=== PATIENT | female | born 1960 | race Caucasian/White ===

== ENCOUNTER → 2016-02-29 | Outpatient (CLI) | payer OTHER ==
[~2016-02-29] MED LIST: ALPR1TAB3 PO; CLB/200 PO; CMD/25 PO; CMD5 PO; DLC5 PO; DRGTP12 TOP; ENOX80IN SQ; FEXO1TAB45 PO; FLUC200T PO; FLUT0.15 NAE; FNTTP25 TOP; LVNIS60 SQ; MOMLX PO; MRLP17X PO; ONDA8TAB7 PO; PANT40TA PO; POLY335019 PO; PROC1TAB5 PO; QUET1TAB91 PO; SNK PO; TRAM-10 PO; VENL75CA PO; WARF5TAB7 PO; ZOLP10TA PO
--- NOTE | 2016-02-29 10:48 | DIAGNOSTIC IMAGING REPORT ---
CT OF THE CHEST WITH IV CONTRAST CLINICAL HISTORY: Colon carcinoma with hepatic metastasis COMPARISON STUDY: Outside CT scan the chest abdomen pelvis dated 12/18/2015 TECHNIQUE: Following the IV administration of 94 mL of Optiray-320, CT of the thorax was performed from the thoracic inlet to the lung bases. Images are reviewed in the axial, sagittal, and coronal planes. IV contrast was administered without complication. CT DOSE: 528.23 mGy.cm FINDINGS: There is a right internal jugular A-Port catheter. Thyroid: Imaged portions of the thyroid gland are normal in appearance. Thoracic aorta: The thoracic aorta is normal in course and caliber, noting standard 3-vessel arch anatomy. No aneurysm or dissection is seen. Pulmonary vasculature: There is a right lower lobe pulmonary filling defect, consistent with a small embolus. HEART: The heart is normal in size and configuration, without pericardial effusion. Lungs and pleural spaces: There are no pleural effusions. There is no focal pulmonary consolidation. There is scattered tiny right upper lobe pulmonary nodules, the largest of which measures 3 mm. These remain similar to the preceding study.. Mediastinum: There is no mediastinal lymphadenopathy. Caren: Clear. Axilla: There are no pathologically enlarged axillary lymph nodes. Upper abdomen: There is ascites. There is peritoneal thickening. There are multiple intrahepatic masses suspicious for metastasis. There is evidence for capsular retraction of the liver. The enhancing portion of the spleen is quite lobulated and appears be liquefaction three quarters of the splenic volume. This may be secondary to a prior splenic infarction. Please see separate abdominal pelvic dictation for further discussion. Skeletal structures: There are no lytic or blastic osseous lesions. IMPRESSION: 1. Incidental small right lower lobe pulmonary artery filling defect, consistent with a pulmonary embolism. This finding will be called to the referring clinician 2. No evidence of pathologic adenopathy within the chest abdomen or pelvis 3. Nonspecific subcentimeter right upper lobe pulmonary nodules, the largest of which measures 3 mm. 4. Ascites 5. Suspected treated intrahepatic metastasis with capsular retraction of the liver 6. Unusual appearance of the spleen raising the possibility of right or infarction with liquefaction necrosis. Electronically signed by: Darwin Rivera M.D. 02/29/2016 10:46 AM Dictated Date/Time: 02/29/2016 10:36 AM
--- NOTE | 2016-02-29 10:55 | DIAGNOSTIC IMAGING REPORT ---
CT SCAN OF THE ABDOMEN AND PELVIS WITH IV CONTRAST CLINICAL HISTORY: Colon cancer. COMPARISON STUDY: Abdominal CT dated 12/23/2014 and 12/18/2015. TECHNIQUE: Following the IV administration of 94 cc of Optiray 320, CT scan of the abdomen and pelvis is performed from the lung bases to the proximal femora. Images are reviewed in the axial, sagittal, and coronal planes. IV contrast was administered without complication. Automated dose control exposure was utilized. FINDINGS: Lung bases: The heart is normal in size and without pericardial effusion. The lung bases are clear. Liver: The contrast-enhanced liver is normal in size. There is marked lobulation of the hepatic surface contour with geographic foci of low attenuation. This is nearly water density and is consistent with treated metastatic disease when correlated with prior examinations. There is no intrahepatic biliary ductal dilatation. The portable veins are patent. The right and left hepatic veins are markedly attenuated. Gallbladder: Surgically absent noting clips in the gallbladder fossa. Spleen: The spleen is abnormal in appearance. There is extensive geographic splenic necrosis. The splenic capsule appears intact. 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 The splenic vein is patent. The splenic artery is patent proximally but appears markedly attenuated. Pancreas: Unremarkable. Adrenal glands: Unremarkable. Kidneys: The contrast enhanced kidneys are normal in size and without hydronephrosis. The kidneys enhance symmetrically. Abdominal vasculature: The abdominal aorta is normal in course and caliber noting mild atherosclerotic calcification. Bowel: There is no bowel obstruction. Moderate colonic fecal retention is observed. The appendix is well-visualized and normal. Peritoneum: A peritoneal catheter is coiled in the right lower quadrant from a right flank approach. There is a small to moderate volume of abdominopelvic ascites. There is diffuse peritoneal thickening with mild enhancement. No organized fluid collection is identified. Numerous small foci of intraperitoneal free air are nonspecific and likely related to an indwelling catheter. Lymphadenopathy: None. Pelvic viscera: The bladder is decompressed and grossly unremarkable. The uterus and adnexa are normal as visualized. Skeletal structures: The skeletal structures are osteopenic. Mild lumbosacral spondylosis is observed. No lytic or blastic lesions are seen. Findings suggest avascular process of the proximal femora. IMPRESSION: 1. Findings are consistent with a large interval splenic infarct as compared to the 12/18/2015 examination. This involves greater than 75% of the splenic parenchyma which appears necrotic. Superimposed infection would be impossible to exclude. 2. Unchanged appearance of the liver consistent with treated metastatic disease. 3. An intraperitoneal catheter is now present in the right lower quadrant and there is a small to moderate volume of abdominopelvic ascites. The volume of fluid has increased from 12/18/2015. There is associated peritoneal thickening and enhancement. Clinical correlation will be required. Peritoneal metastatic disease is not excluded. Peritonitis could also have this appearance in the appropriate clinical setting. 4. There are numerous small foci of intraperitoneal free air, which are nonspecific and likely related to the presence of an indwelling catheter. 5. Additional changes as above. Electronically signed by: Kennedy Smith M.D. 02/29/2016 10:53 AM Dictated Date/Time: 02/29/2016 10:28 AM
== END | disposition home or self-care (01) ==
LOC: C.CTS 07:54
PROVIDERS: ATTEND Nurse Practitioner Family
DX: C18.3 Malignant neoplasm of hepatic flexure (principal)

== ENCOUNTER → 2016-03-01 | Outpatient (CLI) | payer OTHER ==
--- NOTE | 2016-03-04 07:43 | CODING QUERY NO DIAGNOSIS ---
Valid Physician Order Needed A valid physician order must be submitted in order to properly bill for the service(s) provided, including date of service(s), valid diagnosis, and physician signature. If these tests are done on a recurring basis the original physican order must be submitted in order to code and bill for the service(s) provided. Please fax us the original, signed physician order so that we may expedite billing to [phone] DOS 03/01/16 * WOUND CULTURE ORDERED BY DR. MARCANO Thank you Day [facility] Information Management
--- NOTE | 2016-03-28 14:02 | CODING QUERY NO DIAGNOSIS ---
TREATMENT RENDERED WITHOUT A DIAGNOSIS To promote full compliance with coding requirements relating to patient care, physician participation is requested in all cases of comfort station supervisor uncertainty. Please assist us with providing a diagnosis/symptom for the test(s) below: A diagnosis/symptom was not documented on your Order. A valid diagnosis/symptom is required to bill all insurances. Please remember that we are unable to code a diagnosis of rule out, probable, possible, questionable, or suspected. Tests that require a diagnosis: DOS: 03/01/16 * CULTURE & SENSITIVITY ABDOMINAL DRAINAGE DIAGNOSIS: Provider Signature: Date: [facility] you [facility] Once completed, please kindly fax back to [phone] For questions please call [phone]
== END | disposition home or self-care (01) ==
LOC: C.LABSPEC 12:04
PROVIDERS: ATTEND Internal Medicine Hematology & Oncology
DX: C18.9 Malignant neoplasm of colon, unspecified (principal); K65.9 Peritonitis, unspecified

== ENCOUNTER → 2016-03-15 | Outpatient (CLI) | payer OTHER ==
[~2016-03-15] MED LIST changes: -ALPR1TAB3 PO; -CLB/200 PO; -POLY335019 PO; -ZOLP10TA PO
--- NOTE | 2016-03-15 16:39 | DIAGNOSTIC IMAGING REPORT ---
ABDOMEN 2VIEW W/PA CHEST RTN CLINICAL HISTORY: COLON CA colon carcinoma COMPARISON STUDY: 08/15/2015 FINDINGS: No acute process the chest. Nonobstructive bowel pattern. Probable distended bladder. IMPRESSION: Nonobstructive bowel pattern. Distended bladder. No acute process of the chest. Electronically signed by: Isiah Lemos M.D. 03/15/2016 4:38 PM Dictated Date/Time: 03/15/2016 4:36 PM
== END | disposition home or self-care (01) ==
LOC: C.RAD 16:08
PROVIDERS: ATTEND Internal Medicine Hematology & Oncology
DX: C18.3 Malignant neoplasm of hepatic flexure (principal)

== ENCOUNTER 2016-03-17 15:49 | Inpatient (IN) | payer OTHER ==
[~2016-03-17] VITALS: Ht 165.1 cm; Wt 61.8 kg
[~2016-03-17 15:49] MED LIST changes: -CMD/25 PO; -CMD5 PO; -DLC5 PO; -ENOX80IN SQ; -FLUC200T PO; -FNTTP25 TOP; -LVNIS60 SQ; -MOMLX PO; -MRLP17X PO; -SNK PO; -WARF5TAB7 PO
[2016-03-17 16:30] VITALS: BP 109/65; PULSE 110; TEMP 36.5; Ht 165.1 cm; Wt 61.8 kg
[2016-03-17] MEDS ORDERED: MAGNESIUM HYDROXIDE SUSP 30 ML UDC PO PRN (17:00)
[2016-03-17] MEDS ORDERED: POLYETHYLENE (MIRALAX) 17 GM PACK PO PRN (17:00)
[2016-03-17] MEDS ORDERED: ACETAMINOPHEN 325 MG TAB PO PRN (17:00)
[2016-03-17] MEDS ORDERED: ALUMINUM/MAGNESIUM/SIMETH (MAALOX MAX) 30 ML UDC PO PRN (17:00)
[2016-03-17] MEDS ORDERED: ONDANSETRON INJ 2 MG/ML 2 ML VIAL IV PRN (17:00)
[2016-03-17] MEDS ORDERED: PROCHLORPERAZINE INJ 5 MG in SYRINGE 4 ML IV PRN (17:30)
[2016-03-17] MEDS ORDERED: CMD5 PO (17:31)
[2016-03-17] MEDS ORDERED: CMD/25 PO (17:32)
--- NOTE | 2016-03-17 18:00 | Oncology Consultation ---
Oncology/Heme Consultation Date of Consultation: Mar 17, 2016. Attending Physician: Zach Stuart MD Reason for Consultation: Probable peritonitis History of Present Illness Ms. Glover is a 55-year-old female with a history of metastatic colon carcinoma involving the liver. She was diagnosed with this disease in November 2014. An abdominal ultrasound at that time showed multiple liver lesions and enlarged periportal lymph nodes. In November [address] scan of the chest abdomen pelvis which showed patent megaly with multiple enhancing liver lesions in both the right and left liver lobes. Mesenteric lymph nodes were also seen. An FNA in November 2014 of one of the liver lesions showed malignant adenocarcinoma favoring colon primary on November 26, 2014 a colonoscopy revealed a fungating nonobstructing mass at the hepatic flexure with again a biopsy revealing invasive adenocarcinoma. Her care has been between this clinic as well as at [facility]. She has received many courses of FOLFIRI as well as FOLFOX and Avastin. This tumor is K-Serjio negative. She has had several procedures done on the liver again at [facility] using SIR-Spheres. More recently and in addition she also had embolization of the spleen due to cytopenias. Following that she would develop diffuse abdominal pain and progressive ascites that required percutaneous drainage. On January she had an intraperitoneal catheter placement. This has continued to drain ascitic fluid and she reviews with us that it tends to also leak around the catheter quite a bit. Recently her abdominal pain has increased in severity , has been rather diffuse, she denies fever. On exam she had rebound generalized abdominal tenderness consistent with an underlying peritonitis. She is being admitted for evaluation and probable removal of the peritoneal catheter. Along with the administration of antibiotics. I should note that the primary hepatic flexure tumor remains in place recent abdominal films do not demonstrate evidence of obstruction. Past Medical/Surgical History Medical Problems: (1) Metastatic colon cancer in female Status: Acute (2) Polysubstance abuse Status: Acute Family History Patient reports no known family medical history. Social History Smoking Status: Former Smoker Marital Status: Occupation Status: employed Allergies Coded Allergies: Hydromorphone (Unverified Allergy, Unknown, DILAUDAD AND OTHER OPOIDS- TROUBLE FOCISING, 11/26/15) FENTANYL [place] Home Medications Scheduled Fentanyl (Fentanyl), 18 MCG TOP CQ72HR Venlafaxine Hcl (Effexor Xr), 75 MG PO QAM Warfarin Sod (Coumadin), 5 MG PO UD Warfarin Sod (Coumadin), 1 TAB PO UD Scheduled PRN Ondansetron Tab (Zofran), 8 MG PO for Nausea Prochlorperazine Maleate (Compazine), 1 TAB PO for Nausea Tramadol (Ultram), 1 TAB PO for Pain Miscellaneous Medications Quetiapine Fumarate (Seroquel), Unknown Dose PO Current Inpatient Medications Current Inpatient Medications Medications (Trade) Dose Ordered Sig/Letty Route Start Time Stop Time Status Last Admin Dose Admin Acetaminophen (Tylenol Tab) 650 mg Q4H PRN PO 03/17/16 17:00 04/16/16 16:59 Al Hydrox/Mg Hydrox/Simethicone (Maalox Max Susp) 15 ml Q4H PRN PO 03/17/16 17:00 04/16/16 16:59 Magnesium Hydroxide (Milk Of Magnesia Susp) 30 ml Q12H PRN PO 03/17/16 17:00 04/16/16 16:59 Ondansetron HCl (Zofran Inj) 4 mg Q6H PRN IV 03/17/16 17:00 04/16/16 16:59 Polyethylene (Miralax Powder Packet) 17 gm DAILY PRN PO 03/17/16 17:00 04/16/16 16:59 Fentanyl (Duragesic Patch) 18 mcg Q3D@0900 TD 03/20/16 09:00 04/03/16 08:59 Tramadol HCl (Ultram Tab) 50 mg Q6H PRN PO 03/17/16 17:30 04/16/16 17:29 Venlafaxine HCl (effeXOR EXTENDED REL CAP) 75 mg QAM PO 03/18/16 09:00 04/17/16 08:59 Quetiapine Fumarate (seroQUEL TAB) 25 mg HS PO 03/17/16 21:00 04/16/16 20:59 Ondansetron HCl 4 mg 4 mg Q4H PRN IV 03/17/16 17:30 04/16/16 17:29 Prochlorperazine Edisylate/Syringe (Compazine Inj/ Syringe) 5 ml @ 5 mls/min Q4 PRN IV 03/17/16 17:30 04/16/16 17:29 Miscellaneous (Fentanyl Patch Remove & Waste) 1 ea Q3D@0900 N/A 03/20/16 09:00 04/19/16 08:59 Miscellaneous Information (Check Fentanyl Patch Placement) 1 ea QS N/A 03/18/16 00:00 04/17/16 00:00 Review of Systems Constitutional: Negative for weight loss, night sweats, or fever Eyes: Negative for event change of vision ENT: Negative for epistaxis, nasal discharge, sore throat, or deafness Cardiovascular: Negative for chest pain, palpitations, dizziness, diaphoresis Respiratory: Negative for new shortness of breath,hemoptysis, or purulent cough Gastrointestinal: Positive for constipation and again diffuse abdominal pain Integumentary (skin): Negative for rash or jaundice discoloration Genitourinary: Negative for urinary frequency, hematuria, or dysuria Neurological: Negative for weakness, seizure activity, headache, or dizziness Lymphatic/Hematologic: Negative for petechiae, bleeding or new adenopathy Musculoskeletal: Negative for new joint or back pain Allergic/Immunologic: Negative for unusual rash or pruritis. Physical Exam Date Time Temp Pulse Resp B/P Pulse Ox O2 Delivery O2 Flow Rate FiO2 03/17/16 16:30 36.5 110 16 109/65 Room Air Constitutional: vitals are stable. Eyes: Eyes are STANISLAV EOMI without conjuctival erythema or icterus. ENT: External examination was negative for masses. Neck: Negative for masses or palpable thyromegaly Respiratory: Lung sounds were generally clear bilaterally Cardiovascular: Heart was RRR without significant murmur, gallops or rubs Gastrointestinal: No palpable hepatic or splenomegaly. The abdomen difficult to examine due to generalized tenderness with any palpation. Bowel sounds were normal to slightly decreased Lymphatic system: there was no palpable peripheral lymphadenopathy Musculoskeletal System: The musculoskeletal system seemed concordant with age. Skin: The skin was negative for jaundice. Neurologic exam: The exam was negative for any focal findings. Deep tendon reflexes were equal and symmetrical. Psychiatric exam: Was essentially negative with normal mood and effect. Breast exam: Not done Extremities: Negative for edema or erythema Assessment & Plan Metastatic colon carcinoma with liver involvement. She presents with worsening diffuse abdominal pain with a intraperitoneal catheter that has been malfunctioning. Abdominal pain is rather diffuse with rebound tenderness consistent with a peritonitis. She also has a mild leukocytosis (difficult to assess in that she has had a recent splenic embolization). I suspect though that there is an underlying catheter related peritonitis. I believe the catheter should be removed. The ascitic fluid should be sampled and cultured and empiric antibiotics should be administered. Reviewed earlier with .
[2016-03-17] MEDS ORDERED: PIPERACILL/TAZOBAC IV 3.375 GM in DEXTROSE 5% 100ML 100 ML IV ONE (18:01)
[2016-03-17] MEDS ORDERED: PIPERACILL/TAZOBAC CONSULT ACTIVE PRN (18:15)
--- NOTE | 2016-03-17 18:16 | History and Physical ---
History & Physical Date & Time of Service: Mar 17, 2016 at 17:35 Chief Complaint: Peritonitis, Colon Cancer Primary Care Physician: Sean Vaughn D.O.Int.Med. History of Present Illness Source: patient This is a pleasant 55 yo F with PMHx metastatic adenocarcinoma of the colon with metastasis to the liver on coumadin, recent embolization of the spleen due to cytopenias, osteopenia, laryngeal reflux, chronic sinusitis, anxiety, and hx of tobacco use. Pt had a peritoneal catheter placed on Jan [address] [facility] in [place] for her to be able to drain ascitic fluid twice daily at home. At first the catheter worked well and she was draining adequate amounts off. On 02/22/16 the pt was seen here by Dr. Stallworth for decreased draining. She underwent procedure to unclog the peritoneal catheter where a guidewire was passed through the catheter and ascitic fluid was able to be drained. The patient most recently has drained off ~ 300 mL 2-3 days ago. Prior to this she has randomly been able to drain variable amounts of fluid off. Now the drainage is coming from surrounding the catheter. Pt admits today has had significantly worse abdominal pain and cramping. She denies having a bowel movement x 8days. Pt took 4 tablespoons of lactulose last evening without BM, prior to 2 weeks ago she was using mirilax which had "always worked " however has not since then. Her appetite has been poor, where she normally eats two small meals daily. She denies fevers, chills or sweats. Today pt was seen in the office for routine follow up by Dr. Youngblood who recommended she be admitted for possible peritonitis. Pt was directly admitted from the heme/onc clinic. WBC=11.12, PLT =307,INR is 1.5, K+=3.1, AG=12, AST=48, ALk phos elevated at 266. Past Medical/Surgical History Medical Problems: (1) Colon cancer Status: Chronic Metastasis to liver Osteopenia Laryngeal Reflux Chronic sinusitis Anxiety Depression Hx tobacco use Family History Patient reports no known family medical history. Social History Smoking Status: Former Smoker Smokeless Tobacco Use: No Drug Use: none Marital Status: Housing status: lives alone Occupational Status: employed Allergies Coded Allergies: Hydromorphone (Unverified Allergy, Unknown, DILAUDAD AND OTHER OPOIDS- TROUBLE FOCISING, 11/26/15) FENTANYL [place] Home Medications Scheduled Fentanyl (Fentanyl), 18 MCG TOP CQ72HR Venlafaxine Hcl (Effexor Xr), 75 MG PO QAM Warfarin Sod (Coumadin), 5 MG PO UD Warfarin Sod (Coumadin), 1 TAB PO UD Scheduled PRN Ondansetron Tab (Zofran), 8 MG PO for Nausea Prochlorperazine Maleate (Compazine), 1 TAB PO for Nausea Tramadol (Ultram), 1 TAB PO for Pain Miscellaneous Medications Quetiapine Fumarate (Seroquel), Unknown Dose PO Review of Systems 10 point ROS was reviewed and negative, otherwise noted per HPI. Physical Exam Vital Signs Date Time Temp Pulse Resp B/P Pulse Ox O2 Delivery O2 Flow Rate FiO2 03/17/16 16:30 36.5 110 16 109/65 Room Air General Appearance: WD/WN, no apparent distress, + thin Head: normocephalic, + pertinent finding (ecchymosis of the left preauricular region) Eyes: PERRL, EOMI, + pertinent finding ENT: hearing grossly normal, pharynx normal, + pertinent finding (MMM) Neck: supple, no JVD Respiratory/Chest: chest non-tender, lungs clear, normal breath sounds, no respiratory distress, no accessory muscle use Cardiovascular: regular rate, rhythm, no JVD, normal peripheral pulses Abdomen/GI: + pertinent finding (+ distended, large, hypoactive bowel sounds throughout, + R mid abdominal catheter in place, bandage surrounding it is C/D/ I. + Tenderness with minimal palpation. + fluid wave) Back: normal inspection Extremities/Musculoskelatal: no calf tenderness, no pedal edema Neurologic/Psych: alert, normal mood/affect, oriented x 3 Skin: normal color, warm/dry Diagnostics Diagnostic Radiology KUB reviewed from 03/15/16 IMPRESSION: Nonobstructive bowel pattern. Distended bladder. No acute process of the chest. Electronically signed by: Isiah Lemos M.D. 03/15/2016 4:38 PM Dictated Date/Time: 03/15/2016 4:36 PM The status of this report is Signed. Impression Assessment and Plan This is a pleasant 55 yo F with PMHx metastatic adenocarcinoma of the colon with metastasis to the liver on coumadin, recent embolization of the spleen due to cytopenias, osteopenia, laryngeal reflux, chronic sinusitis, anxiety, and hx of tobacco use. Metastatic colon cx to liver, r/o pertitonitis s/p embolization of the spleen - Admit to tele - Will start the patient on zosyn for possible peritonitis - WBC=11.12 where normally she is around 2-3. Afebrile. + tachycardic on admission but not during my assessment. BP is stable - Ascitic fluid to be cultured and sent for sampling - Consulted general surgery for catheter malfunction, ? removal necessary - Will HOLD coumadin in light of need for procedure, restart as soon as possible - Slow maintenance fluids, NSS at 50mL/hr for poor appetite, nausea, in anticipation of procedure and NPO. Can dc if develops any signs of fluid retention. - Zofran and compazine prn - Analgesia: continue fentanyl patch 18 mcg daily ( pt cuts a patch in half), tramadol prn. Do NOT use narcotics as pt develops confusion, disorientation and verbal aggression. Pt notes toradol has worked well in the past - Chemo tx hs includes many courses of FOLFIRI as well as FOLFOX and Avastin Osteopenia - Not currently taking any supplementation, will need day team to discuss with the patient Generalized anxiety disorder Depression - Cont effexor 75 mg daily - Cont seroquel 25 mg QHS for sleep DVT ppx: SCDs, oob CODE STATUS: DNR Level of Care Telemetry Advanced Directives Existing Living Will: No Existing Power of Digital Media Specialist: No Resuscitation Status DO NOT RESUSCITATE VTE Prophylaxis VTE Risk Assessment Done? Y/N: Yes Risk Level: Low Given or contraindicated: SCD's Reviewed: Pt Seen/Exam by Me, RN Notes, HO Notes, Prior Records, Labs, RAD History I agree with PA H&P with some modifications as below This is a pleasant 55 yo F with PMHx metastatic adenocarcinoma of the colon with metastasis to the liver on coumadin, recent embolization of the spleen due to cytopenias, osteopenia, laryngeal reflux, chronic sinusitis, anxiety, and hx of tobacco use. Constitutional: denies: chills Respiratory: negative: cough Cardiovascular: denies chest pain Gastrointestinal/Abdominal: positive: abdominal pain Genitourinary: negative discharge Musculoskeletal: negative: back pain Neurological/Psych: negative: anxiety Hematologic/Lymphatic: negative: anemia General Appearance: WD/WN, no apparent distress Eye Exam: bilateral eye normal inspection Ears, Nose, Throat: hearing grossly normal, pharynx normal Neck: non-tender, supple Respiratory: chest non-tender, normal breath sounds Cardiovascular: normal peripheral pulses, no edema Gastrointestinal: normal bowel sounds, tenderness (diffuse) Extremities: normal inspection Neurologic/Psychiatric: no motor/sensory deficits Skin Characteristics: normal color Assessment/Plan This is a pleasant 55 yo F with PMHx metastatic adenocarcinoma of the colon with metastasis to the liver on coumadin, recent embolization of the spleen due to cytopenias, osteopenia, laryngeal reflux, chronic sinusitis, anxiety, and hx of tobacco use. Metastatic colon cx to liver, r/o peritonitis s/p embolization of the spleen tele start the patient on zosyn for possible peritonitis Afebrile. + tachycardic on admission BP is stable Ascitic fluid to be cultured and sent for sampling Consulted general surgery for catheter malfunction, surgery wants to try antibiotics first and then remove if not improves Will HOLD coumadin in light of need for procedure, restart as soon as possible Slow maintenance fluids, NSS at 50mL/hr for poor appetite, nausea, in anticipation of procedure and NPO. Can dc if develops any signs of fluid retention. IV Zofran and compazine prn cont Analgesia, continue fentanyl patch 18 mcg daily ( pt cuts a patch in half) , tramadol prn. Do NOT use narcotics as pt develops confusion, disorientation and verbal aggression. Pt notes toradol has worked well in the past Chemo tx hs includes many courses of FOLFIRI as well as FOLFOX and Avastin Osteopenia Not currently taking any supplementation, will need day team to discuss with the patient Generalized anxiety disorder Depression Cont effexor 75 mg daily Cont seroquel 25 mg QHS for sleep DVT ppx: SCDs, oob CODE STATUS: DNR case discussed with EDUARDO Dupont time spent 45 min
--- NOTE | 2016-03-17 19:03 | History and Physical ---
History & Physical Date & Time of Service: Mar 17, 2016 at 18:56 Chief Complaint: Peritonitis, Colon Cancer Primary Care Physician: Sean Vaughn D.O.Int.Med. History of Present Illness Source: patient This is a pleasant 55 yo F with PMHx metastatic adenocarcinoma of the colon with metastasis to the liver on coumadin, recent embolization of the spleen due to cytopenias, osteopenia, laryngeal reflux, chronic sinusitis, anxiety, and hx of tobacco use. Pt had a peritoneal catheter placed on Jan 23 at [facility] in [place] for her to be able to drain ascitic fluid twice daily at home. At first the catheter worked well and she was draining adequate amounts off. On 02/22/16 the pt was seen here by Dr. Stallworth for decreased draining. She underwent procedure to unclog the peritoneal catheter where a guidewire was passed through the catheter and ascitic fluid was able to be drained. The patient most recently has drained off ~ 300 mL 2-3 days ago. Prior to this she has randomly been able to drain variable amounts of fluid off. Now the drainage is coming from surrounding the catheter. Pt admits today has had significantly worse abdominal pain and cramping. She denies having a bowel movement x 8days. Pt took 4 tablespoons of lactulose last evening without BM, prior to 2 weeks ago she was using mirilax which had "always worked " however has not since then. Her appetite has been poor, where she normally eats two small meals daily. She denies fevers, chills or sweats. Today pt was seen in the office for routine follow up by Dr. Youngblood who recommended she be admitted for possible peritonitis. Pt was directly admitted from the heme/onc clinic. WBC=11.12, PLT =307,INR is 1.5, K+=3.1, AG=12, AST=48, ALk phos elevated at 266. Past Medical/Surgical History Medical Problems: (1) Colon cancer Status: Chronic Family History Patient reports no known family medical history. Social History Smoking Status: Former Smoker Smokeless Tobacco Use: No Alcohol Use: none Drug Use: none Marital Status: Housing status: lives alone Occupational Status: employed Allergies Coded Allergies: Hydromorphone (Unverified Allergy, Unknown, DILAUDAD AND OTHER OPOIDS- TROUBLE FOCISING, 11/26/15) FENTANYL OK Home Medications Scheduled Fentanyl (Fentanyl), 18 MCG TOP [id number] Venlafaxine Hcl (Effexor Xr), 75 MG PO QAM Warfarin Sod (Coumadin), 5 MG PO UD Warfarin Sod (Coumadin), 1 TAB PO UD Scheduled PRN Ondansetron Tab (Zofran), 8 MG PO for Nausea Prochlorperazine Maleate (Compazine), 1 TAB PO for Nausea Tramadol (Ultram), 1 TAB PO for Pain Miscellaneous Medications Quetiapine Fumarate (Seroquel), Unknown Dose PO Review of Systems Constitutional: No chills, No fatigue, No fever, No problem reported, No sweats , No weakness, No weight loss Eyes: No diplopia, No discharge, No eye pain, No problem reported, No redness, No worsening of vision ENT: No dental problems, No hearing loss, No nasal symptoms, No problem reported, No sore throat, No tinnitus, No trouble swallowing, No unusual epistaxis Respiratory: No cough, No dyspnea at rest, No dyspnea on exertion, No hemoptysis, No problem reported, No shortness of breath, No sputum, No wheezing Cardiovascular: No PND, No chest pain, No claudication, No edema, No orthopnea , No palpitations, No problem reported Abdomen: + nausea, + pain Neurologic: No balance problems, No memory loss, No numbness/tingling, No paralysis, No problem reported, No vertigo, No weakness Psychiatric: No anhedonism, No anxiety, No depression symptoms, No insomnia, No problem reported, No substance abuse Endocrine: No excessive thirst, No excessive urination, No fatigue, No problem reported Physical Exam Vital Signs Date Time Temp Pulse Resp B/P Pulse Ox O2 Delivery O2 Flow Rate FiO2 03/17/16 16:30 36.5 110 16 109/65 Room Air General Appearance: WD/WN, no apparent distress, + thin Head: normocephalic, + pertinent finding (ecchymosis of the left preauricular region) Eyes: PERRL, EOMI, + pertinent finding ENT: hearing grossly normal, pharynx normal, + pertinent finding (MMM) Neck: supple, no JVD Respiratory/Chest: chest non-tender, lungs clear, normal breath sounds, no respiratory distress, no accessory muscle use Cardiovascular: regular rate, rhythm, no JVD, normal peripheral pulses Abdomen/GI: + tenderness, + distended, + pertinent finding (+ distended, large , hypoactive bowel sounds throughout, + R mid abdominal catheter in place, bandage surrounding it is C/D/I. + Tenderness with minimal palpation. + fluid wave) Back: normal inspection Extremities/Musculoskelatal: no calf tenderness, no pedal edema Neurologic/Psych: alert, normal mood/affect, oriented x 3 Skin: normal color, warm/dry Diagnostics Laboratory Results Results Past 24 Hours Test 03/17/16 18:18 Range/Units Impression Assessment and Plan IMP: This is a pleasant 55 yo F with PMHx metastatic adenocarcinoma of the colon with metastasis to the liver on coumadin, recent embolization of the spleen due to cytopenias, osteopenia, laryngeal reflux, chronic sinusitis, anxiety, and hx of tobacco use. Metastatic colon cx to liver, r/o peritonitis s/p embolization of the spleen plan: i agree with medical treatment first, iv antibiotic, drainage fluid then send culture, repeat labs in AM, keep the catheter in now, Will F/U, Advanced Directives Existing Living Will: No Existing Power of Purchasing/Receiving: No VTE Prophylaxis VTE Risk Assessment Done? Y/N: Yes Risk Level: Low Given or contraindicated: SCD's
[2016-03-17] MEDS: SODIUM CHLORIDE 0.9% 1000ML 1,000 ML IV SCH (19:07)
[2016-03-17 20:00] VITALS: O2SAT 99
--- NOTE | 2016-03-17 20:24 | DIAGNOSTIC IMAGING REPORT ---
CT OF THE ABDOMEN AND PELVIS WITHOUT CONTRAST CLINICAL HISTORY: Peritonitis. Metastatic colon carcinoma. COMPARISON STUDY: CT of the abdomen and pelvis February 29, 2016. TECHNIQUE: Axial images of the abdomen and pelvis were obtained without IV contrast. Images were reviewed in the axial, sagittal, and coronal planes. FINDINGS: An [id number] is partially imaged. Evaluation of the abdomen and pelvis is suboptimal given the lack of IV and oral contrast. A right sided peritoneal drainage catheter is in place. The catheter is within the peritoneal cavity and the catheter traverses peritoneal fluid although the tip is not surrounded by fluid. The tip is adjacent to fat and bowel loops. A large amount of ascites has increased since exam of February 29, 2016. Heterogeneity of the liver is noted. Numerous parenchymal calcifications with capsular attraction suggest treated metastases. Splenomegaly with with peripheral hypodensity within the spleen suggests splenic infarcts. There is no hydronephrosis. There is no evidence for a bowel obstruction. No pneumatosis, or portal venous gas is present. A small amount of pneumoperitoneum is noted. No suspicious osseous lesions are present. The liver lesions are suboptimally assessed on this unenhanced examination. IMPRESSION: 1. Large amount of ascites, increased since CT of February 29, 2016. 2. Right sided peritoneal catheter in place. The catheter is likely within the peritoneal cavity and the catheter traverses peritoneal fluid although the tip is not surrounded by fluid. The tip is adjacent to fat and bowel. This could be correlated with function of the peritoneal drain. 3. Redemonstration of innumerable treated hepatic metastases which are suboptimally assessed on this exam. 4. Heterogeneity of the spleen which suggests extensive splenic infarction, similar to prior exam. 4. Trace pneumoperitoneum. While nonspecific, this may be related to an indwelling peritoneal catheter. Electronically signed by: Lloyd Gilbert M.D. 03/17/2016 8:23 PM Dictated Date/Time: 03/17/2016 8:09 PM
[2016-03-17 20:34] VITALS: BP 107/64; PULSE 103; TEMP 37.1; O2SAT 98
[2016-03-17 20:47] LABS: CREATININE 0.57 mg/dl (0.60-1.20)
[2016-03-17] MEDS: TRAMADOL HCL 50 MG TAB PO PRN (21:13)
[2016-03-17] MEDS ORDERED: PANTOprazole INJ 40 MG in SYRINGE 0 ML IV STA (21:41)
[2016-03-17] MEDS: KETOROLAC TROMETHAMINE 15 MG/ML VIAL IV PRN (21:51)
[2016-03-17] MEDS: QUETIAPINE FUMARATE 25 MG TAB PO SCH (21:51)
[2016-03-17 23:47] VITALS: BP 98/54; PULSE 88; TEMP 36.4; O2SAT 95
[2016-03-17] MEDS: PIPERACILL/TAZOBAC IV 3.375 GM in DEXTROSE 5% 100ML IV SCH (23:57)
[2016-03-18] VITALS (9 sets, daily range): BP systolic 87–120; BP diastolic 46–78; PULSE 80–95; TEMP 36.4–37; O2SAT 95–99
[2016-03-18] MEDS: CHECK FENTANYL PATCH PLACEMENT SCH ×4 (00:01→23:19)
[2016-03-18 00:14] LABS: PERIT FL WBC 463 /uL (0-300); PERITONEAL FLUID RBC < 3000 /uL
[2016-03-18] MEDS: KETOROLAC TROMETHAMINE 15 MG/ML VIAL IV PRN ×4 (04:00→19:15)
[2016-03-18 07:13] LABS: BASO % 0.1 %; BASO ABS # 0.01 K/uL (0-0.2); COMPLETE YES; EOS % 1.3 %; HEMATOCRIT 35.2 % (37-47); IG% 0.2 %; LYMPH % 5.4 %; LYMPH ABS # 0.49 K/uL (1.2-3.4); MEAN CELL VOLUME 87.3 fL (80-100); MEAN CORPUSCULAR HEMOGLOBIN 28.5 pg (25-34); MEAN CORPUSCULAR HGB CONC 32.7 g/dl (32-36); MONO % 10.1 %; NEUT % 82.9 %; PLATELET COUNT 249 K/uL (130-400); RED BLOOD COUNT 4.03 M/uL (4.2-5.4); WHITE BLOOD COUNT 9.15 K/uL (4.8-10.8)
[2016-03-18 07:55] LABS: BUN/CREATININE RATIO 13.3 (10-20); CALCIUM 7.6 mg/dl (8.5-10.1); CREATININE 0.49 mg/dl (0.60-1.20); POTASSIUM 2.9 mmol/L (3.5-5.1)
[2016-03-18] MEDS ORDERED: LIDOCAINE HCL 1% 20 ML VIAL ONE (08:12)
--- NOTE | 2016-03-18 08:45 | Surgery Progress Note ---
Surgery Progress Note Date of Service Mar 18, 2016. Subjective + feeling well pt is doing better, pt denies fever, some leakage around the peritoneal catheter , no redness around the catheter. Objective Vital Signs: Date Time Temp Pulse Resp B/P Pulse Ox O2 Delivery O2 Flow Rate FiO2 03/18/16 08:06 37.0 80 17 94/48 96 Room Air 03/18/16 04:28 93/49 03/18/16 04:00 95 Room Air 03/18/16 03:56 36.4 90 18 87/46 95 Room Air 03/18/16 01:41 95 Room Air 03/17/16 23:47 36.4 88 18 98/54 95 Room Air 03/17/16 20:34 37.1 103 18 107/64 98 Room Air 03/17/16 20:00 99 Room Air 03/17/16 16:30 36.5 110 16 109/65 Room Air General Appearance: WD/WN Head: normocephalic Neck: supple Respiratory/Chest: chest non-tender, lungs clear Cardiovascular: regular rate, rhythm, no edema, no JVD Abdomen: normal bowel sounds, non tender, + distended, + tenderness Extremities: normal range of motion, non-tender, normal inspection Laboratory Results: Results Past 24 Hours Test 03/17/16 19:40 03/17/16 20:18 03/18/16 07:02 Range/Units Peritoneal Fluid Color PALE YELLOW Peritoneal Fluid Appearance HAZY Peritoneal Fluid WBC 463 0-300 /uL Peritoneal Fluid RBC < 3000 /uL Peritoneal Fld Mononuclear WBCs (%) 50.4 % Peritoneal Fld Polynuclear WBCs (%) 49.6 % Peritoneal Fluid Total Protein 1.4 g/dl Peritoneal Fluid Albumin < 0.6 g/dl Peritoneal Fluid Glucose 105 mg/dl Peritoneal Fluid Lipase 106 U/L Creatinine 0.57 0.49 0.60-1.20 mg/dl Est Creatinine Clear Calc Drug Dose 99.2 115.4 ml/min Estimated GFR () 120.1 126.2 Estimated GFR (Non- 103.6 108.9 White Blood Count 9.15 4.8-10.8 K/uL Red Blood Count 4.03 4.2-5.4 M/uL Hemoglobin 11.5 12.0-16.0 g/dL Hematocrit 35.2 37-47 % Mean Corpuscular Volume 87.3 80-100 fL Mean Corpuscular Hemoglobin 28.5 25-34 pg Mean Corpuscular Hemoglobin Concent 32.7 32-36 g/dl Platelet Count 249 130-400 K/uL Mean Platelet Volume 9.0 7.4-10.4 fL Neutrophils (%) (Auto) 82.9 % Lymphocytes (%) (Auto) 5.4 % Monocytes (%) (Auto) 10.1 % Eosinophils (%) (Auto) 1.3 % Basophils (%) (Auto) 0.1 % Neutrophils # (Auto) 7.59 1.4-6.5 K/uL Lymphocytes # (Auto) 0.49 1.2-3.4 K/uL Monocytes # (Auto) 0.92 0.11-0.59 K/uL Eosinophils # (Auto) 0.12 0-0.5 K/uL Basophils # (Auto) 0.01 0-0.2 K/uL RDW Standard Deviation 52.8 36.4-46.3 fL RDW Coefficient of Variation 16.5 11.5-14.5 % Immature Granulocyte % (Auto) 0.2 % Immature Granulocyte # (Auto) 0.02 0.00-0.02 K/uL Sodium Level 141 136-145 mmol/L Potassium Level 2.9 3.5-5.1 mmol/L Chloride Level 106 98-107 mmol/L Carbon Dioxide Level 28 21-32 mmol/L Anion Gap 7.0 3-11 mmol/L Blood Urea Nitrogen 7 7-18 mg/dl BUN/Creatinine Ratio 13.3 10-20 Random Glucose 73 70-99 mg/dl Calcium Level 7.6 8.5-10.1 mg/dl Assessment & Plan IMP leakage around the catheter, peritonitis I recommend to put suture around the catheter to prevent leakage around the catheter, D/W benefits, risks and alternatives of the suturing, pt understood, she agrees with the plan, under local sterile and anesthesia, 3-[address] around the catheter, no active bleeding, no more leakage around the catheter, pt tolerated the procedure well, continue iv antibiotic will F/U
[2016-03-18] MEDS ORDERED: NURSING VERBAL MED ORDER ONE (09:00)
[2016-03-18] MEDS: VENLAFAXINE HCL XR 75 MG CAPXR PO SCH (09:22)
[2016-03-18] MEDS: PIPERACILL/TAZOBAC IV 3.375 GM in DEXTROSE 5% 100ML IV SCH ×3 (09:22→23:19)
[2016-03-18] MEDS ORDERED: POTASSIUM CHLORIDE 10 MEQ TABCR PO ONE (09:30)
[2016-03-18] MEDS: PANTOprazole INJ 40 MG in SYRINGE 0 ML IV SCH (10:38)
--- NOTE | 2016-03-18 14:07 | Progress Note ---
Subjective Date of Service: Mar 18, 2016. Subjective Pt evaluation today including: conversation w/ patient, physical exam, lab review, conversation w/ political consultant, review of inpatient medication list Pain: no pain PO Intake: adequate Voiding: no voiding problems no further leaking around peritoneal catheter, surgery placed sutures this AM no fevers, minimal pain, good appetite Problem List Medical Problems: (1) Metastatic colon cancer in female Status: Acute (2) Polysubstance abuse Status: Acute Review of Systems Constitutional: + weakness Abdomen: + pain All Other Systems: Reviewed and Negative Medications Current Inpatient Medications Medications (Trade) Dose Ordered Sig/Letty Route Start Time Stop Time Status Last Admin Dose Admin Acetaminophen (Tylenol Tab) 650 mg Q4H PRN PO 03/17/16 17:00 04/16/16 16:59 Al Hydrox/Mg Hydrox/Simethicone (Maalox Max Susp) 15 ml Q4H PRN PO 03/17/16 17:00 04/16/16 16:59 Magnesium Hydroxide (Milk Of Magnesia Susp) 30 ml Q12H PRN PO 03/17/16 17:00 04/16/16 16:59 Ondansetron HCl (Zofran Inj) 4 mg Q6H PRN IV 03/17/16 17:00 04/16/16 16:59 Polyethylene (Miralax Powder Packet) 17 gm DAILY PRN PO 03/17/16 17:00 04/16/16 16:59 Fentanyl (Duragesic Patch) 18 mcg Q3D@0900 TD 03/20/16 09:00 04/03/16 08:59 Tramadol HCl (Ultram Tab) 50 mg Q6H PRN PO 03/17/16 17:30 04/16/16 17:29 03/17/16 21:13 50 MG Venlafaxine HCl (effeXOR EXTENDED REL CAP) 75 mg QAM PO 03/18/16 09:00 04/17/16 08:59 03/18/16 09:22 75 MG Quetiapine Fumarate (seroQUEL TAB) 25 mg HS PO 03/17/16 21:00 04/16/16 20:59 03/17/16 21:51 25 MG Ondansetron HCl 4 mg 4 mg Q4H PRN IV 03/17/16 17:30 04/16/16 17:29 Prochlorperazine Edisylate/Syringe (Compazine Inj/ Syringe) 5 ml @ 5 mls/min Q4 PRN IV 03/17/16 17:30 04/16/16 17:29 Miscellaneous (Fentanyl Patch Remove & Waste) 1 ea Q3D@0900 N/A 03/20/16 09:00 04/19/16 08:59 Miscellaneous Information 1 ea 1 ea QS N/A 03/18/16 00:00 04/17/16 00:00 03/18/16 08:00 1 EA Sodium Chloride (Nss 1000ml) 1,000 ml @ 50 mls/hr Q20H IV 03/17/16 17:45 04/16/16 17:44 03/17/16 19:07 50 MLS/HR Piperacillin Sod/ Tazobactam Sod 1 ea 1 ea UD PRN N/A 03/17/16 18:15 04/16/16 18:14 Piperacillin Sod/ Tazobactam Sod 3.375 gm/Dextrose 115 ml @ 28.75 mls/ hr Q8H IV 03/18/16 00:00 03/27/16 00:00 03/18/16 09:22 28.75 MLS/HR Pantoprazole Sodium/Syringe (Protonix Inj/ Syringe) 10 ml @ 5 mls/min DAILY@11 IV 03/18/16 11:00 04/17/16 10:59 03/18/16 10:38 5 MLS/MIN Ketorolac Tromethamine (Toradol Inj) 15 mg Q6H PRN IV 03/17/16 21:45 03/22/16 21:44 03/18/16 10:43 15 MG Potassium Chloride (Klor-Con Tab) 20 meq TID PO 03/18/16 14:00 04/17/16 13:59 Objective Vital Signs Date Time Temp Pulse Resp B/P Pulse Ox O2 Delivery O2 Flow Rate FiO2 03/18/16 12:03 36.4 95 18 120/63 97 Room Air 03/18/16 12:00 Room Air 03/18/16 08:06 37.0 80 17 94/48 96 Room Air 03/18/16 08:00 Room Air 03/18/16 04:28 93/49 03/18/16 04:00 95 Room Air 03/18/16 03:56 36.4 90 18 87/46 95 Room Air 03/18/16 01:41 95 Room Air 03/17/16 23:47 36.4 88 18 98/54 95 Room Air 03/17/16 20:34 37.1 103 18 107/64 98 Room Air 03/17/16 20:00 99 Room Air 03/17/16 16:30 36.5 110 16 109/65 Room Air Physical Exam General Appearance: WD/WN, no apparent distress Eyes: normal inspection, EOMI, sclerae normal Neck: supple, no adenopathy, no JVD, trachea midline Respiratory/Chest: chest non-tender, lungs clear, normal breath sounds, no respiratory distress, no accessory muscle use Cardiovascular: regular rate, rhythm, no edema, no gallop, no JVD, no murmur Abdomen: normal bowel sounds, non tender, soft, no organomegaly, + pertinent finding (peritoneal catheter intact, no skin redness, no drainage currently) Extremities: normal range of motion, non-tender, normal inspection, no pedal edema, no calf tenderness Neurologic/Psychiatric: solar tech II-XII nml as tested, no motor/sensory deficits, alert, normal mood/affect, oriented x 3 Skin: normal color, warm/dry, no rash Lymphatic: no adenopathy Laboratory Results Last 24 Hours Test 03/17/16 19:40 03/17/16 20:18 03/18/16 07:02 Peritoneal Fluid Color PALE YELLOW Peritoneal Fluid Appearance HAZY Peritoneal Fluid WBC 463 /uL Peritoneal Fluid RBC < 3000 /uL Peritoneal Fld Mononuclear WBCs (%) 50.4 % Peritoneal Fld Polynuclear WBCs (%) 49.6 % Peritoneal Fluid Total Protein 1.4 g/dl Peritoneal Fluid Albumin < 0.6 g/dl Peritoneal Fluid Glucose 105 mg/dl Peritoneal Fluid Lipase 106 U/L Creatinine 0.57 mg/dl 0.49 mg/dl Est Creatinine Clear Calc Drug Dose 99.2 ml/min 115.4 ml/min Estimated GFR () 120.1 126.2 Estimated GFR (Non- 103.6 108.9 White Blood Count 9.15 K/uL Red Blood Count 4.03 M/uL Hemoglobin 11.5 g/dL Hematocrit 35.2 % Mean Corpuscular Volume 87.3 fL Mean Corpuscular Hemoglobin 28.5 pg Mean Corpuscular Hemoglobin Concent 32.7 g/dl Platelet Count 249 K/uL Mean Platelet Volume 9.0 fL Neutrophils (%) (Auto) 82.9 % Lymphocytes (%) (Auto) 5.4 % Monocytes (%) (Auto) 10.1 % Eosinophils (%) (Auto) 1.3 % Basophils (%) (Auto) 0.1 % Neutrophils # (Auto) 7.59 K/uL Lymphocytes # (Auto) 0.49 K/uL Monocytes # (Auto) 0.92 K/uL Eosinophils # (Auto) 0.12 K/uL Basophils # (Auto) 0.01 K/uL RDW Standard Deviation 52.8 fL RDW Coefficient of Variation 16.5 % Immature Granulocyte % (Auto) 0.2 % Immature Granulocyte # (Auto) 0.02 K/uL Sodium Level 141 mmol/L Potassium Level 2.9 mmol/L Chloride Level 106 mmol/L Carbon Dioxide Level 28 mmol/L Anion Gap 7.0 mmol/L Blood Urea Nitrogen 7 mg/dl BUN/Creatinine Ratio 13.3 Random Glucose 73 mg/dl Calcium Level 7.6 mg/dl Assessment and Plan This is a pleasant 55 yo F with PMHx metastatic adenocarcinoma of the colon with metastasis to the liver on coumadin, recent embolization of the spleen due to cytopenias, osteopenia, laryngeal reflux, chronic sinusitis, anxiety, and hx of tobacco use. Metastatic colon cx to liver, had increased abdominal pain, fevers, concerns for peritonitis continue Zosyn, afebrile, had mild leukocytosis peritoneal fluid: 463 WBC, will send for culture catheter: no further leaking after sutures placed and new cap continue fentanyl patch 18 mcg daily ( pt cuts a patch in half), tramadol prn. Chemo tx hs includes many courses of FOLFIRI as well as FOLFOX and Avastin, oncology following Hypokalemia: 2.9 this AM, gave 40 mEq PO, will start 20mEq TID repeat in afternoon and the morning Osteopenia - Not currently taking any supplementation Generalized anxiety disorder Depression - Cont effexor 75 mg daily - Cont seroquel 25 mg QHS for sleep DVT ppx: SCDs, oob CODE STATUS: DNR Plan: continue IV Zosyn, transfer to oncology floor (vitals stable), follow up on cultures
[2016-03-18] MEDS: SODIUM CHLORIDE 0.9% 1000ML 1,000 ML IV SCH (14:35)
[2016-03-18] MEDS: POTASSIUM CHLORIDE 20 MEQ TABCR PO SCH ×2 (14:36→19:15)
--- NOTE | 2016-03-18 16:52 | Hematology/Oncology Prog Note ---
Hematology/Onc Progress Note Date of Service Mar 18, 2016. Diagnoses J metastatic colon carcinoma Ascites Peritonitis Possible infected peritoneal catheter Medications Medications Administered Medications (Trade) Dose Ordered Sig/Letty Route Start Time Stop Time Status Last Admin Dose Admin Tramadol HCl (Ultram Tab) 50 mg Q6H PRN PO 03/17/16 17:30 04/16/16 17:29 03/17/16 21:13 50 MG Venlafaxine HCl (effeXOR EXTENDED REL CAP) 75 mg QAM PO 03/18/16 09:00 04/17/16 08:59 03/18/16 09:22 75 MG Quetiapine Fumarate (seroQUEL TAB) 25 mg HS PO 03/17/16 21:00 04/16/16 20:59 03/17/16 21:51 25 MG Miscellaneous Information 1 ea 1 ea QS N/A 03/18/16 00:00 04/17/16 00:00 03/18/16 15:22 1 EA Piperacillin Sod/ Tazobactam Sod 3.375 gm/Dextrose 115 ml @ 230 mls/hr NOW ONCE IV 03/17/16 18:01 03/17/16 18:30 DC 03/17/16 19:07 230 MLS/HR Sodium Chloride 1,000 ml @ 50 mls/hr Q20H IV 03/17/16 17:45 04/16/16 17:44 03/18/16 14:35 50 MLS/HR Piperacillin Sod/ Tazobactam Sod 3.375 gm/Dextrose 115 ml @ 28.75 mls/ hr Q8H IV 03/18/16 00:00 03/27/16 00:00 03/18/16 15:21 28.75 MLS/HR Pantoprazole Sodium 40 mg/ Syringe 10 ml @ 5 mls/min NOW STAT IV 03/17/16 21:41 03/17/16 21:42 DC 03/17/16 21:51 5 MLS/MIN Pantoprazole Sodium/Syringe (Protonix Inj/ Syringe) 10 ml @ 5 mls/min DAILY@11 IV 03/18/16 11:00 04/17/16 10:59 03/18/16 10:38 5 MLS/MIN Ketorolac Tromethamine (Toradol Inj) 15 mg Q6H PRN IV 03/17/16 21:45 03/22/16 21:44 03/18/16 10:43 15 MG Lidocaine HCl (Xylocaine 1% Inj (Local)) 20 ml STK-MED ONCE .ROUTE 03/18/16 08:12 03/18/16 08:14 DC 03/18/16 08:12 20 ML Potassium Chloride (Klor-Con M10) 40 meq ONE ONCE PO 03/18/16 09:30 03/18/16 09:31 DC 03/18/16 10:38 40 MEQ Potassium Chloride (Klor-Con Tab) 20 meq TID PO 03/18/16 14:00 04/17/16 13:59 03/18/16 14:36 20 MEQ Subjective She states that a suture was placed around the peritoneal catheter and drainage around the catheter was slightly better but it has reocurred once again. Review of Systems: Constitutional: Negative for night sweats, or fever Eyes: Negative for event change of vision ENT: Negative for epistaxis, nasal discharge, sore throat, or deafness Cardiovascular: Negative for chest pain, palpitations, dizziness, diaphoresis Respiratory: Negative for new shortness of breath,hemoptysis, or purulent cough Gastrointestinal: Negative for diarrhea, hematemesis, melena, nausea, vomiting , or dyspepsia Integumentary (skin): Negative for rash or jaundice discoloration Genitourinary: Negative for urinary frequency, hematuria, or dysuria Neurological: Negative for weakness, seizure activity, headache, or dizziness Lymphatic/Hematologic: Negative for petechiae, bleeding or new adenopathy Musculoskeletal: Negative for new joint or back pain Allergic/Immunologic: Negative for unusual rash or pruritis. Vital Signs Vital Signs Past 12 Hours Date Time Temp Pulse Resp B/P Pulse Ox O2 Delivery O2 Flow Rate FiO2 03/18/16 16:13 36.5 87 18 120/78 98 Room Air 03/18/16 14:14 36.4 95 18 97 03/18/16 12:03 36.4 95 18 120/63 97 Room Air 03/18/16 12:00 Room Air 03/18/16 08:06 37.0 80 17 94/48 96 Room Air 03/18/16 08:00 Room Air Physical Exam Constitutional: vitals are stable. Eyes: Eyes are STANISLAV EOMI without conjuctival erythema or icterus. ENT: External examination was negative for masses. Neck: Negative for masses or palpable thyromegaly Respiratory: Lung sounds were generally clear bilaterally Cardiovascular: Heart was RRR without significant murmur, gallops aoe rubs Gastrointestinal: The abdomen may be just slightly less tender than yesterday but still she has rebound tenderness pretty much over the entire abdomen Lymphatic system: there was no palpable peripheral lymphadenopathy Musculoskeletal System: The musculoskeletal system seemed concordant with age. Skin: The skin was negative for jaundice. Neurologic exam: The exam was negative for any focal findings. Deep tendon reflexes were equal and symmetrical. Psychiatric exam: Was essentially negative with normal mood and effect. Extremities: Negative for edema erythema Laboratory Last 24 Hours Test 03/17/16 19:40 03/17/16 20:18 03/18/16 07:02 03/18/16 14:47 Peritoneal Fluid Color PALE YELLOW Peritoneal Fluid Appearance HAZY Peritoneal Fluid WBC 463 /uL Peritoneal Fluid RBC < 3000 /uL Peritoneal Fld Mononuclear WBCs (%) 50.4 % Peritoneal Fld Polynuclear WBCs (%) 49.6 % Peritoneal Fluid Total Protein 1.4 g/dl Peritoneal Fluid Albumin < 0.6 g/dl Peritoneal Fluid Glucose 105 mg/dl Peritoneal Fluid Lipase 106 U/L Creatinine 0.57 mg/dl 0.49 mg/dl Est Creatinine Clear Calc Drug Dose 99.2 ml/min 115.4 ml/min Estimated GFR () 120.1 126.2 Estimated GFR (Non- 103.6 108.9 White Blood Count 9.15 K/uL Red Blood Count 4.03 M/uL Hemoglobin 11.5 g/dL Hematocrit 35.2 % Mean Corpuscular Volume 87.3 fL Mean Corpuscular Hemoglobin 28.5 pg Mean Corpuscular Hemoglobin Concent 32.7 g/dl Platelet Count 249 K/uL Mean Platelet Volume 9.0 fL Neutrophils (%) (Auto) 82.9 % Lymphocytes (%) (Auto) 5.4 % Monocytes (%) (Auto) 10.1 % Eosinophils (%) (Auto) 1.3 % Basophils (%) (Auto) 0.1 % Neutrophils # (Auto) 7.59 K/uL Lymphocytes # (Auto) 0.49 K/uL Monocytes # (Auto) 0.92 K/uL Eosinophils # (Auto) 0.12 K/uL Basophils # (Auto) 0.01 K/uL RDW Standard Deviation 52.8 fL RDW Coefficient of Variation 16.5 % Immature Granulocyte % (Auto) 0.2 % Immature Granulocyte # (Auto) 0.02 K/uL Sodium Level 141 mmol/L Potassium Level 2.9 mmol/L 3.2 mmol/L Chloride Level 106 mmol/L Carbon Dioxide Level 28 mmol/L Anion Gap 7.0 mmol/L Blood Urea Nitrogen 7 mg/dl BUN/Creatinine Ratio 13.3 Random Glucose 73 mg/dl Calcium Level 7.6 mg/dl Assessment & Plan Metastatic colon carcinoma. Ascites and tender abdomen. She does have a leukocytosis in the ascitic fluid. Catheter continues to leak in spite of the suture placed earlier today around the catheter. In addition nothing is draining from the catheter itself. I really feel that this peritoneal catheter is malfunctioning and we'll only be a source of infection and peritonitis and will have to be removed.. Antibiotics continue.
[2016-03-18] MEDS: QUETIAPINE FUMARATE 25 MG TAB PO SCH (21:41)
[2016-03-19] MEDS ORDERED: LORAZEPAM 0.5 MG TAB ONE (00:15)
[2016-03-19] MEDS ORDERED: NURSING VERBAL MED ORDER ONE (00:15)
[2016-03-19] MEDS: SODIUM CHLORIDE 0.9% 1000ML 1,000 ML IV SCH ×2 (05:06→08:55)
[2016-03-19 08:47] LABS: BASO % 0.1 %; BASO ABS # 0.01 K/uL (0-0.2); COMPLETE YES; EOS % 1.4 %; HEMATOCRIT 35.1 % (37-47); IG% 0.1 %; LYMPH % 12.2 %; LYMPH ABS # 0.93 K/uL (1.2-3.4); MEAN CELL VOLUME 85.6 fL (80-100); MEAN CORPUSCULAR HEMOGLOBIN 28.5 pg (25-34); MEAN CORPUSCULAR HGB CONC 33.3 g/dl (32-36); MEAN PLATELET VOLUME 8.9 fL (7.4-10.4); MONO % 11.5 %; NEUT % 74.7 %; PLATELET COUNT 256 K/uL (130-400); WHITE BLOOD COUNT 7.65 K/uL (4.8-10.8)
[2016-03-19] MEDS: KETOROLAC TROMETHAMINE 15 MG/ML VIAL IV PRN ×2 (08:55→20:02)
[2016-03-19] MEDS: PIPERACILL/TAZOBAC IV 3.375 GM in DEXTROSE 5% 100ML IV SCH ×3 (08:55→22:57)
[2016-03-19] MEDS: CHECK FENTANYL PATCH PLACEMENT SCH ×3 (08:55→22:57)
[2016-03-19] MEDS: VENLAFAXINE HCL XR 75 MG CAPXR PO SCH (08:56)
[2016-03-19] MEDS: PANTOprazole INJ 40 MG in SYRINGE 0 ML IV SCH (08:56)
[2016-03-19] MEDS: POTASSIUM CHLORIDE 20 MEQ TABCR PO SCH ×3 (08:56→20:02)
[2016-03-19] MEDS ORDERED: FENTANYL PATCH REMOVE & WASTE SCH (09:00)
[2016-03-19 09:13] VITALS: BP 86/53; PULSE 102; TEMP 37; O2SAT 95
[2016-03-19 09:18] LABS: BUN/CREATININE RATIO 13.6 (10-20); CALCIUM 7.8 mg/dl (8.5-10.1); CREATININE 0.44 mg/dl (0.60-1.20); POTASSIUM 3.7 mmol/L (3.5-5.1)
[2016-03-19] MEDS ORDERED: BISACODYL 5 MG TABEC PO PRN ×2 (09:30→15:30)
[2016-03-19] MEDS ORDERED: SENNA 8.6 MG TAB PO ONE (10:00)
[2016-03-19] MEDS ORDERED: BISACODYL 5 MG TABEC PO ONE (10:00)
[2016-03-19 12:15] VITALS: BP 90/58; PULSE 88; TEMP 36.6; O2SAT 98
--- NOTE | 2016-03-19 14:42 | Progress Note ---
Subjective Date of Service: Mar 19, 2016. Subjective Pt evaluation today including: conversation w/ patient, physical exam, lab review, conversation w/ reservoir engineering consultant, review of inpatient medication list Pain: moderate, chronic PO Intake: adequate Voiding: no voiding problems only complaint is that the catheter is still leaking despite the extra sutures and a new cap the catheter itself will not drain, appears to be malfunctioning she would like second opinion from surgery about removing catheter and Dr. Youngblood feels it should be removed she is eating well pain is chronic but is controlled adequately no fevers Problem List Medical Problems: (1) Metastatic colon cancer in female Status: Acute (2) Polysubstance abuse Status: Acute Review of Systems Constitutional: + fatigue, + weakness Abdomen: + pain, + problem reported (leaking around the peritoneal catheter) All Other Systems: Reviewed and Negative Medications Current Inpatient Medications Medications (Trade) Dose Ordered Sig/Letty Route Start Time Stop Time Status Last Admin Dose Admin Acetaminophen (Tylenol Tab) 650 mg Q4H PRN PO 03/17/16 17:00 04/16/16 16:59 Al Hydrox/Mg Hydrox/Simethicone (Maalox Max Susp) 15 ml Q4H PRN PO 03/17/16 17:00 04/16/16 16:59 Magnesium Hydroxide (Milk Of Magnesia Susp) 30 ml Q12H PRN PO 03/17/16 17:00 04/16/16 16:59 Ondansetron HCl (Zofran Inj) 4 mg Q6H PRN IV 03/17/16 17:00 04/16/16 16:59 Polyethylene (Miralax Powder Packet) 17 gm DAILY PRN PO 03/17/16 17:00 04/16/16 16:59 Fentanyl (Duragesic Patch) 18 mcg Q3D@0900 TD 03/20/16 09:00 04/03/16 08:59 Tramadol HCl (Ultram Tab) 50 mg Q6H PRN PO 03/17/16 17:30 04/16/16 17:29 03/17/16 21:13 50 MG Venlafaxine HCl (effeXOR EXTENDED REL CAP) 75 mg QAM PO 03/18/16 09:00 04/17/16 08:59 03/19/16 08:56 75 MG Quetiapine Fumarate (seroQUEL TAB) 25 mg HS PO 03/17/16 21:00 04/16/16 20:59 03/18/16 21:41 25 MG Ondansetron HCl 4 mg 4 mg Q4H PRN IV 03/17/16 17:30 04/16/16 17:29 Prochlorperazine Edisylate/Syringe (Compazine Inj/ Syringe) 5 ml @ 5 mls/min Q4 PRN IV 03/17/16 17:30 04/16/16 17:29 Miscellaneous (Fentanyl Patch Remove & Waste) 1 ea Q3D@0900 N/A 03/20/16 09:00 04/19/16 08:59 Miscellaneous Information 1 ea 1 ea QS N/A 03/18/16 00:00 04/17/16 00:00 03/19/16 08:55 1 EA Sodium Chloride (Nss 1000ml) 1,000 ml @ 50 mls/hr Q20H IV 03/17/16 17:45 04/16/16 17:44 03/19/16 08:55 50 MLS/HR Piperacillin Sod/ Tazobactam Sod 1 ea 1 ea UD PRN N/A 03/17/16 18:15 04/16/16 18:14 Piperacillin Sod/ Tazobactam Sod 3.375 gm/Dextrose 115 ml @ 28.75 mls/ hr Q8H IV 03/18/16 00:00 03/27/16 00:00 03/19/16 08:55 28.75 MLS/HR Pantoprazole Sodium/Syringe (Protonix Inj/ Syringe) 10 ml @ 5 mls/min DAILY@11 IV 03/18/16 11:00 04/17/16 10:59 03/19/16 08:56 5 MLS/MIN Ketorolac Tromethamine (Toradol Inj) 15 mg Q6H PRN IV 03/17/16 21:45 03/22/16 21:44 03/19/16 08:55 15 MG Potassium Chloride (Klor-Con Tab) 20 meq TID PO 03/18/16 14:00 04/17/16 13:59 03/19/16 14:27 20 MEQ Lorazepam (Ativan Tab) 0.5 mg HS PRN PO 03/19/16 00:30 04/18/16 00:29 Senna (Senokot Tab) 8.6 mg QAM PO 03/20/16 08:00 04/19/16 07:59 Bisacodyl (Dulcolax Tab) 5 mg DAILY PRN PO 03/19/16 09:30 04/18/16 09:29 Objective Vital Signs Date Time Temp Pulse Resp B/P Pulse Ox O2 Delivery O2 Flow Rate FiO2 03/19/16 12:15 36.6 88 16 90/58 98 Room Air 03/19/16 09:13 37.0 102 16 86/53 95 Room Air 03/19/16 09:00 Room Air 03/19/16 00:01 Room Air 03/18/16 19:23 36.9 90 18 118/72 99 Room Air 03/18/16 16:13 36.5 87 18 120/78 98 Room Air 03/18/16 16:00 Room Air Physical Exam General Appearance: no apparent distress, + thin Neck: supple, no adenopathy, no JVD, trachea midline Respiratory/Chest: chest non-tender, lungs clear, normal breath sounds, no respiratory distress, no accessory muscle use Cardiovascular: regular rate, rhythm, no edema, no gallop, no JVD, no murmur Abdomen: normal bowel sounds, non tender, soft, no organomegaly, + pertinent finding (ascites, peritoneal fluid soaking her dressing around the catheter) Extremities: normal range of motion, non-tender, normal inspection, no pedal edema, no calf tenderness Neurologic/Psychiatric: dehydrator II-XII nml as tested, no motor/sensory deficits, alert, normal mood/affect, oriented x 3 Laboratory Results Last 24 Hours Test 03/18/16 14:47 03/19/16 08:27 Potassium Level 3.2 mmol/L 3.7 mmol/L White Blood Count 7.65 K/uL Red Blood Count 4.10 M/uL Hemoglobin 11.7 g/dL Hematocrit 35.1 % Mean Corpuscular Volume 85.6 fL Mean Corpuscular Hemoglobin 28.5 pg Mean Corpuscular Hemoglobin Concent 33.3 g/dl Platelet Count 256 K/uL Mean Platelet Volume 8.9 fL Neutrophils (%) (Auto) 74.7 % Lymphocytes (%) (Auto) 12.2 % Monocytes (%) (Auto) 11.5 % Eosinophils (%) (Auto) 1.4 % Basophils (%) (Auto) 0.1 % Neutrophils # (Auto) 5.71 K/uL Lymphocytes # (Auto) 0.93 K/uL Monocytes # (Auto) 0.88 K/uL Eosinophils # (Auto) 0.11 K/uL Basophils # (Auto) 0.01 K/uL RDW Standard Deviation 51.8 fL RDW Coefficient of Variation 16.3 % Immature Granulocyte % (Auto) 0.1 % Immature Granulocyte # (Auto) 0.01 K/uL Sodium Level 140 mmol/L Chloride Level 106 mmol/L Carbon Dioxide Level 26 mmol/L Anion Gap 8.0 mmol/L Blood Urea Nitrogen 6 mg/dl Creatinine 0.44 mg/dl Est Creatinine Clear Calc Drug Dose 128.5 ml/min Estimated GFR () 130.8 Estimated GFR (Non- 112.8 BUN/Creatinine Ratio 13.6 Random Glucose 74 mg/dl Calcium Level 7.8 mg/dl Assessment and Plan This is a pleasant 55 yo F with PMHx metastatic adenocarcinoma of the colon with metastasis to the liver on coumadin, recent embolization of the spleen due to cytopenias, osteopenia, laryngeal reflux, chronic sinusitis, anxiety, and hx of tobacco use. Metastatic colon cx to liver, had increased abdominal pain, fevers, concerns for peritonitis continue Zosyn, afebrile, had mild leukocytosis as outpatient, now resolved peritoneal fluid: 463 WBC, culture with few WBC, no growth thus far catheter: still leaking around the catheter, the catheter itself will not drain any fluid Dr. Youngblood feels catheter needs removed, will ask for second opinion from surgeon transmission inspector tomorrow continue fentanyl patch 18 mcg daily ( pt cuts a patch in half), tramadol prn. Chemo tx hs includes many courses of FOLFIRI as well as FOLFOX and Avastin, oncology following Hypokalemia: 3.7 this AM, after oral replacement will stop supplementation after tonight's dose Osteopenia - Not currently taking any supplementation Generalized anxiety disorder Depression - Cont effexor 75 mg daily - Cont seroquel 25 mg QHS for sleep DVT ppx: SCDs, oob CODE STATUS: DNR Plan: continue IV Zosyn, ask for second opinion from Dr. Lester who is transmission inspector tomorrow, will make NPO after midnight in case he wants to remove tomorrow
--- NOTE | 2016-03-19 15:00 | Surgery Progress Note ---
Surgery Progress Note Date of Service Mar 19, 2016. Subjective + feeling well pt is doing better, no abdominal pain, no N/V, no fever, small amount leakage around catheter, Objective Vital Signs: Date Time Temp Pulse Resp B/P Pulse Ox O2 Delivery O2 Flow Rate FiO2 03/19/16 12:15 36.6 88 16 90/58 98 Room Air 03/19/16 09:13 37.0 102 16 86/53 95 Room Air 03/19/16 09:00 Room Air 03/19/16 00:01 Room Air 03/18/16 19:23 36.9 90 18 118/72 99 Room Air 03/18/16 16:13 36.5 87 18 120/78 98 Room Air 03/18/16 16:00 Room Air General Appearance: WD/WN Head: normocephalic Neck: supple, no JVD Respiratory/Chest: chest non-tender, lungs clear Cardiovascular: regular rate, rhythm, no edema Abdomen: normal bowel sounds, non tender, soft, + distended Extremities: normal range of motion, non-tender, normal inspection Laboratory Results: Results Past 24 Hours Test 03/19/16 08:27 Range/Units White Blood Count 7.65 4.8-10.8 K/uL Red Blood Count 4.10 4.2-5.4 M/uL Hemoglobin 11.7 12.0-16.0 g/dL Hematocrit 35.1 37-47 % Mean Corpuscular Volume 85.6 80-100 fL Mean Corpuscular Hemoglobin 28.5 25-34 pg Mean Corpuscular Hemoglobin Concent 33.3 32-36 g/dl Platelet Count 256 130-400 K/uL Mean Platelet Volume 8.9 7.4-10.4 fL Neutrophils (%) (Auto) 74.7 % Lymphocytes (%) (Auto) 12.2 % Monocytes (%) (Auto) 11.5 % Eosinophils (%) (Auto) 1.4 % Basophils (%) (Auto) 0.1 % Neutrophils # (Auto) 5.71 1.4-6.5 K/uL Lymphocytes # (Auto) 0.93 1.2-3.4 K/uL Monocytes # (Auto) 0.88 0.11-0.59 K/uL Eosinophils # (Auto) 0.11 0-0.5 K/uL Basophils # (Auto) 0.01 0-0.2 K/uL RDW Standard Deviation 51.8 36.4-46.3 fL RDW Coefficient of Variation 16.3 11.5-14.5 % Immature Granulocyte % (Auto) 0.1 % Immature Granulocyte # (Auto) 0.01 0.00-0.02 K/uL Sodium Level 140 136-145 mmol/L Potassium Level 3.7 3.5-5.1 mmol/L Chloride Level 106 98-107 mmol/L Carbon Dioxide Level 26 21-32 mmol/L Anion Gap 8.0 3-11 mmol/L Blood Urea Nitrogen 6 7-18 mg/dl Creatinine 0.44 0.60-1.20 mg/dl Est Creatinine Clear Calc Drug Dose 128.5 ml/min Estimated GFR () 130.8 Estimated GFR (Non- 112.8 BUN/Creatinine Ratio 13.6 10-20 Random Glucose 74 70-99 mg/dl Calcium Level 7.8 8.5-10.1 mg/dl Assessment & Plan IMP leakage around the catheter, peritonitis I recommend to consult intervention radiologist for dysfunction of catheter, or place new catheter under U/S guided continue iv antibiotic will F/U IMP leakage around the catheter, peritonitis I recommend to put suture around the catheter to prevent leakage around the catheter, D/W benefits, risks and alternatives of the suturing, pt understood, she agrees with the plan, under local sterile and anesthesia, 3-[address] around the catheter, no active bleeding, no more leakage around the catheter, pt tolerated the procedure well, continue iv antibiotic will F/U
[2016-03-19 15:42] VITALS: BP 113/77; PULSE 96; TEMP 36.6; O2SAT 100
[2016-03-19] MEDS: QUETIAPINE FUMARATE 25 MG TAB PO SCH (21:35)
[2016-03-20] MEDS: LORAZEPAM 0.5 MG TAB PO PRN (00:19)
[2016-03-20 06:19] LABS: BASO % 0.5 %; BASO ABS # 0.03 K/uL (0-0.2); COMPLETE YES; EOS % 2.5 %; HEMATOCRIT 33.1 % (37-47); IG% 0.2 %; LYMPH ABS # 0.72 K/uL (1.2-3.4); MEAN CELL VOLUME 85.8 fL (80-100); MEAN CORPUSCULAR HEMOGLOBIN 28.2 pg (25-34); MEAN CORPUSCULAR HGB CONC 32.9 g/dl (32-36); MEAN PLATELET VOLUME 8.7 fL (7.4-10.4); MONO % 13.3 %; NEUT % 71.5 %; PLATELET COUNT 280 K/uL (130-400); RED BLOOD COUNT 3.86 M/uL (4.2-5.4)
[2016-03-20 06:49] LABS: BUN/CREATININE RATIO 10.8 (10-20); CALCIUM 7.8 mg/dl (8.5-10.1); CREATININE 0.42 mg/dl (0.60-1.20)
[2016-03-20 07:21] VITALS: BP 109/73; PULSE 96; TEMP 36.7; O2SAT 96
[2016-03-20] MEDS: KETOROLAC TROMETHAMINE 15 MG/ML VIAL IV PRN (07:36)
[2016-03-20] MEDS: PIPERACILL/TAZOBAC IV 3.375 GM in DEXTROSE 5% 100ML IV SCH ×2 (07:36→18:07)
[2016-03-20] MEDS: VENLAFAXINE HCL XR 75 MG CAPXR PO SCH (08:00)
--- NOTE | 2016-03-20 08:51 | Hospitalist Progress Note ---
Hospitalist Progress Note Date of Service Mar 20, 2016. Subjective Pt evaluation today including: conversation w/ patient, physical exam, chart review, lab review, review of studies, review of inpatient medication list Pain: Good, 2/10 PO Intake: Good, NPO after midnight for possible peritoneal cath procedure Voiding: no voiding problems The patient was seen and examined this morning. Pt reports getting great sleep overnight. Her pain is well controlled currently, rated 2/10. She is anticipating procedure today with NPO status. Dressing over peritoneal cath is soaked from surrounding area today, pt reports not as much drainage compared to prior to the stitch which was placed by Dr. Desai yesterday. Yesterday had 650 mL out from the catheter. Pt is frustrated with the inconsistency of the drain , sometimes working well (like yesterday) and other days does not drain at all. All Other Systems: Reviewed and Negative (other than listed in the HPI) Objective Vital Signs Date Time Temp Pulse Resp B/P Pulse Ox O2 Delivery O2 Flow Rate FiO2 03/20/16 07:21 36.7 96 16 109/73 96 Room Air 03/19/16 23:59 Room Air 03/19/16 16:00 Room Air 03/19/16 15:42 36.6 96 16 113/77 100 Room Air 03/19/16 12:15 36.6 88 16 90/58 98 Room Air 03/19/16 09:13 37.0 102 16 86/53 95 Room Air 03/19/16 09:00 Room Air Physical Exam General Appearance: WD/WN, no apparent distress Eyes: PERRL, EOMI ENT: hearing grossly normal, pharynx normal Neck: no adenopathy, no JVD Respiratory/Chest: lungs clear, no respiratory distress, no accessory muscle use Cardiovascular: regular rate, rhythm, no edema, no JVD Abdomen: non tender, + distended, + pertinent finding (dressing covering the cath is soaked with peritoneal fluid, softer abdomen than on admission) Extremities: non-tender, no pedal edema, no calf tenderness Neurologic/Psychiatric: alert, normal mood/affect, oriented x 3 Skin: normal color, warm/dry Laboratory Results Last 24 Hours Test 03/20/16 05:35 White Blood Count 6.00 K/uL Red Blood Count 3.86 M/uL Hemoglobin 10.9 g/dL Hematocrit 33.1 % Mean Corpuscular Volume 85.8 fL Mean Corpuscular Hemoglobin 28.2 pg Mean Corpuscular Hemoglobin Concent 32.9 g/dl Platelet Count 280 K/uL Mean Platelet Volume 8.7 fL Neutrophils (%) (Auto) 71.5 % Lymphocytes (%) (Auto) 12.0 % Monocytes (%) (Auto) 13.3 % Eosinophils (%) (Auto) 2.5 % Basophils (%) (Auto) 0.5 % Neutrophils # (Auto) 4.29 K/uL Lymphocytes # (Auto) 0.72 K/uL Monocytes # (Auto) 0.80 K/uL Eosinophils # (Auto) 0.15 K/uL Basophils # (Auto) 0.03 K/uL RDW Standard Deviation 51.3 fL RDW Coefficient of Variation 16.3 % Immature Granulocyte % (Auto) 0.2 % Immature Granulocyte # (Auto) 0.01 K/uL Sodium Level 143 mmol/L Potassium Level 4.0 mmol/L Chloride Level 109 mmol/L Carbon Dioxide Level 26 mmol/L Anion Gap 8.0 mmol/L Blood Urea Nitrogen 5 mg/dl Creatinine 0.42 mg/dl Est Creatinine Clear Calc Drug Dose 134.6 ml/min Estimated GFR () 132.8 Estimated GFR (Non- 114.6 BUN/Creatinine Ratio 10.8 Random Glucose 64 mg/dl Calcium Level 7.8 mg/dl Assessment and Plan This is a pleasant 55 yo F with PMHx metastatic adenocarcinoma of the colon with metastasis to the liver on coumadin, recent embolization of the spleen due to cytopenias, osteopenia, laryngeal reflux, chronic sinusitis, anxiety, and hx of tobacco use. Metastatic colon cx to liver, had increased abdominal pain, fevers, concerns for peritonitis - continue Zosyn, afebrile, had mild leukocytosis as outpatient, now resolved -peritoneal fluid: 463 WBC, culture with few WBC, no growth thus far - catheter: still leaking around the catheter, the catheter itself drained ~650 mL fluid yesterday after Dr. Desai placed suture around the catheter to prevent leaking. Dr. Youngblood feels catheter needs removed, have called Dr. Lester who will see the patient today. He plans to discuss this with Dr. Desai. - appreciate surgical involvement and recs - continue fentanyl patch 18 mcg daily ( pt cuts a patch in half), tramadol prn. - Chemo tx hs includes many courses of FOLFIRI as well as FOLFOX and Avastin, oncology following - pt is due for her next round of chemo on Sun. Will ask Dr. Youngblood about if will give chemo while treating peritonitis. Hypokalemia: 3.7 this AM, after oral replacement - will stop supplementation after tonight's dose Osteopenia - Not currently taking any supplementation Generalized anxiety disorder Depression - Cont effexor 75 mg daily - Cont seroquel 25 mg QHS for sleep DVT ppx: SCDs, oob CODE STATUS: DNR Disposition: From home, discharge depending on procedure, will await surg recs.
[2016-03-20] MEDS ORDERED: FENTANYL 12 MCG/HR TDSY TD SCH (09:00)
[2016-03-20] MEDS ORDERED: FENTANYL PATCH REMOVE & WASTE SCH (09:00)
[2016-03-20] MEDS: SENNA 8.6 MG TAB PO SCH (09:41)
[2016-03-20] MEDS: CHECK FENTANYL PATCH PLACEMENT SCH ×2 (09:56→16:27)
--- NOTE | 2016-03-20 10:19 | Surgery Progress Note ---
Surgery Progress Note Date of Service Mar 20, 2016. Subjective + feeling well pt is doing better, no abdominal pain, no N/V. no leakage around the catheter, Objective Vital Signs: Date Time Temp Pulse Resp B/P Pulse Ox O2 Delivery O2 Flow Rate FiO2 03/20/16 10:08 Room Air 03/20/16 07:21 36.7 96 16 109/73 96 Room Air 03/19/16 23:59 Room Air 03/19/16 16:00 Room Air 03/19/16 15:42 36.6 96 16 113/77 100 Room Air 03/19/16 12:15 36.6 88 16 90/58 98 Room Air General Appearance: WD/WN Head: normocephalic Neck: supple Respiratory/Chest: chest non-tender Cardiovascular: regular rate, rhythm Abdomen: normal bowel sounds, non tender, soft, + distended Extremities: normal range of motion, non-tender, normal inspection Laboratory Results: Results Past 24 Hours Test 03/20/16 05:35 Range/Units White Blood Count 6.00 4.8-10.8 K/uL Red Blood Count 3.86 4.2-5.4 M/uL Hemoglobin 10.9 12.0-16.0 g/dL Hematocrit 33.1 37-47 % Mean Corpuscular Volume 85.8 80-100 fL Mean Corpuscular Hemoglobin 28.2 25-34 pg Mean Corpuscular Hemoglobin Concent 32.9 32-36 g/dl Platelet Count 280 130-400 K/uL Mean Platelet Volume 8.7 7.4-10.4 fL Neutrophils (%) (Auto) 71.5 % Lymphocytes (%) (Auto) 12.0 % Monocytes (%) (Auto) 13.3 % Eosinophils (%) (Auto) 2.5 % Basophils (%) (Auto) 0.5 % Neutrophils # (Auto) 4.29 1.4-6.5 K/uL Lymphocytes # (Auto) 0.72 1.2-3.4 K/uL Monocytes # (Auto) 0.80 0.11-0.59 K/uL Eosinophils # (Auto) 0.15 0-0.5 K/uL Basophils # (Auto) 0.03 0-0.2 K/uL RDW Standard Deviation 51.3 36.4-46.3 fL RDW Coefficient of Variation 16.3 11.5-14.5 % Immature Granulocyte % (Auto) 0.2 % Immature Granulocyte # (Auto) 0.01 0.00-0.02 K/uL Sodium Level 143 136-145 mmol/L Potassium Level 4.0 3.5-5.1 mmol/L Chloride Level 109 98-107 mmol/L Carbon Dioxide Level 26 21-32 mmol/L Anion Gap 8.0 3-11 mmol/L Blood Urea Nitrogen 5 7-18 mg/dl Creatinine 0.42 0.60-1.20 mg/dl Est Creatinine Clear Calc Drug Dose 134.6 ml/min Estimated GFR () 132.8 Estimated GFR (Non- 114.6 BUN/Creatinine Ratio 10.8 10-20 Random Glucose 64 70-99 mg/dl Calcium Level 7.8 8.5-10.1 mg/dl Assessment & Plan IMP leakage around the catheter, peritonitis I recommend to consult intervention radiologist for dysfunction of catheter, or place new catheter under U/S guided sign off today, please call me if any new issues. Thanks, IMP leakage around the catheter, peritonitis I recommend to consult intervention radiologist for dysfunction of catheter, or place new catheter under U/S guided continue iv antibiotic will F/U
[2016-03-20 11:59] VITALS: BP 114/80; PULSE 105; TEMP 36.6; O2SAT 97
[2016-03-20] MEDS ORDERED: NURSING VERBAL MED ORDER ONE (12:45)
[2016-03-20] MEDS: SODIUM CHLORIDE 0.9% 1000ML 1,000 ML IV SCH (13:05)
--- NOTE | 2016-03-20 15:32 | Progress Note ---
Progress Note ID Consult dictated #[id number] A/P: 1. Fungal Peritonitis -Start fluconazole, IV for now, npo after mn -Agree that cath should be removed -Can continue zosyn for now pending cath removal -check blood cultures -will follow, thank you
[2016-03-20 15:40] VITALS: BP 120/76; PULSE 88; TEMP 36.6; O2SAT 98
[2016-03-20] MEDS: FLUCONAZOLE / NSS 200 MG in PREMIXED NSS 100 ML IV SCH (16:26)
--- NOTE | 2016-03-20 17:08 | Hematology/Oncology Prog Note ---
Hematology/Onc Progress Note Date of Service Mar 20, 2016. Diagnoses Metastatic colon cancer Ascites with spontaneous bacterial peritonitis Medications Medications Administered Medications (Trade) Dose Ordered Sig/Letty Route Start Time Stop Time Status Last Admin Dose Admin Tramadol HCl (Ultram Tab) 50 mg Q6H PRN PO 03/17/16 17:30 04/16/16 17:29 03/17/16 21:13 50 MG Venlafaxine HCl (effeXOR EXTENDED REL CAP) 75 mg QAM PO 03/18/16 09:00 04/17/16 08:59 03/19/16 08:56 75 MG Quetiapine Fumarate (seroQUEL TAB) 25 mg HS PO 03/17/16 21:00 04/16/16 20:59 03/19/16 21:35 25 MG Miscellaneous Information 1 ea 1 ea QS N/A 03/18/16 00:00 04/17/16 00:00 03/20/16 16:27 1 EA Piperacillin Sod/ Tazobactam Sod 3.375 gm/Dextrose 115 ml @ 230 mls/hr NOW ONCE IV 03/17/16 18:01 03/17/16 18:30 DC 03/17/16 19:07 230 MLS/HR Sodium Chloride 1,000 ml @ 50 mls/hr Q20H IV 03/17/16 17:45 03/19/16 14:36 DC 03/19/16 08:55 50 MLS/HR Piperacillin Sod/ Tazobactam Sod 3.375 gm/Dextrose 115 ml @ 28.75 mls/ hr Q8H IV 03/18/16 00:00 03/27/16 00:00 03/20/16 07:36 28.75 MLS/HR Pantoprazole Sodium 40 mg/ Syringe 10 ml @ 5 mls/min NOW STAT IV 03/17/16 21:41 03/17/16 21:42 DC 03/17/16 21:51 5 MLS/MIN Pantoprazole Sodium/Syringe (Protonix Inj/ Syringe) 10 ml @ 5 mls/min DAILY@11 IV 03/18/16 11:00 03/19/16 14:36 DC 03/19/16 08:56 5 MLS/MIN Ketorolac Tromethamine (Toradol Inj) 15 mg Q6H PRN IV 03/17/16 21:45 03/22/16 21:44 03/20/16 07:36 15 MG Lidocaine HCl (Xylocaine 1% Inj (Local)) 20 ml STK-MED ONCE .ROUTE 03/18/16 08:12 03/18/16 08:14 DC 03/18/16 08:12 20 ML Potassium Chloride (Klor-Con M10) 40 meq ONE ONCE PO 03/18/16 09:30 03/18/16 09:31 DC 03/18/16 10:38 40 MEQ Potassium Chloride (Klor-Con Tab) 20 meq TID PO 03/18/16 14:00 03/19/16 23:00 DC 03/19/16 20:02 20 MEQ Lorazepam (Ativan Tab) 0.5 mg STK-MED ONCE .ROUTE 03/19/16 00:15 03/19/16 00:17 DC 03/19/16 00:18 0.5 MG Lorazepam (Ativan Tab) 0.5 mg HS PRN PO 03/19/16 00:30 04/18/16 00:29 03/20/16 00:19 0.5 MG Senna (Senokot Tab) 8.6 mg 1000 ONCE PO 03/19/16 10:00 03/19/16 10:01 DC 03/19/16 11:15 8.6 MG Bisacodyl (Dulcolax Tab) 5 mg NOW ONCE PO 03/19/16 10:00 03/19/16 10:01 DC 03/19/16 11:15 5 MG Heparin Sodium (Porcine) 5 ml 5 ml PRN PRN IV 03/19/16 15:15 04/18/16 15:14 03/19/16 20:02 5 ML Sodium Chloride 1,000 ml @ 50 mls/hr Q20H IV 03/20/16 13:00 04/19/16 12:59 03/20/16 13:05 50 MLS/HR Fluconazole/ Sodium Chloride/ Prmx (Diflucan IV/ Premixed Nss) 100 ml @ 100 mls/hr DAILY@1600 IV 03/20/16 16:00 03/30/16 15:59 03/20/16 16:26 100 MLS/HR Subjective She is seated comfortably in bed. Her abdominal pain is still significant. She had ~600 cc of drainage from her peritoneal catheter yesterday, though she has had little today. She also continues to leak fluid around her catheter. She denies fevers, chills, or sweats. Review of Systems: Constitutional: No chills, No fever, No sweats Eyes: No worsening of vision Respiratory: No cough, No shortness of breath Cardiovascular: No chest pain, No palpitations Abdomen: + pain, No nausea, No vomiting Musculoskeletal: No joint pain, No muscle pain Female : No dysuria, No urinary frequency Neurologic: No numbness/tingling, No weakness Heme: No abnormal bleeding/bruising Skin: No bleeding Vital Signs Vital Signs Past 12 Hours Date Time Temp Pulse Resp B/P Pulse Ox O2 Delivery O2 Flow Rate FiO2 03/20/16 15:40 36.6 88 18 120/76 98 Room Air 03/20/16 11:59 36.6 105 16 114/80 97 Room Air 03/20/16 10:08 Room Air 03/20/16 07:21 36.7 96 16 109/73 96 Room Air Physical Exam Constitutional: General Apperance: too thin Level of Distress: chronically ill Psychiatric: Mental Status: active & alert Orientation: oriented except where noted, to time, to place, to person Eyes: EOM: EOMI Lungs: Respiratory Effort: no dyspnea Auscuitation: breath sounds normal Cardiovascular: Heart Auscultation: RRR, no murmurs Abdomen: Inspection & Palpation: soft, distended, guarding (voluntary), pertinent finding (diffusely tender) Extremities: no edema Neurologic: Cranial Nerves: grossly intact Laboratory Last 24 Hours Test 03/20/16 05:35 White Blood Count 6.00 K/uL Red Blood Count 3.86 M/uL Hemoglobin 10.9 g/dL Hematocrit 33.1 % Mean Corpuscular Volume 85.8 fL Mean Corpuscular Hemoglobin 28.2 pg Mean Corpuscular Hemoglobin Concent 32.9 g/dl Platelet Count 280 K/uL Mean Platelet Volume 8.7 fL Neutrophils (%) (Auto) 71.5 % Lymphocytes (%) (Auto) 12.0 % Monocytes (%) (Auto) 13.3 % Eosinophils (%) (Auto) 2.5 % Basophils (%) (Auto) 0.5 % Neutrophils # (Auto) 4.29 K/uL Lymphocytes # (Auto) 0.72 K/uL Monocytes # (Auto) 0.80 K/uL Eosinophils # (Auto) 0.15 K/uL Basophils # (Auto) 0.03 K/uL RDW Standard Deviation 51.3 fL RDW Coefficient of Variation 16.3 % Immature Granulocyte % (Auto) 0.2 % Immature Granulocyte # (Auto) 0.01 K/uL Sodium Level 143 mmol/L Potassium Level 4.0 mmol/L Chloride Level 109 mmol/L Carbon Dioxide Level 26 mmol/L Anion Gap 8.0 mmol/L Blood Urea Nitrogen 5 mg/dl Creatinine 0.42 mg/dl Est Creatinine Clear Calc Drug Dose 134.6 ml/min Estimated GFR () 132.8 Estimated GFR (Non- 114.6 BUN/Creatinine Ratio 10.8 Random Glucose 64 mg/dl Calcium Level 7.8 mg/dl Assessment & Plan Ms. Glover continues to have abdominal pain related to her SBP. She is on antibiotics with broad gram negative coverage. She continues to have issues with her peritoneal drain and surgery have been consulted to discuss a tube change or removing it entirely, due to her discomfort and the intermittent efficacy of the drainage. We will continue to hold her chemotherapy until these acute issues are resolved.
--- NOTE | 2016-03-20 19:25 | INFECT. DISEASE CONSULTATION ---
DATE OF CONSULTATION: 03/20/2016 REQUESTING PHYSICIAN: Dr. Montez. HISTORY OF PRESENT ILLNESS: This is a 55-year-old female who was admitted from home after she had worsening abdominal pain and bloating. She does have a history of metastatic colon cancer. She was followed at [facility] in [place]. On 01/24/2016, a peritoneal catheter was placed in [place] for management of ascites. She has been draining a significant amount of fluid from the drain; however, in mid February, she had been seen by surgery for decreased drainage. At that time, she did undergo a guidewire exchange of the catheter secondary to a clog. She continued to have significant drainage, draining at least 300 mL per day. She now has noticed that the drainage has decreased once again and she is also having leaking around the catheter. For this reason, she presented to the Emergency Room. She also was complaining of constipation in the ER. She was subsequently admitted to the hospital and placed empirically on Zosyn. She has been afebrile since admission to the hospital and she has not had a leukocytosis. She did undergo a CAT scan of the abdomen and pelvis on 03/17/2016, which showed significant increase in ascites from the CAT scan in February. There was no fluid collection around the catheter tip itself. She did undergo fluid analysis on 03/17/2016 as well. Her peritoneal fluid had 463 white cells with 50% neutrophils. A fluid culture done on 03/18/2016 is growing Layla albicans. She has not had any blood cultures performed. She is being followed by surgery and it was recommended that she also be followed by interventional radiology. She does follow with heme/onc here as well who has requested that the catheter be removed. Infectious diseases was asked to see the patient in consultation secondary to her peritoneal culture results. She currently denies any fevers or chills. She has no chest pain, cough, shortness of breath. She does have abdominal pain and distention which is worse than her baseline. She is currently unable to drain any fluid from the catheter but is having significant increase of leakage around the catheter itself. She denies any urinary complaints. All remaining review of systems are reviewed and are negative. She is tolerating Zosyn well. PAST MEDICAL HISTORY: Significant for metastatic colon cancer, osteopenia, reflux, sinusitis, anxiety and depression. SURGICAL HISTORY: Significant for peritoneal catheter placement. FAMILY HISTORY: Noncontributory. SOCIAL HISTORY: Significant for history of tobacco use. She denies any alcohol or drug use. She is and lives alone. ALLERGIES: SHE HAS ALLERGIES TO DILAUDID. CURRENT MEDICATIONS: Include fentanyl, Senokot, Dulcolax, subcu heparin, fentanyl patch, Ativan, Effexor, Zosyn, Toradol, Seroquel, Ultram, Zofran, Tylenol, Maalox, milk of magnesia and MiraLax. PHYSICAL EXAMINATION: VITAL SIGNS: She is afebrile since admission, pulse 105, respiratory rate 16, blood pressure 114/80, oxygen saturation is 97% on room air. GENERAL: She is awake, alert and oriented x3. She is in no acute distress. HEENT: Mucous membranes are moist. Extraocular muscles are intact. HEART: Regular. LUNGS: Clear bilaterally. ABDOMEN: Distended and tender. Catheter is in place in the left lower quadrant. Dressing is clean, dry and intact. EXTREMITIES: There is no lower extremity edema bilaterally. SKIN: Without rash. LABORATORY STUDIES: CBC today reveals a white blood count of 6.0, hemoglobin 10.9, hematocrit 33.1, platelets are 280. Chemistry panel reveals a sodium of 143, potassium 4.0, chloride 109, bicarbonate 26, BUN 5, creatinine 0.4, glucose is 64. Fluid is a hazy pale yellow fluid with 463 white blood cells and 50% neutrophils. Culture is growing Layla albicans, no sensitivities to follow. CT of the abdomen and pelvis was reviewed previously. ASSESSMENT AND PLAN: Fungal peritonitis. I will place her on fluconazole at this time. She is n.p.o. after midnight for suspected catheter removal. I am in agreement with catheter removal. She can stay on Zosyn pending any procedure, but if no additional cultures are obtained and no bacteria are found, this can be discontinued. She will be placed on fluconazole. We will follow along with you. Thank you for this consultation. LYDIA
[2016-03-20] MEDS: QUETIAPINE FUMARATE 25 MG TAB PO SCH (21:54)
[2016-03-20 23:06] VITALS: BP 112/76; PULSE 97; TEMP 37.2; O2SAT 97
[2016-03-21] MEDS: PIPERACILL/TAZOBAC IV 3.375 GM in DEXTROSE 5% 100ML IV SCH ×4 (00:09→23:53)
[2016-03-21] MEDS: CHECK FENTANYL PATCH PLACEMENT SCH ×4 (00:10→23:54)
[2016-03-21 07:36] VITALS: BP 95/64; PULSE 95; TEMP 36.8; O2SAT 95
[2016-03-21] MEDS ORDERED: PHYTONADIONE 5 MG TAB PO ONE (08:30)
[2016-03-21 08:32] LABS: INR 1.2 (0.9-1.1); PROTHROMBIN TIME (PATIENT) 12.9 SECONDS (9.0-12.0)
[2016-03-21] MEDS: VENLAFAXINE HCL XR 75 MG CAPXR PO SCH (09:02)
[2016-03-21] MEDS: SENNA 8.6 MG TAB PO SCH (09:03)
[2016-03-21] MEDS: SODIUM CHLORIDE 0.9% 1000ML 1,000 ML IV SCH (09:03)
[2016-03-21 11:08] VITALS: BP 115/74; PULSE 100; TEMP 36.6; O2SAT 100
--- NOTE | 2016-03-21 12:48 | Hospitalist Progress Note ---
Hospitalist Progress Note Date of Service Mar 21, 2016. Subjective Pt evaluation today including: conversation w/ patient, physical exam, chart review, lab review, review of studies, review of inpatient medication list Pain: Mild abdominal pain PO Intake: good Voiding: no voiding problems The patient was seen and examined this morning. Pt reports catheter was removed this morning by Dr. Lester. She is draining quite a bit of fluid from abdomen and is requiring a bandage change again. + Mild abdominal pain present at baseline but tolerable, worse with palpation. Denies nausea or vomitting. She denies fever, chills, sweats, eating without difficulty. Still has not had a bowel movement. Pt reports plans to take mirilax and dulcolax again today, suppository available if she wants it. All Other Systems: Reviewed and Negative (see HPI) Objective Vital Signs Date Time Temp Pulse Resp B/P Pulse Ox O2 Delivery O2 Flow Rate FiO2 03/21/16 11:08 36.6 100 18 115/74 100 Room Air 03/21/16 07:36 36.8 95 16 95/64 95 Room Air 03/20/16 23:59 Room Air 03/20/16 23:06 37.2 97 18 112/76 97 Room Air 03/20/16 16:00 Room Air 03/20/16 15:40 36.6 88 18 120/76 98 Room Air Physical Exam General Appearance: WD/WN, no apparent distress Eyes: PERRL, EOMI ENT: hearing grossly normal, pharynx normal Neck: supple, no JVD Respiratory/Chest: lungs clear, normal breath sounds, no respiratory distress, no accessory muscle use Cardiovascular: no JVD, no murmur, + tachycardia (regular rhythm, HR =90s) Abdomen: normal bowel sounds, + pertinent finding (+distended, soft, peritoneal catheter has been removed, + pain with palpation in the RUQ. + fluid wave. Dressing covering peritoneal cath insertion site is soaked with ascitic fluid. ) Extremities: non-tender, normal inspection, no pedal edema, no calf tenderness Neurologic/Psychiatric: alert, normal mood/affect, oriented x 3 Skin: normal color, warm/dry Laboratory Results Last 24 Hours Test 03/21/16 08:15 Prothrombin Time 12.9 SECONDS Prothromb Time International Ratio 1.2 Assessment and Plan This is a pleasant 55 yo F with PMHx metastatic adenocarcinoma of the colon with metastasis to the liver on coumadin, recent embolization of the spleen due to cytopenias, osteopenia, laryngeal reflux, chronic sinusitis, anxiety, and hx of tobacco use. Metastatic colon cx to liver, had increased abdominal pain, fevers,--> peritonitis with + romana albicans on culture - continue Zosyn and fluconazole per Infectious Disease- appreciate input -peritoneal fluid: 463 WBC, culture with few WBC, + romana albicans - catheter removed today, 03/21: plan to do intermitted paracentesis if necessary and continue course of fluconazole and zosyn for the next 48-72 hours. Then will consider placing a different catheter for ascitic fluid drainage. Discussed with gen surg (Dr. Lester) and infectious disease (Dr. Cisneros), all are in agreement with this plan. - continue fentanyl patch 18 mcg daily ( pt cuts a patch in half), tramadol prn. - Chemo tx hs includes many courses of FOLFIRI as well as FOLFOX and Avastin, oncology following - pt is due for her next round of chemo on Sun. Dr. Luke Christensen states no further chemo until infection resolved. Hypokalemia: 3.7 on last check - Follow with QOD labs Osteopenia - Not currently taking any supplementation Generalized anxiety disorder Depression - Cont effexor 75 mg daily - Cont seroquel 25 mg QHS for sleep DVT ppx: SCDs, oob CODE STATUS: DNR Disposition: From home, discharge depending on procedure, will await surg recs.
[2016-03-21] MEDS: KETOROLAC TROMETHAMINE 15 MG/ML VIAL IV PRN ×2 (14:59→22:18)
[2016-03-21 15:45] VITALS: O2SAT 97
--- NOTE | 2016-03-21 15:45 | Progress Note ---
Subjective Date of Service: Mar 21, 2016. Subjective cath removed earlier today, tolerated well. still with drainage. fluid culture with c. albicans only. blood cultures pending. remains on zosyn. no new micro. afebrile. ? placement of new cath in the future. no new labs. Problem List Medical Problems: (1) Metastatic colon cancer in female Status: Acute (2) Polysubstance abuse Status: Acute Objective Vital Signs Date Time Temp Pulse Resp B/P Pulse Ox O2 Delivery O2 Flow Rate FiO2 03/21/16 13:34 Room Air 03/21/16 11:08 36.6 100 18 115/74 100 Room Air 03/21/16 07:36 36.8 95 16 95/64 95 Room Air 03/20/16 23:59 Room Air 03/20/16 23:06 37.2 97 18 112/76 97 Room Air 03/20/16 16:00 Room Air Laboratory Results Item Value Date Time Gram Stain - Final Resulted 03/18/16 0000 Peritoneal Fluid Gram Stain - Final Resulted 03/18/16 0000 Peritoneal Fluid Last 24 Hours Test 03/21/16 08:15 Prothrombin Time 12.9 SECONDS Prothromb Time International Ratio 1.2 Assessment and Plan (1) Peritonitis Assessment & Plan: continue fluconazole, IV for now. can continue zosyn for now too, if she remains medically stable, will stop soon. Unclear if new cath to be placed. will follow, blood cultures pending.
[2016-03-21] MEDS: FLUCONAZOLE / NSS 200 MG in PREMIXED NSS 100 ML IV SCH (16:10)
[2016-03-21 16:11] VITALS: BP 111/72; PULSE 68; TEMP 36.7; O2SAT 97
[2016-03-21] MEDS ORDERED: ENOXAPARIN 1 MG/KG SQ SCH (18:15)
[2016-03-21 19:28] VITALS: BP 106/66; PULSE 84; TEMP 36.8; O2SAT 98
[2016-03-21] MEDS: QUETIAPINE FUMARATE 25 MG TAB PO SCH (20:21)
[2016-03-21] MEDS: ENOXAPARIN 60 MG/0.6 ML SYR SQ SCH (20:22)
[2016-03-21] MEDS ORDERED: HEPARIN SOD 5000 UNIT/0.5 ML CARP SQ SCH (21:00)
[2016-03-21] MEDS: LORAZEPAM 0.5 MG TAB PO PRN (23:48)
[2016-03-22] MEDS: SODIUM CHLORIDE 0.9% 1000ML 1,000 ML IV SCH (05:27)
[2016-03-22] MEDS ORDERED: FENTANYL 12 MCG/HR TDSY TD SCH ×2 (09:00→19:00)
[2016-03-22] MEDS: PIPERACILL/TAZOBAC IV 3.375 GM in DEXTROSE 5% 100ML IV SCH (09:07)
[2016-03-22 09:21] VITALS: BP 134/76; PULSE 99; TEMP 36.6; O2SAT 98
[2016-03-22] MEDS: CHECK FENTANYL PATCH PLACEMENT SCH ×2 (09:22→16:03)
[2016-03-22] MEDS: VENLAFAXINE HCL XR 75 MG CAPXR PO SCH (09:23)
[2016-03-22] MEDS: ENOXAPARIN 60 MG/0.6 ML SYR SQ SCH ×2 (09:23→20:36)
[2016-03-22] MEDS: SENNA 8.6 MG TAB PO SCH (09:23)
[2016-03-22 10:00] LABS: BASO % 0.6 %; BASO ABS # 0.03 K/uL (0-0.2); COMPLETE YES; HEMATOCRIT 36.5 % (37-47); LYMPH % 21.3 %; LYMPH ABS # 1.08 K/uL (1.2-3.4); MEAN CELL VOLUME 87.1 fL (80-100); MEAN CORPUSCULAR HEMOGLOBIN 28.4 pg (25-34); MEAN CORPUSCULAR HGB CONC 32.6 g/dl (32-36); MEAN PLATELET VOLUME 8.9 fL (7.4-10.4); MONO % 15.4 %; NEUT % 59.7 %; PLATELET COUNT 339 K/uL (130-400); RED BLOOD COUNT 4.19 M/uL (4.2-5.4); WHITE BLOOD COUNT 5.08 K/uL (4.8-10.8)
--- NOTE | 2016-03-22 10:03 | Progress Note ---
Subjective Date of Service: Mar 22, 2016. Subjective blood cultures negative. s/p drain removal. wbc nml today, cmp pending. tolerating abx and fluconoazole.no overnight events Problem List Medical Problems: (1) Metastatic colon cancer in female Status: Acute (2) Polysubstance abuse Status: Acute Objective Vital Signs Date Time Temp Pulse Resp B/P Pulse Ox O2 Delivery O2 Flow Rate FiO2 03/22/16 09:21 36.6 99 18 134/76 98 03/22/16 00:00 Room Air 03/21/16 19:28 36.8 84 16 106/66 98 Room Air 03/21/16 16:11 36.7 68 16 111/72 97 Room Air 03/21/16 15:45 97 Room Air 03/21/16 13:34 Room Air 03/21/16 11:08 36.6 100 18 115/74 100 Room Air Physical Exam General Appearance: WD/WN, no apparent distress Laboratory Results Item Value Date Time Gram Stain - Final Resulted 03/18/16 0000 Peritoneal Fluid Blood Culture - Preliminary Resulted 03/20/16 1626 Blood NO GROWTH TO DATE. Blood Culture - Preliminary Resulted 03/20/16 1629 Blood NO GROWTH TO DATE. Last 24 Hours Test 03/22/16 09:35 White Blood Count 5.08 K/uL Red Blood Count 4.19 M/uL Hemoglobin 11.9 g/dL Hematocrit 36.5 % Mean Corpuscular Volume 87.1 fL Mean Corpuscular Hemoglobin 28.4 pg Mean Corpuscular Hemoglobin Concent 32.6 g/dl Platelet Count 339 K/uL Mean Platelet Volume 8.9 fL Neutrophils (%) (Auto) 59.7 % Lymphocytes (%) (Auto) 21.3 % Monocytes (%) (Auto) 15.4 % Eosinophils (%) (Auto) 3.0 % Basophils (%) (Auto) 0.6 % Neutrophils # (Auto) 3.04 K/uL Lymphocytes # (Auto) 1.08 K/uL Monocytes # (Auto) 0.78 K/uL Eosinophils # (Auto) 0.15 K/uL Basophils # (Auto) 0.03 K/uL RDW Standard Deviation 52.2 fL RDW Coefficient of Variation 16.4 % Immature Granulocyte % (Auto) 0.0 % Immature Granulocyte # (Auto) 0.00 K/uL Assessment and Plan (1) Peritonitis Assessment & Plan: continue fluconazole, IV for now, can change to po when tolerating po. would give 3 weeks total. will stop zosyn. no new ID recs at this time.
[2016-03-22 10:07] LABS: INR 1.1 (0.9-1.1); PROTHROMBIN TIME (PATIENT) 11.4 SECONDS (9.0-12.0)
[2016-03-22 10:31] LABS: CALCIUM 8.2 mg/dl (8.5-10.1); CREATININE 0.4 mg/dl (0.60-1.20); POTASSIUM 3.6 mmol/L (3.5-5.1)
--- NOTE | 2016-03-22 11:25 | Progress Note ---
Subjective Date of Service: Mar 22, 2016. Subjective Pt evaluation today including: conversation w/ patient, physical exam, chart review, lab review, review of studies, conversation w/ behavioral consultant, review of inpatient medication list Voiding: no voiding problems The hole from previous peritoneal catheter was leakage, the fluid was hold and corrected by using colostomy bag, there was around 400 ml to midnight last night, later there was leakage from colostomy bag, and this morning was replaced with new colostomy bag attached to abdominal wall, possible estimated fluid coming out about 1 L, patient feels much comfortable, pain well controlled currently has no pain, however has constipations, it does not help her from oral Dulcolax tablets , tolerate some diet Problem List Medical Problems: (1) Metastatic colon cancer in female Status: Acute (2) Polysubstance abuse Status: Acute Review of Systems Constitutional: + fatigue, + weakness, No chills, No fever, No problem reported , No sweats, No weight loss Eyes: No diplopia, No discharge, No eye pain, No redness, No worsening of vision ENT: No dental problems, No hearing loss, No nasal symptoms, No sore throat, No tinnitus, No trouble swallowing, No unusual epistaxis Respiratory: No cough, No dyspnea at rest, No dyspnea on exertion, No hemoptysis, No shortness of breath, No sputum, No wheezing Cardiac: No PND, No chest pain, No claudication, No edema, No orthopnea, No palpitations Abdomen: + problem reported (distended), No constipation, No diarrhea, No nausea, No pain, No vomiting Musculoskeletal: No calf pain, No joint pain, No muscle pain, No swelling Female : No abnormal vaginal bleeding, No dysuria, No hematuria, No incontinence, No urinary frequency, No vaginal discharge Neurologic: No balance problems, No memory loss, No numbness/tingling, No paralysis, No vertigo, No weakness Psychiatric: No anhedonism, No anxiety, No depression symptoms, No insomnia, No substance abuse Heme: No abnormal bleeding/bruising, No clotting problems, No night sweats, No swollen lymph nodes Endo: No excessive thirst, No excessive urination, No fatigue Skin: No bleeding, No color change, No itch, No new/changing skin lesions, No rash Objective Vital Signs Date Time Temp Pulse Resp B/P Pulse Ox O2 Delivery O2 Flow Rate FiO2 03/22/16 10:56 Room Air 03/22/16 09:21 36.6 99 18 134/76 98 03/22/16 00:00 Room Air 03/21/16 19:28 36.8 84 16 106/66 98 Room Air 03/21/16 16:11 36.7 68 16 111/72 97 Room Air 03/21/16 15:45 97 Room Air 03/21/16 13:34 Room Air Physical Exam General Appearance: WD/WN, no apparent distress, + cachetic, + thin, + pertinent finding (chronic ill-looking) Eyes: normal inspection, PERRL, EOMI, sclerae normal ENT: normal ENT inspection, hearing grossly normal, pharynx normal Neck: supple, no adenopathy, thyroid normal, no JVD, no carotid bruits, trachea midline Respiratory/Chest: chest non-tender, normal breath sounds, no respiratory distress, no accessory muscle use, + decreased breath sounds Cardiovascular: regular rate, rhythm, no edema, no gallop, no JVD, no murmur Abdomen: normal bowel sounds, soft, no organomegaly, no pulsatile mass, + pertinent finding (distended, we are using colostomy back to hold the paritoneal fluid in the right middle abdomen) Extremities: normal range of motion, non-tender, normal inspection, no pedal edema, no calf tenderness, normal capillary refill, pelvis stable Neurologic/Psychiatric: business rules developer II-XII nml as tested, no motor/sensory deficits, alert, normal mood/affect, oriented x 3 Skin: normal color, warm/dry, no rash Lymphatic: no adenopathy Laboratory Results Last 24 Hours Test 03/22/16 09:35 White Blood Count 5.08 K/uL Red Blood Count 4.19 M/uL Hemoglobin 11.9 g/dL Hematocrit 36.5 % Mean Corpuscular Volume 87.1 fL Mean Corpuscular Hemoglobin 28.4 pg Mean Corpuscular Hemoglobin Concent 32.6 g/dl Platelet Count 339 K/uL Mean Platelet Volume 8.9 fL Neutrophils (%) (Auto) 59.7 % Lymphocytes (%) (Auto) 21.3 % Monocytes (%) (Auto) 15.4 % Eosinophils (%) (Auto) 3.0 % Basophils (%) (Auto) 0.6 % Neutrophils # (Auto) 3.04 K/uL Lymphocytes # (Auto) 1.08 K/uL Monocytes # (Auto) 0.78 K/uL Eosinophils # (Auto) 0.15 K/uL Basophils # (Auto) 0.03 K/uL RDW Standard Deviation 52.2 fL RDW Coefficient of Variation 16.4 % Immature Granulocyte % (Auto) 0.0 % Immature Granulocyte # (Auto) 0.00 K/uL Prothrombin Time 11.4 SECONDS Prothromb Time International Ratio 1.1 Sodium Level 145 mmol/L Potassium Level 3.6 mmol/L Chloride Level 110 mmol/L Carbon Dioxide Level 25 mmol/L Anion Gap 10.0 mmol/L Blood Urea Nitrogen 4 mg/dl Creatinine 0.40 mg/dl Est Creatinine Clear Calc Drug Dose 141.3 ml/min Estimated GFR () 134.9 Estimated GFR (Non- 116.4 BUN/Creatinine Ratio 10.0 Random Glucose 96 mg/dl Calcium Level 8.2 mg/dl Assessment and Plan 55 yo F with PMHx metastatic adenocarcinoma of the colon with metastasis to the liver on coumadin, recent embolization of the spleen due to cytopenias, osteopenia, laryngeal reflux, chronic sinusitis, anxiety, and hx of tobacco use. Metastatic colon cx to liver, had increased abdominal pain, fevers,--> peritonitis with + romana albicans on culture Significant improves, Has been on Zosyn and fluconazole per Infectious Disease Today , infectious disease recommend continue fluconazole, IV for now, can change to po when tolerating po. would give 3 weeks total. stop zosyn. no new ID recs at this time. - catheter removed 03/21/16: plan to do intermitted paracentesis if necessary and continue course of fluconazole is consider placing a different catheter for ascitic fluid drainage, will discuss infectious disease (Dr. Cisneros) to see when would be the best timing to place the new paratonia catheter , then will have radiologist to place paratonia catheter - Chemo tx hs includes many courses of FOLFIRI as well as FOLFOX and Avastin, oncology following - pt is due for her next round of chemo on Sun. Dr. Luke Christensen states no further chemo until infection resolved. Hypokalemia resolved Osteopenia Generalized anxiety disorder, better Depression history of DVT /PE, was on Coumadin follow-up with Coumadin clinic,has started Lovenox 1 mg/kg every 12 hours, Continue current care DVT ppx: SCDs, oob, however by Lovenox CODE STATUS: DNR Discharge plan will be per daily Assessment and after discussed with the infectious disease and surgeon Continued [facility] stay due to: multiple IV medications needed Discharge planning: home
[2016-03-22] MEDS ORDERED: NURSING VERBAL MED ORDER ONE (11:30)
[2016-03-22 11:45] VITALS: BP 92/60; PULSE 98; TEMP 36.8; O2SAT 97
[2016-03-22] MEDS ORDERED: SOD PHOSPHATE/SOD BIPHOSPHATE ENEMA 132 ML BTL PR SCH (11:45)
[2016-03-22 15:28] VITALS: BP 108/66; PULSE 96; TEMP 36.3; O2SAT 95
--- NOTE | 2016-03-22 15:41 | Surgery Progress Note ---
Surgery Progress Note Date of Service Mar 22, 2016. Subjective Post OP Day: Hospital Day # 5 + feeling well (feeling better), + pain controlled, No chest pain, No complaints , No nausea, No vomiting drainage from opening where catheter was present. 425 mls last evening. Colostomy bag placed by nursing staff around opening given the amount of drainage. Objective Vital Signs: Date Time Temp Pulse Resp B/P Pulse Ox O2 Delivery O2 Flow Rate FiO2 03/22/16 15:28 36.3 96 18 108/66 95 Room Air 03/22/16 11:45 36.8 98 16 92/60 97 03/22/16 10:56 Room Air 03/22/16 09:21 36.6 99 18 134/76 98 03/22/16 00:00 Room Air 03/21/16 19:28 36.8 84 16 106/66 98 Room Air 03/21/16 16:11 36.7 68 16 111/72 97 Room Air 03/21/16 15:45 97 Room Air General Appearance: WD/WN, no apparent distress, + thin (with obese abdomen due to ascites) Head: normocephalic, atraumatic Abdomen: + distended Incision(s): clean (previous catheter insertion site), dry, intact Extremities: normal range of motion Laboratory Results: Results Past 24 Hours Test 03/22/16 09:35 Range/Units White Blood Count 5.08 4.8-10.8 K/uL Red Blood Count 4.19 4.2-5.4 M/uL Hemoglobin 11.9 12.0-16.0 g/dL Hematocrit 36.5 37-47 % Mean Corpuscular Volume 87.1 80-100 fL Mean Corpuscular Hemoglobin 28.4 25-34 pg Mean Corpuscular Hemoglobin Concent 32.6 32-36 g/dl Platelet Count 339 130-400 K/uL Mean Platelet Volume 8.9 7.4-10.4 fL Neutrophils (%) (Auto) 59.7 % Lymphocytes (%) (Auto) 21.3 % Monocytes (%) (Auto) 15.4 % Eosinophils (%) (Auto) 3.0 % Basophils (%) (Auto) 0.6 % Neutrophils # (Auto) 3.04 1.4-6.5 K/uL Lymphocytes # (Auto) 1.08 1.2-3.4 K/uL Monocytes # (Auto) 0.78 0.11-0.59 K/uL Eosinophils # (Auto) 0.15 0-0.5 K/uL Basophils # (Auto) 0.03 0-0.2 K/uL RDW Standard Deviation 52.2 36.4-46.3 fL RDW Coefficient of Variation 16.4 11.5-14.5 % Immature Granulocyte % (Auto) 0.0 % Immature Granulocyte # (Auto) 0.00 0.00-0.02 K/uL Prothrombin Time 11.4 9.0-12.0 SECONDS Prothromb Time International Ratio 1.1 0.9-1.1 Sodium Level 145 136-145 mmol/L Potassium Level 3.6 3.5-5.1 mmol/L Chloride Level 110 98-107 mmol/L Carbon Dioxide Level 25 21-32 mmol/L Anion Gap 10.0 3-11 mmol/L Blood Urea Nitrogen 4 7-18 mg/dl Creatinine 0.40 0.60-1.20 mg/dl Est Creatinine Clear Calc Drug Dose 141.3 ml/min Estimated GFR () 134.9 Estimated GFR (Non- 116.4 BUN/Creatinine Ratio 10.0 10-20 Random Glucose 96 70-99 mg/dl Calcium Level 8.2 8.5-10.1 mg/dl Assessment & Plan Stage 4 metastatic colon cancer with liver mets and recurrent ascites - vitals stable - no leukocytosis - blood culture negative - peritoneal fluid culture positive for romana, currently on Diflucan IV PLAN: Our services were consulted for reinsertion of peritoneal catheter. Patient must have a culture negative paracentesis prior to reinsertion of another catheter. Discussed with radiology and they can place a new catheter under US guidance when patient's fungal infection has resolved either inpatient or outpatient. Continue current management established by Hospitalist. Thank you for consultation. Dr. Lester has seen and examined patient, developed assessment and plan. I interviewed and examined this patient and I agree with the above note.
[2016-03-22] MEDS: KETOROLAC TROMETHAMINE 15 MG/ML VIAL IV PRN (15:46)
[2016-03-22] MEDS: FLUCONAZOLE / NSS 200 MG in PREMIXED NSS 100 ML IV SCH (15:53)
[2016-03-22] MEDS ORDERED: FENTANYL PATCH REMOVE & WASTE SCH (18:59)
[2016-03-22 20:20] VITALS: BP 121/80; PULSE 88; TEMP 36.6; O2SAT 98
[2016-03-22] MEDS ORDERED: BISACODYL 5 MG TABEC PO SCH (21:00)
[2016-03-22] MEDS: TRAMADOL HCL 50 MG TAB PO PRN (22:07)
[2016-03-22] MEDS: QUETIAPINE FUMARATE 25 MG TAB PO SCH (22:53)
[2016-03-22 23:10] VITALS: BP 118/86; PULSE 94; TEMP 36.6; O2SAT 99
[2016-03-23] MEDS: CHECK FENTANYL PATCH PLACEMENT SCH ×3 (00:02→17:35)
[2016-03-23] MEDS: ONDANSETRON INJ 2 MG/ML 2 ML VIAL IV PRN ×2 (03:14→09:03)
[2016-03-23] MEDS: LORAZEPAM 0.5 MG TAB PO PRN (03:18)
[2016-03-23 03:52] VITALS: BP 112/74; PULSE 93; TEMP 36.3; O2SAT 97
[2016-03-23 08:42] VITALS: BP 108/71; PULSE 107; TEMP 36.9; O2SAT 97
[2016-03-23] MEDS: VENLAFAXINE HCL XR 75 MG CAPXR PO SCH (08:56)
[2016-03-23] MEDS: SENNA 8.6 MG TAB PO SCH (08:57)
[2016-03-23] MEDS: ENOXAPARIN 60 MG/0.6 ML SYR SQ SCH (08:57)
--- NOTE | 2016-03-23 09:22 | Hospitalist Progress Note ---
Hospitalist Progress Note Date of Service Mar 23, 2016. Subjective Pt evaluation today including: conversation w/ patient, physical exam, chart review, lab review, review of studies, review of inpatient medication list PO Intake: Fair Voiding: no voiding problems The patient was seen and examined this morning. Pt reports feeling very uncomfortable due to inability to move her bowels for almost 2 weeks now. She was given 6 dulcolax tablets last evening, along with senna and colace. She has some abdominal tenderness in the epigastric region to palpation. This morning she has just finished drinking MOM and miralax. Discussion was held regarding her decision for peritoneal catheter vs paracentesis. She reports that prior to the catheter being placed at [facility] she was requiring paracentesis at least 1x weekly. She is agreeable to routine paracentesis here at [facility] as an outpatient for comfort. Spoke with Dr. Can Denson on the phone this morning and he is agreeable to doing paracentesis. She is looking to be discharged soon if possible. All Other Systems: Reviewed and Negative (other than HPI) Objective Vital Signs Date Time Temp Pulse Resp B/P Pulse Ox O2 Delivery O2 Flow Rate FiO2 03/23/16 08:42 36.9 107 18 108/71 97 Room Air 03/23/16 03:52 36.3 93 18 112/74 97 Room Air 03/23/16 01:44 Room Air 03/22/16 23:10 36.6 94 16 118/86 99 Room Air 03/22/16 20:20 36.6 88 16 121/80 98 Room Air 03/22/16 16:13 Room Air 03/22/16 15:28 36.3 96 18 108/66 95 Room Air 03/22/16 11:45 36.8 98 16 92/60 97 03/22/16 10:56 Room Air 03/22/16 09:21 36.6 99 18 134/76 98 Physical Exam General Appearance: WD/WN, no apparent distress Eyes: PERRL, EOMI ENT: hearing grossly normal, pharynx normal Neck: no adenopathy, no JVD Respiratory/Chest: chest non-tender, lungs clear, no accessory muscle use Cardiovascular: regular rate, rhythm, no murmur Abdomen: + distended, + pertinent finding (tenderness in the epigastric region , + tympanic, + bag over previous peritoneal cath site draining ascitic fluid.) Extremities: non-tender, no pedal edema, no calf tenderness Neurologic/Psychiatric: alert, oriented x 3 Laboratory Results Last 24 Hours Test 03/22/16 09:35 White Blood Count 5.08 K/uL Red Blood Count 4.19 M/uL Hemoglobin 11.9 g/dL Hematocrit 36.5 % Mean Corpuscular Volume 87.1 fL Mean Corpuscular Hemoglobin 28.4 pg Mean Corpuscular Hemoglobin Concent 32.6 g/dl Platelet Count 339 K/uL Mean Platelet Volume 8.9 fL Neutrophils (%) (Auto) 59.7 % Lymphocytes (%) (Auto) 21.3 % Monocytes (%) (Auto) 15.4 % Eosinophils (%) (Auto) 3.0 % Basophils (%) (Auto) 0.6 % Neutrophils # (Auto) 3.04 K/uL Lymphocytes # (Auto) 1.08 K/uL Monocytes # (Auto) 0.78 K/uL Eosinophils # (Auto) 0.15 K/uL Basophils # (Auto) 0.03 K/uL RDW Standard Deviation 52.2 fL RDW Coefficient of Variation 16.4 % Immature Granulocyte % (Auto) 0.0 % Immature Granulocyte # (Auto) 0.00 K/uL Prothrombin Time 11.4 SECONDS Prothromb Time International Ratio 1.1 Sodium Level 145 mmol/L Potassium Level 3.6 mmol/L Chloride Level 110 mmol/L Carbon Dioxide Level 25 mmol/L Anion Gap 10.0 mmol/L Blood Urea Nitrogen 4 mg/dl Creatinine 0.40 mg/dl Est Creatinine Clear Calc Drug Dose 141.3 ml/min Estimated GFR () 134.9 Estimated GFR (Non- 116.4 BUN/Creatinine Ratio 10.0 Random Glucose 96 mg/dl Calcium Level 8.2 mg/dl Assessment and Plan This is a pleasant 55 yo F with PMHx metastatic adenocarcinoma of the colon with metastasis to the liver on coumadin, recent embolization of the spleen due to cytopenias, osteopenia, laryngeal reflux, chronic sinusitis, anxiety, and hx of tobacco use. Metastatic colon cx to liver, had increased abdominal pain, fevers,--> peritonitis with + romana albicans on culture - ID on board: will continue fluconazole for a total of [address] Cisneros this morning who is agreeable to 200mg PO fluconazole x 3 weeks and will see the patient in office in 1-2 weeks. - Spoke with radiology, Dr. Can Denson who r who is agreeable to doing a paracentesis today.- pt will need routine paracentesis for ascitic fluid drainage as she was requiring paracentesis every week prior to having the initial cath placed. Will have CM arrange - Follow fluid studies as an outpatient. - catheter removed 03/21: pt has not required paracentesis yet since cath was removed. Plan for paracentesis today - INR is 1.1 and plt =339 as of 03/22 - continue fentanyl patch 18 mcg daily ( pt cuts a patch in half), tramadol prn. - Chemo tx hs includes many courses of FOLFIRI as well as FOLFOX and Avastin, oncology following - pt is due for her next round of chemo yesterday 03/22, Dr. Basurto states no further chemo until infection resolved. Hypokalemia: 3.6 on last check - Follow with QOD labs Osteopenia - Not currently taking any supplementation Generalized anxiety disorder Depression - Cont effexor 75 mg daily - Cont seroquel 25 mg QHS for sleep DVT ppx: SCDs, oob CODE STATUS: DNR Disposition: From home, plan for paracentesis today and then discharge today or tomorrow
[2016-03-23 11:53] VITALS: BP 114/80; PULSE 107; TEMP 36.9; O2SAT 93
[2016-03-23] MEDS ORDERED: FLUC200T PO (12:10)
[2016-03-23] MEDS ORDERED: SNK PO (12:10)
[2016-03-23] MEDS ORDERED: MRLP17X PO (12:10)
[2016-03-23] MEDS ORDERED: DLC5 PO (12:10)
[2016-03-23] MEDS ORDERED: MOMLX PO (12:10)
--- NOTE | 2016-03-23 12:20 | Discharge Instructions ---
Discharge Instructions Admission Reason for Admission: Peritonitis, Colon Cancer Discharge Discharge Diagnosis / Problem: Fungal peritonitis Discharge Goals Goal(s): Decrease discomfort, Improve function, Therapeutic intervention Activity Recommendations Activity Limitations: per Instructions/Follow-up section Lifting Limitations: gradually increase as tolerated Exercise/Sports Limitations: gradually increase as tolerated May Resume Sexual Activity: when tolerated Shower/Bathe: no limitations Driving or Machine Use: After follow up with PCP or oncology . Instructions / Follow-Up Instructions / Follow-Up You were admitted to [facility] with severe abdominal pain and diagnosed with fungal peritonitis. During your stay here you were treated with intravenous antibiotics (zosyn) initially due to concern for bacterial peritonitis. Antibiotics were stopped after culture of ascitic fluid came back with + romana albicans (yeast/fungal infection) where you were started on antifungal (fluconazole). Your peritoneal catheter was removed on 03/21. Infectious disease was consulted and recommends you continue fluconazole 200 mg daily for a total course of 21 days. You have been given a prescription for this. You underwent paracentesis on 03/23 for comfort. It was determined by you and the hospital team to not replace a peritoneal catheter. Routine paracentesis was set up weekly here at [facility] starting next week. Results of amount drained should be sent to Dr. Youngblood. You were constipated while admitted so were given a bowel regimen with colace, senna, milk of magnesium and miralax. Please use these routinely to help bowels stay soft. Continue taking medications as prescribed Coumadin was held during admission for possible procedure. This was restarted upon discharge with bridging with lovenox injections. You may resume coumadin as you normally would take it. Very important that you discuss coumadin regimen with Dr. Vaughn next week PRIOR to having a therapeutic paracentesis. You will need to have blood work checked to determine your INR prior to paracentesis. Follow up with your PCP, Dr. Vaughn, prior to weekly paracentesis. Follow up with Kassie Tello on 03/27/13 at 2:00 pm. This is a routine appointment. Please discuss the next round of chemotherapy as you did not receive it while admitted. Discuss paracentesis at this visit as well. Follow up wtih Dr. Cisneros, within 1-2 weeks. Ascitic fluid study results will be forwarded to her. Current Hospital Diet Patient's current hospital diet: Regular Diet Discharge Diet Recommended Diet: Regular Diet Pending Studies Studies pending at discharge: yes List of pending studies: Ascitic fluid studies - to be followed by Dr. Cisneros Medical Emergencies . Who to Call and When: Medical Emergencies: If at any time you feel your situation is an emergency, please call 911 immediately. . Non-Emergent Contact Non-Emergency issues call your: Primary Care Provider Call Non-Emergent contact if: you have a fever, your pain is not controlled, your pain is worsening, you have any medication questions You develop worsening abdominal distension and/or pain. You have chest pain, shortness of breath, palpitations, lightheadedness, dizziness or have other concerns with your health. . Past History Medical & Surgical History: (1) Metastases to the liver (2) Metastasis from colon cancer (3) Peritonitis (4) abdominal catheter drainage (5) Colon cancer . "Provider Documentation" section prepared by Sally Dupont. VTE Core Measure Inpt VTE Proph given/why not?: SCD's
[2016-03-23 12:29] VITALS: BP 114/80; PULSE 107; TEMP 36.9; O2SAT 93
[2016-03-23] MEDS ORDERED: BISACODYL 10 MG SUPP ONE (12:39)
--- NOTE | 2016-03-23 12:42 | Discharge Summary ---
Discharge Summary Admission Date: Mar 17, 2016 at 16:22 Discharge Date: Mar 23, 2016 Discharge Disposition: Home Principal Diagnosis: Fungal peritonitis Problems/Secondary Diagnoses: Adenocarcinoma of the colon with mets to liver, hx tobacco abuse, hypokalemia, osteopenia, depression, anxiety Procedures: 03/21: Removal of peritoneal catheter 03/23: Therapeutic/diagnostic paracentesis 03/17/16: CT OF THE ABDOMEN AND PELVIS WITHOUT CONTRAST CLINICAL HISTORY: Peritonitis. Metastatic colon carcinoma. COMPARISON STUDY: CT of the abdomen and pelvis February 29, 2016. TECHNIQUE: Axial images of the abdomen and pelvis were obtained without IV contrast. Images were reviewed in the axial, sagittal, and coronal planes. FINDINGS: An [id number] is partially imaged. Evaluation of the abdomen and pelvis is suboptimal given the lack of IV and oral contrast. A right sided peritoneal drainage catheter is in place. The catheter is within the peritoneal cavity and the catheter traverses peritoneal fluid although the tip is not surrounded by fluid. The tip is adjacent to fat and bowel loops. A large amount of ascites has increased since exam of February 29, 2016. Heterogeneity of the liver is noted. Numerous parenchymal calcifications with capsular attraction suggest treated metastases. Splenomegaly with with peripheral hypodensity within the spleen suggests splenic infarcts. There is no hydronephrosis. There is no evidence for a bowel obstruction. No pneumatosis, or portal venous gas is present. A small amount of pneumoperitoneum is noted. No suspicious osseous lesions are present. The liver lesions are suboptimally assessed on this unenhanced examination. IMPRESSION: 1. Large amount of ascites, increased since CT of February 29, 2016. 2. Right sided peritoneal catheter in place. The catheter is likely within the peritoneal cavity and the catheter traverses peritoneal fluid although the tip is not surrounded by fluid. The tip is adjacent to fat and bowel. This could be correlated with function of the peritoneal drain. 3. Redemonstration of innumerable treated hepatic metastases which are suboptimally assessed on this exam. 4. Heterogeneity of the spleen which suggests extensive splenic infarction, similar to prior exam. 4. Trace pneumoperitoneum. While nonspecific, this may be related to an indwelling peritoneal catheter. Electronically signed by: Lloyd Gilbert M.D. 03/17/2016 8:23 PM Dictated Date/Time: 03/17/2016 8:09 PM The status of this report is Signed. Consultations: Oncology Medication Reconciliation New Medications: Fluconazole (Diflucan) 200 Mg Tab 1 TAB PO DAILY for 19 Days, #19 TAB Stop Date on 04/11/16 to complete 21 day course Bisacodyl (Bisacodyl EC) 5 Mg Tabec 10 MG PO HS for 30 Days, #60 TAB Enoxaparin (Enoxaparin Sodium) 60 Mg/0.6 Ml Inj 90 MG SQ DAILY for 10 Days, #10 DOSE Magnesium Hydroxide (Milk of Magnesia) 30 Ml Susp 30 ML PO Q12H PRN for Constipation for 30 Days, #30 DOSE Polyethylene (Miralax) 17 Gm Pow 17 GM PO DAILY PRN for Constipation for 30 Days, #30 DOSE Senna (Senna Lax) 8.6 Mg Tab 8.6 MG PO QAM for 30 Days, #30 TAB Continued Medications: Fentanyl (Fentanyl) 12 Mcg Tdsy 18 MCG TOP [id number] Ondansetron Tab (Zofran) 8 Mg Tab 8 MG PO PRN for Nausea, TAB Prochlorperazine Maleate (Compazine) 10 Mg Tab 1 TAB PO PRN for Nausea for 7 Days, #30 TAB 3 Refills Quetiapine Fumarate (Seroquel) Unknown Strength Tab Unknown Dose PO, TAB Tramadol (Ultram) 50 Mg Tab 1 TAB PO PRN for Pain for 30 Days, #90 TAB Venlafaxine Hcl (Effexor Xr) 75 Mg Cap 75 MG PO QAM TAKE AM SURGERY SIP WATER Discontinued Medications: Warfarin Sod (Coumadin) 5 Mg Tab 5 MG PO UD Warfarin Sod (Coumadin) 2.5 Mg Tab 1 TAB PO UD for 30 Days, TAB 3 Refills Discharge Exam The patient was seen and examined this morning. Pt reports feeling very uncomfortable due to inability to move her bowels for almost 2 weeks now. She was given 6 dulcolax tablets last evening, along with senna and colace. She has some abdominal tenderness in the epigastric region to palpation. This morning she has just finished drinking MOM and miralax. Discussion was held regarding her decision for peritoneal catheter vs paracentesis. She reports that prior to the catheter being placed at [facility] she was requiring paracentesis at least 1x weekly. She is agreeable to routine paracentesis here at [facility] as an outpatient for comfort. Spoke with Dr. Can Denson on the phone this morning and he is agreeable to doing paracentesis. She is looking to be discharged soon if possible. ROS 10 point ROS reviewed and is otherwise negative, see HPI. Physical Exam: General Appearance: WD/WN, no apparent distress, + thin Eyes: PERRL, EOMI ENT: hearing grossly normal, pharynx normal Neck: supple, no JVD Respiratory/Chest: lungs clear, no respiratory distress, no accessory muscle use Cardiovascular: regular rate, rhythm, no murmur, normal peripheral pulses Abdomen / GI: normal bowel sounds, + distended, + pertinent finding ( abdomen is hard + fluid wave, + tenderness in the epigastric region. Has bag over the previous peritoneal cath insertion site draining yellow ascitic fluid. ) Extremities: normal inspection, no calf tenderness, no pedal edema Neurologic/Psychiatric: alert, oriented x 3, + pertinent finding (appears to have low mood today) Skin: normal color, warm/dry Hospital Course H&P: This is a pleasant 55 yo F with PMHx metastatic adenocarcinoma of the colon with metastasis to the liver on coumadin, recent embolization of the spleen due to cytopenias, osteopenia, laryngeal reflux, chronic sinusitis, anxiety, and hx of tobacco use. Pt had a peritoneal catheter placed on Jan 23 at [facility] in [place] for her to be able to drain ascitic fluid twice daily at home. At first the catheter worked well and she was draining adequate amounts off. On 02/22/16 the pt was seen here by Dr. Stallworth for decreased draining. She underwent procedure to unclog the peritoneal catheter where a guidewire was passed through the catheter and ascitic fluid was able to be drained. The patient most recently has drained off ~ 300 mL 2-3 days ago. Prior to this she has randomly been able to drain variable amounts of fluid off. Now the drainage is coming from surrounding the catheter. Pt admits today has had significantly worse abdominal pain and cramping. She denies having a bowel movement x 8days. Pt took 4 tablespoons of lactulose last evening without BM, prior to 2 weeks ago she was using mirilax which had "always worked " however has not since then. Her appetite has been poor, where she normally eats two small meals daily. She denies fevers, chills or sweats. Today pt was seen in the office for routine follow up by Dr. Youngblood who recommended she be admitted for possible peritonitis. Pt was directly admitted from the heme/onc clinic. WBC=11.12, PLT =307,INR is 1.5, K+=3.1, AG=12, AST=48, ALk phos elevated at 266.This is a pleasant 55 yo F with PMHx metastatic adenocarcinoma of the colon with metastasis to the liver on coumadin, recent embolization of the spleen due to cytopenias, osteopenia, laryngeal reflux, chronic sinusitis, anxiety, and hx of tobacco use. Date Time Temp Pulse Resp B/P Pulse Ox O2 Delivery O2 Flow Rate FiO2 03/17/16 16:30 36.5 110 16 109/65 Room Air General Appearance: WD/WN, no apparent distress, + thin Head: normocephalic, + pertinent finding (ecchymosis of the left preauricular region) Eyes: PERRL, EOMI, + pertinent finding ENT: hearing grossly normal, pharynx normal, + pertinent finding (MMM) Neck: supple, no JVD Respiratory/Chest: chest non-tender, lungs clear, normal breath sounds, no respiratory distress, no accessory muscle use Cardiovascular: regular rate, rhythm, no JVD, normal peripheral pulses Abdomen/GI: + pertinent finding (+ distended, large, hypoactive bowel sounds throughout, + R mid abdominal catheter in place, bandage surrounding it is C/D/ I. + Tenderness with minimal palpation. + fluid wave) Back: normal inspection Extremities/Musculoskelatal: no calf tenderness, no pedal edema Neurologic/Psych: alert, normal mood/affect, oriented x 3 Skin: normal color, warm/dry Hospital Course: Metastatic colon cx to liver, had increased abdominal pain, fevers,--> peritonitis with + romana albicans on culture - ID on board: will continue fluconazole for a total of [address] Cisneros this morning who is agreeable to 200mg PO fluconazole x 3 weeks and will see the patient in office in 1-2 weeks. - Spoke with radiology, Dr. Can Denson who is agreeable to doing a paracentesis today.- pt will need routine paracentesis for ascitic fluid drainage as she was requiring paracentesis every week prior to having the initial cath placed. - Coumadin was on hold during admission for procedure but was bridged with lovenox starting 03/22. - Pt should continue lovenox 90 mg sq daily. Coumadin has been discontinued due to need for routine paracentesis as an outpatient. -The coumadin clinic will follow the patient on Sunday for INR check prior to her appointment with oncology where paracentesis will be discussed. - Follow fluid studies as an outpatient - results to be followed by Dr. Cisneros with appointment within 1-2 weeks. - catheter removed 03/21: pt has not required paracentesis yet since cath was removed. - Paracentesis performed on 03/23: INR is 1.1 and plt =339 as of 03/22 - [place] - continue fentanyl patch 18 mcg daily ( pt cuts a patch in half), tramadol prn. - Chemo tx hs includes many courses of FOLFIRI as well as FOLFOX and Avastin, oncology following - pt was due for her next round of chemo yesterday 03/22. Follow up with oncology on sunday 2:30pm Hypokalemia: 3.6 on 03/22 - Resolved Osteopenia - Not currently taking any supplementation Generalized anxiety disorder Depression - Cont effexor 75 mg daily - Cont seroquel 25 mg QHS for sleep DVT ppx: SCDs, oob CODE STATUS: DNR Disposition: From home, plan for paracentesis today and then discharge today Total Time Spent: Greater than 30 minutes This includes examination of the patient, discharge planning, medication reconciliation, and communication with other providers. Discharge Instructions Please refer to the electronic Patient Visit Report (Discharge Instructions) for additional information. Follow-Up INR labs to be checked at coumadin clinic on Monday 03/27 at 1:30 Follow up with Kassie Tello, on 03/27 at 2:30. Follow up with your Primary Care Provider, Dr. Vaughn on 03/[address] Cisneros, infectious disease, within 1-2 weeks. Additional Copies To Sean Vaughn, [facility].
[2016-03-23] MEDS ORDERED: NURSING VERBAL MED ORDER ONE (13:15)
[2016-03-23] MEDS ORDERED: SOD PHOSPHATE/SOD BIPHOSPHATE ENEMA 132 ML BTL PR PRN (13:30)
[2016-03-23] MEDS ORDERED: LVNIS60 SQ ×2 (14:30→14:33)
--- NOTE | 2016-03-23 15:26 | DIAGNOSTIC IMAGING REPORT ---
ULTRASOUND GUIDED DIAGNOSTIC AND THERAPEUTIC PARACENTESIS CLINICAL HISTORY: Ascites. COMPARISON STUDY: CT of the abdomen and pelvis March 17, 2016. PROCEDURE: The risks, benefits, and alternatives to the procedure were discussed with the patient including the risk of bleeding, infection and injury to adjacent structures. The patient agreed to the procedure and informed written consent was obtained. Following real-time ultrasound localization, the skin of the right lower quadrant was prepped and draped. Following local anesthesia with Xylocaine, the sheath paracentesis needle was inserted and approximately 2 liters of straw-colored fluid was removed by vacuum suction. The patient tolerated the procedure well and no immediate complications were evident. IMPRESSION: Ultrasound-guided paracentesis with removal of 2 liters of ascites. One bottle of ascites was sent to the laboratory for analysis. Electronically signed by: Lloyd Gilbert M.D. 03/23/2016 3:24 PM Dictated Date/Time: 03/23/2016 3:24 PM
[2016-03-23 15:37] VITALS: BP 113/73; PULSE 98; TEMP 36.6; O2SAT 98
[2016-03-23 16:14] LABS: PERIT FL WBC 574 /uL (0-300); PERITONEAL FLUID RBC < 3000 /uL
--- NOTE | 2016-03-23 16:51 | Hematology/Oncology Prog Note ---
Hematology/Onc Progress Note Date of Service Mar 23, 2016. Diagnoses Metastatic colon cancer Ascites with spontaneous bacterial peritonitis Medications Medications Administered Medications (Trade) Dose Ordered Sig/Letty Route Start Time Stop Time Status Last Admin Dose Admin Magnesium Hydroxide (Milk Of Magnesia Susp) 30 ml Q12H PRN PO 03/17/16 17:00 04/16/16 16:59 03/23/16 09:03 30 ML Polyethylene (Miralax Powder Packet) 17 gm DAILY PRN PO 03/17/16 17:00 04/16/16 16:59 03/23/16 09:03 17 GM Tramadol HCl (Ultram Tab) 50 mg Q6H PRN PO 03/17/16 17:30 04/16/16 17:29 03/22/16 22:07 50 MG Venlafaxine HCl (effeXOR EXTENDED REL CAP) 75 mg QAM PO 03/18/16 09:00 04/17/16 08:59 03/23/16 08:56 75 MG Quetiapine Fumarate (seroQUEL TAB) 25 mg HS PO 03/17/16 21:00 04/16/16 20:59 03/22/16 22:53 25 MG Ondansetron HCl (Zofran Inj) 4 mg Q4H PRN IV 03/17/16 17:30 04/16/16 17:29 03/23/16 09:03 4 MG Miscellaneous Information 1 ea 1 ea QS N/A 03/18/16 00:00 04/17/16 00:00 03/23/16 08:57 1 EA Piperacillin Sod/ Tazobactam Sod 3.375 gm/Dextrose 115 ml @ 230 mls/hr NOW ONCE IV 03/17/16 18:01 03/17/16 18:30 DC 03/17/16 19:07 230 MLS/HR Sodium Chloride 1,000 ml @ 50 mls/hr Q20H IV 03/17/16 17:45 03/19/16 14:36 DC 03/19/16 08:55 50 MLS/HR Piperacillin Sod/ Tazobactam Sod 3.375 gm/Dextrose 115 ml @ 28.75 mls/ hr Q8H IV 03/18/16 00:00 03/22/16 10:01 DC 03/22/16 09:07 28.75 MLS/HR Pantoprazole Sodium 40 mg/ Syringe 10 ml @ 5 mls/min NOW STAT IV 03/17/16 21:41 03/17/16 21:42 DC 03/17/16 21:51 5 MLS/MIN Pantoprazole Sodium/Syringe (Protonix Inj/ Syringe) 10 ml @ 5 mls/min DAILY@11 IV 03/18/16 11:00 03/19/16 14:36 DC 03/19/16 08:56 5 MLS/MIN Ketorolac Tromethamine (Toradol Inj) 15 mg Q6H PRN IV 03/17/16 21:45 03/22/16 21:44 DC 03/22/16 15:46 15 MG Lidocaine HCl (Xylocaine 1% Inj (Local)) 20 ml STK-MED ONCE .ROUTE 03/18/16 08:12 03/18/16 08:14 DC 03/18/16 08:12 20 ML Potassium Chloride (Klor-Con M10) 40 meq ONE ONCE PO 03/18/16 09:30 03/18/16 09:31 DC 03/18/16 10:38 40 MEQ Potassium Chloride (Klor-Con Tab) 20 meq TID PO 03/18/16 14:00 03/19/16 23:00 DC 03/19/16 20:02 20 MEQ Lorazepam (Ativan Tab) 0.5 mg STK-MED ONCE .ROUTE 03/19/16 00:15 03/19/16 00:17 DC 03/19/16 00:18 0.5 MG Lorazepam (Ativan Tab) 0.5 mg HS PRN PO 03/19/16 00:30 04/18/16 00:29 03/23/16 03:18 0.5 MG Senna (Senokot Tab) 8.6 mg QAM PO 03/20/16 08:00 04/19/16 07:59 03/23/16 08:57 8.6 MG Senna (Senokot Tab) 8.6 mg 1000 ONCE PO 03/19/16 10:00 03/19/16 10:01 DC 03/19/16 11:15 8.6 MG Bisacodyl (Dulcolax Tab) 5 mg NOW ONCE PO 03/19/16 10:00 03/19/16 10:01 DC 03/19/16 11:15 5 MG Heparin Sodium (Porcine) (Heparin 100 Unit/ml 5ml Flush) 5 ml PRN PRN IV 03/19/16 15:15 04/18/16 15:14 03/23/16 09:03 5 ML Bisacodyl 15 mg 15 mg BID PRN PO 03/19/16 15:30 03/22/16 20:00 DC 03/21/16 22:18 15 MG Sodium Chloride 1,000 ml @ 50 mls/hr Q20H IV 03/20/16 13:00 03/22/16 11:25 DC 03/22/16 05:27 50 MLS/HR Fluconazole/ Sodium Chloride/ Prmx (Diflucan IV/ Premixed Nss) 100 ml @ 100 mls/hr DAILY@1600 IV 03/20/16 16:00 03/30/16 15:59 03/22/16 15:53 100 MLS/HR Phytonadione (Mephyton Tab) 10 mg NOW ONCE PO 03/21/16 08:30 03/21/16 08:31 DC 03/21/16 09:03 10 MG Enoxaparin Sodium (Lovenox Inj) 60 mg Q12@0800,2000 SQ 03/21/16 20:00 04/20/16 19:59 03/23/16 08:57 60 MG Fentanyl (Duragesic Patch) 18 mcg Q3D@1900 TD 03/22/16 19:00 04/05/16 18:59 03/22/16 19:15 18 MCG Miscellaneous (Fentanyl Patch Remove & Waste) 1 ea Q3D@1859 N/A 03/22/16 18:59 04/21/16 18:58 03/22/16 19:16 1 EA Bisacodyl (Dulcolax Tab) 30 mg HS PO 03/22/16 21:00 04/21/16 20:59 03/22/16 20:47 30 MG Bisacodyl (Dulcolax Supp) 10 mg STK-MED ONCE .ROUTE 03/23/16 12:39 03/23/16 12:41 DC 03/23/16 15:53 10 MG Subjective Ms. Glover is doing better today. She seems more comfortable and is in better spirits. She is now tolerating oral feeding and is taking her Diflucan by mouth. Review of Systems: Constitutional: No fever ENT: No unusual epistaxis Respiratory: No hemoptysis, No shortness of breath Cardiovascular: No chest pain Abdomen: + pain, No nausea, No vomiting Heme: No abnormal bleeding/bruising Vital Signs Vital Signs Past 12 Hours Date Time Temp Pulse Resp B/P Pulse Ox O2 Delivery O2 Flow Rate FiO2 03/23/16 15:37 36.6 98 18 113/73 98 Room Air 03/23/16 12:29 36.9 107 18 93 Room Air 03/23/16 11:53 36.9 107 18 114/80 93 03/23/16 09:40 Room Air 03/23/16 08:42 36.9 107 18 108/71 97 Room Air Physical Exam Constitutional: General Apperance: too thin Level of Distress: chronically ill Psychiatric: Mental Status: active & alert Orientation: oriented except where noted, to time, to place, to person Eyes: EOM: EOMI Lungs: Respiratory Effort: no dyspnea Auscuitation: breath sounds normal Cardiovascular: Heart Auscultation: RRR, no murmurs Abdomen: Inspection & Palpation: soft, distended, pertinent finding (mildly tender) Extremities: no edema Neurologic: Cranial Nerves: grossly intact Laboratory Last 24 Hours Test 03/23/16 00:00 Peritoneal Fluid Color PALE YELLOW Peritoneal Fluid Appearance HAZY Peritoneal Fluid WBC 574 /uL Peritoneal Fluid RBC < 3000 /uL Peritoneal Fld Mononuclear WBCs (%) 95.9 % Peritoneal Fld Polynuclear WBCs (%) 4.1 % Peritoneal Fluid Total Protein 0.9 g/dl Peritoneal Fluid Albumin < 0.6 g/dl Peritoneal Fluid LDH 44 IU Peritoneal Fluid Glucose 113 mg/dl Peritoneal Fluid Amylase 21 U/L Peritoneal Fluid Lipase 272 U/L Peritoneal Fluid Triglycerides 9 mg/dl Assessment & Plan Ms. Glover is doing better today after her peritoneal drain was removed. She has switched to oral antifungals for a currently undetermined course. She has an appointment with Kassie Carrion, our nurse practitioner, next Sunday and will keep that appointment. She will also need to see Dr. Jennings from the anticoagulation clinic next week. She was previously on Coumadin, but given the drug-drug interactions with Diflucan, I suggested she leave on Lovenox. Apparently, Dr. Montez also discussed this with Dr. Jennings and sent a prescription for 1.5 mg/kg qDay to her pharmacy. She will pick this up today.
[2016-05-08] MEDS ORDERED: WARF5TAB7 PO (09:18)
[2016-07-07] MEDS ORDERED: ENOX80IN SQ (09:10)
[2016-07-25] MEDS ORDERED: FNTTP25 TOP (12:20)
== END 2016-03-23 18:38 | disposition home or self-care (01) | DRG 314 ==
LOC: ENRESERVTM → ENRESERVDT → C.2E 16:22 → C.4E 03-18 16:02
PROVIDERS: ADMIT Hospitalist; ATTEND Hospitalist
PROC: 0W9G3ZZ Drainage of Peritoneal Cavity, Percutaneous Approach (ICD-10-PCS; principal; 2016-03-23)
DX: T82.534A Leakage of infusion catheter, initial encounter (principal); K65.9 Peritonitis, unspecified; C78.7 Secondary malignant neoplasm of liver and intrahepatic bile duct; R18.8 Other ascites; Z79.01 Long term (current) use of anticoagulants; Z87.891 Personal history of nicotine dependence; F32.9 Major depressive disorder, single episode, unspecified; M85.80 Other specified disorders of bone density and structure, unspecified site; J32.9 Chronic sinusitis, unspecified; Z88.5 Allergy status to narcotic agent; Z79.899 Other long term (current) drug therapy; K21.9 Gastro-esophageal reflux disease without esophagitis; F41.1 Generalized anxiety disorder; Z66 Do not resuscitate; R00.0 Tachycardia, unspecified; D72.829 Elevated white blood cell count, unspecified; Z85.038 Personal history of other malignant neoplasm of large intestine; E87.6 Hypokalemia; Z93.3 Colostomy status; Z86.718 Personal history of other venous thrombosis and embolism; Z86.711 Personal history of pulmonary embolism; F19.10 Other psychoactive substance abuse, uncomplicated

== ENCOUNTER 2016-03-28 12:31 | Day surgery (SDC) | payer OTHER ==
[~2016-03-28] VITALS: Ht 165.1 cm; Wt 61.5 kg
[~2016-03-28 12:31] MED LIST changes: +DLC5 PO; -FEXO1TAB45 PO; +FLUC200T PO; -FLUT0.15 NAE; +LVNIS60 SQ; +MOMLX PO; +MRLP17X PO; -PANT40TA PO; +SNK PO
[2016-03-28 12:52] VITALS: BP 124/66; PULSE 107; TEMP 36.5; O2SAT 96; Ht 165.1 cm; Wt 61.5 kg
--- NOTE | 2016-03-28 14:14 | Discharge Instructions ---
Discharge Instructions Procedure Procedure Date: Mar 28, 2016. Reason for visit: Metastatic Ca, Ascites. Discharge Discharge Date: Mar 28, 2016. Discharge Diagnosis: Post Paracentesis Paracentesis performed [ R] Lower Quadrant [ 3.5] l of fluid removed No complicationa Instructions Activity Recommendations: 1 Day-May resume regular activity, 48 Hours of decreased exertion, 1 Day with no exercise/sex/sports, 1 Day with no driving/ machine use Return to School/Work: no limitations Recommended Home Diet: Resume Previous Diet Provider Instructions: Paracentesis performed [ R] Lower Quadrant [3.5 ] l of fluid removed Allergies Coded Allergies: Hydromorphone (Unverified Allergy, Unknown, DILAUDAD AND OTHER OPOIDS- TROUBLE FOCISING, 03/28/16) FENT[place] Recommendations: Call your doctor if: * Temperature above 101 degrees * Pain not relieved by pain medicine ordered * There is increased drainage or redness from any incision * You have any unanswered questions or concerns. Your Doctors Instructions noted above were prepared by provider Isiah Lemos. Patient Signature Section: Patient Instructions Signature Page Oswaldo Glover Patient (or Guardian) Signature/Date: I have read and understand the instructions given to me by my caregivers. Caregiver/RN/Doctor Signature/Date: The above-named patient and/or guardian has received patient instructions on this date. + Original Patient Signature Page (only) stays with chart. Please make copy for patient.
[2016-03-28 14:15] VITALS: BP 124/66; PULSE 110; TEMP 37.1; O2SAT 96
[2016-03-28] MEDS ORDERED: ACETAMINOPHEN 500 MG TAB PO PRN (14:15)
--- NOTE | 2016-03-28 14:34 | DIAGNOSTIC IMAGING REPORT ---
ULTRASOUND GUIDED PARACENTESIS CLINICAL HISTORY: ascites ascites COMPARISON STUDY: No previous studies for comparison. PROCEDURE: The risks, benefits, and alternatives to the procedure were discussed with the patient including the risk of bleeding, infection and injury to adjacent structures. The patient agreed to the procedure and informed written consent was obtained. The procedure was performed by Dr. Lemos following a time out. Following real-time ultrasound localization, the skin was prepped and draped. Following local anesthesia with Xylocaine, the sheath paracentesis needle was inserted and approximately 3.6 liters of straw-colored fluid was removed by vacuum suction. The patient tolerated the procedure well and no immediate complications were evident. IMPRESSION: Ultrasound-guided paracentesis with removal of 3.6 liters of ascites. Electronically signed by: Isiah Lemos M.D. 03/28/2016 2:33 PM Dictated Date/Time: 03/28/2016 2:33 PM
[2016-05-08] MEDS ORDERED: WARF5TAB7 PO (09:18)
[2016-07-07] MEDS ORDERED: ENOX80IN SQ (09:10)
[2016-07-25] MEDS ORDERED: FNTTP25 TOP (12:20)
== END 2016-03-31 15:33 | disposition home or self-care (01) ==
LOC: C.ACU 12:31
PROVIDERS: ATTEND Family Medicine
DX: R18.8 Other ascites (principal); C78.7 Secondary malignant neoplasm of liver and intrahepatic bile duct

== ENCOUNTER → 2016-08-03 | Outpatient (CLI) | payer OTHER ==
[~2016-08-03] MED LIST changes: -DLC5 PO; -DRGTP12 TOP; +ENOX80IN SQ; -FLUC200T PO; +FNTTP25 TOP; -LVNIS60 SQ; +OPTIRAY 320 IV PRN
--- NOTE | 2016-08-03 16:49 | DIAGNOSTIC IMAGING REPORT ---
CHEST CT WITH CONTRAST CT DOSE: 517.81 mGy.cm HISTORY: Colon cancer. TECHNIQUE: Multiaxial CT images of the chest were performed following the intravenous administration of contrast. COMPARISON: Chest CT 02/29/2016. FINDINGS: Multiple tiny scattered nodules seen throughout the lungs. Some of these have slightly increased in size and likely represent metastatic disease. Dominant nodule within the medial aspect of the right lower lobe on image 156 measures 4 mm. This previously measured 2 mm. No pleural effusions. No pneumothorax. No suspicious lytic or blastic osseous lesions. Right jugular Port-A-Cath terminates in the superior cavoatrial junction. The central pulmonary arteries are patent. Normal caliber thoracic aorta. Stable subcentimeter mediastinal lymph nodes. No hilar lymphadenopathy. IMPRESSION: 1. Multiple scattered subcentimeter pulmonary nodules. Some of these have slightly increased in size. Therefore, these are consistent with metastatic disease. 2. Stable subcentimeter mediastinal lymph nodes. 3. Please refer to the dedicated abdomen and pelvis CT performed same day for further evaluation of the abdominal abnormalities. Electronically signed by: Yosef Mooney M.D. 08/03/2016 4:48 PM Dictated Date/Time: 08/03/2016 4:40 PM
--- NOTE | 2016-08-03 17:24 | DIAGNOSTIC IMAGING REPORT ---
CT OF THE ABDOMEN AND PELVIS WITH CONTRAST CLINICAL HISTORY: Colon cancer. COMPARISON STUDY: CT of the abdomen and pelvis March 17, 2016. TECHNIQUE: Following IV administration of 92 mL of Optiray-320, axial images of the abdomen and pelvis were obtained from the lung bases to the proximal femurs. Images were reviewed in the axial, sagittal, and coronal planes. IV contrast was administered without complication. Oral contrast was administered. FINDINGS: The chest will be reported separately. Moderate abdominal and pelvic ascites is noted with scalloping of the liver and spleen suggestive of peritoneal carcinomatosis. This was shown on prior exam. As before, the liver is markedly abnormal appearance with multifocal scarring suggestive of treated lesions. A few hepatic lesions have increased in size since exam of February 29, 2016 and include a 1.3 cm right hepatic lobe lesion which previously measured 6 mm. The gallbladder os surgically absent. The main, left and right portal veins are patent. There is no evidence for a bowel obstruction. Several retroperitoneal lymph nodes have increased in size since exam of February 29, 2016. An index aortocaval lymph node shown image 38 of 98 measures 1.5 x 1.2 cm. Varices have increased since exam of February 29, 2016. Most notably, perirectal varices have developed. There is no pneumatosis, free air or portal venous gas. There is no hydronephrosis. No suspicious osseous lesion is present. The adrenal glands and pancreas are unremarkable. There is no biliary or pancreatic ductal dilatation. IMPRESSION: 1. Findings consistent with mild progression of metastatic disease since CTs of February 29, 2016 and March 17, 2016 with interval increase in size of several small hepatic metastases and development of retroperitoneal lymphadenopathy. 2. Otherwise, unchanged appearance the liver which is markedly heterogeneous with multifocal scarring suggestive of extensive treated metastatic disease. 3. Moderate abdominal and pelvic ascites with scalloping of the liver and spleen consistent with peritoneal carcinomatosis. 4. No bowel obstruction. 5. Increase in abdominal and pelvic varices which suggests portal hypertension. Electronically signed by: Llyod Gilbert M.D. 08/03/2016 5:23 PM Dictated Date/Time: 08/03/2016 4:41 PM
== END | disposition home or self-care (01) ==
LOC: C.CTS 14:03
PROVIDERS: ATTEND Internal Medicine Hematology & Oncology
DX: C18.3 Malignant neoplasm of hepatic flexure (principal); R18.8 Other ascites

== ENCOUNTER → 2016-10-06 | Outpatient (CLI) | payer OTHER ==
[~2016-10-06] MED LIST changes: -ENOX80IN SQ; -MOMLX PO; -MRLP17X PO
--- NOTE | 2016-10-06 13:58 | DIAGNOSTIC IMAGING REPORT ---
ABD/PELVIS IV AND ORAL CONT CLINICAL HISTORY: 56 years-old Female presenting with COLON CANCER, ASCITES. TECHNIQUE: Multidetector CT of the abdomen and pelvis was performed after the administration of oral and intravenous contrast. IV contrast: 93 mL of Optiray 320. A dose lowering technique was used consistent with the principles of ALARA (as low as reasonably achievable). COMPARISON: 08/03/2016. CT DOSE (mGy.cm): The estimated cumulative dose is 787.33 mGycm. FINDINGS: Chief Technician X Ray topogram: Cholecystectomy clips noted. Lung bases: Unchanged size of the 4 mm right middle lobe solid pulmonary nodule (series 3 image 12). Additional similar-appearing subpleural nodule more inferiorly in the right middle lobe (series 3 image 53), also unchanged. Over 10 additional scattered pulmonary nodules noted bilaterally at the lung bases, none of which is demonstrably new from prior. These are marked on the images. Normal heart size. No pericardial or pleural effusion. Liver: Significant altered morphology with a lobular contour with multifocal capsular retraction and overall nodular architecture most compatible with treated hepatic metastatic disease. The majority of hypodense parenchymal regions have not significantly changed from the prior exam. However, 2 hypodense regions are more prominent on the current exam, one at the inferior right hepatic lobe measuring 1.2 cm, previously only ill-defined and the second near the hepatic dome measuring 1.6 cm, previously 0.8 cm. Biliary: No intrahepatic or extrahepatic biliary ductal dilatation. Gallbladder surgically absent. Pancreas: Normal. Spleen: Lobular altered configuration, nonsignificant change from prior. Large amount of subcapsular complex fluid or hypoenhancing soft tissue. This is unchanged in appearance from prior exam. Adrenal glands: Right adrenal gland poorly visualized. Left adrenal gland normal. Kidneys and ureters: Normal. No hydronephrosis. Bladder: Normal. Pelvic organs: Uterus and ovaries normal. Bowel: Mild colonic wall thickening in the transverse colon and descending colon. The appendix is gas-filled measuring 7 mm in diameter at the tip, however, the base of the appendix demonstrates inflammatory change at the cecum. Diffuse mild distention of small bowel, likely physiologic after oral contrast bolus. Oral contrast has progressed to the cecum. No bowel obstruction. Peritoneal cavity: Moderate abdominopelvic ascites with peritoneal enhancement noted in the pelvis, similar to prior exam. Infiltration of the omentum. Vasculature: Atherosclerosis of the normal caliber abdominal aorta. IVC patent. Lymph nodes: Enlarged lymph nodes in the bethany hepatis, portacaval, aortocaval, left periaortic regions. The largest measures up to 11 mm in the short axis, similar to prior exam (series 3 image 183). Abdominal wall: Normal. Musculoskeletal: Degenerative changes of the spine. IMPRESSION: 1. Numerous pulmonary nodules unchanged from prior exam. These are nonspecific and metastatic disease is not excluded. 2. Interval development of mild colonic wall thickening from the cecum to the transverse colon, concerning for colitis. Inflammation also involves the base of the appendix, however, this is considered most likely secondary. No convincing evidence of appendicitis. 3. Concern for interval increase in size of 2 hepatic lesions. This raises concern for progression of metastatic disease. 4. Extensive altered morphology of the liver presumably secondary to treated metastases. 5. Extensive subcapsular abnormalities of the spleen and liver could be compatible with peritoneal carcinomatosis, unchanged in appearance. 6. Stable appearance of retroperitoneal and abdominal lymphadenopathy. Electronically signed by: Nolan Miranda M.D. 10/06/2016 1:56 PM Dictated Date/Time: 10/06/2016 1:40 PM
== END | disposition home or self-care (01) ==
LOC: C.CTS 12:00
PROVIDERS: ATTEND Nurse Practitioner Family
DX: C18.3 Malignant neoplasm of hepatic flexure (principal); R18.0 Malignant ascites

== ENCOUNTER → 2016-10-16 | Day surgery (SDC) | payer OTHER ==
[~2016-10-16] MED LIST changes: -OPTIRAY 320 IV PRN
--- NOTE | 2016-10-16 15:07 | DIAGNOSTIC IMAGING REPORT ---
PARACENTESIS ABDOMEN W/IMAGING CLINICAL HISTORY: COLON CA ascites COMPARISON STUDY: No previous studies for comparison. PROCEDURE: The risks, benefits, and alternatives to the procedure were discussed with the patient including the risk of bleeding, infection and injury to adjacent structures. The patient agreed to the procedure and informed written consent was obtained. The procedure was performed by Dr. Lemos following a time out. Following real-time ultrasound localization, the skin was prepped and draped. Following local anesthesia with Xylocaine, the sheath paracentesis needle was inserted and approximately 20 cc of straw-colored fluid was removed by vacuum suction. The patient tolerated the procedure well and no immediate complications were evident. IMPRESSION: Ultrasound-guided paracentesis with removal of 20 cc of ascites. No complications. Specimen was sent to cytology for follow-up evaluation The above report was generated using voice recognition software. It may contain grammatical, syntax or spelling errors. Electronically signed by: Isiah Lemos M.D. 10/16/2016 3:05 PM Dictated Date/Time: 10/16/2016 3:05 PM
== END | disposition home or self-care (01) ==
LOC: C.ACU 14:19
PROVIDERS: ATTEND Internal Medicine Hematology & Oncology
DX: C18.3 Malignant neoplasm of hepatic flexure (principal); R18.8 Other ascites

== ENCOUNTER → 2016-11-27 | Outpatient (CLI) | payer OTHER ==
[2016-11-27 09:27] LABS: BASO % 0.6 %; BASO ABS # 0.02 K/uL (0-0.2); COMPLETE YES; EOS % 8.1 %; HEMATOCRIT 35.2 % (37-47); LYMPH % 35.6 %; LYMPH ABS # 1.14 K/uL (1.2-3.4); MEAN CELL VOLUME 85.6 fL (80-100); MEAN CORPUSCULAR HGB CONC 31.5 g/dl (32-36); MEAN PLATELET VOLUME 9.6 fL (7.4-10.4); MONO % 10.6 %; NEUT % 45.1 %; PLATELET COUNT 241 K/uL (130-400); RED BLOOD COUNT 4.11 M/uL (4.2-5.4)
[2016-11-27 09:45] LABS: ALT/SGPT 21 U/L (12-78); AST/SGOT 35 U/L (15-37); BLOOD UREA NITROGEN 11 mg/dl (7-18); BUN/CREATININE RATIO 20.4 (10-20); CALCIUM 8.6 mg/dl (8.5-10.1); CARBON DIOXIDE 27 mmol/L (21-32); CHLORIDE 110 mmol/L (98-107); CREATININE 0.54 mg/dl (0.60-1.20); GLUCOSE 129 mg/dl (70-99); MAGNESIUM 1.8 mg/dl (1.8-2.4); POTASSIUM 3.6 mmol/L (3.5-5.1); SODIUM 143 mmol/L (136-145)
[2016-11-27 09:48] LABS: ALB/GLOB RATIO 0.4 (0.9-2); ALKALINE PHOSPHATASE 292 U/L (45-117)
== END | disposition home or self-care (01) ==
LOC: C.LAB 12:33
PROVIDERS: ATTEND Nurse Practitioner Family
DX: C18.3 Malignant neoplasm of hepatic flexure (principal)

== ENCOUNTER → 2017-06-25 | Outpatient (CLI) | payer BC ==
[~2017-06-25] MED LIST changes: +PROC10TA PO; -PROC1TAB5 PO
[2017-06-25 10:19] LABS: BASO % 0.7 %; BASO ABS # 0.03 K/uL (0-0.2); EOS % 7.7 %; EOS ABS # 0.33 K/uL (0-0.5); HEMATOCRIT 35.1 % (37-47); HEMOGLOBIN 11.8 g/dL (12.0-16.0); LYMPH % 31.7 %; LYMPH ABS # 1.35 K/uL (1.2-3.4); MEAN CELL VOLUME 93.9 fL (80-100); MEAN CORPUSCULAR HEMOGLOBIN 31.6 pg (25-34); MEAN PLATELET VOLUME 10.1 fL (7.4-10.4); MONO % 8.9 %; MONO ABS # 0.38 K/uL (0.11-0.59); NEUT ABS # 2.17 K/uL (1.4-6.5); PLATELET COUNT 226 K/uL (130-400); RED CELL DISTRIBUTION WIDTH CV 16.5 % (11.5-14.5); RED CELL DISTRIBUTION WIDTH SD 57.1 fL (36.4-46.3); WHITE BLOOD COUNT 4.26 K/uL (4.8-10.8)
[2017-06-25 10:26] LABS: MEAN CORPUSCULAR HGB CONC 33.6 g/dl (32-36)
[2017-06-25 10:39] LABS: BLOOD UREA NITROGEN 12 mg/dl (7-18); CREATININE 0.67 mg/dl (0.60-1.20); GLUCOSE 165 mg/dl (70-99)
[2017-06-25 10:40] LABS: ALBUMIN 2.8 gm/dl (3.4-5.0); ALT/SGPT 37 U/L (12-78); AST/SGOT 63 U/L (15-37); CALCIUM 8.4 mg/dl (8.5-10.1); CARBON DIOXIDE 28 mmol/L (21-32); POTASSIUM 3.7 mmol/L (3.5-5.1); SODIUM 139 mmol/L (136-145)
[2017-06-25 10:42] LABS: ALKALINE PHOSPHATASE 288 U/L (45-117)
== END | disposition home or self-care (01) ==
LOC: C.LABSPEC 10:09
PROVIDERS: ATTEND Nurse Practitioner Family
DX: C18.3 Malignant neoplasm of hepatic flexure (principal)

== ENCOUNTER → 2017-08-27 | Outpatient (CLI) | payer BC ==
[~2017-08-27] MED LIST changes: -VENL75CA PO; +VENL75CA94 PO
[2017-08-27 09:30] LABS: BASO % 0.6 %; BASO ABS # 0.05 K/uL (0-0.2); EOS % 6.4 %; EOS ABS # 0.49 K/uL (0-0.5); HEMATOCRIT 40.4 % (37-47); IG# 0.02 K/uL (0.00-0.02); LYMPH ABS # 1.46 K/uL (1.2-3.4); MEAN CELL VOLUME 94.2 fL (80-100); MEAN CORPUSCULAR HEMOGLOBIN 30.3 pg (25-34); MEAN CORPUSCULAR HGB CONC 32.2 g/dl (32-36); MEAN PLATELET VOLUME 10.8 fL (7.4-10.4); MONO % 5.5 %; MONO ABS # 0.42 K/uL (0.11-0.59); NEUT % 68.2 %; NEUT ABS # 5.26 K/uL (1.4-6.5); PLATELET COUNT 170 K/uL (130-400); RED CELL DISTRIBUTION WIDTH CV 16.8 % (11.5-14.5); RED CELL DISTRIBUTION WIDTH SD 57.7 fL (36.4-46.3)
[2017-08-27 09:52] LABS: ALBUMIN 3.1 gm/dl (3.4-5.0); ALT/SGPT 40 U/L (12-78); AST/SGOT 51 U/L (15-37); BLOOD UREA NITROGEN 13 mg/dl (7-18); CALCIUM 9.2 mg/dl (8.5-10.1); CARBON DIOXIDE 28 mmol/L (21-32); CREATININE 0.66 mg/dl (0.60-1.20); GLUCOSE 104 mg/dl (70-99); POTASSIUM 3.6 mmol/L (3.5-5.1); SODIUM 140 mmol/L (136-145)
[2017-08-27 09:54] LABS: ALKALINE PHOSPHATASE 287 U/L (45-117); TOTAL PROTEIN 8.5 gm/dl (6.4-8.2)
== END | disposition home or self-care (01) ==
LOC: C.LABSPEC 09:21
PROVIDERS: ATTEND Internal Medicine Hematology & Oncology
DX: C18.3 Malignant neoplasm of hepatic flexure (principal)

== ENCOUNTER → 2017-09-10 | Outpatient (CLI) | payer BC ==
[~2017-09-10] MED LIST changes: +VENL75CA88 PO; -VENL75CA94 PO
[2017-09-10 09:44] LABS: BASO % 0.7 %; BASO ABS # 0.04 K/uL (0-0.2); EOS % 9.3 %; EOS ABS # 0.53 K/uL (0-0.5); HEMATOCRIT 36.5 % (37-47); IG# 0.02 K/uL (0.00-0.02); LYMPH % 27.3 %; LYMPH ABS # 1.56 K/uL (1.2-3.4); MEAN CELL VOLUME 93.1 fL (80-100); MEAN CORPUSCULAR HEMOGLOBIN 30.6 pg (25-34); MEAN CORPUSCULAR HGB CONC 32.9 g/dl (32-36); MEAN PLATELET VOLUME 10.8 fL (7.4-10.4); MONO % 10.7 %; MONO ABS # 0.61 K/uL (0.11-0.59); NEUT % 51.6 %; NEUT ABS # 2.95 K/uL (1.4-6.5); PLATELET COUNT 150 K/uL (130-400); RED CELL DISTRIBUTION WIDTH CV 17.2 % (11.5-14.5); RED CELL DISTRIBUTION WIDTH SD 58.1 fL (36.4-46.3); WHITE BLOOD COUNT 5.71 K/uL (4.8-10.8)
[2017-09-10 10:06] LABS: ALBUMIN 2.8 gm/dl (3.4-5.0); ALT/SGPT 41 U/L (12-78); AST/SGOT 43 U/L (15-37); BLOOD UREA NITROGEN 8 mg/dl (7-18); CALCIUM 8.5 mg/dl (8.5-10.1); CARBON DIOXIDE 26 mmol/L (21-32); CREATININE 0.65 mg/dl (0.60-1.20); GLUCOSE 118 mg/dl (70-99); POTASSIUM 3.1 mmol/L (3.5-5.1); SODIUM 141 mmol/L (136-145); TOTAL PROTEIN 7.9 gm/dl (6.4-8.2)
[2017-09-10 10:12] LABS: ALKALINE PHOSPHATASE 281 U/L (45-117)
== END | disposition home or self-care (01) ==
LOC: C.LABSPEC 09:28
PROVIDERS: ATTEND Nurse Practitioner Family
DX: C18.3 Malignant neoplasm of hepatic flexure (principal)

== ENCOUNTER → 2017-09-24 | Outpatient (CLI) | payer BC ==
[2017-09-24 10:05] LABS: ALBUMIN 2.7 gm/dl (3.4-5.0); ALKALINE PHOSPHATASE 257 U/L (45-117); ALT/SGPT 34 U/L (12-78); AST/SGOT 43 U/L (15-37); BLOOD UREA NITROGEN 6 mg/dl (7-18); CALCIUM 8.6 mg/dl (8.5-10.1); CARBON DIOXIDE 25 mmol/L (21-32); CREATININE 0.63 mg/dl (0.60-1.20); GLUCOSE 156 mg/dl (70-99); POTASSIUM 3.1 mmol/L (3.5-5.1); SODIUM 141 mmol/L (136-145); TOTAL PROTEIN 7.8 gm/dl (6.4-8.2)
[2017-09-24 10:28] LABS: BASO % 0.5 %; BASO ABS # 0.03 K/uL (0-0.2); EOS % 5.7 %; EOS ABS # 0.37 K/uL (0-0.5); HEMATOCRIT 36.4 % (37-47); HEMOGLOBIN 11.5 g/dL (12.0-16.0); IG# 0.02 K/uL (0.00-0.02); LYMPH % 20.5 %; LYMPH ABS # 1.32 K/uL (1.2-3.4); MEAN CELL VOLUME 93.6 fL (80-100); MEAN CORPUSCULAR HEMOGLOBIN 29.6 pg (25-34); MEAN CORPUSCULAR HGB CONC 31.6 g/dl (32-36); MEAN PLATELET VOLUME 11.7 fL (7.4-10.4); MONO % 8.4 %; MONO ABS # 0.54 K/uL (0.11-0.59); NEUT % 64.6 %; NEUT ABS # 4.17 K/uL (1.4-6.5); PLATELET COUNT 144 K/uL (130-400); RED CELL DISTRIBUTION WIDTH CV 17.8 % (11.5-14.5); WHITE BLOOD COUNT 6.45 K/uL (4.8-10.8)
== END | disposition home or self-care (01) ==
LOC: C.LABSPEC 09:22
PROVIDERS: ATTEND Internal Medicine Hematology & Oncology
DX: C18.3 Malignant neoplasm of hepatic flexure (principal)

== ENCOUNTER 2018-02-05 21:00 | Inpatient (IN) ==
[2018-02-05] MEDS ORDERED: fentaNYL citrate 100 MCG/2 ML VIAL IV STA ×2 (21:44→22:55)
[2018-02-05] MEDS ORDERED: SODIUM CHLORIDE 0.9% 500 ML IV SCH (21:45)
[2018-02-05 21:47] LABS: Basophils # (auto) 0.02 K/uL (0-0.2); Basophils % (auto) 0.3 %; Eosinophils # (auto) 0.01 K/uL (0-0.5); Eosinophils % (auto) 0.1 %; Hematocrit (blood only) 41.5 % (37-47); Immature Granulocytes # (auto) 0.03 K/uL (0.00-0.02); Immature Granulocytes % (auto) 0.4 %; Lymphocytes # (auto) 0.71 K/uL (1.2-3.4); Lymphocytes % (auto) 9.2 %; Mean Corpuscular Hgb Conc 31.3 g/dL (32-36); Mean Corpuscular Volume 93.9 fL (80-100); Mean Platelet Volume 10.1 fL (7.4-10.4); Monocytes # (auto) 0.28 K/uL (0.11-0.59); Monocytes % (auto) 3.6 %; Neutrophils # (auto) 6.69 K/uL (1.4-6.5); Neutrophils % (auto) 86.4 %; Platelet Count 272 K/uL (130-400); RDW Coefficient of Variation 21.1 % (11.5-14.5); Red Blood Count 4.42 M/uL (4.2-5.4); White Blood Count 7.74 K/uL (4.8-10.8)
[2018-02-05 21:59] LABS: Albumin Level 1.9 gm/dl (3.4-5.0); BUN Creatinine Ratio 14.2 (10-20); Calcium 8.6 mg/dl (8.5-10.1); Est GFR (African American) 119.8; Est GFR (Non-African American) 103.4; Potassium 3.6 mmol/L (3.5-5.1)
[2018-02-05 22:01] LABS: Albumin Globulin Ratio 0.4 (0.9-2); Bilirubin,Total 1.5 mg/dl (0.2-1); Globulin 5.1 gm/dl (2.5-4.0)
--- NOTE | 2018-02-05 22:06 | XRay Report ---
XR chest 1V portable CLINICAL HISTORY: Pain. Colon cancer. COMPARISON STUDY: Chest radiograph January 12, 2018. FINDINGS: Right internal jugular [id number] is in place. No pneumothorax or pleural effusion is id entified. Cardiac size is normal. 2.4 cm nodular right infrahilar opacity is noted. There is mild lef t lower lung retrocardiac opacity. IMPRESSION: Nodular right infrahilar opacity with mild left lower lung opacity. The findings may reflect consolid ation or atelectasis. Metastatic disease could appear similar although is considered less likely. Electronically signed by: Lloyd Gilbert M.D. 02/05/2018 10:04 PM
[2018-02-05 22:07] LABS: Anisocytosis Present
[2018-02-05 22:07] LABS: iSTAT Hemoglobin 14.3 g/dl (12.0-16.0); iSTAT Ionized Calcium 1.12 mmol/l (1.12-1.32)
--- NOTE | 2018-02-05 22:08 | XRay Report ---
KUB CLINICAL HISTORY: Epigastric pain. Metastatic colon cancer. COMPARISON STUDY: CT of the abdomen and pelvis January 09, 2018. FINDINGS: There are cholecystectomy clips. A right acetabular internal fixation is noted. There is no evidence for a bowel obstruction. There is centralization of bowel likely due to ascites. IMPRESSION: 1. No evidence for a bowel obstruction. 2. Centralization of bowel, likely due to ascites. Electronically signed by: Lloyd Gilbert M.D. 02/05/2018 10:06 PM
[2018-02-05] MEDS ORDERED: OPTIRAY 320 125ml IV PRN (22:29)
[2018-02-05] MEDS ORDERED: PANTOprazole 80 MG in DEXTROSE 5% 100 ML IV ONE (22:55)
[2018-02-05] MEDS ORDERED: PIPERACILL/TAZOBAC CONSULT ACTIVE PRN (22:55)
[2018-02-05] MEDS ORDERED: PANTOPRAZOLE BOLUS/DRIP 1 EA IV STA (22:55)
[2018-02-05] MEDS ORDERED: PIPERACILLIN/TAZOBACTAM 4.5 GM/120 ML BAG IV ONE (22:55)
--- NOTE | 2018-02-05 23:03 | CT Scan Report ---
CT ANGIOGRAPHY OF THE ABDOMEN AND PELVIS CLINICAL HISTORY: Pain out of proportion to exam. Ascites. Metastatic colon cancer. COMPARISON STUDY: CT of the abdomen and pelvis January 09, 2018. TECHNIQUE: Helical axial images of the abdomen and pelvis were obtained during arterial phase followi ng intravenous injection 116 cc Optiray 320 IV. Sagittal and coronal reconstructions were viewed as w ell as maximal intensity projections on an independent 3-D workstation. Automated exposure control wa s utilized for the study. A dose lowering technique was utilized adhering to the principles of ALARA . FINDINGS: Visualized portions of the lower chest demonstrate trace bilateral pleural effusions with a ssociated atelectasis. A few small pulmonary nodules are unchanged. There is moderate pneumoperitoneu m the source is likely a perforated duodenal ulcer. Large volume ascites is noted. Markedly dysmorphi c appearance of the liver is again noted. This may reflect treated metastatic disease which is subopt imally assessed on the CT exam. The appearance of the spleen is also unchanged. The kidneys are unrem arkable. Is no hydronephrosis. There is no evidence for a bowel obstruction. Gas and a Kwan balloon are present within the bladder. Mild diffuse colonic wall thickening is noted. Several partially calc ified retroperitoneal lymph nodes are unchanged. There is no abdominal aortic aneurysm or dissection. 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 There is poststenotic dilatation with the celiac axis measuring 1 cm in caliber. The superior mesent brie artery is patent. Inferior mesenteric artery is patent. Both renal arteries are patent. A right acetabular fixation is noted. Posterior column fracture is noted. Multiple intra-articular bone fragm ents are present. Impaction injury of the right femoral head is noted. There is a right hip joint eff usion. Note is also made of a mildly displaced comminuted right iliac wing fracture. IMPRESSION: 1. Moderate pneumoperitoneum likely due to a perforated duodenal ulcer. Surgical consultation is mark mmended. Findings discussed with Dr. Raygoza at time of dictation. 2. Large volume ascites. 3. Unchanged appearance of the liver which may reflect treated metastatic disease, suboptimally asses sed on the CTA exam. No significant change in partially calcified mildly enlarged retroperitoneal lym ph nodes and multiple small pulmonary nodules. 4. Mild diffuse colonic wall thickening, a nonspecific finding. No bowel obstruction. 5. 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 Patent superior mesenteric and inferior mesenteric arteries. 6. Status post post recent right acetabular internal fixation, as described above. Electronically signed by: Lloyd Gilbert M.D. 02/05/2018 11:01 PM
[2018-02-06] MEDS ORDERED: fentaNYL citrate 100 MCG/2 ML VIAL IV ONE (00:01)
--- NOTE | 2018-02-06 00:04 | Surgery Consultation ---
Date of Consultation February 05, 2018 Assessment & Plan (1) Perforated duodenal ulcer: pt is a 57 year old female who persents to ER with 6 hours acute abdominal pain, CT scan dx perforated duodenal ulcer IMP: acute abdominal pain, pertonitis, perforated duodenal ulcer, colon cancer metastases to liver Plan, I recommend to do emergent exploratory laparotomy, possible bowel resection or stoma, D/W benefits, risks and alternatives of the surgery, the risks - infection, bleeding, sepsis, multiple organ failure, DVT, MA, stroke, worse C-7 injury, high risks to , pt understood, she agrees with the surgery, she signed inform consent, I answered all questions, pre-op antibiotic , IV fluid, History of Present Illness History of Present Illness pt is a 57 year old female who presents to ER with 6 hours history acute abdominal pain. the pain is located at upper abdomen, pt denies nausea, no vomiting, passed BM today, no diarrhea, pt denies fever, pt had colon cancer with metastases to liver 3 years ago. pt had CVA with injury C7 3 weeks ago[address] pt had [address] scan today- IMPRESSION: 1. Moderate pneumoperitoneum likely due to a perforated duodenal ulcer. Surgical consultation is recommended. Findings discussed with Dr. Raygoza at time of dictation. 2. Large volume ascites. 3. Unchanged appearance of the liver which may reflect treated metastatic disease, suboptimally assessed on the CTA exam. No significant change in partially calcified mildly enlarged retroperitoneal lymph nodes and multiple small pulmonary nodules. 4. Mild diffuse colonic wall thickening, a nonspecific finding. No bowel obstruction. 5. 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 Patent superior mesenteric and inferior mesenteric arteries. 6. Status post post recent right acetabular internal fixation, as described above. Allergies Allergy/AdvReac Type Severity Reaction Status Date / Time hydromorphone Allergy Unknown DILAUDAD Verified 01/25/18 12:32 AND OTHER OPOIDS-TROUBLE FOCISING Home Medications Home Medications Medication Instructions Recorded Confirmed Type fentanyl 25 mcg TRANSDERMAL DIRECTED 01/09/18 02/05/18 History lorazepam [Ativan] 0.5 mg PO TID PRN 01/09/18 02/05/18 History ondansetron 8 mg PO BID PRN 01/09/18 02/05/18 History prochlorperazine maleate 10 mg PO Q6 PRN 01/09/18 02/05/18 History sennosides [senna] 8.6 mg PO QPM 01/09/18 02/05/18 History tramadol 50 mg PO Q4 PRN 01/09/18 02/05/18 History venlafaxine 25 mg PO QAM 02/05/18 02/05/18 History zolpidem [Ambien] 5 mg PO HS PRN 02/05/18 02/05/18 History Patient History Social History Current Living Situation: Rehab Current Living Situation Comment: Lives with her sister Feels Safe at Home: Yes Smoking Status: Former smoker Hx Alcohol Use: No Hx Substance Use: No Beliefs That Will Affect Care: None Preferred Language: [place] Citizen Communication Ability: Effective Review of Systems Constitutional: as per Subjective / HPI Ear, Nose, Mouth, Throat: as per Subjective / HPI C-collar on neck Respiratory: as per Subjective / HPI Cardiovascular: as per Subjective / HPI colon cancer with metastatic to liver, ascites Genitourinary (Female): as per Subjective / HPI Neurologic: as per Subjective / HPI Psychiatric: as per Subjective / HPI Endocrine: as per Subjective / HPI Hematologic / Lymphatic: as per Subjective / HPI Physical Exam 2 Vital Signs (Past 24 Hours): Last Vital Signs Temp 37.5 C 02/05/18 21:04 Pulse 131 H 02/05/18 23:51 Resp 24 02/05/18 23:51 BP 116/91 02/05/18 23:51 Pulse Ox 91 02/05/18 23:51 Constitutional: WD/WN, vitals as above + acute distress, + ill appearing, + thin and + cachectic Neck: c-collar on neck, no weakness on bilt arm, and legs Respiratory: normal respiratory effort, lungs clear to auscultation Cardiovascular: RRR, no murmur, no edema Gastrointestinal (Abdomen): Inspection/Auscultation: + abdomen distended Percussion/Palpation: + abdomen tender, + guarding, + abdomen rigid and + ascites significant distend, tenderness and rebound pain with rigid Musculoskeletal: Head/Neck/Chest: + limited ROM of neck and neck supple Spine: + cervical collar present Extremities: extremities normal to inspection Neurologic: awake Psychiatric: Orientation: alert and oriented x 3 Results & Data Laboratory Results Abnormal lab results 02/05/18 02/05/18 02/05/18 Range/Units 21:30 21:30 21:52 MCHC 31.3 L (32-36) g/dL RDW Std Deviation 72.0 H (36.4-46.3) fL RDW Coeff of Sonya 21.1 H (11.5-14.5) % Immature Gran # (Auto) 0.03 H (0.00-0.02) K/uL Neut # (Auto) 6.69 H (1.4-6.5) K/uL Lymph # (Auto) 0.71 L (1.2-3.4) K/uL POC Sodium 134 L (135-144) mEq/L Sodium 132 L (136-145) mmol/L POC Chloride 99 L (101-112) mEq/L POC Total CO2 21 L (24-31) mEq/l POC BUN 6 L (7-18) mg/dl Creatinine 0.55 L (0.6-1.2) mg/dl POC Creatinine 0.3 L (0.6-1.3) mg/dl Glucose 111 H (70-99) mg/dl POC Glucose (other) 114 H (70-99) mg/dl Lactate (0.4-2.0) mmol/L Total Bilirubin 1.5 H (0.2-1) mg/dl AST 41 H (15-37) U/L Alkaline Phosphatase 272 H (45-117) U/L Albumin 1.9 L (3.4-5.0) gm/dl Globulin 5.1 H (2.5-4.0) gm/dl Albumin/Globulin Ratio 0.4 L (0.9-2) 02/05/18 Range/Units 22:54 MCHC (32-36) g/dL RDW Std Deviation (36.4-46.3) fL RDW Coeff of Sonya (11.5-14.5) % Immature Gran # (Auto) (0.00-0.02) K/uL Neut # (Auto) (1.4-6.5) K/uL Lymph # (Auto) (1.2-3.4) K/uL POC Sodium (135-144) mEq/L Sodium (136-145) mmol/L POC Chloride (101-112) mEq/L POC Total CO2 (24-31) mEq/l POC BUN (7-18) mg/dl Creatinine (0.6-1.2) mg/dl POC Creatinine (0.6-1.3) mg/dl Glucose (70-99) mg/dl POC Glucose (other) (70-99) mg/dl Lactate 3.8 H* (0.4-2.0) mmol/L Total Bilirubin (0.2-1) mg/dl AST (15-37) U/L Alkaline Phosphatase (45-117) U/L Albumin (3.4-5.0) gm/dl Globulin (2.5-4.0) gm/dl Albumin/Globulin Ratio (0.9-2) Diagnostic Findings CT ANGIOGRAPHY OF THE ABDOMEN AND PELVIS CLINICAL HISTORY: Pain out of proportion to exam. Ascites. Metastatic colon cancer. COMPARISON STUDY: CT of the abdomen and pelvis January 09, 2018. TECHNIQUE: Helical axial images of the abdomen and pelvis were obtained during arterial phase following intravenous injection 116 cc Optiray 320 IV. Sagittal and coronal reconstructions were viewed as well as maximal intensity projections on an independent 3-D workstation. Automated exposure control was utilized for the study. A dose lowering technique was utilized adhering to the principles of ALARA. FINDINGS: Visualized portions of the lower chest demonstrate trace bilateral pleural effusions with associated atelectasis. A few small pulmonary nodules are unchanged. There is moderate pneumoperitoneum the source is likely a perforated duodenal ulcer. Large volume ascites is noted. Markedly dysmorphic appearance of the liver is again noted. This may reflect treated metastatic disease which is suboptimally assessed on the CT exam. The appearance of the spleen is also unchanged. The kidneys are unremarkable. Is no hydronephrosis. There is no evidence for a bowel obstruction. Gas and a Kwan balloon are present within the bladder. Mild diffuse colonic wall thickening is noted. Several partially calcified retroperitoneal lymph nodes are unchanged. There is no abdominal aortic aneurysm or dissection. 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 There is poststenotic dilatation with the celiac axis measuring 1 cm in caliber. The superior mesenteric artery is patent. Inferior mesenteric artery is patent. Both renal arteries are patent. A right acetabular fixation is noted. Posterior column fracture is noted. Multiple intra-articular bone fragments are present. Impaction injury of the right femoral head is noted. There is a right hip joint effusion. Note is also made of a mildly displaced comminuted right iliac wing fracture.
[2018-02-06] MEDS: PANTOprazole 40 MG in DEXTROSE 5% 100 ML IV SCH ×2 (00:05→09:10)
--- NOTE | 2018-02-06 00:25 | History & Physical Bridge Note ---
Date of Service February 06, 2018 History & Physical Bridge Note I have examined the patient, reviewed the History & Physical and in the interval since the performance of the History & Physical I have noted the following changes of clinical significance: no changes noted
--- NOTE | 2018-02-06 00:46 | Anesthesiology Consultation ---
Date of Service February 06, 2018 Assessment & Plan (1) Encounter for pre-operative examination: Chart Review Chart Review: Acceptable Risk for Surgery and Patient NOT seen in Pre Admission Testing Consults Requested none ASA [id number] Proposed Anesthesia Anesthesia Type: General Anesthesia Line Insertion: Arterial line (may consider after induction if hemodynamically unstable) Risk / Benefits Reviewed With: PT / POA / Parent / Guardian, Accepts Plan and Informed Consent Obtained NPO Date Last Intake of Fluids: 02/05/18 Time Last Intake of Fluids: 17:00 Date Last Intake of Solids: 03/07/17 Last Intake of Solids Comment: reports she didn't eat yesterday History Surgery Operation Date: 02/06/18 00:30 Proposed Procedures p Exploratory Laparotomy - Polo Desai MD Height/Weight Height: 5 ft 5 in Weight: 85 kg Allergies Allergy/AdvReac Type Severity Reaction Status Date / Time hydromorphone Allergy Unknown DILAUDAD Verified 01/25/18 12:32 AND OTHER OPOIDS-TROUBLE FOCISING Medications Home Medications Medication Instructions Recorded Confirmed Last Taken fentanyl 25 mcg TRANSDERMAL DIRECTED 01/09/18 02/05/18 02/05/18 lorazepam [Ativan] 0.5 mg PO TID PRN 01/09/18 02/05/18 01/11/18 ondansetron 8 mg PO BID PRN 01/09/18 02/05/18 01/11/18 prochlorperazine maleate 10 mg PO Q6 PRN 01/09/18 02/05/18 01/11/18 sennosides [senna] 8.6 mg PO QPM 01/09/18 02/05/18 01/11/18 tramadol 50 mg PO Q4 PRN 01/09/18 02/05/18 01/25/18 08:00 venlafaxine 25 mg PO QAM 02/05/18 02/05/18 Unknown zolpidem [Ambien] 5 mg PO HS PRN 02/05/18 02/05/18 Unknown Active Medications Generic Name Dose Route Start Last Admin Trade Name Freq PRN Reason Stop Dose Admin Pantoprazole Sodium 40 mg/ 100 mls @ 20 mls/hr 02/05/18 23:00 02/06/18 00:05 Dextrose IV 03/07/18 22:59 20 mls/hr Q5H KISHOR Administration Ioversol 116 ml 02/05/18 22:29 02/05/18 22:30 Optiray 320 125ml IV 02/09/18 22:28 116 ml ONCE PRN Administration Interaction Checking Past Medical History Medical History Perforated duodenal ulcer Colon cancer (Chronic) Altered mental status (Resolved) Metastases to the liver (Acute) Metastasis from colon cancer Peritonitis (Acute) Past Family History Family History Other No pertinent family history Social History Smoking Status: Former smoker Hx Alcohol Use: No Hx Substance Use: No Physical Exam Vital Signs Last Vital Signs Temp 37.5 C 02/05/18 21:04 Pulse 135 H 02/06/18 00:32 Resp 22 02/06/18 00:32 BP 116/82 02/06/18 00:32 Pulse Ox 91 02/06/18 00:32 Constitutional + acute distress ENMT Mouth: no dentition abnormality Thyromental Distance: > or= 3.5 Finger Breadths Mallampati Class: II Neck normal visual inspection patient in C collar Respiratory normal respiratory effort Auscultation: lungs clear to auscultation bilaterally Cardiovascular Rate/Rhythm: regular rhythm; + abnormal rate (tachycardic) Musculoskeletal Spine: normal cervical ROM Neurologic moves all extremities Psychiatric Orientation: alert and oriented x 3 Testing Laboratory Results 02/05/18 21:30 02/05/18 21:30 02/05/18 21:52 POC Glucose (other) 114 H
[2018-02-06] MEDS ORDERED: ALBUMIN HUMAN 5% 12.5 GM/250 ML VIAL IV ONE (00:48)
[2018-02-06] MEDS ORDERED: fentaNYL citrate 100 MCG/2 ML VIAL ONE (00:57)
[2018-02-06] MEDS ORDERED: LIDOCAINE HCL 1% 20 ML VIAL ONE (01:17)
[2018-02-06] MEDS ORDERED: BUPIVACAINE 0.5 % 5 MG/1 ML MPF 30ML VIAL ONE (01:17)
[2018-02-06] MEDS ORDERED: BACITRACIN OINT 15 GM TUBE ONE (01:17)
[2018-02-06] MEDS ORDERED: VANCOMYCIN HCL 1000MG/20ML VIAL ONE (02:02)
[2018-02-06] MEDS ORDERED: ROCURONIUM BROMIDE 10 MG/ML 5 ML VIAL ONE (02:12)
[2018-02-06] MEDS ORDERED: SUCCINYLCHOLINE CHLORIDE 20 MG/ML 10 ML VIAL ONE (02:12)
[2018-02-06] MEDS ORDERED: PROPOFOL IV EMULSION 10 MG/ML 20 ML VIAL IV ONE (02:12)
[2018-02-06] MEDS ORDERED: GLYCOPYRROLATE 0.2 MG/ML VIAL ONE (02:12)
[2018-02-06] MEDS ORDERED: NEOSTIGMINE METHYLSULFATE 5 MG/5 ML SYR ONE (02:12)
[2018-02-06] MEDS ORDERED: ONDANSETRON INJ 2 MG/ML 2 ML VIAL ONE (02:13)
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
--- NOTE | 2018-02-06 02:26 | Post Operative Brief Note ---
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
[2018-02-06] MEDS ORDERED: PIPERACILL/TAZOBAC CONSULT ACTIVE PRN (02:40)
[2018-02-06] MEDS ORDERED: D5W AND 1/2NSS + 20MEQ KCL 20 MEQ/1,000 ML BAG IV SCH (02:45)
[2018-02-06] MEDS ORDERED: HYDROmorphone INJ 1 MG/ML SYRINGE IV PRN (02:46)
[2018-02-06] MEDS ORDERED: ePHEDrine sulfate 50 MG/ML AMP IV PRN (02:48)
[2018-02-06] MEDS ORDERED: ATROPINE SULFATE 0.1 MG/ML 5ML SYR IV PRN (02:48)
[2018-02-06] MEDS ORDERED: MoRPHine SULFATE 2 MG/ML CARP IV PRN (02:48)
[2018-02-06] MEDS ORDERED: PROPOFOL IV EMULSION 10 MG/ML 100 ML VIAL IV ONE (02:53)
[2018-02-06] MEDS ORDERED: PROPOFOL 1,000 MG/100 ML VIAL IV SCH (03:00)
--- NOTE | 2018-02-06 03:00 | Anesthesiology Progress Note ---
Date of Service February 06, 2018 Anesthesia Post Procedure Vital Signs Vital Signs: Temp Pulse Pulse Resp BP BP Pulse Ox 02/06/18 00:32 135 H 22 116/82 91 02/05/18 23:51 131 H 24 116/91 91 02/05/18 23:10 140 H 22 159/82 H 91 02/05/18 22:36 134 H 13 147/78 H 90 02/05/18 21:47 126 H 18 93 02/05/18 21:04 37.5 C 127 H 18 135/104 H 89 L Pain Intensity Bilateral Abdomen: Pain Intensity: 10 Notes Mental Status: alert / awake / arousable Patient Amnestic to Procedure: Yes Nausea / Vomiting: adequately controlled Pain: adequately controlled Airway Patency, RR, SpO2: see Notes below BP & HR: stable & adequate Hydration State: see Notes below Anesthetic Complications: no major complications apparent Notes: 5L of ascites was removed from abdomen during case. Patient was given approximately 1L of crystalloid and 750 albumin intraoperatively with some improvement in her HR, but she is still at a significant fluid deficit. BP is stable and adequate. In addition, at the end of case, patient was fully reversed from neuromuscular blockade and maintained 4 strong twitches without fade. Despite this, spontaneous ventilation provided breaths of only 30-50cc TV, without any respiratory distress or tachypnea. The patient does awaken to voice. Given this, and the patient's critical illness, I elected to leave her intubated and lightly sedated overnight, with weaning trials in the morning. She was transported to ICU and an initial plan for ventilator management and sedation was initiated. I spoke with the PA-C for ICU medicine who will manage the patient with his attending physician overnight.
[2018-02-06] MEDS ORDERED: ICU PROTOCOL FOR HYPERGLYCEMIA PRN (03:19)
[2018-02-06] MEDS ORDERED: ALBUMIN 25% 50 ML IV ONE (03:31)
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
[2018-02-06] MEDS ORDERED: VANCOMYCIN CONSULT ACTIVE PRN (04:30)
--- NOTE | 2018-02-06 05:12 | Operative Report ---
DATE OF OPERATION: 02/06/2018 PREOPERATIVE DIAGNOSIS: Perforated duodenal ulcer, peritonitis. POSTOPERATIVE DIAGNOSIS: Same. OPERATION: Exploratory laparotomy, repair of perforation, duodenal ulcer, with omental patch. SURGEON: Polo Desai MD ANESTHESIA: General. ESTIMATED BLOOD LOSS: About 10 mL. FINDINGS: Perforated duodenal ulcer. Removed 2 liters of ascites. COMPLICATIONS: None. INDICATIONS FOR THE PROCEDURE: This is a 57-year-old female who presented to the ED with 6 hours of acute abdominal pain. The patient had a CT scan diagnosis of perforated duodenal ulcer. Also, the patient has a 3-year history of colon cancer metastatic to the liver and ascites. So I recommended to do exploratory laparotomy, possible bowel resection, stoma. I did talk to the patient about the benefits, the risks, alternate procedures. I indicated the risks may include, but not limited, such as bleeding, infection, sepsis, multiple organ failure, DVT, myocardial infarction, stroke, even , worsening of the C7 spine injury, the patient understands. She agreed to proceed with procedure. She signed informed consent and I answered all questions. DETAILS OF PROCEDURE: We brought in patient to the OR, put the patient on the supine position. The patient received SCD on bilateral legs to prevent DVT. Also, the patient received 3.375 grams Zosyn IV for prophylactic antibiotic and patient received general anesthesia without difficulty. The abdomen was prepped and draped in routine sterile fashion. After time-out, I made an above the midline incision into the abdominal cavity without difficulty. There was a lot of ascites. We removed 2 liters ascites, we suctioned out, then we found the patient had a perforated duodenal ulcer the size of about 1 x 1 cm. Then we chose to use 2-0 Vicryl to close the duodenal ulcer perforation with omental patch interrupted and rechecked. Closed nicely, no tension, no leak, and then we used 1 gram vancomycin in 1 liter normal saline and flushed through the abdomen and we suctioned out the fluid. Then, we put a 10-mm SUSAN drainage on the right lower quadrant area. We used 3-0 nylon and closed the SUSAN drain area on the skin and hemostasis obtained. Also we found the patient had significant metastatic cancer on the omentum and liver. Then we closed the abdominal incision, fascial layer by using #1 PDS continuous running, closed subcutaneous layer by using 2-0 Vicryl continuous running, closed skin by using staple. Then we put the dressing on. The patient tolerated the procedure well. All the instrument, needle, sponge counts were correct x2 at the end of case and patient transferred to the ICU on the vent. After procedure, I did talk to the patient and whole family members about the OR finding and procedure we did, they understand. I answered all questions. I attest to the content of the Intraoperative Record and any orders documented therein. Any exception s are noted below.
[2018-02-06 05:27] LABS: Hematocrit (blood only) 39.1 % (37-47); Hemoglobin 12.3 g/dL (12.0-16.0); Mean Corpuscular Hgb Conc 31.5 g/dL (32-36); Mean Corpuscular Volume 94.4 fL (80-100); Mean Platelet Volume 9.9 fL (7.4-10.4); Platelet Count 204 K/uL (130-400); RDW Coefficient of Variation 20.9 % (11.5-14.5); RDW Standard Deviation 71.6 fL (36.4-46.3); Red Blood Count 4.14 M/uL (4.2-5.4)
[2018-02-06] MEDS: NORMOSOL-R 1,000 ML IV SCH ×2 (05:31→16:19)
[2018-02-06] MEDS: PIPERACILLIN/TAZOBACTAM 4.5 GM/120 ML BAG IV SCH ×3 (05:32→21:05)
[2018-02-06 05:34] LABS: INR 1.6 (0.9-1.1); Prothrombin Time 15.4 Seconds (9.0-12.0)
[2018-02-06 05:47] LABS: Albumin Level 2.6 gm/dl (3.4-5.0); Calcium 8.8 mg/dl (8.5-10.1); Creatinine Clr Calc Pharmacy 94.3 ml/min; Est GFR (African American) 110.7; Est GFR (Non-African American) 95.5; Magnesium 1.2 mg/dl (1.8-2.4); Potassium 3.7 mmol/L (3.5-5.1)
[2018-02-06 05:51] LABS: iSTAT Arterial Blood Gas HCO3 18 meg/L (19-24); iSTAT Carbon Dioxide 19 mEq/l (24-31); iSTAT FiO2 50 %
[2018-02-06 05:59] LABS: Albumin Globulin Ratio 0.7 (0.9-2); Bilirubin Direct 1.3 mg/dl (0-0.2); Bilirubin,Total 2.3 mg/dl (0.2-1); Globulin 3.8 gm/dl (2.5-4.0); Phosphorus 3.3 mg/dl (2.5-4.9); Total Protein 6.4 gm/dl (6.4-8.2)
[2018-02-06] MEDS ORDERED: VANCOMYCIN HCL 2,000 MG in SODIUM CHLORIDE 0.9% 500 ML IV ONE (06:00)
[2018-02-06 06:09] LABS: Anisocytosis Present; Basophils # (auto) 0.01 K/uL (0-0.2); Basophils % (auto) 0.1 %; Immature Granulocytes # (auto) 0.02 K/uL (0.00-0.02); Immature Granulocytes % (auto) 0.2 %; Lymphocytes # (auto) 0.53 K/uL (1.2-3.4); Lymphocytes % (auto) 6.2 %; Monocytes # (auto) 0.57 K/uL (0.11-0.59); Monocytes % (auto) 6.7 %; Neutrophils # (auto) 7.37 K/uL (1.4-6.5); Neutrophils % (auto) 86.8 %; Polychromasia 1+
--- NOTE | 2018-02-06 07:19 | XRay Report ---
SINGLE VIEW CHEST CLINICAL HISTORY: Endotracheal tube placement. Postoperative examination. FINDINGS: An AP, portable, supine chest radiograph is compared to study dated 02/05/2018 and correlated with chest CT dated 08/03/2016. The examination is degraded by portable technique and patient rotatio n. A right internal jugular central venous infusion port is unchanged in position. An enteric tube main s been placed. The tip projects below the diaphragm over the stomach. An endotracheal tube has been p laced. The tip projects 5 cm above the loree. The cardiomediastinal silhouette is unremarkable. Ther e are small pleural effusions with bibasilar atelectasis. No pneumothorax is seen. The skeletal struc tures are osteopenic. The bony thorax is grossly intact. Cholecystectomy clips are identified in the right upper quadrant. Skin clips are noted in the upper abdomen. IMPRESSION: 1. Endotracheal and enteric tubes have been placed as detailed above. 2. Small pleural effusions with bibasilar atelectasis. Electronically signed by: Kennedy Smith M.D. 02/06/2018 7:17 AM
[2018-02-06] MEDS: ALBUMIN 25% 50 ML IV SCH ×3 (08:50→23:20)
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
--- NOTE | 2018-02-06 09:54 | Pharmacy Report ---
Pharmacy Abx Initial Consult - Date of Service February 06, 2018 - Pharmacy Dosing Scope Date of Consult: 02/06/18 Consultation requested by: Dr. Desai Pharmacy is consulted to initiate vancomycin/zosyn IV/PO dosing therapy, order appropriate labs and adjust drug dose/frequency. - Subjective The patient is a 57 year old F admitted on 02/06/18 03:20. - Objective Height: 5 ft 5 in Weight: 85 kg Vital Signs (Past 12hrs): Vital Signs Temp Pulse Pulse Resp BP BP BP 02/06/18 09:01 115 H 111/71 02/06/18 08:01 36.9 C 113 H 23 109/72 02/06/18 07:10 116 H 21 02/06/18 07:01 113 H 115/72 02/06/18 06:45 36.6 C 116 H 16 117/75 02/06/18 05:40 114 H 16 02/06/18 05:20 36.5 C 99 H 16 121/67 02/06/18 04:20 36.5 C 98 H 16 118/83 02/06/18 03:03 17 02/06/18 03:00 114 H 17 163/91 H 02/06/18 02:54 111 H 17 02/06/18 02:50 114 H 18 155/86 H 02/06/18 02:40 36.4 C L 117 H 16 165/94 H 02/06/18 00:32 135 H 22 116/82 02/05/18 23:51 131 H 24 116/91 02/05/18 23:10 140 H 22 159/82 H 02/05/18 22:36 134 H 13 147/78 H 02/05/18 21:47 126 H 18 Pulse Ox 02/06/18 09:01 97 02/06/18 08:01 97 02/06/18 07:10 97 02/06/18 07:01 97 02/06/18 06:45 100 02/06/18 05:40 96 02/06/18 05:20 98 02/06/18 04:20 99 02/06/18 03:03 02/06/18 03:00 99 02/06/18 02:54 100 02/06/18 02:50 100 02/06/18 02:40 99 02/06/18 00:32 91 02/05/18 23:51 91 02/05/18 23:10 91 02/05/18 22:36 90 02/05/18 21:47 93 Lab Results (24hrs): Laboratory Tests (24 Hours) 02/06/18 02/06/18 02/05/18 05:08 05:08 21:30 WBC 8.50 Neut # (Auto) 7.37 H Creatinine 0.70 0.55 L Est Cr Clr Drug Dosing 94.3 120.0 02/05/18 21:30 WBC 7.74 Neut # (Auto) 6.69 H Creatinine Est Cr Clr Drug Dosing - Risk Factors for Resistance * Hospitalization for 48 hours or more within the past 90 days * Immunocompromised (chronic steroid therapy, chemotherapy, immunomodulators) - Assessment & Plan Assessment 57 year old F with perforated duodenal ulcer/peritonitis. Patient has history of colon cancer with liver mets, recent CVA 3 weeks ago. Taken to OR for ex. lap and admitted to ICU after inability to wean off of vent. normal white count, afebrile Started on vancomycin/zosyn for perforated duodenal ulcer/peritonits Per ICU round discussion- plan to keep abx for 3 days, with duration extension if needed Plan Vancomycin IV * Estimated PK Parameters: Vd 0.6 L/kg, Kamran 0.08 hr-1, t1/2 8.5 hr * Loading dose: 2000 mg (23.5 mg/kg) * Maintenance dose: 1250 mg IV (14.7 mg/kg) every 12 hours * Goal trough level 15-20 mcg/mL * Will order trough level if expected to continue longer than 3 days or dramatic change in renal function Piperacillin/tazobactam * 4.5 g bolus administered over 30 minutes, then 4.5 g IV extended infusion every 8 hours for CrCl greater than 20 mL/min * Aggressive dosing selected due to critically ill status Pharmacy will continue to follow and will adjust dose/frequency as necessary. Thank you.
[2018-02-06] MEDS: fentaNYL citrate 100 MCG/2 ML VIAL IV PRN ×3 (10:07→16:41)
[2018-02-06] MEDS: POTASSIUM CHLORIDE / WTR 20 MEQ/100 ML PLCT IV SCH ×2 (10:12→12:10)
[2018-02-06] MEDS: MAGNESIUM SULFATE / D5W 1 GM/100 ML BAG IV SCH ×2 (10:13→11:21)
[2018-02-06] MEDS: ENOXAPARIN INJ 40 MG/0.4 ML SYR SQ SCH (10:39)
[2018-02-06] MEDS: PANTOprazole 40 MG in SYRINGE 0 ML IV SCH ×2 (10:39→21:05)
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
--- NOTE | 2018-02-06 11:19 | Anesthesiology Progress Note ---
Date of Service February 06, 2018 Physical Exam Vital Signs Last Vital Signs Temp 36.9 C 02/06/18 08:01 Pulse 115 H 02/06/18 09:01 Resp 23 02/06/18 08:01 BP 111/71 02/06/18 09:01 Pulse Ox 97 02/06/18 09:01 Results & Data Medications Administered Enoxaparin Sodium (Lovenox) 40 mg SQ QAM [facility] Stop: 03/08/18 08:59 Last Admin: 02/06/18 10:39 Dose: 40 mg Fentanyl Citrate (Fentanyl Citrate) 25 mcg IV Q2H PRN PRN Reason: Moderate Pain (4,5,6) Stop: 02/20/18 03:18 Last Admin: 02/06/18 10:07 Dose: 25 mcg Piperacillin Sod/Tazobactam Sod (Zosyn) 4.5 gm in 120 mls @ 30 mls/hr IV Q8H [facility]; Protocol Stop: 02/08/18 04:59 Last Infusion: 02/06/18 09:45 Dose: 0 mls/hr Admin: 02/06/18 05:32 Dose: 30 mls/hr Pantoprazole Sodium 40 mg/ (Syringe) 10 mls @ 5 mls/min IV BID@0900,2100 [facility] Stop: 03/08/18 08:59 Last Admin: 02/06/18 10:39 Dose: 5 mls/min Propofol (Diprivan) 1,000 mg in 100 mls @ 0 mls/hr IV .Q0M [facility]; Protocol Stop: 02/09/18 02:59 Last Admin: 02/06/18 03:03 Dose: 5 mcg/kg/min, 2.6 mls/hr Parenteral Electrolytes (Normosol-R) 1,000 mls @ 80 mls/hr IV .[id number] [facility] Stop: 03/08/18 03:29 Last Admin: 02/06/18 05:31 Dose: 80 mls/hr Albumin Human (Albumin 25%) 50 mls @ 50 mls/hr IV Q8H [facility] Stop: 02/09/18 07:59 Last Infusion: 02/06/18 09:50 Dose: 0 mls/hr Admin: 02/06/18 08:50 Dose: 50 mls/hr Magnesium Sulfate/Dextrose (Magnesium Sulfate / D5w) 1 gm in 100 mls @ 100 mls/ hr IV Q1H [facility] Stop: 02/06/18 11:29 Last Admin: 02/06/18 10:13 Dose: 100 mls/hr Potassium Chloride (K Caleb / Wtr) 20 meq in 100 mls @ 50 mls/hr IV Q2H [facility] Stop: 02/06/18 13:29 Last Admin: 02/06/18 10:12 Dose: 50 mls/hr Ioversol (Optiray 320 125ml) 116 ml IV ONCE PRN PRN Reason: Interaction Checking Stop: 02/09/18 22:28 Last Admin: 02/05/18 22:30 Dose: 116 ml
[2018-02-06 11:48] LABS: Appearance Urine Clear (Clear); Bacteria Urine Automated Negative (Negative); Color Urine Dark Yellow; Glucose Urine UA Negative (Negative); Ketones Urine Trace (Negative); Leukocyte Esterase Urine Negative (Negative); Nitrite Urine Negative (Negative); Protein Urine Trace (Negative); Specific Gravity Urine > 1.045 (1.000-1.030); Urobilinogen Urine Negative (Negative)
--- NOTE | 2018-02-06 11:48 | Surgery Progress Note ---
Date of Service February 06, 2018 S/P repair perforated duodenal ulcer POD 1 extubated, pt is doing fine, good control abdominal pain, no nausea, no vomiting , NG minimal, SUSAN 125mlclear, WBC 8.5 Assessment & Plan (1) Perforated peptic ulcer: doing fine, I update OR finding and the surgery pt had, she understood, I answered all questions, continue treatment, consult GI repeat labs in am, june tranfer out ICU tomorrow, will F/U Subjective Constitutional: as per Subjective / HPI Ear, Nose, Mouth, Throat: as per Subjective / HPI Respiratory: as per Subjective / HPI Cardiovascular: as per Subjective / HPI Genitourinary (Female): + as per Subjective / HPI Neurologic: as per Subjective / HPI Psychiatric: as per Subjective / HPI Endocrine: as per Subjective / HPI Hematologic / Lymphatic: as per Subjective / HPI Physical Exam 2 Vital Signs (Past 24 Hours): Last Vital Signs Temp 36.9 C 02/06/18 08:01 Pulse 115 H 02/06/18 09:01 Resp 23 02/06/18 08:01 BP 111/71 02/06/18 09:01 Pulse Ox 97 02/06/18 09:01 Constitutional: WD/WN, vitals as above Neck: trachea midline, no thyromegaly Respiratory: normal respiratory effort, lungs clear to auscultation Cardiovascular: RRR, no murmur, no edema Gastrointestinal (Abdomen): Percussion/Palpation: + abdomen tender and abdomen soft no distend, BS + Neurologic: awake Psychiatric: Orientation: alert and oriented x 3 Results & Data Laboratory Results Abnormal lab results 02/05/18 02/05/18 02/05/18 Range/Units 21:30 21:30 21:52 RBC (4.2-5.4) M/uL MCHC 31.3 L (32-36) g/dL RDW Std Deviation 72.0 H (36.4-46.3) fL RDW Coeff of Sonya 21.1 H (11.5-14.5) % Immature Gran # (Auto) 0.03 H (0.00-0.02) K/uL Neut # (Auto) 6.69 H (1.4-6.5) K/uL Lymph # (Auto) 0.71 L (1.2-3.4) K/uL PT (9.0-12.0) Seconds INR (0.9-1.1) POC pH (7.35-7.45) POC pCO2 (35-46) mmHg POC HCO3 (19-24) moni/L POC ABG O2 Sat (90-95) % POC Sodium 134 L (135-144) mEq/L Sodium 132 L (136-145) mmol/L POC Chloride 99 L (101-112) mEq/L Carbon Dioxide (21-32) mmol/L POC Total CO2 21 L (24-31) mEq/l Anion Gap (3-11) POC BUN 6 L (7-18) mg/dl Creatinine 0.55 L (0.6-1.2) mg/dl POC Creatinine 0.3 L (0.6-1.3) mg/dl Glucose 111 H (70-99) mg/dl POC Glucose (other) 114 H (70-99) mg/dl Lactate (0.4-2.0) mmol/L Magnesium (1.8-2.4) mg/dl Total Bilirubin 1.5 H (0.2-1) mg/dl Direct Bilirubin (0-0.2) mg/dl AST 41 H (15-37) U/L Alkaline Phosphatase 272 H (45-117) U/L Albumin 1.9 L (3.4-5.0) gm/dl Globulin 5.1 H (2.5-4.0) gm/dl Albumin/Globulin Ratio 0.4 L (0.9-2) 02/05/18 02/06/18 02/06/18 Range/Units 22:54 05:08 05:08 RBC 4.14 L (4.2-5.4) M/uL MCHC 31.5 L (32-36) g/dL RDW Std Deviation 71.6 H (36.4-46.3) fL RDW Coeff of Sonya 20.9 H (11.5-14.5) % Immature Gran # (Auto) (0.00-0.02) K/uL Neut # (Auto) 7.37 H (1.4-6.5) K/uL Lymph # (Auto) 0.53 L (1.2-3.4) K/uL PT (9.0-12.0) Seconds INR (0.9-1.1) POC pH (7.35-7.45) POC pCO2 (35-46) mmHg POC HCO3 (19-24) moni/L POC ABG O2 Sat (90-95) % POC Sodium (135-144) mEq/L Sodium 133 L (136-145) mmol/L POC Chloride (101-112) mEq/L Carbon Dioxide 18 L (21-32) mmol/L POC Total CO2 (24-31) mEq/l Anion Gap 12.0 H (3-11) POC BUN (7-18) mg/dl Creatinine (0.6-1.2) mg/dl POC Creatinine (0.6-1.3) mg/dl Glucose 114 H (70-99) mg/dl POC Glucose (other) (70-99) mg/dl Lactate 3.8 H* (0.4-2.0) mmol/L Magnesium 1.2 L (1.8-2.4) mg/dl Total Bilirubin 2.3 H D (0.2-1) mg/dl Direct Bilirubin 1.3 H (0-0.2) mg/dl AST (15-37) U/L Alkaline Phosphatase 199 H (45-117) U/L Albumin 2.6 L (3.4-5.0) gm/dl Globulin (2.5-4.0) gm/dl Albumin/Globulin Ratio 0.7 L (0.9-2) 02/06/18 02/06/18 02/06/18 Range/Units 05:08 05:08 05:36 RBC (4.2-5.4) M/uL MCHC (32-36) g/dL RDW Std Deviation (36.4-46.3) fL RDW Coeff of Sonya (11.5-14.5) % Immature Gran # (Auto) (0.00-0.02) K/uL Neut # (Auto) (1.4-6.5) K/uL Lymph # (Auto) (1.2-3.4) K/uL PT 15.4 H (9.0-12.0) Seconds INR 1.6 H (0.9-1.1) POC pH 7.34 L (7.35-7.45) POC pCO2 33 L (35-46) mmHg POC HCO3 18 L (19-24) moni/L POC ABG O2 Sat 97.0 H (90-95) % POC Sodium (135-144) mEq/L Sodium (136-145) mmol/L POC Chloride (101-112) mEq/L Carbon Dioxide (21-32) mmol/L POC Total CO2 19 L (24-31) mEq/l Anion Gap (3-11) POC BUN (7-18) mg/dl Creatinine (0.6-1.2) mg/dl POC Creatinine (0.6-1.3) mg/dl Glucose (70-99) mg/dl POC Glucose (other) (70-99) mg/dl Lactate 5.3 H* (0.4-2.0) mmol/L Magnesium (1.8-2.4) mg/dl Total Bilirubin (0.2-1) mg/dl Direct Bilirubin (0-0.2) mg/dl AST (15-37) U/L Alkaline Phosphatase (45-117) U/L Albumin (3.4-5.0) gm/dl Globulin (2.5-4.0) gm/dl Albumin/Globulin Ratio (0.9-2)
[2018-02-06 11:53] LABS: Bilirubin Urine Negative (Negative); Ictotest Urine Negative (Negative)
[2018-02-06 12:02] LABS: Epithelial Cell Urine Auto 0-5 /lpf (0-5)
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
[2018-02-06] MEDS: LORazepam 0.25 MG/0.5 ML VIAL IV PRN (14:21)
[2018-02-06] MEDS: fentaNYL 25 MCG/HR TDSY TD SCH (14:25)
[2018-02-06] MEDS: METOCLOPRAMIDE HCL INJ 5 MG/ML 2 ML VIAL IV SCH ×3 (14:25→23:19)
--- NOTE | 2018-02-06 15:09 | XRay Report ---
XR pelvis 1-2V routine CLINICAL HISTORY: FRACTURE SURGERY COMPARISON: CT of the abdomen and pelvis July 06, 2018. FINDINGS: Contrast within the bladder from recent contrast-enhanced CT. There is a surgical drain wi thin the lower abdomen and pelvis. Right femoral internal fixation hardware is noted. This fixates th e comminuted right acetabular fracture. Alignment appears improved since exam of January 12, 2018. Fr acture is mildly displaced and comminuted. Minimal interval healing is noted. Suspected impaction of the right femoral head is noted. IMPRESSION: Status post right acetabular internal fixation. Hardware intact. Mildly displaced comminu melvin right acetabular fracture with improved alignment from preoperative radiographs. Suspected femora l head impaction. Electronically signed by: Lloyd Gilbert M.D. 02/06/2018 3:07 PM
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
[2018-02-06] MEDS: CHECK FENTANYL PATCH PLACEMENT SCH ×2 (16:19→23:21)
--- NOTE | 2018-02-06 17:56 | CT Scan Report ---
CT OF THE PELVIS CLINICAL HISTORY: sag/cor/3D recon from CT pelvis 02/05; don't rescan COMPARISON STUDY: Right hip radiograph January 12, 2018. TECHNIQUE: Axial images of the pelvis were obtained. Sagittal and coronal reconstructions were viewed . FINDINGS: Large volume pelvic ascites is noted. A Kwan balloon and gas are present within the bladde r. Sacroiliac joints and symphysis pubis are intact. A comminuted displaced posterior column right ac etabular fracture is noted. The patient status post internal fixation. The hardware is intact. Fractu re remains displaced and comminuted. No significant callus formation is noted. Multiple intra-articul ar bone fragments measure up to 1.4 cm. There is posterior subluxation of the femoral head with respe ct to the acetabulum. It is made of an impaction injury of the right femoral head There is a right hi p joint effusion. Note is made of an additional minimally displaced comminuted right iliac bone fract ure. No proximal left femoral fracture is present. IMPRESSION: 1. Status post right acetabular internal fixation. Comminuted displaced right acetabular fracture, a s described above. Multiple intra-articular bone fragments. Posterior subluxation of the femoral head with respect to the acetabulum. Right femoral head impaction injury. 2. Additional acute minimally displaced right iliac bone fracture. 3. Large volume ascites. Electronically signed by: Lloyd Gilbert M.D. 02/06/2018 5:55 PM
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
[2018-02-06] MEDS: MoRPHine SULFATE PCA 50 MG/50ML IV SCH ×2 (19:31→21:04)
[2018-02-06] MEDS: VANCOMYCIN HCL 1,250 MG in SODIUM CHLORIDE 0.9% 250 ML IV SCH (19:38)
[2018-02-07 04:39] LABS: INR 1.8 (0.9-1.1)
[2018-02-07 05:06] LABS: Albumin Level 2.6 gm/dl (3.4-5.0); BUN Creatinine Ratio 15.6 (10-20); Calcium 8.7 mg/dl (8.5-10.1); Creatinine Clr Calc Pharmacy 124.6 ml/min; Est GFR (African American) 121.3; Est GFR (Non-African American) 104.7; Potassium 3.7 mmol/L (3.5-5.1)
[2018-02-07 05:07] LABS: Hematocrit (blood only) 32.6 % (37-47); Hemoglobin 10.1 g/dL (12.0-16.0); Mean Platelet Volume 9.8 fL (7.4-10.4); Platelet Count 174 K/uL (130-400); RDW Standard Deviation 73.3 fL (36.4-46.3); Red Blood Count 3.43 M/uL (4.2-5.4)
[2018-02-07] MEDS: NORMOSOL-R 1,000 ML IV SCH ×2 (05:09→16:53)
[2018-02-07] MEDS: METOCLOPRAMIDE HCL INJ 5 MG/ML 2 ML VIAL IV SCH ×4 (05:09→23:45)
[2018-02-07 05:10] LABS: Albumin Globulin Ratio 0.7 (0.9-2); Bilirubin Direct 1.5 mg/dl (0-0.2); Bilirubin,Total 2.4 mg/dl (0.2-1); Globulin 3.5 gm/dl (2.5-4.0); Phosphorus 3.2 mg/dl (2.5-4.9); Total Protein 6.1 gm/dl (6.4-8.2)
[2018-02-07] MEDS: PIPERACILLIN/TAZOBACTAM 4.5 GM/120 ML BAG IV SCH ×3 (05:10→20:06)
[2018-02-07 05:18] LABS: Anisocytosis Present; Basophils # (auto) 0.02 K/uL (0-0.2); Basophils % (auto) 0.1 %; Dohle Bodies 1+; Eosinophils # (auto) 0.01 K/uL (0-0.5); Immature Granulocytes % (auto) 0.5 %; Lymphocytes # (auto) 0.54 K/uL (1.2-3.4); Lymphocytes % (auto) 2.7 %; Monocytes # (auto) 1.84 K/uL (0.11-0.59); Monocytes % (auto) 9.1 %; Neutrophils # (auto) 17.69 K/uL (1.4-6.5); Neutrophils % (auto) 87.6 %
[2018-02-07] MEDS: MoRPHine SULFATE PCA 50 MG/50ML IV SCH ×2 (06:49→06:50)
[2018-02-07] MEDS: ALBUMIN 25% 50 ML IV SCH ×3 (08:36→23:46)
[2018-02-07] MEDS: VANCOMYCIN HCL 1,250 MG in SODIUM CHLORIDE 0.9% 250 ML IV SCH ×2 (08:36→20:05)
[2018-02-07] MEDS: CHECK FENTANYL PATCH PLACEMENT SCH ×3 (09:10→23:46)
[2018-02-07] MEDS: PANTOprazole 40 MG in SYRINGE 0 ML IV SCH ×2 (10:07→20:06)
[2018-02-07] MEDS: ENOXAPARIN INJ 40 MG/0.4 ML SYR SQ SCH (10:40)
--- NOTE | 2018-02-07 11:58 | Surgery Progress Note ---
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 - concern for right hip incisional infection Plan: Doing well from general surgical perspective. Would keep NPO to allow duodenal perforation to heal as NGT was removed. Would continue IV ABx and IV Protonix BID. As for the right hip fracture/subluxation and concern for possible infection awaiting eval from orthopeadics today. They plan to discuss imaging findings with her [place] surgeon today. Dr. Desai recommends transfer back to her orthopeadic surgeon in [place]. 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 Desai has seen and examined patient, agrees with above. 02/07/2018 6:09pm I agree with above the note, based on pt has infection on right hip surgery. 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 no fevers or chills no right hip pain NGT was removed yesterday Constitutional: as per Subjective / HPI Ear, Nose, Mouth, Throat: as per Subjective / HPI Respiratory: as per Subjective / HPI Cardiovascular: as per Subjective / HPI Genitourinary (Female): + as per Subjective / HPI Neurologic: as per Subjective / HPI Psychiatric: as per Subjective / HPI Endocrine: as per Subjective / HPI Hematologic / Lymphatic: as per Subjective / HPI Physical Exam 2 Vital Signs (Past 24 Hours): Last Vital Signs Temp 36.6 C 02/07/18 09:01 Pulse 117 H 02/07/18 09:01 Resp 16 02/07/18 09:01 BP 99/48 L 02/07/18 09:01 Pulse Ox 100 02/07/18 09:01 Constitutional: + acute distress, + ill appearing, + thin and + cachectic Neck: trachea midline, no thyromegaly in c-collar Respiratory: normal respiratory effort, lungs clear to auscultation normal respiratory effort; no respiratory distress, no labored breathing, no retractions and does not use accessory muscles Cardiovascular: RRR, no murmur, no edema Gastrointestinal (Abdomen): Inspection/Auscultation: + abdomen distended and + abdominal surgical drain present (clear ascitc fluid present) Percussion/ Palpation: + guarding, + abdomen rigid and + ascites Musculoskeletal: Head/Neck/Chest: + limited ROM of neck and neck supple Spine: + cervical collar present Extremities: extremities normal to inspection Right hip with dressing present, currently dry. Steri strips on incision present. No active drainage but there is surrounding redness of incision. Skin: no rashes, warm and dry + incision (Midline incision covered with dry and intact dressing) Neurologic: awake Psychiatric: A+Ox3, euthymic affect Orientation: alert and oriented x 3 Results & Data Laboratory Results 02/07/18 02/07/18 02/07/18 Range/Units 11:32 05:13 04:11 WBC (4.8-10.8) K/uL RBC (4.2-5.4) M/uL Hgb (12.0-16.0) g/dL Hct (37-47) % MCV (80-100) fL MCH (25-34) pg MCHC (32-36) g/dL RDW Std Deviation (36.4-46.3) fL RDW Coeff of Sonya (11.5-14.5) % Plt Count (130-400) K/uL MPV (7.4-10.4) fL Immature Gran % (Auto) % Neut % (Auto) % Lymph % (Auto) % Bennett % (Auto) % Eos % (Auto) % Baso % (Auto) % Immature Gran # (Auto) (0.00-0.02) K/uL Neut # (Auto) (1.4-6.5) K/uL Lymph # (Auto) (1.2-3.4) K/uL Bennett # (Auto) (0.11-0.59) K/uL Eos # (Auto) (0-0.5) K/uL Baso # (Auto) (0-0.2) K/uL Hyposegmented Neuts Dohle Bodies Anisocytosis PT (9.0-12.0) Seconds INR (0.9-1.1) Sodium 138 (136-145) mmol/L Potassium 3.7 (3.5-5.1) mmol/L Chloride 105 (98-107) mmol/L Carbon Dioxide 23 (21-32) mmol/L Anion Gap 10.0 (3-11) BUN 8 (7-18) mg/dl Creatinine 0.53 L (0.6-1.2) mg/dl Est Cr Clr Drug Dosing 124.6 ml/min Est GFR ( Amer) 121.3 Est GFR (Non-Af Amer) 104.7 BUN/Creatinine Ratio 15.6 (10-20) Glucose 77 (70-99) mg/dl POC Glucose 77 89 (70-99) Calcium 8.7 (8.5-10.1) mg/dl Phosphorus 3.2 (2.5-4.9) mg/dl Magnesium 2.0 (1.8-2.4) mg/dl Total Bilirubin 2.4 H (0.2-1) mg/dl Direct Bilirubin 1.5 H (0-0.2) mg/dl AST 25 (15-37) U/L ALT 14 (12-78) U/L Alkaline Phosphatase 162 H (45-117) U/L Total Protein 6.1 L (6.4-8.2) gm/dl Albumin 2.6 L (3.4-5.0) gm/dl Globulin 3.5 (2.5-4.0) gm/dl Albumin/Globulin Ratio 0.7 L (0.9-2) Lipase 55 L (73-393) U/L U Hyaline Cast (Auto) (0-5) /lpf U Epithel Cells (Auto) (0-5) /lpf Granular Casts (0) /lpf 02/07/18 02/07/18 02/06/18 Range/Units 04:11 04:11 23:24 WBC 20.20 H D (4.8-10.8) K/uL RBC 3.43 L (4.2-5.4) M/uL Hgb 10.1 L (12.0-16.0) g/dL Hct 32.6 L (37-47) % MCV 95.0 (80-100) fL MCH 29.4 (25-34) pg MCHC 31.0 L (32-36) g/dL RDW Std Deviation 73.3 H (36.4-46.3) fL RDW Coeff of Sonya 21.0 H (11.5-14.5) % Plt Count 174 (130-400) K/uL MPV 9.8 (7.4-10.4) fL Immature Gran % (Auto) 0.5 % Neut % (Auto) 87.6 % Lymph % (Auto) 2.7 % Bennett % (Auto) 9.1 % Eos % (Auto) 0.0 % Baso % (Auto) 0.1 % Immature Gran # (Auto) 0.10 H (0.00-0.02) K/uL Neut # (Auto) 17.69 H (1.4-6.5) K/uL Lymph # (Auto) 0.54 L (1.2-3.4) K/uL Bennett # (Auto) 1.84 H (0.11-0.59) K/uL Eos # (Auto) 0.01 (0-0.5) K/uL Baso # (Auto) 0.02 (0-0.2) K/uL Hyposegmented Neuts 2+ Dohle Bodies 1+ Anisocytosis Present PT 18.0 H (9.0-12.0) Seconds INR 1.8 H (0.9-1.1) Sodium (136-145) mmol/L Potassium (3.5-5.1) mmol/L Chloride (98-107) mmol/L Carbon Dioxide (21-32) mmol/L Anion Gap (3-11) BUN (7-18) mg/dl Creatinine (0.6-1.2) mg/dl Est Cr Clr Drug Dosing ml/min Est GFR ( Amer) Est GFR (Non-Af Amer) BUN/Creatinine Ratio (10-20) Glucose (70-99) mg/dl POC Glucose 84 (70-99) Calcium (8.5-10.1) mg/dl Phosphorus (2.5-4.9) mg/dl Magnesium (1.8-2.4) mg/dl Total Bilirubin (0.2-1) mg/dl Direct Bilirubin (0-0.2) mg/dl AST (15-37) U/L ALT (12-78) U/L Alkaline Phosphatase (45-117) U/L Total Protein (6.4-8.2) gm/dl Albumin (3.4-5.0) gm/dl Globulin (2.5-4.0) gm/dl Albumin/Globulin Ratio (0.9-2) Lipase (73-393) U/L U Hyaline Cast (Auto) (0-5) /lpf U Epithel Cells (Auto) (0-5) /lpf Granular Casts (0) /lpf 02/06/18 02/06/18 02/06/18 Range/Units 18:01 11:54 09:41 WBC (4.8-10.8) K/uL RBC (4.2-5.4) M/uL Hgb (12.0-16.0) g/dL Hct (37-47) % MCV (80-100) fL MCH (25-34) pg MCHC (32-36) g/dL RDW Std Deviation (36.4-46.3) fL RDW Coeff of Sonya (11.5-14.5) % Plt Count (130-400) K/uL MPV (7.4-10.4) fL Immature Gran % (Auto) % Neut % (Auto) % Lymph % (Auto) % Bennett % (Auto) % Eos % (Auto) % Baso % (Auto) % Immature Gran # (Auto) (0.00-0.02) K/uL Neut # (Auto) (1.4-6.5) K/uL Lymph # (Auto) (1.2-3.4) K/uL Bennett # (Auto) (0.11-0.59) K/uL Eos # (Auto) (0-0.5) K/uL Baso # (Auto) (0-0.2) K/uL Hyposegmented Neuts Dohle Bodies Anisocytosis PT (9.0-12.0) Seconds INR (0.9-1.1) Sodium (136-145) mmol/L Potassium (3.5-5.1) mmol/L Chloride (98-107) mmol/L Carbon Dioxide (21-32) mmol/L Anion Gap (3-11) BUN (7-18) mg/dl Creatinine (0.6-1.2) mg/dl Est Cr Clr Drug Dosing ml/min Est GFR ( Amer) Est GFR (Non-Af Amer) BUN/Creatinine Ratio (10-20) Glucose (70-99) mg/dl POC Glucose 84 120 H (70-99) Calcium (8.5-10.1) mg/dl Phosphorus (2.5-4.9) mg/dl Magnesium (1.8-2.4) mg/dl Total Bilirubin (0.2-1) mg/dl Direct Bilirubin (0-0.2) mg/dl AST (15-37) U/L ALT (12-78) U/L Alkaline Phosphatase (45-117) U/L Total Protein (6.4-8.2) gm/dl Albumin (3.4-5.0) gm/dl Globulin (2.5-4.0) gm/dl Albumin/Globulin Ratio (0.9-2) Lipase (73-393) U/L U Hyaline Cast (Auto) 1-5 (0-5) /lpf U Epithel Cells (Auto) 0-5 (0-5) /lpf Granular Casts 1-5 H (0) /lpf Diagnostic Findings XR pelvis 1-2V routine CLINICAL HISTORY: FRACTURE SURGERY COMPARISON: CT of the abdomen and pelvis July 06, 2018. FINDINGS: Contrast within the bladder from recent contrast-enhanced CT. There is a surgical drain within the lower abdomen and pelvis. Right femoral internal fixation hardware is noted. This fixates the comminuted right acetabular fracture. Alignment appears improved since exam of January 12, 2018. Fracture is mildly displaced and comminuted. Minimal interval healing is noted. Suspected impaction of the right femoral head is noted. IMPRESSION: Status post right acetabular internal fixation. Hardware intact. Mildly displaced comminuted right acetabular fracture with improved alignment from preoperative radiographs. Suspected femoral head impaction. CT OF THE PELVIS CLINICAL HISTORY: sag/cor/3D recon from CT pelvis 02/05; don't rescan COMPARISON STUDY: Right hip radiograph January 12, 2018. TECHNIQUE: Axial images of the pelvis were obtained. Sagittal and coronal reconstructions were viewed. FINDINGS: Large volume pelvic ascites is noted. A Kwan balloon and gas are present within the bladder. Sacroiliac joints and symphysis pubis are intact. A comminuted displaced posterior column right acetabular fracture is noted. The patient status post internal fixation. The hardware is intact. Fracture remains displaced and comminuted. No significant callus formation is noted. Multiple intra-articular bone fragments measure up to 1.4 cm. There is posterior subluxation of the femoral head with respect to the acetabulum. It is made of an impaction injury of the right femoral head There is a right hip joint effusion. Note is made of an additional minimally displaced comminuted right iliac bone fracture. No proximal left femoral fracture is present. IMPRESSION: 1. Status post right acetabular internal fixation. Comminuted displaced right acetabular fracture, as described above. Multiple intra-articular bone fragments. Posterior subluxation of the femoral head with respect to the acetabulum. Right femoral head impaction injury. 2. Additional acute minimally displaced right iliac bone fracture. 3. Large volume ascites.
--- NOTE | 2018-02-07 13:55 | Anesthesiology Progress Note ---
Date of Service February 07, 2018 Anesthesia Post Procedure Vital Signs Vital Signs: Temp Pulse Pulse Resp BP BP Pulse Ox 02/07/18 12:01 36.4 C L 113 H 15 101/51 L 94 02/07/18 11:01 115 H 18 102/50 L 97 02/07/18 10:01 114 H 16 99/53 L 94 02/07/18 09:01 36.6 C 117 H 16 99/48 L 100 02/07/18 08:01 113 H 21 95/52 L 96 02/07/18 08:00 116 H 02/07/18 07:01 117 H 13 99/54 L 96 02/07/18 06:00 115 H 20 96/54 L 96 02/07/18 05:00 115 H 17 91/53 L 95 02/07/18 04:00 36.6 C 115 H 13 109/55 L 95 02/07/18 03:00 114 H 17 96/47 L 96 02/07/18 02:00 116 H 17 101/54 L 96 02/07/18 01:00 116 H 20 98/51 L 97 02/06/18 23:00 116 H 23 107/56 L 95 02/06/18 22:00 116 H 24 107/53 L 97 02/06/18 21:00 115 H 25 H 102/53 L 98 02/06/18 20:00 37 C 117 H 122 H 31 H 105/54 L 93 02/06/18 18:01 117 H 29 H 110/64 92 02/06/18 17:01 119 H 22 116/60 76 L 02/06/18 16:07 36.9 C 114 H 28 H 108/62 96 02/06/18 15:31 112 H 36 H 105/66 98 02/06/18 15:01 110 H 22 101/68 98 02/06/18 14:31 109 H 33 H 103/64 99 02/06/18 14:01 112 H 31 H 107/67 96 Pain Intensity Bilateral Abdomen: Pain Intensity: 3 Notes Mental Status: alert / awake / arousable and participated in evaluation Patient Amnestic to Procedure: Yes Nausea / Vomiting: adequately controlled Pain: adequately controlled Airway Patency, RR, SpO2: stable & adequate BP & HR: stable & adequate Hydration State: stable & adequate Anesthetic Complications: no major complications apparent and Pt Satisfied with anesthetic care
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
[2018-02-07] MEDS ORDERED: VANCOMYCIN CONSULT ACTIVE PRN (17:04)
[2018-02-07] MEDS ORDERED: VANCOMYCIN HCL 1,000 MG in SODIUM CHLORIDE 0.9% 250 ML IV SCH (17:15)
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
[2018-02-07] MEDS ORDERED: SODIUM CHLORIDE 0.9% 250 ML IV PRN (20:27)
[2018-02-07] MEDS ORDERED: PHYTONADIONE 5 MG in SODIUM CHLORIDE 0.9% 50 ML IV ONE (20:27)
[2018-02-07] MEDS ORDERED: Nursing to Pharmacy Communication ONE ×2 (21:21→21:23)
[2018-02-08] MEDS: MoRPHine SULFATE PCA 50 MG/50ML IV SCH (02:21)
[2018-02-08] MEDS: NORMOSOL-R 1,000 ML IV SCH ×2 (03:41→20:19)
[2018-02-08] MEDS: PIPERACILLIN/TAZOBACTAM 4.5 GM/120 ML BAG IV SCH ×3 (04:25→20:17)
[2018-02-08] MEDS: METOCLOPRAMIDE HCL INJ 5 MG/ML 2 ML VIAL IV SCH ×4 (05:21→23:49)
[2018-02-08] MEDS ORDERED: VANCOMYCIN TROUGH ONE (07:30)
[2018-02-08 07:39] LABS: Basophils # (auto) 0.02 K/uL (0-0.2); Basophils % (auto) 0.1 %; Eosinophils # (auto) 0.28 K/uL (0-0.5); Eosinophils % (auto) 1.8 %; Hematocrit (blood only) 29.9 % (37-47); Hemoglobin 9.1 g/dL (12.0-16.0); Immature Granulocytes # (auto) 0.07 K/uL (0.00-0.02); Immature Granulocytes % (auto) 0.5 %; Lymphocytes # (auto) 0.62 K/uL (1.2-3.4); Mean Corpuscular Hgb Conc 30.4 g/dL (32-36); Mean Corpuscular Volume 96.5 fL (80-100); Mean Platelet Volume 9.6 fL (7.4-10.4); Monocytes # (auto) 1.22 K/uL (0.11-0.59); Monocytes % (auto) 7.9 %; Neutrophils # (auto) 13.15 K/uL (1.4-6.5); Neutrophils % (auto) 85.7 %; Platelet Count 157 K/uL (130-400); RDW Coefficient of Variation 21.1 % (11.5-14.5); RDW Standard Deviation 74.5 fL (36.4-46.3); White Blood Count 15.36 K/uL (4.8-10.8)
[2018-02-08 07:47] LABS: INR 1.3 (0.9-1.1); Prothrombin Time 13.3 Seconds (9.0-12.0)
[2018-02-08 07:59] LABS: Anisocytosis Present; Polychromasia 1+
[2018-02-08 08:16] LABS: Albumin Level 2.8 gm/dl (3.4-5.0); BUN Creatinine Ratio 19.2 (10-20); Calcium 8.9 mg/dl (8.5-10.1); Creatinine Clr Calc Pharmacy 125.2 ml/min; Est GFR (African American) 123.7; Est GFR (Non-African American) 106.7; Magnesium 2.2 mg/dl (1.8-2.4); Potassium 3.1 mmol/L (3.5-5.1)
[2018-02-08 08:20] LABS: Bilirubin Direct 1.4 mg/dl (0-0.2); Bilirubin,Total 2.2 mg/dl (0.2-1); Phosphorus 2.8 mg/dl (2.5-4.9); Total Protein 6.1 gm/dl (6.4-8.2)
[2018-02-08] MEDS: ALBUMIN 25% 50 ML IV SCH ×3 (08:47→23:49)
[2018-02-08] MEDS: VANCOMYCIN HCL 1,250 MG in SODIUM CHLORIDE 0.9% 250 ML IV SCH ×2 (09:10→20:17)
[2018-02-08] MEDS: CHECK FENTANYL PATCH PLACEMENT SCH ×3 (09:11→23:50)
[2018-02-08] MEDS: PANTOprazole 40 MG in SYRINGE 0 ML IV SCH ×2 (09:12→20:17)
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
--- NOTE | 2018-02-08 10:03 | Pharmacy Report ---
Pharmacy Abx Dose Short Note - Date of Service February 08, 2018 - Assessment & Plan Assessment 57 year old F receiving vancomycin/zosyn for treatment of perforated duodenal ulcer/poss. peritonitis/poss. infected prosthesis Day # 4 of antimicrobial therapy. Plan Vancomycin * Trough level of 16.3 mcg/mL is therapeutic * Continue dose of 1250 mg IV every 12 hours * Goal trough level 15-20 mcg/mL * Order trough in 2-3 days or with changed in renal function. Pharmacy will continue to follow and will adjust dose/frequency as necessary. Thank you.
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
--- NOTE | 2018-02-08 11:28 | Anesthesiology Consultation ---
Date of Service February 08, 2018 Assessment & Plan Chart Review Chart Review: Acceptable Risk for Surgery Consults Requested none ASA ASA4 Proposed Anesthesia Anesthesia Type: General Anesthesia Line Insertion: Arterial line NPO Date Last Intake of Fluids: 02/05/18 Time Last Intake of Fluids: 17:00 Date Last Intake of Solids: 03/07/17 Time Last Intake of Solids: 08:00 Last Intake of Solids Comment: reports she didn't eat yesterday History Surgery Operation Date: 02/06/18 00:30 Proposed Procedures p Exploratory Laparotomy - Polo Desai MD Operation Date: 02/08/18 07:20 Proposed Procedures p Incision and Drainage Extremity - Nolna Young MD Height/Weight Height: 5 ft 5 in Weight: 76.2 kg Allergies Allergy/AdvReac Type Severity Reaction Status Date / Time hydromorphone Allergy Unknown DILAUDAD Verified 01/25/18 12:32 AND OTHER OPOIDS-TROUBLE FOCISING Medications Home Medications Medication Instructions Recorded Confirmed Last Taken fentanyl 25 mcg TRANSDERMAL DIRECTED 01/09/18 02/05/18 02/05/18 lorazepam [Ativan] 0.5 mg PO TID PRN 01/09/18 02/05/18 01/11/18 ondansetron 8 mg PO BID PRN 01/09/18 02/05/18 01/11/18 prochlorperazine maleate 10 mg PO Q6 PRN 01/09/18 02/05/18 01/11/18 sennosides [senna] 8.6 mg PO QPM 01/09/18 02/05/18 01/11/18 tramadol 50 mg PO Q4 PRN 01/09/18 02/05/18 01/25/18 08:00 venlafaxine 25 mg PO QAM 02/05/18 02/05/18 Unknown zolpidem [Ambien] 5 mg PO HS PRN 02/05/18 02/05/18 Unknown Active Medications Generic Name Dose Route Start Last Admin Trade Name Freq PRN Reason Stop Dose Admin Fentanyl 25 mcg 02/06/18 14:15 02/06/18 14:25 Duragesic TD 02/20/18 14:14 25 mcg Q3D [facility] Administration Piperacillin Sod/Tazobactam Sod 4.5 gm in 120 mls @ 30 mls/hr 02/06/18 05:00 02/08/18 09:13 Zosyn IV 02/16/18 04:59 Infused Q8H [facility] Infusion Protocol Pantoprazole Sodium 40 mg/ 10 mls @ 5 mls/min 02/06/18 09:00 02/08/18 09:12 Syringe IV 03/08/18 08:59 5 mls/min BID@0900,2100 [facility] Administration Parenteral Electrolytes 1,000 mls @ 80 mls/hr 02/06/18 03:30 02/08/18 06:43 Normosol-R IV 03/08/18 03:29 80 mls/hr .[id number] [facility] Infusion Albumin Human 50 mls @ 50 mls/hr 02/06/18 08:00 02/08/18 09:48 Albumin 25% IV 02/09/18 07:59 Infused Q8H [facility] Infusion Vancomycin HCl 1,250 mg/ 275 mls @ 125 mls/hr 02/06/18 20:00 02/08/18 09:10 Sodium Chloride IV 02/16/18 19:59 125 mls/hr Q12H [facility] Administration Lorazepam 0.25 mg in 0.5 mls @ 0.5 mls/min 02/06/18 14:03 02/06/18 14:21 Ativan IV 03/08/18 14:02 0.5 mls/min TID PRN Administration Agitation Ioversol 116 ml 02/05/18 22:29 02/05/18 22:30 Optiray 320 125ml IV 02/09/18 22:28 116 ml ONCE PRN Administration Interaction Checking Metoclopramide HCl 5 mg 02/06/18 14:15 02/08/18 05:21 Reglan IV 03/08/18 14:14 5 mg Q6 [facility] Administration Miscellaneous 1 ea 02/06/18 16:00 02/08/18 09:11 Fentanyl Patch Check Placement N/A 03/08/18 15:59 Not Given QS [facility] Morphine Sulfate 50 mg 02/06/18 21:00 02/08/18 02:21 Morphine Sales Management Trainee 50 Mg/50 Ml IV 02/20/18 20:59 50 mg UD [facility] Administration Protocol Beta Patricia Beta Patricia Taken Within 24 Hours: No Past Medical History Medical History Perforated peptic ulcer (Acute) Perforated duodenal ulcer Colon cancer (Chronic) Altered mental status (Resolved) Metastases to the liver (Acute) Metastasis from colon cancer Peritonitis (Acute) Past Family History Family History Other No pertinent family history Past Anesthesia History No Hx of Anesthesia Complications and No Family Hx of Anesthesia Complications History of PONV No Motion Sickness Screening History of Motion Sickness: No Social History Smoking Status: Unknown if ever smoked Hx Alcohol Use: No Hx Substance Use: No Exercise / Class Metabolic Activity IV < 2 Limit ADL/Bedbound Physical Exam Vital Signs Last Vital Signs Temp 36.7 C 02/08/18 09:01 Pulse 117 H 02/08/18 09:01 Resp 21 02/08/18 09:01 BP 107/61 02/08/18 09:01 Pulse Ox 95 02/08/18 09:01 ENMT Mouth: + dentition abnormality Mallampati Class: II Neck trachea midline and + limited neck extension patient in C spine collar for c spine injury,? c 6-7 Fx;soon to be taken off Respiratory normal respiratory effort Auscultation: + diminished lung sounds Cardiovascular Rate/Rhythm: regular rate and regular rhythm Heart Sounds: no murmur Vessels: no carotid bruit Neurologic moves all extremities Motor/Sensory: no sensory deficit Psychiatric Orientation: alert and oriented x 3 Testing Laboratory Results 02/08/18 07:25 02/08/18 07:25 Blood Type O Positive 02/07/18 20:40 Antibody Screen NEGATIVE 02/07/18 20:40 PT 13.3 Seconds (9.0-12.0) H 02/08/18 07:25 INR 1.3 (0.9-1.1) H 02/08/18 07:25 Urine Color Dark Yellow 02/06/18 09:41 Urine Appearance Clear (Clear) 02/06/18 09:41 Urine pH 5.0 (4.5-7.5) 02/06/18 09:41 Ur Specific [place] > 1.045 (1.000-1.030) H 02/06/18 09:41 Urine Protein Trace (Negative) H 02/06/18 09:41 Urine Glucose (UA) Negative (Negative) 02/06/18 09:41 Urine Ketones Trace (Negative) H 02/06/18 09:41 Urine Nitrite Negative (Negative) 02/06/18 09:41 Ur Leukocyte Esterase Negative (Negative) 02/06/18 09:41 Urine WBC (Auto) 1-5 /hpf (0-5) 02/06/18 09:41 Urine RBC (Auto) 0-4 /hpf (0-4) 02/06/18 09:41 U Hyaline Cast (Auto) 1-5 /lpf (0-5) 02/06/18 09:41 U Epithel Cells (Auto) 0-5 /lpf (0-5) 02/06/18 09:41 Urine Bacteria (Auto) Negative (Negative) 02/06/18 09:41 02/06/18 21:48 Blood Culture - Preliminary Blood No growth to date. 02/06/18 21:39 Blood Culture - Preliminary Blood No growth to date. 02/07/18 10:19 Gram Stain - Final Fluid,Undescribed 02/08/18 02/07/18 05:26 23:38 POC Glucose 79 78
[2018-02-08] MEDS ORDERED: ONDANSETRON INJ 2 MG/ML 2 ML VIAL ONE (12:37)
[2018-02-08] MEDS ORDERED: NEOSTIGMINE METHYLSULFATE 5 MG/5 ML SYR ONE (12:37)
[2018-02-08] MEDS ORDERED: LIDOCAINE HCL 2% 2 ML VIAL/AMP(20MG/ML) INFIL ONE (12:37)
[2018-02-08] MEDS ORDERED: DEXAMETHASONE SOD INJ 4 MG/ML VIAL ONE (12:37)
[2018-02-08] MEDS ORDERED: GLYCOPYRROLATE 0.2 MG/ML VIAL ONE (12:37)
[2018-02-08] MEDS ORDERED: PROPOFOL IV EMULSION 10 MG/ML 20 ML VIAL IV ONE (12:37)
[2018-02-08] MEDS ORDERED: fentaNYL citrate 100 MCG/2 ML VIAL ONE (12:38)
[2018-02-08] MEDS ORDERED: MIDAZOLAM HCL 1 MG/ML 2ML VIAL ONE (12:38)
[2018-02-08] MEDS ORDERED: SUCCINYLCHOLINE CHLORIDE 20 MG/ML 10 ML VIAL ONE (12:43)
[2018-02-08] MEDS ORDERED: ROCURONIUM BROMIDE 10 MG/ML 5 ML VIAL ONE (12:43)
[2018-02-08] MEDS: POTASSIUM CHLORIDE / WTR 20 MEQ/100 ML PLCT IV SCH ×2 (12:45→16:33)
--- NOTE | 2018-02-08 13:24 | History & Physical Bridge Note ---
Date of Service February 08, 2018 History & Physical Bridge Note I have examined the patient, reviewed the History & Physical and in the interval since the performance of the History & Physical I have noted the following changes of clinical significance: no changes noted INR 1.3. Liver functions elevated. White count decreased to about 15. H&H acceptable. PRP is noted. I have had extensive discussions with physicians at [facility]. Plan is to transfer her back to [facility] when a bed is available for further treatment of her right hip orthopedic problem. She has a draining wound and has failure of her acetabular repair. Bed is not available. Because of her potential evidence of infection in the right hip area surgery is recommended. I have had extensive discussions with anesthesia Dr. Sun as well as the patient and her family specifically her 2 daughters. We talked about the pros and cons of different treatment options and their locations. They are concerned about her overall health and what interventions are appropriate for the potential final stages of her life. I do think that this procedure is necessary. Beyond that if there is no infection further operation may not be necessary. If there is deep infection then the hardware may need to come out and that could mean that the hip is unstable and that could significantly impact her health. Under those circumstances I think some sort of staging and/or reconstruction at a tertiary care facility would be appropriate. Her Lovenox has been held. She is n.p.o. Informed consent has been obtained with a phone consent with the daughter as well as discussions with the patient. The spine service has been consulted about her potential cervical spine injury. That consultation is pending. I think we can proceed as planned with her c- collar in place.
[2018-02-08] MEDS ORDERED: SODIUM CHLORIDE 0.9% INJ 10 ML VIAL ONE (13:55)
[2018-02-08] MEDS ORDERED: CEFAZOLIN 250 MG/ML 1 GM VIAL ONE (13:55)
[2018-02-08] MEDS ORDERED: POVIDONE-IODINE OP SOLN 30 ML BTL ONE (13:59)
--- NOTE | 2018-02-08 15:03 | Post Operative Brief Note ---
Immediate Post Op Note v1 Date of Surgery February 08, 2018 Pre & Post Diagnosis Operation Date: 02/08/18 07:20 <No data on this case meets the specified criteria> right hip wound seroma s/p orif acetabulum fracture Procedure Operation Date: 02/08/18 07:20 <No data on this case meets the specified criteria> Irrigation and debridement Surgeon Nolan Young MD Sort Supervisor ana recinos Estimated Blood Loss 5 Findings Consistent with Post-Op Diagnosis Specimens none Drains Hemovac Drain Anesthesia Type General Complications none Disposition Accompanied Patient To Recovery: No Disposition: Recovery Room
--- NOTE | 2018-02-08 15:36 | Operative Report ---
Post Operative Report Pre & Post Diagnosis Operation Date: 02/06/18 00:30 Pre-Op Diagnosis: Acute abdominal pain, pertonitis, perforated duodenal ulcer Post-Op Diagnosis: Acute abdominal pain, pertonitis, perforated duodenal ulcer Operation Date: 02/08/18 07:20 Pre-Op Diagnosis: Right hip wound seroma Post-Op Diagnosis: Right hip wound seroma Procedure Operation Date: 02/06/18 00:30 Actual Procedures p Exploratory Laparotomy, Repair of Perforated Duodenal Ulcer(Not Applicable) - Polo Desai MD Operation Date: 02/08/18 07:20 Actual Procedures p Incision and drainage right hip wound seroma status post acetabular fracture( Right) - Nolan Young MD Surgeon Harshil Mcgraw. Manager Sourcing ana recinos Estimated Blood Loss 5 Findings Consistent with Post-Op Diagnosis Specimens Intraoperative wound cultures Drains Hemovac right hip Anesthesia Type General Complications none Disposition Accompanied Patient To Recovery: No Disposition: Surgical ICU Indications Patient is a 57-year-old female status post open reduction internal fixation of a right acetabular fracture. This was done a few weeks ago at [facility]. She presented to the [facility] for treatment of a perforated duodenal ulcer. During her stay, hip drainage was noted. It has continued to during the last few days. She has had an elevated white blood cell count. She has been placed on IV Zosyn and vancomycin. There was an attempt made to transfer back down to [facility] but no beds are available. Was decided to take her to the operating room to undergo an irrigation and debridement of her right hip incision. Patient agreed. Risks and complications were discussed and informed consent was obtained. We were also asked to to remove suyapa from her scalp while under anesthesia by the patient and the family. Description of Procedure Patient was taken to the operating room and placed under general anesthesia. Once general anesthesia completed 2 suyapa removed from the right side of her scalp. The laceration was healed and dry. Suyapa were removed without difficulty. She was then given 2 g of IV Ancef for surgical prophylaxis. Timeout verbal was completed. She was placed in the left lateral decubitus position. I was present during the entire case, please see Dr. Young's operative report for further detail. Patient was awakened and transferred to recovery room in stable condition.
[2018-02-08 17:01] LABS: Appearance Synovial Fluid BLOODY; Color Synovial Fluid RED; Polynuclear WBC Synovial 94.9 %; RBC Synovial Fluid (A) 549000 /uL; Source Synovial Fluid HIP; WBC Synovial Fluid (A) 6212 /uL (0-200)
--- NOTE | 2018-02-08 17:43 | Critical Care Progress Note ---
Date of Service February 08, 2018 Assessment & Plan (1) Peritonitis: Impression: 1. Acute peritonitis secondary to perforated peptic ulcer disease, status post surgical repair by Dr. Desai. Improved. 2. Respiratory failure, postop, improved. Now on facemask only. 3. Multiple injuries including right hip fracture status post ORIF done at [facility]. History of possible C7 fracture, record cannot be found. The patient is already on neck collar. 4. Colon CA with metastasis status post biweekly chemotherapy. For the past 3 years. 5. Ascites, related to liver failure secondary to extensive metastasis. Plan: 1. Continue the patient with pain controlled with DRY CELL BATTERY ASSEMBLER morphine, decrease the dose to 0.7 mg an hour of the basal morphine. 2. IV fluid. 3. We will start the patient oral intake with clear liquids in the morning, discussed with Dr. Monroe. 4. We will keep the patient at [facility], the family does not want her to be transferred to [facility] anymore. 5. Discussed with Dr. Desai and Dr. Young, appreciate both inputs, 6. We will check the labs. 7. Hold Lovenox. I will restarted once it is okay with orthopedic. 8. Continue Vanco Zosyn pending the cultures. 9. DVT and GI prophylaxis. 10. Family discussion and update. 11. Discussed with the staff on rounds. 12. Discussed with Dr. Desai to transfer the service to medicine with surgery being consulted. He is in agreement. Appreciate Dr. Purvis assistance in that regard. Critical care time spent with the patient was 45 minutes. Subjective The patient pain has been well controlled overnight, she is using DRY CELL BATTERY ASSEMBLER pump nicely, somewhat somnolent but her pain is controlled, she underwent washout of the right hip prosthesis, return to the ICU postprocedure, no events occurred overnight other than the above. The patient denies any nausea or vomiting, continues to have abdominal pain, no bowel movement was reported, no leg pain, no syncopal episodes, dry mucosa and thirst is what she is complaining of. Physical Exam 2 Vital Signs (Past 24 Hours): Last Vital Signs Temp 36.5 C 02/08/18 15:53 Pulse 112 H 02/08/18 17:16 Resp 17 02/08/18 17:16 BP 116/59 L 02/08/18 17:16 Pulse Ox 98 01/04/19 17:16 Physical Exam: Physical exam reveals middle-aged female, neck collar is in place, dry mucosa, heart examination S1-S2 regular rate and rhythm, lungs are clear, abdomen is postop but soft, bowel sounds are positive, right hip area with drainage in place, no edema. Neurologically nonfocal. Results & Data Laboratory Results Her labs also were reviewed personally, WBC is coming down. Cultures are negative. Diagnostic Findings No new imaging.
[2018-02-08 17:54] LABS: Appearance Synovial Fluid BLOODY; Color Synovial Fluid RED; Polynuclear WBC Synovial 96.7 %; RBC Synovial Fluid (A) 127000 /uL; Source Synovial Fluid HIP; WBC Synovial Fluid (A) 4812 /uL (0-200)
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
--- NOTE | 2018-02-08 22:07 | Anesthesiology Progress Note ---
Date of Service February 08, 2018 Anesthesia Post Procedure Vital Signs Vital Signs: Temp Pulse Pulse Resp BP BP BP 02/08/18 21:00 121 H 17 110/56 L 02/08/18 20:00 36.6 C 115 H 113 H 15 98/50 L 02/08/18 19:00 112 H 15 102/55 L 02/08/18 18:01 37.1 C 112 H 19 107/58 L 02/08/18 17:29 36.9 C 112 H 18 101/68 02/08/18 17:16 112 H 17 116/59 L 02/08/18 17:01 112 H 26 H 98/60 L 02/08/18 16:46 115 H 24 109/67 02/08/18 16:15 123 H 24 118/62 02/08/18 16:01 124 H 19 109/96 02/08/18 15:53 36.5 C 128 H 19 95/73 L 02/08/18 15:48 36.6 C 127 H 21 138/78 02/08/18 15:43 36.6 C 126 H 126 H 26 H 112/81 112/81 02/08/18 15:33 112 H 16 124/72 02/08/18 15:32 36.5 C 112 H 12 151/75 H 02/08/18 13:01 108 H 13 103/48 L 02/08/18 12:01 111 H 19 105/55 L 02/08/18 11:33 37.1 C 111 H 20 103/60 02/08/18 11:01 37.1 C 112 H 24 103/60 02/08/18 10:01 114 H 21 109/56 L 02/08/18 09:01 36.7 C 117 H 21 107/61 02/08/18 08:30 112 H 02/08/18 08:01 107 H 19 99/50 L 02/08/18 07:01 106 H 24 98/55 L 02/08/18 06:31 36.5 C 110 H 22 101/54 L 02/08/18 06:05 36.5 C 108 H 20 102/55 L 02/08/18 05:50 36.6 C 109 H 19 86/59 L 02/08/18 05:40 36.6 C 112 H 22 94/50 L 02/08/18 05:35 36.6 C 112 H 16 94/50 L 02/08/18 05:22 36.6 C 108 H 22 91/54 L 02/08/18 04:52 36.7 C 113 H 24 108/57 L 02/08/18 04:37 36.6 C 110 H 24 98/51 L 02/08/18 04:21 36.7 C 109 H 14 100/55 L 02/08/18 04:00 36.7 C 108 H 13 102/51 L 02/08/18 03:00 110 H 18 115/51 L 02/08/18 02:00 109 H 21 96/53 L 02/08/18 01:00 109 H 15 102/50 L 02/08/18 00:00 36.6 C 111 H 13 105/57 L 02/07/18 23:00 111 H 15 90/56 L Pulse Ox 02/08/18 21:00 96 02/08/18 20:00 99 02/08/18 19:00 99 02/08/18 18:01 99 02/08/18 17:29 97 02/08/18 17:16 98 02/08/18 17:01 96 02/08/18 16:46 92 02/08/18 16:15 95 02/08/18 16:01 92 02/08/18 15:53 95 02/08/18 15:48 96 02/08/18 15:43 96 02/08/18 15:33 89 L 02/08/18 15:32 89 L 02/08/18 13:01 93 02/08/18 12:01 95 02/08/18 11:33 96 02/08/18 11:01 96 02/08/18 10:01 96 02/08/18 09:01 95 02/08/18 08:30 02/08/18 08:01 94 02/08/18 07:01 95 02/08/18 06:31 94 02/08/18 06:05 94 02/08/18 05:50 93 02/08/18 05:40 94 02/08/18 05:35 94 02/08/18 05:22 94 02/08/18 04:52 92 02/08/18 04:37 92 02/08/18 04:21 96 02/08/18 04:00 97 02/08/18 03:00 97 02/08/18 02:00 95 02/08/18 01:00 94 02/08/18 00:00 93 02/07/18 23:00 93 Pain Intensity Bilateral Abdomen: Pain Intensity: 3 Notes Mental Status: alert / awake / arousable Patient Amnestic to Procedure: Yes Nausea / Vomiting: adequately controlled Pain: adequately controlled Airway Patency, RR, SpO2: stable & adequate BP & HR: stable & adequate and see Notes below (Remains tachycardic) Hydration State: stable & adequate Anesthetic Complications: no major complications apparent and Pt Satisfied with anesthetic care Notes: Dr. Sun following patient in ICU.
--- NOTE | 2018-02-08 22:41 | XRay Report ---
CERVICAL SPINE 3 VIEWS CLINICAL HISTORY: C7 fracture. FINDINGS: AP supine, crosstable lateral, and swimmer's views of the cervical spine are attempted. No prior studies are available for comparison at the time of dictation. The examination is significantly degraded by inability to properly position the patient due to a cervical spine collar. The skeletal structures are osteopenic. Question a right posterior element fracture of C7 on the frontal view. C7 is not well-visualized and is not fully assessed. Vertebral body height and alignment are maintained from C2 through C6. The spinolaminar line appears preserved. The atlantodental articulation appears m aintained. The visualized spinous processes appear intact. No significant disc space narrowing is travis ntified. The prevertebral soft tissues are normal as imaged. The partially imaged apical lung parench yma appears clear. A central venous infusion port is in place. IMPRESSION: 1. Significantly suboptimal examination as the patient could not be properly positioned due to a cerv ical spine collar. 2. C7 was not adequately assessed. 3. Question a right posterior element fracture of C7 on the frontal image. Correlation with any prior imaging/CT studies will be required. 4. No additional findings are concerning for fracture on the provided images. Dictated: 02/08/2018 10:12 PM Transcribed: 02/08/2018 10:40 PM Chitra [id number] [email or web address] Electronically signed by: Kennedy Smith M.D. 02/08/2018 10:45 PM
[2018-02-09] MEDS: PIPERACILLIN/TAZOBACTAM 4.5 GM/120 ML BAG IV SCH ×3 (04:28→21:13)
[2018-02-09] MEDS: LORazepam 0.25 MG/0.5 ML VIAL IV PRN (04:31)
[2018-02-09] MEDS ORDERED: DEXTROSE 50% 50 ML SYRINGE IV STA (05:51)
[2018-02-09] MEDS: METOCLOPRAMIDE HCL INJ 5 MG/ML 2 ML VIAL IV SCH ×2 (06:09→12:40)
[2018-02-09] MEDS ORDERED: XOPENEX/ATROVENT 1.25mg/0.5MG NEB COMBO NEB PRN (06:12)
[2018-02-09] MEDS ORDERED: IPRATROPIUM BROMIDE NEB SOLN 0.02% 2.5 ML VIAL INH PRN (06:15)
[2018-02-09] MEDS ORDERED: LEVALBUTEROL 1.25MG/0.5ML NEB INH PRN (06:15)
[2018-02-09 06:23] LABS: Basophils # (auto) 0.03 K/uL (0-0.2); Basophils % (auto) 0.2 %; Eosinophils # (auto) 0.28 K/uL (0-0.5); Eosinophils % (auto) 2.1 %; Hematocrit (blood only) 31.1 % (37-47); Hemoglobin 9.4 g/dL (12.0-16.0); Immature Granulocytes # (auto) 0.05 K/uL (0.00-0.02); Immature Granulocytes % (auto) 0.4 %; Lymphocytes # (auto) 0.55 K/uL (1.2-3.4); Lymphocytes % (auto) 4.2 %; Mean Corpuscular Hgb Conc 30.2 g/dL (32-36); Mean Corpuscular Volume 96.6 fL (80-100); Mean Platelet Volume 9.3 fL (7.4-10.4); Monocytes # (auto) 1.73 K/uL (0.11-0.59); Monocytes % (auto) 13.1 %; Neutrophils # (auto) 10.58 K/uL (1.4-6.5); Platelet Count 152 K/uL (130-400); RDW Coefficient of Variation 20.7 % (11.5-14.5); RDW Standard Deviation 73.8 fL (36.4-46.3); Red Blood Count 3.22 M/uL (4.2-5.4); White Blood Count 13.22 K/uL (4.8-10.8)
[2018-02-09 06:26] LABS: iSTAT Allen Test Pass; iSTAT Arterial Blood Gas HCO3 26 meg/L (19-24); iSTAT Carbon Dioxide 27 mEq/l (24-31)
[2018-02-09 06:45] LABS: Anisocytosis Present; Poikilocytosis Present
--- NOTE | 2018-02-09 06:50 | XRay Report ---
XR chest 1V portable CLINICAL HISTORY: low o2 hypoxia COMPARISON STUDY: 02/06/2018 FINDINGS: Interval extubation. Central catheter remains within the right atrium. Mild prominence of p ulmonary vasculature. IMPRESSION: Developing pulmonary vascular congestion. The above report was generated using voice recognition software. It may contain grammatical, syntax or spelling errors. Electronically signed by: Isiah Lemos M.D. 02/09/2018 6:49 AM
[2018-02-09 07:00] LABS: BUN Creatinine Ratio 19.4 (10-20); Calcium 8.5 mg/dl (8.5-10.1); Est GFR (African American) 123.7; Est GFR (Non-African American) 106.7; Potassium 3.3 mmol/L (3.5-5.1)
[2018-02-09] MEDS ORDERED: FUROSEMIDE 20 MG in SYRINGE 0 ML IV STA (08:04)
[2018-02-09] MEDS ORDERED: DEXTROSE 5% 1,000 ML IV SCH (08:15)
[2018-02-09] MEDS: ENOXAPARIN INJ 40 MG/0.4 ML SYR SQ SCH (08:27)
[2018-02-09] MEDS: VANCOMYCIN HCL 1,250 MG in SODIUM CHLORIDE 0.9% 250 ML IV SCH ×2 (08:27→21:12)
[2018-02-09] MEDS: CHECK FENTANYL PATCH PLACEMENT SCH ×2 (08:28→15:18)
--- NOTE | 2018-02-09 09:08 | Surgery Progress Note ---
Date of Service February 09, 2018 Assessment & Plan (1) Perforated peptic ulcer: POD #3 from duodenal ulcer oversew POD #1 from I & D of hip WBC improving no acute abdominal issues will need to discuss with Dr. Desai on Sunday regarding ? UGI prior to starting oral intake Subjective pt sleeping Physical Exam 2 Vital Signs (Past 24 Hours): Last Vital Signs Temp 37 C 02/09/18 00:00 Pulse 112 H 02/09/18 06:00 Resp 18 02/09/18 06:00 BP 109/56 L 02/09/18 06:00 Pulse Ox 95 02/09/18 06:00 Physical Exam: abdomen: soft. SUSAN serous. incision looks as expected.
--- NOTE | 2018-02-09 09:54 | CT Scan Report ---
CT cervical spine wo con CT DOSE: 325.69 mGy.cm HISTORY: C7 fracture follow up C7 fracture. TECHNIQUE: Multiaxial CT images of the cervical spine were performed and reformatted in the sagittal and coronal plane without the use of contrast. A dose lowering technique was utilized adhering to th e principles of ALARA. COMPARISON: 02/08/2018 FINDINGS: Mild 20% compression deformity anterior superior endplate C7. All remaining vertebral lai s are normal in terms of stature. Transaxial images confirm the fracture of C7 to extend to the right lateral facet and right pedicle. No additional posterior element acute abnormalities are present.. IMPRESSION: 1. 20% compression deformity anterior superior endplate C7. 2. This extends to the right lateral facet and right pedicle 3. No evidence for bony compromise of the spinal canal. 4. No additional acute abnormality of the cervical spine. 5. Right pleural effusion. The above report was generated using voice recognition software. It may contain grammatical, syntax or spelling errors. Electronically signed by: Isiah Lemos M.D. 02/09/2018 9:51 AM
[2018-02-09] MEDS: MoRPHine SULFATE PCA 50 MG/50ML IV SCH (10:00)
--- NOTE | 2018-02-09 10:02 | Anesthesiology Progress Note ---
Date of Service February 09, 2018 Anesthesia Post Procedure Vital Signs Vital Signs: Temp Pulse Pulse Resp BP BP BP 02/09/18 08:00 37.0 C 115 H 117 H 20 126/62 02/09/18 06:00 112 H 18 109/56 L 02/09/18 05:00 110 H 14 99/56 L 02/09/18 02:00 108 H 16 103/53 L 02/09/18 01:00 110 H 20 96/53 L 02/09/18 00:00 37 C 118 H 14 105/49 L 02/08/18 23:00 113 H 17 106/55 L 02/08/18 22:00 120 H 21 136/71 02/08/18 21:00 121 H 17 110/56 L 02/08/18 20:00 36.6 C 115 H 113 H 15 98/50 L 02/08/18 19:00 112 H 15 102/55 L 02/08/18 18:01 37.1 C 112 H 19 107/58 L 02/08/18 17:29 36.9 C 112 H 18 101/68 02/08/18 17:16 112 H 17 116/59 L 02/08/18 17:01 112 H 26 H 98/60 L 02/08/18 16:46 115 H 24 109/67 02/08/18 16:15 123 H 24 118/62 02/08/18 16:01 124 H 19 109/96 02/08/18 15:53 36.5 C 128 H 19 95/73 L 02/08/18 15:48 36.6 C 127 H 21 138/78 02/08/18 15:43 36.6 C 126 H 126 H 26 H 112/81 112/81 02/08/18 15:33 112 H 16 124/72 02/08/18 15:32 36.5 C 112 H 12 151/75 H 02/08/18 13:01 108 H 13 103/48 L 02/08/18 12:01 111 H 19 105/55 L 02/08/18 11:33 37.1 C 111 H 20 103/60 02/08/18 11:01 37.1 C 112 H 24 103/60 02/08/18 10:01 114 H 21 109/56 L Pulse Ox 02/09/18 08:00 02/09/18 06:00 95 02/09/18 05:00 96 02/09/18 02:00 96 02/09/18 01:00 94 02/09/18 00:00 94 02/08/18 23:00 98 02/08/18 22:00 94 02/08/18 21:00 96 02/08/18 20:00 99 02/08/18 19:00 99 02/08/18 18:01 99 02/08/18 17:29 97 02/08/18 17:16 98 02/08/18 17:01 96 02/08/18 16:46 92 02/08/18 16:15 95 02/08/18 16:01 92 02/08/18 15:53 95 02/08/18 15:48 96 02/08/18 15:43 96 02/08/18 15:33 89 L 02/08/18 15:32 89 L 02/08/18 13:01 93 02/08/18 12:01 95 02/08/18 11:33 96 02/08/18 11:01 96 02/08/18 10:01 96 Pain Intensity Bilateral Abdomen: Pain Intensity: 10 Notes Mental Status: alert / awake / arousable Patient Amnestic to Procedure: Yes Nausea / Vomiting: adequately controlled Pain: see Notes below (had not received any pain medications;) Airway Patency, RR, SpO2: stable & adequate BP & HR: stable & adequate Hydration State: stable & adequate Anesthetic Complications: no major complications apparent
[2018-02-09] MEDS: PANTOprazole 40 MG in SYRINGE 0 ML IV SCH ×2 (10:59→21:13)
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
--- NOTE | 2018-02-09 14:26 | Progress Note ---
DATE: 02/09/2018 SUBJECTIVE: She is resting comfortably in bed, and her family is with her. Her daughters report that she has been a little bit more groggy and confused, they think related to medicine. She is afebrile. Her vital signs are stable. Pulse is consistently in the teens. Her urine output is 1 mL/kg/h. Her hip drains have put out 50, 25, 70 mL. Her white count is down to 13,000, hemoglobin 9, hematocrit 31, platelet count is 152. Cultures, superficial and deep are both no growth to date. Fluid aspiration. At this point, I am not sure which one is superficial or deep. One of them shows white count of 44,800, the other one 6200. X-rays of the neck are inconclusive. CT scan has been obtained which shows a fracture of the superior endplate of C7 with 20% compression. The fracture extends to the pedicle and facet of C7. There is no malalignment. She is sleeping. Her dressing is clean and dry. Thigh is swollen. Drain intact. Dorsalis pedis is 1+. Her foot is not swollen. IMPRESSION: 1. C7 fracture. 2. Duodenal ulcer perforation. 3. Metastatic colon cancer. 4. Fracture dislocation of right hip acetabulum with seroma versus infection, status post incision and drainage. PLAN: Spoke with her family at length. Recommend to continue intravenous antibiotics, any care that can be performed in regard to her cervical collar, continue Lovenox for anticoagulation. Drains will be continued for now, and we will reevaluate in the morning. We will continue to follow cultures. In regard to her cervical spine, we will continue the cervical collar for the time being. This is the identical fracture that was identified at [place]. She was seen and evaluated there by the neurosurgical service, and the plan was to continue the rigid cervical collar for 4 weeks after the injury and follow up in their clinic. We will attempt to arrange a followup here in [place] with Dr. Son, who currently is out of town. In regard to her hip, we talked about several options. One option would be, if there is no infection, nothing further would need to be done. The hip would be not concentrically reduced, and there would be some impairment to ambulating and possibly an inability to ambulate, but under that scenario, further surgery would not be necessary. It certainly could be considered. If the hip was infected, it could be potentially treated with antibiotics but that may fail and need to have surgery. Option #2 under that scenario would be another washout, hardware removal, and [place]. This would be an easier recovery, a medium invasive procedure, but would have long-term implications for her ability to ambulate but would offer comfort for sitting and transfers. The third option under this scenario would be the most invasive with the longest rehabilitation, but give her the best prognosis for independent ambulation again, that would be cementing a cup in the acetabulum after removing the hardware and putting a PROSTALAC in the femur. This last option would in my opinion require the expertise of one of the joint arthroplasty surgeons. We will continue to follow. Therapy aldrich, we could have her sit when appropriate.
[2018-02-09] MEDS: fentaNYL 25 MCG/HR TDSY TD SCH (15:16)
[2018-02-09] MEDS: D5NSS + 20MEQ KCL 20 MEQ/1,000 ML BAG IV SCH (15:45)
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
[2018-02-10] MEDS: CHECK FENTANYL PATCH PLACEMENT SCH ×3 (00:52→17:15)
[2018-02-10] MEDS: D5NSS + 20MEQ KCL 20 MEQ/1,000 ML BAG IV SCH ×2 (04:40→17:17)
[2018-02-10] MEDS: PIPERACILLIN/TAZOBACTAM 4.5 GM/120 ML BAG IV SCH ×3 (04:42→20:03)
[2018-02-10] MEDS ORDERED: VANCOMYCIN TROUGH ONE (07:30)
[2018-02-10] MEDS: VANCOMYCIN HCL 1,250 MG in SODIUM CHLORIDE 0.9% 250 ML IV SCH ×2 (08:40→20:03)
[2018-02-10] MEDS: CHOLECALCIFEROL 1,000 UNITS TAB PO SCH (08:40)
[2018-02-10] MEDS: PANTOprazole 40 MG in SYRINGE 0 ML IV SCH ×2 (08:42→20:03)
--- NOTE | 2018-02-10 09:07 | Surgery Progress Note ---
Date of Service February 10, 2018 Assessment & Plan (1) Perforated duodenal ulcer: doing well from our standpoint will d/w Dr. Desai regarding UGI prior to starting PO intake? or may need TPN soon dvt prophylaxis Subjective pt seen. awake /alert. main complaint is "thirsty" Physical Exam 2 Vital Signs (Past 24 Hours): Last Vital Signs Temp 37.2 C 02/10/18 07:58 Pulse 105 H 02/10/18 07:58 Resp 16 02/10/18 07:58 BP 118/74 02/10/18 07:58 Pulse Ox 96 02/10/18 07:58 Physical Exam: alert/oriented. in mild discomfort neck brace on abdomen: soft. expected incisional tenderness. would looks great/no sign of infection. drain serous. hemovac scant blood
[2018-02-10] MEDS: ENOXAPARIN INJ 40 MG/0.4 ML SYR SQ SCH (11:05)
--- NOTE | 2018-02-10 15:21 | Pharmacy Report ---
Pharmacy Abx Dose Short Note - Date of Service February 10, 2018 - Assessment & Plan Assessment 57 year old F receiving 57 year old F receiving vancomycin/zosyn for treatment of perforated duodenal ulcer/poss. peritonitis/poss. infected prosthesis Day #6 of antimicrobial therapy. Plan Vancomycin * Trough level of 19.4 mcg/mL is therapeutic * Continue dose of 1250 mg IV every 12 hours * Goal trough level: 15-20 mcg/mL * Trough ordered for: 02/12 @0730 Pharmacy will continue to follow and will adjust dose/frequency as necessary. Thank you.
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
--- NOTE | 2018-02-10 15:58 | Progress Note ---
DATE: 02/10/2018 SUBJECTIVE: Patient is resting comfortably in bed. She is awake, arousable, and responds appropriately to questions. She wants to drink and leave this room. She reports sitting on the edge of the bed, and this bothered her back. OBJECTIVE: VITAL SIGNS: She has been afebrile. Her vital signs are stable. MUSCULOSKELETAL: Her hip drainage is 30 mL and 50 mL in the past 2 shifts. Dorsalis pedis is 1+. Sensation is normal. Ankle and toe dorsiflexion strength is 5-/5. Plantar flexion 5/5. There is swelling of the right leg. LABORATORY DATA/MICROBIOLOGY: She did not have a white blood cell count done today. Her cultures from surgery on the have not grown anything thus far. Plan is to follow up on the cultures. I will leave the dressing intact and consider pulling the drains and changing dressing tomorrow. Continue DVT prophylaxis with Lovenox. Continue to mobilize the patient and get her at least sitting on the edge of the bed if possible. She is nonweightbearing on the right lower extremity. In regard to her neck, when the spine service returns, at that time we can get them to see her about her C7 fracture.
[2018-02-11] MEDS: CHECK FENTANYL PATCH PLACEMENT SCH ×3 (00:16→20:09)
[2018-02-11] MEDS: PIPERACILLIN/TAZOBACTAM 4.5 GM/120 ML BAG IV SCH ×3 (05:19→20:49)
[2018-02-11] MEDS: D5NSS + 20MEQ KCL 20 MEQ/1,000 ML BAG IV SCH (05:54)
[2018-02-11 05:55] LABS: Hematocrit (blood only) 30.4 % (37-47); Hemoglobin 9.3 g/dL (12.0-16.0); Mean Corpuscular Hgb Conc 30.6 g/dL (32-36); Mean Corpuscular Volume 94.7 fL (80-100); Mean Platelet Volume 9.8 fL (7.4-10.4); Platelet Count 111 K/uL (130-400); RDW Coefficient of Variation 20.6 % (11.5-14.5); RDW Standard Deviation 70.8 fL (36.4-46.3); Red Blood Count 3.21 M/uL (4.2-5.4); White Blood Count 10.86 K/uL (4.8-10.8)
[2018-02-11 06:27] LABS: BUN Creatinine Ratio 30.4 (10-20); Calcium 7.9 mg/dl (8.5-10.1); Creatinine Clr Calc Pharmacy 171.1 ml/min; Est GFR (African American) 136.5; Est GFR (Non-African American) 117.8; Magnesium 1.5 mg/dl (1.8-2.4); Potassium 3.1 mmol/L (3.5-5.1)
[2018-02-11 06:37] LABS: Phosphorus 1.5 mg/dl (2.5-4.9)
[2018-02-11] MEDS ORDERED: POTASSIUM PHOS 3 MMOL/1 ML INFUSION IV STA (06:42)
[2018-02-11] MEDS ORDERED: POTASSIUM PHOSPHATE 30 MMOL in SODIUM CHLORIDE 0.9% 500 ML IV ONE (06:45)
[2018-02-11] MEDS: POTASSIUM CHLORIDE / WTR 10 MEQ/100 ML PLCT IV SCH ×4 (07:34→11:16)
[2018-02-11] MEDS: ENOXAPARIN INJ 40 MG/0.4 ML SYR SQ SCH (07:39)
[2018-02-11] MEDS: fentaNYL 25 MCG/HR TDSY TD SCH (07:42)
--- NOTE | 2018-02-11 08:59 | Orthopedic Progress Note ---
Date of Service February 11, 2018 Assessment & Plan (1) Status post incision and drainage: will continue to follow She needs to maintain NWB RLE Continue IV antibiotics and will follow cultures Mobilize with PT - allowed for ROM of lower extremity joints Called Dr. Son regarding consult for C7 fracture Dressing changed today. Continue Lovenox for DVT prophylaxis. Dr. Young present for visit today. Subjective Patient resting in bed, rolled to left side to evaluate right hip. awake and alert Physical Exam 2 Vital Signs (Past 24 Hours): Last Vital Signs Temp 37.1 C 02/11/18 07:40 Pulse 98 H 02/11/18 07:40 Resp 18 02/11/18 07:40 BP 110/55 L 02/11/18 07:40 Pulse Ox 95 02/11/18 07:40 Physical Exam: 1+ dorsalis pedis pulse, slight weakness with ankle dorsiflexion, 1+ edema bilateral lower extremities, incision clean, dry, intact , sutures retained. No active drainage. Hemovac drains removed at bedside today. Results & Data Laboratory Results 02/11/18 02/11/18 02/11/18 Range/Units 07:31 05:04 05:04 WBC 10.86 H (4.8-10.8) K/uL RBC 3.21 L (4.2-5.4) M/uL Hgb 9.3 L (12.0-16.0) g/dL Hct 30.4 L (37-47) % MCV 94.7 (80-100) fL MCH 29.0 (25-34) pg MCHC 30.6 L (32-36) g/dL RDW Std Deviation 70.8 H (36.4-46.3) fL RDW Coeff of Sonya 20.6 H (11.5-14.5) % Plt Count 111 L (130-400) K/uL MPV 9.8 (7.4-10.4) fL Sodium 143 (136-145) mmol/L Potassium 3.1 L (3.5-5.1) mmol/L Chloride 110 H (98-107) mmol/L Carbon Dioxide 27 (21-32) mmol/L Anion Gap 6.0 (3-11) BUN 11 (7-18) mg/dl Creatinine 0.37 L (0.6-1.2) mg/dl Est Cr Clr Drug Dosing 171.1 ml/min Est GFR ( Amer) 136.5 Est GFR (Non-Af Amer) 117.8 BUN/Creatinine Ratio 30.4 H (10-20) Glucose 127 H (70-99) mg/dl POC Glucose 133 H (70-99) Calcium 7.9 L (8.5-10.1) mg/dl Phosphorus 1.5 L* (2.5-4.9) mg/dl Magnesium 1.5 L (1.8-2.4) mg/dl Microbiology 02/08/18 Unknown Gram Stain - Final Hip,Right Aerobic and Anaerobic Culture - Preliminary No growth to date. 02/08/18 Unknown Gram Stain - Final Hip,Right Aerobic and Anaerobic Culture - Preliminary No growth to date. 02/07/18 10:19 Gram Stain - Final Fluid,Undescribed Aerobic and Anaerobic Culture - Preliminary No growth to date.
[2018-02-11] MEDS: LORazepam 0.25 MG/0.5 ML VIAL IV PRN (09:58)
[2018-02-11] MEDS: VANCOMYCIN HCL 1,250 MG in SODIUM CHLORIDE 0.9% 250 ML IV SCH ×2 (10:00→20:08)
[2018-02-11] MEDS: PANTOprazole 40 MG in SYRINGE 0 ML IV SCH ×2 (10:05→20:10)
--- NOTE | 2018-02-11 10:40 | Fluoroscopy Report ---
FL upper GI small bowel CLINICAL HISTORY: s/p perf duodenal ulcer repair, with gastrografin COMPARISON STUDY: None FLUOROSCOPY TIME: 2 minutes NUMBER OF FLUOROSCOPIC IMAGES: 18 FINDINGS: The patient initiates his swallowing function well. Esophagus is choroid normal in course a nd caliber. Configuration of the stomach and duodenal bulb are unremarkable. There is mild irritability of the ga stric mucosal folds most likely on a postoperative basis. There is no evidence for contrast extravasation. There is good flow contrast to the small bowel and d uodenal sweep. IMPRESSION: None. Negative study. 2. No evidence for contrast extravasation. 3. No evidence for obstructive change. The above report was generated using voice recognition software. It may contain grammatical, syntax or spelling errors. Electronically signed by: Isiah Lemos M.D. 02/11/2018 9:39 AM
[2018-02-11] MEDS: CHOLECALCIFEROL 1,000 UNITS TAB PO SCH (11:16)
[2018-02-11] MEDS: MoRPHine SULFATE PCA 50 MG/50ML IV SCH (11:30)
--- NOTE | 2018-02-11 14:29 | Surgery Progress Note ---
Date of Service February 11, 2018 Assessment & Plan (1) Perforated peptic ulcer: Postoperative day #5 status post repair of perforated ulcer Doing well Thirsty Upper GI as noted above We will begin clear liquid diet Activity as per orthopedics Subjective Postoperative day #5 Passing flatus and having bowel movements Has minimal abdominal discomfort Denies nausea and vomiting Had upper GI today showing no evidence of leak from the perforation repair site Physical Exam 2 Vital Signs (Past 24 Hours): Last Vital Signs Temp 36.3 C L 02/11/18 11:08 Pulse 104 H 02/11/18 11:08 Resp 18 02/11/18 11:08 BP 133/73 02/11/18 11:08 Pulse Ox 93 02/11/18 11:08 Gastrointestinal (Abdomen): Inspection/Auscultation: + abdomen distended and + abdominal surgical incision (Clean dry and intact) Drain with straw- colored ascitic fluid Results & Data Laboratory Results 02/11/18 02/11/18 02/11/18 Range/Units 11:28 07:31 05:04 WBC 10.86 H (4.8-10.8) K/uL RBC 3.21 L (4.2-5.4) M/uL Hgb 9.3 L (12.0-16.0) g/dL Hct 30.4 L (37-47) % MCV 94.7 (80-100) fL MCH 29.0 (25-34) pg MCHC 30.6 L (32-36) g/dL RDW Std Deviation 70.8 H (36.4-46.3) fL RDW Coeff of Sonya 20.6 H (11.5-14.5) % Plt Count 111 L (130-400) K/uL MPV 9.8 (7.4-10.4) fL Sodium (136-145) mmol/L Potassium (3.5-5.1) mmol/L Chloride (98-107) mmol/L Carbon Dioxide (21-32) mmol/L Anion Gap (3-11) BUN (7-18) mg/dl Creatinine (0.6-1.2) mg/dl Est Cr Clr Drug Dosing ml/min Est GFR ( Amer) Est GFR (Non-Af Amer) BUN/Creatinine Ratio (10-20) Glucose (70-99) mg/dl POC Glucose 114 H 133 H (70-99) Calcium (8.5-10.1) mg/dl Phosphorus (2.5-4.9) mg/dl Magnesium (1.8-2.4) mg/dl 02/11/18 Range/Units 05:04 WBC (4.8-10.8) K/uL RBC (4.2-5.4) M/uL Hgb (12.0-16.0) g/dL Hct (37-47) % MCV (80-100) fL MCH (25-34) pg MCHC (32-36) g/dL RDW Std Deviation (36.4-46.3) fL RDW Coeff of Sonya (11.5-14.5) % Plt Count (130-400) K/uL MPV (7.4-10.4) fL Sodium 143 (136-145) mmol/L Potassium 3.1 L (3.5-5.1) mmol/L Chloride 110 H (98-107) mmol/L Carbon Dioxide 27 (21-32) mmol/L Anion Gap 6.0 (3-11) BUN 11 (7-18) mg/dl Creatinine 0.37 L (0.6-1.2) mg/dl Est Cr Clr Drug Dosing 171.1 ml/min Est GFR ( Amer) 136.5 Est GFR (Non-Af Amer) 117.8 BUN/Creatinine Ratio 30.4 H (10-20) Glucose 127 H (70-99) mg/dl POC Glucose (70-99) Calcium 7.9 L (8.5-10.1) mg/dl Phosphorus 1.5 L* (2.5-4.9) mg/dl Magnesium 1.5 L (1.8-2.4) mg/dl Diagnostic Findings FL upper GI small bowel CLINICAL HISTORY: s/p perf duodenal ulcer repair, with gastrografin COMPARISON STUDY: None FLUOROSCOPY TIME: 2 minutes NUMBER OF FLUOROSCOPIC IMAGES: 18 FINDINGS: The patient initiates his swallowing function well. Esophagus is choroid normal in course and caliber. Configuration of the stomach and duodenal bulb are unremarkable. There is mild irritability of the gastric mucosal folds most likely on a postoperative basis. There is no evidence for contrast extravasation. There is good flow contrast to the small bowel and duodenal sweep. IMPRESSION: None. Negative study. 2. No evidence for contrast extravasation. 3. No evidence for obstructive change.
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
[2018-02-12] MEDS: CHECK FENTANYL PATCH PLACEMENT SCH ×3 (00:21→16:32)
[2018-02-12] MEDS: LORazepam 0.25 MG/0.5 ML VIAL IV PRN ×3 (02:38→18:26)
[2018-02-12 03:41] LABS: Calcium 7.8 mg/dl (8.5-10.1); Creatinine Clr Calc Pharmacy 180.9 ml/min; Magnesium 1.3 mg/dl (1.8-2.4); Potassium 3.5 mmol/L (3.5-5.1)
[2018-02-12 03:44] LABS: Phosphorus 2.5 mg/dl (2.5-4.9)
[2018-02-12] MEDS: PIPERACILLIN/TAZOBACTAM 4.5 GM/120 ML BAG IV SCH ×3 (05:02→21:22)
[2018-02-12] MEDS ORDERED: VANCOMYCIN TROUGH ONE (07:30)
--- NOTE | 2018-02-12 07:33 | Surgery Progress Note ---
Date of Service February 12, 2018 Assessment & Plan (1) Perforated peptic ulcer: Postoperative day #6 status post repair of perforated ulcer Doing well Tolerated clear liquid diet, can advance to full liquids Activity as per orthopedics Subjective Postoperative day #6 Passing flatus and having bowel movements Has minimal abdominal discomfort Denies nausea and vomiting Tolerated clear liquid diet Physical Exam 2 Vital Signs (Past 24 Hours): Last Vital Signs Temp 37.1 C 02/12/18 06:56 Pulse 104 H 02/12/18 06:56 Resp 22 02/12/18 06:56 BP 122/66 02/12/18 06:56 Pulse Ox 90 02/12/18 06:56 Gastrointestinal (Abdomen): Inspection/Auscultation: + abdomen distended (Has ascites) and normal bowel sounds (Present but decreased) Percussion/Palpation : + abdomen tender (Incisional) Results & Data Laboratory Results 02/12/18 02/11/18 02/11/18 Range/Units 03:01 16:16 11:28 Sodium 141 (136-145) mmol/L Potassium 3.5 (3.5-5.1) mmol/L Chloride 111 H (98-107) mmol/L Carbon Dioxide 26 (21-32) mmol/L Anion Gap 4.0 (3-11) BUN 13 (7-18) mg/dl Creatinine 0.35 L (0.6-1.2) mg/dl Est Cr Clr Drug Dosing 180.9 ml/min Est GFR ( Amer) 139.0 Est GFR (Non-Af Amer) 120.0 BUN/Creatinine Ratio 36.0 H (10-20) Glucose 95 (70-99) mg/dl POC Glucose 125 H 114 H (70-99) Calcium 7.8 L (8.5-10.1) mg/dl Phosphorus 2.5 D (2.5-4.9) mg/dl Magnesium 1.3 L (1.8-2.4) mg/dl 02/11/18 Range/Units 07:31 Sodium (136-145) mmol/L Potassium (3.5-5.1) mmol/L Chloride (98-107) mmol/L Carbon Dioxide (21-32) mmol/L Anion Gap (3-11) BUN (7-18) mg/dl Creatinine (0.6-1.2) mg/dl Est Cr Clr Drug Dosing ml/min Est GFR ( Amer) Est GFR (Non-Af Amer) BUN/Creatinine Ratio (10-20) Glucose (70-99) mg/dl POC Glucose 133 H (70-99) Calcium (8.5-10.1) mg/dl Phosphorus (2.5-4.9) mg/dl Magnesium (1.8-2.4) mg/dl
[2018-02-12] MEDS: ENOXAPARIN INJ 40 MG/0.4 ML SYR SQ SCH (08:24)
[2018-02-12] MEDS: PANTOprazole 40 MG in SYRINGE 0 ML IV SCH ×2 (08:25→21:22)
[2018-02-12] MEDS: CHOLECALCIFEROL 1,000 UNITS TAB PO SCH (08:26)
[2018-02-12] MEDS: VANCOMYCIN HCL 1,250 MG in SODIUM CHLORIDE 0.9% 250 ML IV SCH ×2 (09:07→21:22)
[2018-02-12] MEDS: MAGNESIUM SULFATE / D5W 1 GM/100 ML BAG IV SCH ×4 (09:13→12:28)
[2018-02-12] MEDS: D5NSS + 20MEQ KCL 20 MEQ/1,000 ML BAG IV SCH (10:36)
--- NOTE | 2018-02-12 11:26 | Progress Note ---
DATE: 02/12/2018 She is in bed. It was attempted to sit her up at bedside yesterday, but unsuccessful. Her dressing is clean and dry. Her foot is warm. There is 1-2+ edema of the leg. She can flex and extend her ankle and wiggle her toes. Cultures are no growth to date. Spoke with daughter. Discussed plan. The patient has been asked to work on some gentle muscle contractions, lower extremity mobility. We will try to sit at bedside at least with PT. She is not able to bear weight on the right leg. When possible, we can transfer her out of bed to chair. Cultures are no growth at this point. However, there is a chance of a false negative because of being on antibiotics prior to the cultures. Continue Lovenox for DVT prophylaxis. We will monitor wound. Her diet is advancing.
[2018-02-12] MEDS: ONDANSETRON INJ 2 MG/ML 2 ML VIAL IV PRN (11:48)
--- NOTE | 2018-02-12 14:37 | Pharmacy Report ---
Pharmacy Abx Dose Short Note - Date of Service February 12, 2018 - Assessment & Plan Assessment * 57 year old F receiving Zosyn and vancomycin for treatment of peritonitis / perforated duodenal ulcer * Hospitalist noted that de-escalation is to be per ID. Last ID note on 02/06/18 indicated to continue Zosyn and vancomycin * SCr stable Vancomycin * Goal trough 15-20 mcg/mL * Level remains in therapeutic range at 17.0 mcg/mL on stable dose of vancomycin Plan * Continue vancomycin 1250 mg IV q12h * No repeat trough needed unless clinical condition/renal function changes or therapy is continued beyond 10 days Pharmacy will continue to follow and will adjust dose/frequency as necessary. Thank you.
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
[2018-02-12] MEDS: HYDROCODONE/ACETAMOPHEN 5/325MG TAB PO PRN (18:12)
[2018-02-12 18:39] LABS: Calcium 8.1 mg/dl (8.5-10.1); Est GFR (African American) 122.8; Potassium 3.7 mmol/L (3.5-5.1)
[2018-02-13] MEDS: CHECK FENTANYL PATCH PLACEMENT SCH ×3 (01:36→16:00)
[2018-02-13] MEDS: HYDROCODONE/ACETAMOPHEN 5/325MG TAB PO PRN ×2 (01:49→09:03)
[2018-02-13] MEDS: PIPERACILLIN/TAZOBACTAM 4.5 GM/120 ML BAG IV SCH ×3 (04:32→20:29)
[2018-02-13] MEDS: MoRPHine SULFATE 2 MG/ML CARP IV PRN ×2 (06:39→15:30)
[2018-02-13 06:52] LABS: Mean Corpuscular Hgb Conc 31.5 g/dL (32-36)
[2018-02-13 07:02] LABS: Hemoglobin 10.4 g/dL (12.0-16.0); Mean Corpuscular Volume 92.4 fL (80-100); RDW Coefficient of Variation 20.8 % (11.5-14.5); RDW Standard Deviation 69.9 fL (36.4-46.3); Red Blood Count 3.57 M/uL (4.2-5.4); White Blood Count 18.72 K/uL (4.8-10.8)
[2018-02-13 07:19] LABS: Anisocytosis Present; Basophilic Stippling 1+; Basophils # (auto) 0.07 K/uL (0-0.2); Basophils % (auto) 0.4 %; Eosinophils # (auto) 0.71 K/uL (0-0.5); Eosinophils % (auto) 3.8 %; Immature Granulocytes # (auto) 0.17 K/uL (0.00-0.02); Immature Granulocytes % (auto) 0.9 %; Lymphocytes # (auto) 1.17 K/uL (1.2-3.4); Lymphocytes % (auto) 6.3 %; Mean Platelet Volume 10.5 fL (7.4-10.4); Monocytes # (auto) 0.89 K/uL (0.11-0.59); Monocytes % (auto) 4.8 %; Neutrophils # (auto) 15.71 K/uL (1.4-6.5); Neutrophils % (auto) 83.8 %; Platelet Count 87 K/uL (130-400)
[2018-02-13 07:31] LABS: BUN Creatinine Ratio 31.9 (10-20); Creatinine Clr Calc Pharmacy 137.1 ml/min; Est GFR (African American) 126.2; Est GFR (Non-African American) 108.9; Magnesium 2.1 mg/dl (1.8-2.4); Potassium 3.6 mmol/L (3.5-5.1)
--- NOTE | 2018-02-13 07:41 | Surgery Progress Note ---
Date of Service February 13, 2018 Assessment & Plan (1) Perforated peptic ulcer: Postoperative day #7 status post repair of perforated ulcer Doing well Tolerated full liquid diet, can advance to soft Activity as per orthopedics Subjective Postoperative day #7 Passing flatus and having bowel movements Has minimal abdominal discomfort Denies nausea and vomiting Tolerated full liquid diet Physical Exam 2 Vital Signs (Past 24 Hours): Last Vital Signs Temp 36.5 C 02/13/18 04:35 Pulse 93 H 02/13/18 04:35 Resp 22 02/13/18 04:35 BP 108/53 L 02/13/18 04:35 Pulse Ox 96 02/13/18 04:35 Gastrointestinal (Abdomen): Inspection/Auscultation: + abdomen distended (Has ascites), normal bowel sounds (Present but decreased) and + abdominal surgical incision (Clean dry and intact) Percussion/Palpation: + abdomen tender ( Incisional)
[2018-02-13] MEDS: ENOXAPARIN INJ 40 MG/0.4 ML SYR SQ SCH (08:59)
[2018-02-13] MEDS: VANCOMYCIN HCL 1,250 MG in SODIUM CHLORIDE 0.9% 250 ML IV SCH ×2 (08:59→20:30)
[2018-02-13] MEDS: PANTOprazole 40 MG in SYRINGE 0 ML IV SCH ×2 (09:00→20:30)
[2018-02-13] MEDS: CHOLECALCIFEROL 1,000 UNITS TAB PO SCH (09:00)
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
[2018-02-13 11:47] LABS: Toxic Granulation 1+
[2018-02-13] MEDS ORDERED: ALBUMIN 25% 50 ML with FUROSEMIDE 40 MG IV SCH (12:00)
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
--- NOTE | 2018-02-13 18:08 | Progress Note ---
DATE: 02/13/2018 One of her cultures, the deep operative culture has grown out a yeast; otherwise, her cultures are negative. Her white blood cell count is up to 18,000. Her dressing was changed earlier today as per Renetta Guerrero's note. Plan will be to consult Infectious Diseases. I have spoken with the hospitalist, Dr. Salinas, regarding the patient's lower extremity edema. I think it would be helpful if medically indicated to offload some of this fluid to reduce tissue tension and drainage from her right hip area.
[2018-02-13] MEDS ORDERED: ALBUMIN 25% 50 ML with FUROSEMIDE 20 MG IV STA (18:10)
[2018-02-13] MEDS ORDERED: FUROSEMIDE 40 MG in SYRINGE 0 ML IV SCH (21:00)
[2018-02-13] MEDS: ALBUMIN 25% 50 ML with FUROSEMIDE 20 MG IV SCH (21:45)
[2018-02-14] MEDS: CHECK FENTANYL PATCH PLACEMENT SCH ×4 (00:22→23:38)
[2018-02-14] MEDS: LORazepam 0.25 MG/0.5 ML VIAL IV PRN (00:23)
[2018-02-14] MEDS: ONDANSETRON INJ 2 MG/ML 2 ML VIAL IV PRN ×2 (00:25→12:40)
[2018-02-14] MEDS: ALBUMIN 25% 50 ML with FUROSEMIDE 20 MG IV SCH ×6 (02:03→21:43)
[2018-02-14] MEDS: PIPERACILLIN/TAZOBACTAM 4.5 GM/120 ML BAG IV SCH (05:08)
[2018-02-14 06:06] LABS: Hematocrit (blood only) 33.2 % (37-47); Hemoglobin 10.5 g/dL (12.0-16.0); Mean Corpuscular Hgb Conc 31.6 g/dL (32-36); Mean Platelet Volume 11.7 fL (7.4-10.4); Platelet Count 125 K/uL (130-400); RDW Coefficient of Variation 20.8 % (11.5-14.5); RDW Standard Deviation 69.1 fL (36.4-46.3); Red Blood Count 3.61 M/uL (4.2-5.4); White Blood Count 19.15 K/uL (4.8-10.8)
[2018-02-14 06:22] LABS: INR 1.4 (0.9-1.1); Prothrombin Time 14.2 Seconds (9.0-12.0)
[2018-02-14 06:42] LABS: BUN Creatinine Ratio 20.5 (10-20); Calcium 8.4 mg/dl (8.5-10.1); Creatinine Clr Calc Pharmacy 96.6 ml/min; Est GFR (African American) 112.9; Est GFR (Non-African American) 97.4; Magnesium 1.7 mg/dl (1.8-2.4); Potassium 3.2 mmol/L (3.5-5.1)
--- NOTE | 2018-02-14 07:28 | Nephrology Progress Note ---
Date of Service February 14, 2018 Assessment & Plan (1) Volume overload: she has this chronically, given dependence on paracenteses; now with worsened status in wake of perforated ulcer/peritonitis/ emergent surgery/poor po intake. -agree w/ trial of albumin w/ lasix > continue 20 mg IV qid w/ albumin -contcentrate abtx -- d/w pharmacy -- change vanco to concentrated dextrose; will concentrate zosyn and K riders -would hold off on TPN if possible >> recommend dietary consult w/ focus on how to tempt her to eat and FEEDING her every meal w/ multiple small meals daily; try liquacel or nephro supplement which has lots of protein in minimal volume -CXR w/ pulmonary edema - cont diuresis -do not remove knox while we are trying to diurese -daily bmp; also ordered one for 1600 to monitor K -cont curretn K suppl K 20 mEq powder bid and gave 30 mEq K w/ riders ->>>>defer to primary service and to ortho >> can we have her legs wrapped or do other compression therapy to mobilize fluid safely>> consider compression stockings; the SCDs do not cause her pain Subjective hardly eating/ appetite there but exhausted and strong food preferences. hospitalist considering TPN. pain in abd, hip w/ reasonable control at my eval. not sob. bottom/backside excoriated. R hip wound still w/ ssang drainage. bedscale weights trending down. states she would enjoy being fed no sob; not noticing swelling. + bm and no diarrhea. no paliptations chest pain. no rash except excoriation. no bleeding. Physical Exam 2 Vital Signs (Past 24 Hours): Last Vital Signs Temp 36.5 C 02/14/18 07:18 Pulse 104 H 02/14/18 07:18 Resp 17 02/14/18 07:18 BP 119/56 L 02/14/18 07:18 Pulse Ox 90 02/14/18 07:18 Constitutional: well developed, + cachectic, + frail appearing, cooperative and + edematous on 3L 02, less confused this am and mostly oriented. Eyes: EOM intact bilaterally ENMT: Mouth: + dry oral mucous membranes Respiratory: + labored breathing (very slight), able to speak in complete sentences and + tachypneic Auscultation: + diminished lung sounds Cardiovascular: Rate/Rhythm: regular rhythm and + tachycardic Extremities: + edema (3+ to hips) Gastrointestinal (Abdomen): binder in place, SUSAN drain, soft distended + bs Musculoskeletal: Extremities: + limited ROM of extremities (large bandage R hip) Skin: + skin tightening and + pallor Neurologic: awake and + confused Speech / Cognition: + abnormal cognition Psychiatric: Orientation: oriented to person, oriented to place and cooperative Apperance: appropriately groomed Eye Contact: + fair eye contact Affect: + flat affect Insight: + limited insight Judgement: + limited judgement Genitourinary: knox w/ ample urine Results & Data Laboratory Results Abnormal lab results 02/13/18 02/13/18 02/14/18 Range/Units 06:17 06:17 05:34 WBC (4.8-10.8) K/uL RBC (4.2-5.4) M/uL Hgb (12.0-16.0) g/dL Hct (37-47) % MCHC (32-36) g/dL RDW Std Deviation (36.4-46.3) fL RDW Coeff of Sonya (11.5-14.5) % Plt Count (130-400) K/uL MPV (7.4-10.4) fL PT (9.0-12.0) Seconds INR (0.9-1.1) Sodium 135 L 134 L (136-145) mmol/L Potassium 3.2 L (3.5-5.1) mmol/L Creatinine 0.47 L (0.6-1.2) mg/dl BUN/Creatinine Ratio 31.9 H 20.5 H (10-20) Uric Acid 1.4 L (2.6-7.2) mg/dl Calcium 8.0 L 8.4 L (8.5-10.1) mg/dl Ionized Calcium (1.12-1.32) mmol/L Magnesium 1.7 L (1.8-2.4) mg/dl 02/14/18 02/14/18 02/14/18 Range/Units 05:34 05:34 05:34 WBC 19.15 H (4.8-10.8) K/uL RBC 3.61 L (4.2-5.4) M/uL Hgb 10.5 L (12.0-16.0) g/dL Hct 33.2 L (37-47) % MCHC 31.6 L (32-36) g/dL RDW Std Deviation 69.1 H (36.4-46.3) fL RDW Coeff of Sonya 20.8 H (11.5-14.5) % Plt Count 125 L (130-400) K/uL MPV 11.7 H (7.4-10.4) fL PT 14.2 H (9.0-12.0) Seconds INR 1.4 H (0.9-1.1) Sodium (136-145) mmol/L Potassium (3.5-5.1) mmol/L Creatinine (0.6-1.2) mg/dl BUN/Creatinine Ratio (10-20) Uric Acid (2.6-7.2) mg/dl Calcium (8.5-10.1) mg/dl Ionized Calcium 1.09 L (1.12-1.32) mmol/L Magnesium (1.8-2.4) mg/dl Diagnostic Findings cxr Progressive asymmetric pulmonary edema. _ (1) Volume overload Hypervolemia type: other Qualified Code(s): E87.79 - Other fluid overload
--- NOTE | 2018-02-14 07:37 | XRay Report ---
XR chest 1V portable HISTORY: volume overload hypoxia COMPARISON: Chest 02/09/2018. FINDINGS: No pneumothorax. There are low lung volumes with mild elevation of the right hemidiaphragm. Skin anne-marie within the left upper quadrant. The heart is mildly enlarged. Progressive interstitial and vascular thickening, left greater than right. This favors asymmetric pulmonary edema. Right jugul ar Port-A-Cath terminates at the SVC. The heart remains mildly enlarged. IMPRESSION: Progressive asymmetric pulmonary edema. Electronically signed by: Yosef Mooney M.D. 02/14/2018 7:36 AM
[2018-02-14] MEDS ORDERED: DEXTROSE 5% IV SCH (09:30)
[2018-02-14] MEDS ORDERED: POTASSIUM CHLORIDE / WTR 20 MEQ/100 ML PLCT IV ONE (09:30)
[2018-02-14] MEDS ORDERED: VANCOMYCIN HCL IV SCH (09:30)
[2018-02-14] MEDS: CHOLECALCIFEROL 1,000 UNITS TAB PO SCH (10:17)
[2018-02-14] MEDS: POTASSIUM CHLORIDE PWD 20 MEQ PACK PO SCH ×2 (10:17→20:38)
[2018-02-14] MEDS: MAGNESIUM OXIDE 400 MG TAB PO SCH ×3 (10:17→20:37)
[2018-02-14] MEDS: PANTOprazole 40 MG in SYRINGE 0 ML IV SCH ×2 (10:17→20:37)
[2018-02-14] MEDS: ENOXAPARIN INJ 40 MG/0.4 ML SYR SQ SCH (10:18)
[2018-02-14] MEDS: CALCIUM CARBONATE 1,250 MG/5 ML UDC PO SCH ×2 (10:18→20:37)
--- NOTE | 2018-02-14 10:26 | Infectious Disease Progress Nt ---
Date of Service February 14, 2018 Assessment & Plan (1) Peritonitis: Patient with likely peritonitis following perforation of duodenal ulcer status post exploratory laparotomy and surgical repair. Given that there has been good source control, and patient has received more than a week of antibiotics, think that IV antibiotics for peritonitis can be discontinued. Cultures from the hip wound did not grow bacteria, likely that yeast is just colonizer only. Would follow with wound care off antibiotics. (2) Perforated duodenal ulcer: Subjective Patient seen in follow-up for peritonitis and possible wound infection. Continues with some drainage from her hip wound. Cultures growing only yeast. No bacterial growth. Still with nausea and anorexia. Pain about the same. No fever. Review of Systems All systems reviewed & are unremarkable except as noted in HPI & below Physical Exam 2 Vital Signs (Past 24 Hours): Last Vital Signs Temp 36.5 C 02/14/18 07:18 Pulse 104 H 02/14/18 07:18 Resp 17 02/14/18 07:18 BP 119/56 L 02/14/18 07:18 Pulse Ox 90 02/14/18 07:18 Constitutional: well nourished and average body habitus Eyes: PERRL, conjunctivae normal, anicteric sclerae ENMT: Ears: no external ear abnormality Nose: no nasal mucous membrane abnormality Neck: trachea midline, no thyromegaly Respiratory: normal respiratory effort, lungs clear to auscultation Cardiovascular: RRR, no murmur, no edema Gastrointestinal (Abdomen): Inspection/Auscultation: + abdomen distended and normal bowel sounds Percussion/Palpation: no hepatosplenomegaly Musculoskeletal: Head/Neck/Chest: normocephalic and head atraumatic Extremities: extremities normal to inspection Skin: no rashes, warm and dry Surgical site without infection Neurologic: moves all extremities and awake; no focal motor deficits Lymphatic: no cervical or axillary lymphadenopathy no inguinal lymphadenopathy Results & Data Laboratory Results Short CBC 02/14/18 Range/Units 05:34 WBC 19.15 H (4.8-10.8) K/uL Hgb 10.5 L (12.0-16.0) g/dL Hct 33.2 L (37-47) % Plt Count 125 L (130-400) K/uL BMP 02/14/18 05:34 Sodium 134 L Potassium 3.2 L Chloride 100 Carbon Dioxide 24 BUN 13 Creatinine 0.66 Glucose 73 Calcium 8.4 L Diagnostic Findings Microbiology 02/08/18 Unknown Hip,Right Gram Stain - Final 02/08/18 Unknown Hip,Right Aerobic and Anaerobic Culture - Preliminary Yeast- ident to follow 02/08/18 Unknown Hip,Right Gram Stain - Final 02/08/18 Unknown Hip,Right Aerobic and Anaerobic Culture - Final No growth 02/07/18 10:19 Fluid,Undescribed Gram Stain - Final 02/07/18 10:19 Fluid,Undescribed Aerobic and Anaerobic Culture - Final No growth 02/06/18 21:48 Blood Blood Culture - Final No growth 02/06/18 21:39 Blood Blood Culture - Final No growth XR chest 1V portable HISTORY: volume overload hypoxia COMPARISON: Chest 02/09/2018. FINDINGS: No pneumothorax. There are low lung volumes with mild elevation of the right hemidiaphragm. Skin anne-marie within the left upper quadrant. The heart is mildly enlarged. Progressive interstitial and vascular thickening, left greater than right. This favors asymmetric pulmonary edema. Right jugular Port-A -Cath terminates at the SVC. The heart remains mildly enlarged. IMPRESSION: Progressive asymmetric pulmonary edema. Electronically signed by: Yosef Mooney M.D. 02/14/2018 7:36 AM Dictated: 02/14/18 0734
[2018-02-14] MEDS: HYDROCODONE/ACETAMOPHEN 5/325MG TAB PO PRN ×3 (10:31→20:37)
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
[2018-02-14] MEDS: VANCOMYCIN HCL 1,250 MG in SODIUM CHLORIDE 0.9% 250 ML IV SCH (11:14)
[2018-02-14] MEDS: POTASSIUM CHLORIDE / WTR 10 MEQ/100 ML PLCT IV SCH ×5 (11:15→20:38)
--- NOTE | 2018-02-14 11:29 | Progress Note ---
DATE: 02/14/2018 SUBJECTIVE: She is sleeping and is more somnolent than she was yesterday. Last evening, she was awake, talkative and responsive. Today, she does follow commands. She can wiggle her toes. She has 2-3+ edema in the right lower extremity. The dressing is changed. She has a fair amount of serous drainage coming from her incision and drain sites. A new dressing is applied and the prior dressing had a substantial soiling. There is no erythema or purulence. OBJECTIVE: She has been afebrile. Her white count today is 19, hemoglobin 11, hematocrit 33, platelet count is 125. INR 1.4. Her PRP is noted. IMPRESSION: 1. Metastatic colon cancer. 2. Liver disease. 3. Perforated duodenal ulcer. 4. Status post incision and drainage of seroma, right hip, status post open reduction and internal fixation of acetabular fracture done at [place]. PLAN: Recommend continued mobilization. She was not out of bed yesterday as she declined. I encouraged her today to allow therapy and nursing to sit her on the edge of the bed if not sit up. I think that her drainage is related to the lower extremity edema which is likely secondary to her medical problems. The increased soft tissue pressure from the swelling is causing persistent drainage. This potentially could lead to further wound problems and infection if we cannot control it. She did grow out yeast on her operative culture which was done deep. This was on the fifth day, otherwise her cultures were negative. I spoke with Dr. Delong regarding this and he will evaluate and make recommendations. Other considerations might be holding her Lovenox as this is sometimes associated with wound drainage; however, I think this is more due to edema. Another consideration would be an incisional wound VAC. Medicine and nephrology are in the process of promoting diuresis.
[2018-02-14] MEDS ORDERED: POTASSIUM CHLORIDE / WTR 10 MEQ/100 ML PLCT IV SCH (11:30)
[2018-02-14] MEDS: MoRPHine SULFATE 2 MG/ML CARP IV PRN (12:44)
[2018-02-14] MEDS ORDERED: PIPERACILLIN/TAZOBACTAM 3.375 GM in DEXTROSE 5% 50 ML IV SCH (13:00)
[2018-02-14] MEDS: NYSTATIN/TRIAMCIN OINT 15 GM TUBE EXT SCH ×2 (13:23→21:43)
[2018-02-14 16:20] LABS: BUN Creatinine Ratio 20.1 (10-20); Calcium 8.2 mg/dl (8.5-10.1); Creatinine Clr Calc Pharmacy 96.6 ml/min; Est GFR (African American) 112.9; Est GFR (Non-African American) 97.4; Potassium 3.4 mmol/L (3.5-5.1)
--- NOTE | 2018-02-14 17:55 | Surgery Progress Note ---
Date of Service February 14, 2018 Assessment & Plan (1) Perforated peptic ulcer: Postoperative day #8 status post repair of perforated ulcer Stable Tolerated low fiber diet Pain etiology may be postoperative or related to her metastatic disease and ascities, no evidence of leak from ulcer repair Activity as per orthopedics Subjective Postoperative day #8 Sleepy today Passing flatus and having bowel movements Has abdominal discomfort Denies nausea and vomiting Tolerated low fiber diet Physical Exam 2 Vital Signs (Past 24 Hours): Last Vital Signs Temp 36.3 C L 02/14/18 15:32 Pulse 96 H 02/14/18 15:32 Resp 19 02/14/18 15:32 BP 108/55 L 02/14/18 15:32 Pulse Ox 94 02/14/18 15:32
[2018-02-14] MEDS ORDERED: CONSULT PHARMACY PRN (18:27)
[2018-02-14] MEDS ORDERED: VANCOMYCIN TROUGH ONE (22:00)
[2018-02-15] MEDS: ALBUMIN 25% 50 ML with FUROSEMIDE 20 MG IV SCH ×2 (02:33→06:03)
[2018-02-15] MEDS: HYDROCODONE/ACETAMOPHEN 5/325MG TAB PO PRN (05:59)
[2018-02-15 06:33] LABS: Hemoglobin 9.2 g/dL (12.0-16.0); Mean Corpuscular Hgb Conc 31.7 g/dL (32-36); Mean Corpuscular Volume 91.5 fL (80-100); Mean Platelet Volume 11.7 fL (7.4-10.4); Platelet Count 118 K/uL (130-400); RDW Standard Deviation 69.2 fL (36.4-46.3); Red Blood Count 3.17 M/uL (4.2-5.4); White Blood Count 20.83 K/uL (4.8-10.8)
[2018-02-15 07:01] LABS: BUN Creatinine Ratio 18.8 (10-20); Calcium 8.7 mg/dl (8.5-10.1); Creatinine Clr Calc Pharmacy 90.3 ml/min; Est GFR (African American) 108.8; Est GFR (Non-African American) 93.9; Magnesium 1.4 mg/dl (1.8-2.4); Potassium 3.5 mmol/L (3.5-5.1)
[2018-02-15 07:03] LABS: Anisocytosis Present; Basophils # (auto) 0.06 K/uL (0-0.2); Basophils % (auto) 0.3 %; Eosinophils # (auto) 0.82 K/uL (0-0.5); Eosinophils % (auto) 3.9 %; Immature Granulocytes # (auto) 0.13 K/uL (0.00-0.02); Immature Granulocytes % (auto) 0.6 %; Lymphocytes # (auto) 0.91 K/uL (1.2-3.4); Lymphocytes % (auto) 4.4 %; Microcytosis Present; Monocytes # (auto) 0.68 K/uL (0.11-0.59); Monocytes % (auto) 3.3 %; Neutrophils # (auto) 18.23 K/uL (1.4-6.5); Neutrophils % (auto) 87.5 %; Toxic Granulation 1+
[2018-02-15 07:04] LABS: Schistocytes Occasional; Spherocytes Occasional
[2018-02-15] MEDS ORDERED: MAGNESIUM SULFATE / D5W 1 GM/100 ML BAG IV STA (07:25)
[2018-02-15] MEDS ORDERED: MAGNESIUM SULFATE 4GM / WTR 100 ML BAG IV ONE (07:25)
--- NOTE | 2018-02-15 08:40 | XRay Report ---
KUB HISTORY: Follow-up study in a patient with ascites Ascites COMPARISON: Chest radiograph 02/14/2017, upper GI study 02/11/2017 FINDINGS: The bowel gas pattern is non-obstructive. Retained contrast noted about the colon. Anterior midline skin anne-marie are noted. Mild gaseous distention of the transverse colon. Surgical clips proj ect over the abdominal right upper quadrant. There is no organomegaly. No renal calculi. No ureteral calculi. No pneumoperitoneum or pneumatosis. No fracture. ORIF changes of the right acetabulum. IMPRESSION: 1. Nonobstructive bowel gas pattern. 2. Retained enteric contrast about the colon. Electronically signed by: John Carlson M.D. 02/15/2018 8:39 AM
--- NOTE | 2018-02-15 08:47 | Nephrology Progress Note ---
Date of Service February 15, 2018 Assessment & Plan (1) Volume overload: she has this chronically, given dependence on paracenteses; now with worsened status in wake of perforated ulcer/peritonitis/ emergent surgery/ ongoing poor po intake/ metastatic colon CA. -agree w/ trial of albumin w/ lasix > increase to 30 mg IV qid w/ albumin -concentrate abtx and all IV meds -- d/w pharmacy -- change vanco to concentrated dextrose; will concentrate zosyn and K riders; asked them to concentrate mag as well -would hold off on TPN if possible b/c that will initially worsen her fluid status; however if imperative per other teams then start w/ that reservation -low threshold for palliative care consult to discuss goals of care frankly w/ pt and family >> appreciate dietary input w/ focus on how to tempt her to eat and FEEDING her every meal w/ multiple small meals daily; try liquacel or nephro supplement which has lots of protein in minimal volume -CXR 02/13 w/ pulmonary edema - cont diuresis -do not remove knox while we are trying to diurese ->>>>defer to primary service and to ortho >> can we have her legs wrapped or do other compression therapy to mobilize fluid safely in addition to compression stockings; the SCDs do not cause her pain (2) Electrolyte abnormality: -daily bmp -cont curretn K suppl K 20 mEq powder bid -ALSO today gave 60 mEq K w/ riders -gave 4 gm IV mag Present on Admission?: No Subjective more awake this am. even w/ being fed takes 5-6 bites and stops. asking for tomato soup. dietary following, looking to add protein powder. pain /10 hip/ abd. no sob, no palpitations. not aware of edema no rash. no knox issues. ++generalized weakness; some focal numbness. + no diarrhea. less confusion but still some; not anxious or depressed but tired. no F. Physical Exam 2 Vital Signs (Past 24 Hours): Last Vital Signs Temp 37.0 C 02/15/18 07:45 Pulse 96 H 02/15/18 07:45 Resp 15 02/15/18 07:45 BP 115/62 02/15/18 07:45 Pulse Ox 95 02/15/18 07:45 Constitutional: well developed, + cachectic, + frail appearing, cooperative and + edematous on 3.5L 02NC sitting in bed Eyes: EOM intact bilaterally ENMT: Mouth: + dry oral mucous membranes Neck: stiff c collar Respiratory: + labored breathing (very slight), able to speak in complete sentences and + tachypneic Auscultation: + diminished lung sounds Cardiovascular: Rate/Rhythm: regular rhythm and + tachycardic Extremities: + edema (3+ to hips) Gastrointestinal (Abdomen): Inspection/Auscultation: + abdomen distended and normal bowel sounds abd binder and drain present Musculoskeletal: Extremities: + limited ROM of extremities (large bandage R hip) Skin: + skin tightening and + pallor thigh high TEDS BL Neurologic: awake and + confused (but less so today) Speech / Cognition: + abnormal cognition Psychiatric: Orientation: oriented to person, oriented to place and cooperative Apperance: appropriately groomed Eye Contact: + fair eye contact Affect: + flat affect Insight: + limited insight Judgement: + limited judgement Genitourinary: knox present w/ yellow urine Results & Data Laboratory Results Abnormal lab results 02/14/18 02/15/18 02/15/18 Range/Units 15:54 06:19 06:19 WBC 20.83 H (4.8-10.8) K/uL RBC 3.17 L (4.2-5.4) M/uL Hgb 9.2 L (12.0-16.0) g/dL Hct 29.0 L (37-47) % MCHC 31.7 L (32-36) g/dL RDW Std Deviation 69.2 H (36.4-46.3) fL RDW Coeff of [place] 21.0 H (11.5-14.5) % Plt Count 118 L (130-400) K/uL MPV 11.7 H (7.4-10.4) fL Immature Gran # (Auto) 0.13 H (0.00-0.02) K/uL Neut # (Auto) 18.23 H (1.4-6.5) K/uL Lymph # (Auto) 0.91 L (1.2-3.4) K/uL [place] # (Auto) 0.68 H (0.11-0.59) K/uL Eos # (Auto) 0.82 H (0-0.5) K/uL Sodium 134 L 135 L (136-145) mmol/L Potassium 3.4 L (3.5-5.1) mmol/L BUN/Creatinine Ratio 20.1 H (10-20) Calcium 8.2 L (8.5-10.1) mg/dl Ionized Calcium (1.12-1.32) mmol/L Magnesium 1.4 L (1.8-2.4) mg/dl 02/15/18 Range/Units 06:19 WBC (4.8-10.8) K/uL RBC (4.2-5.4) M/uL Hgb (12.0-16.0) g/dL Hct (37-47) % MCHC (32-36) g/dL RDW Std Deviation (36.4-46.3) fL RDW Coeff of Sonya (11.5-14.5) % Plt Count (130-400) K/uL MPV (7.4-10.4) fL Immature Gran # (Auto) (0.00-0.02) K/uL Neut # (Auto) (1.4-6.5) K/uL Lymph # (Auto) (1.2-3.4) K/uL [place] # (Auto) (0.11-0.59) K/uL Eos # (Auto) (0-0.5) K/uL Sodium (136-145) mmol/L Potassium (3.5-5.1) mmol/L BUN/Creatinine Ratio (10-20) Calcium (8.5-10.1) mg/dl Ionized Calcium 1.11 L (1.12-1.32) mmol/L Magnesium (1.8-2.4) mg/dl _ (1) Volume overload Hypervolemia type: other Qualified Code(s): E87.79 - Other fluid overload
--- NOTE | 2018-02-15 09:04 | Surgery Progress Note ---
Date of Service February 15, 2018 Assessment & Plan (1) Perforated peptic ulcer: Postoperative day #9 status post repair of perforated ulcer Hemodynamically stable Tolerated diet and encouraged PO intake WBC increased today Pain etiology may be postoperative or related to her metastatic disease and ascites peritoneal infection related to asites, no evidence of leak from ulcer repair Has been afebrile Antibiotics per ID Activity as per orthopedics Subjective Postoperative day #9 Much more awake and alert today Passing flatus and having bowel movements Has abdominal discomfort but less than yesterday Denies nausea and vomiting Tolerated diet but not eating much Physical Exam 2 Vital Signs (Past 24 Hours): Last Vital Signs Temp 37.0 C 02/15/18 07:45 Pulse 96 H 02/15/18 07:45 Resp 15 02/15/18 07:45 BP 115/62 02/15/18 07:45 Pulse Ox 95 02/15/18 07:45 Results & Data Laboratory Results 02/15/18 02/15/18 02/15/18 Range/Units 06:19 06:19 06:19 WBC 20.83 H (4.8-10.8) K/uL RBC 3.17 L (4.2-5.4) M/uL Hgb 9.2 L (12.0-16.0) g/dL Hct 29.0 L (37-47) % MCV 91.5 (80-100) fL MCH 29.0 (25-34) pg MCHC 31.7 L (32-36) g/dL RDW Std Deviation 69.2 H (36.4-46.3) fL RDW Coeff of Sonya 21.0 H (11.5-14.5) % Plt Count 118 L (130-400) K/uL MPV 11.7 H (7.4-10.4) fL Immature Gran % (Auto) 0.6 % Neut % (Auto) 87.5 % Lymph % (Auto) 4.4 % [place] % (Auto) 3.3 % Eos % (Auto) 3.9 % Baso % (Auto) 0.3 % Immature Gran # (Auto) 0.13 H (0.00-0.02) K/uL Neut # (Auto) 18.23 H (1.4-6.5) K/uL Lymph # (Auto) 0.91 L (1.2-3.4) K/uL [place] # (Auto) 0.68 H (0.11-0.59) K/uL Eos # (Auto) 0.82 H (0-0.5) K/uL Baso # (Auto) 0.06 (0-0.2) K/uL Toxic Granulation 1+ Anisocytosis Present Microcytosis Present Spherocytes Occasional Schistocytes Occasional Sodium 135 L (136-145) mmol/L Potassium 3.5 (3.5-5.1) mmol/L Chloride 102 (98-107) mmol/L Carbon Dioxide 25 (21-32) mmol/L Anion Gap 8.0 (3-11) BUN 13 (7-18) mg/dl Creatinine 0.71 (0.6-1.2) mg/dl Est Cr Clr Drug Dosing 90.3 ml/min Est GFR ( Amer) 108.8 Est GFR (Non-Af Amer) 93.9 BUN/Creatinine Ratio 18.8 (10-20) Glucose 97 (70-99) mg/dl Calcium 8.7 (8.5-10.1) mg/dl Ionized Calcium 1.11 L (1.12-1.32) mmol/L Magnesium 1.4 L (1.8-2.4) mg/dl 02/14/18 Range/Units 15:54 WBC (4.8-10.8) K/uL RBC (4.2-5.4) M/uL Hgb (12.0-16.0) g/dL Hct (37-47) % MCV (80-100) fL MCH (25-34) pg MCHC (32-36) g/dL RDW Std Deviation (36.4-46.3) fL RDW Coeff of Sonya (11.5-14.5) % Plt Count (130-400) K/uL MPV (7.4-10.4) fL Immature Gran % (Auto) % Neut % (Auto) % Lymph % (Auto) % [place] % (Auto) % Eos % (Auto) % Baso % (Auto) % Immature Gran # (Auto) (0.00-0.02) K/uL Neut # (Auto) (1.4-6.5) K/uL Lymph # (Auto) (1.2-3.4) K/uL [place] # (Auto) (0.11-0.59) K/uL Eos # (Auto) (0-0.5) K/uL Baso # (Auto) (0-0.2) K/uL Toxic Granulation Anisocytosis Microcytosis Spherocytes Schistocytes Sodium 134 L (136-145) mmol/L Potassium 3.4 L (3.5-5.1) mmol/L Chloride 102 (98-107) mmol/L Carbon Dioxide 24 (21-32) mmol/L Anion Gap 8.0 (3-11) BUN 13 (7-18) mg/dl Creatinine 0.66 (0.6-1.2) mg/dl Est Cr Clr Drug Dosing 96.6 ml/min Est GFR ( Amer) 112.9 Est GFR (Non-Af Amer) 97.4 BUN/Creatinine Ratio 20.1 H (10-20) Glucose 95 (70-99) mg/dl Calcium 8.2 L (8.5-10.1) mg/dl Ionized Calcium (1.12-1.32) mmol/L Magnesium (1.8-2.4) mg/dl Diagnostic Findings KUB HISTORY: Follow-up study in a patient with ascites Ascites COMPARISON: Chest radiograph 02/14/2017, upper GI study 02/11/2017 FINDINGS: The bowel gas pattern is non-obstructive. Retained contrast noted about the colon. Anterior midline skin anne-marie are noted. Mild gaseous distention of the transverse colon. Surgical clips project over the abdominal right upper quadrant. There is no organomegaly. No renal calculi. No ureteral calculi. No pneumoperitoneum or pneumatosis. No fracture. ORIF changes of the right acetabulum. IMPRESSION: 1. Nonobstructive bowel gas pattern. 2. Retained enteric contrast about the colon.
[2018-02-15] MEDS: CHECK FENTANYL PATCH PLACEMENT SCH ×3 (09:21→23:24)
[2018-02-15] MEDS ORDERED: POTASSIUM CHLORIDE / WTR 10 MEQ/100 ML PLCT IV SCH (09:30)
[2018-02-15] MEDS: MAGNESIUM SULFATE 50% 2 GM in DEXTROSE 5% 100 ML IV SCH ×2 (09:37→10:56)
[2018-02-15] MEDS: NYSTATIN/TRIAMCIN OINT 15 GM TUBE EXT SCH ×2 (09:38→20:43)
[2018-02-15] MEDS: MAGNESIUM OXIDE 400 MG TAB PO SCH ×3 (09:38→20:43)
[2018-02-15] MEDS: CHOLECALCIFEROL 1,000 UNITS TAB PO SCH (09:38)
[2018-02-15] MEDS: POTASSIUM CHLORIDE PWD 20 MEQ PACK PO SCH ×2 (09:38→20:42)
[2018-02-15] MEDS: PANTOprazole 40 MG in SYRINGE 0 ML IV SCH (09:38)
[2018-02-15] MEDS: CALCIUM CARBONATE 1,250 MG/5 ML UDC PO SCH ×2 (09:39→20:42)
[2018-02-15] MEDS: MoRPHine SULFATE 2 MG/ML CARP IV PRN ×3 (09:40→20:55)
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
[2018-02-15] MEDS: POTASSIUM CHLORIDE / WTR 20 MEQ/100 ML PLCT IV SCH ×3 (09:53→14:31)
[2018-02-15] MEDS: FUROSEMIDE IV SCH ×4 (09:54→22:11)
[2018-02-15] MEDS: ALBUMIN 25% IV SCH ×4 (09:54→22:11)
[2018-02-15] MEDS: PROSOURCE NO CARB 30 ML/PKT PO SCH ×3 (11:00→20:44)
[2018-02-15] MEDS ORDERED: HEPARIN SOD 5,000 UNIT/0.5 ML VIAL SQ SCH (14:00)
[2018-02-15] MEDS: fentaNYL 25 MCG/HR TDSY TD SCH (14:33)
[2018-02-15] MEDS: HEPARIN SOD 5,000 UNIT/0.5 ML VIAL SQ SCH ×2 (14:35→20:45)
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
[2018-02-15] MEDS: ONDANSETRON INJ 2 MG/ML 2 ML VIAL IV PRN (20:09)
[2018-02-15] MEDS: PANTOprazole 40 MG TAB PO SCH (20:45)
[2018-02-16] MEDS: HYDROCODONE/ACETAMOPHEN 5/325MG TAB PO PRN ×2 (00:37→16:24)
[2018-02-16] MEDS: FUROSEMIDE IV SCH ×6 (02:13→21:32)
[2018-02-16] MEDS: ALBUMIN 25% IV SCH ×6 (02:13→21:32)
[2018-02-16] MEDS: MoRPHine SULFATE 2 MG/ML CARP IV PRN ×3 (05:15→20:18)
[2018-02-16 06:09] LABS: INR 1.4 (0.9-1.1); Prothrombin Time 13.6 Seconds (9.0-12.0)
[2018-02-16] MEDS: HEPARIN SOD 5,000 UNIT/0.5 ML VIAL SQ SCH ×3 (06:17→21:31)
[2018-02-16 06:33] LABS: Albumin Level 3.2 gm/dl (3.4-5.0); BUN Creatinine Ratio 17.4 (10-20); Calcium 8.9 mg/dl (8.5-10.1); Creatinine Clr Calc Pharmacy 84.6 ml/min; Est GFR (African American) 101.8; Est GFR (Non-African American) 87.9; Magnesium 1.8 mg/dl (1.8-2.4); Potassium 3.3 mmol/L (3.5-5.1)
[2018-02-16 06:39] LABS: Albumin Globulin Ratio 0.9 (0.9-2); Bilirubin,Total 4.8 mg/dl (0.2-1); Globulin 3.4 gm/dl (2.5-4.0); Phosphorus 2.2 mg/dl (2.5-4.9); Total Protein 6.6 gm/dl (6.4-8.2)
[2018-02-16] MEDS: CHECK FENTANYL PATCH PLACEMENT SCH ×3 (07:43→23:17)
[2018-02-16] MEDS: CALCIUM CARBONATE 1,250 MG/5 ML UDC PO SCH ×2 (07:45→20:10)
[2018-02-16] MEDS: POTASSIUM CHLORIDE PWD 20 MEQ PACK PO SCH ×4 (07:45→20:10)
[2018-02-16] MEDS: MAGNESIUM OXIDE 400 MG TAB PO SCH ×3 (07:46→20:11)
[2018-02-16] MEDS: PANTOprazole 40 MG TAB PO SCH ×2 (07:47→20:11)
[2018-02-16] MEDS: NYSTATIN/TRIAMCIN OINT 15 GM TUBE EXT SCH ×2 (07:47→20:15)
[2018-02-16] MEDS: PROSOURCE NO CARB 30 ML/PKT PO SCH ×3 (07:48→20:11)
[2018-02-16] MEDS: CHOLECALCIFEROL 1,000 UNITS TAB PO SCH (07:48)
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
--- NOTE | 2018-02-16 10:34 | Surgery Progress Note ---
Date of Service February 16, 2018 Assessment & Plan (1) Perforated peptic ulcer: Postoperative day #10 status post repair of perforated ulcer Hemodynamically stable Tolerated diet and encouraged PO intake - discussed boost or ensure but she does not like these supplements Pain etiology may be postoperative or related to her metastatic disease and ascites peritoneal infection related to asites, no evidence of leak from ulcer repair Has been afebrile Antibiotics per ID Activity as per orthopedics Subjective POD#10 peff DU repair Still not eating much - about 1/4 of each tray. Feels full quickly. Mild nausea at times. Pain is localized to the right lower quadrant. SUSAN output is serous. Physical Exam 2 Vital Signs (Past 24 Hours): Last Vital Signs Temp 36.9 C 02/16/18 07:04 Pulse 93 H 02/16/18 07:04 Resp 18 02/16/18 07:04 BP 110/50 L 02/16/18 07:04 Pulse Ox 92 02/16/18 07:04 Constitutional: + ill appearing (wearing C - collar) Gastrointestinal (Abdomen): Inspection/Auscultation: + abdomen distended, normal bowel sounds and + abdominal surgical incision (clean and intact, no sign of infection) Percussion/Palpation: + abdomen tender (diffusely), + guarding (diffusely) and abdomen soft
[2018-02-17] MEDS: FUROSEMIDE IV SCH ×6 (01:55→23:53)
[2018-02-17] MEDS: ALBUMIN 25% IV SCH ×6 (01:55→23:53)
[2018-02-17] MEDS: MoRPHine SULFATE 2 MG/ML CARP IV PRN ×3 (04:03→17:35)
[2018-02-17] MEDS: HYDROCODONE/ACETAMOPHEN 5/325MG TAB PO PRN ×3 (04:03→19:34)
[2018-02-17 05:49] LABS: Hematocrit (blood only) 29.8 % (37-47); Hemoglobin 9.2 g/dL (12.0-16.0); Mean Corpuscular Hgb Conc 30.9 g/dL (32-36); Mean Corpuscular Volume 93.1 fL (80-100); Mean Platelet Volume 10.4 fL (7.4-10.4); Platelet Count 148 K/uL (130-400); RDW Coefficient of Variation 21.6 % (11.5-14.5); RDW Standard Deviation 71.7 fL (36.4-46.3); White Blood Count 17.84 K/uL (4.8-10.8)
[2018-02-17 05:57] LABS: INR 1.4 (0.9-1.1); Prothrombin Time 14.3 Seconds (9.0-12.0)
[2018-02-17 06:15] LABS: Albumin Level 3.6 gm/dl (3.4-5.0); BUN Creatinine Ratio 21.1 (10-20); Calcium 8.8 mg/dl (8.5-10.1); Creatinine Clr Calc Pharmacy 87.5 ml/min; Est GFR (Non-African American) 92.3; Magnesium 1.6 mg/dl (1.8-2.4); Potassium 3.1 mmol/L (3.5-5.1)
[2018-02-17] MEDS: HEPARIN SOD 5,000 UNIT/0.5 ML VIAL SQ SCH ×3 (06:17→21:56)
[2018-02-17 06:23] LABS: Albumin Globulin Ratio 1.1 (0.9-2); Basophils # (auto) 0.08 K/uL (0-0.2); Basophils % (auto) 0.4 %; Eosinophils # (auto) 0.55 K/uL (0-0.5); Eosinophils % (auto) 3.1 %; Globulin 3.4 gm/dl (2.5-4.0); Hypochromasia Present; Immature Granulocytes # (auto) 0.12 K/uL (0.00-0.02); Immature Granulocytes % (auto) 0.7 %; Lymphocytes # (auto) 1.47 K/uL (1.2-3.4); Lymphocytes % (auto) 8.2 %; Monocytes # (auto) 0.81 K/uL (0.11-0.59); Monocytes % (auto) 4.5 %; Neutrophils # (auto) 14.81 K/uL (1.4-6.5); Neutrophils % (auto) 83.1 %; Polychromasia 1+; Stomatocytes 1+; Toxic Granulation 1+
[2018-02-17] MEDS: PANTOprazole 40 MG TAB PO SCH ×2 (08:56→20:46)
[2018-02-17] MEDS: NYSTATIN/TRIAMCIN OINT 15 GM TUBE EXT SCH ×2 (08:56→20:47)
[2018-02-17] MEDS: PROSOURCE NO CARB 30 ML/PKT PO SCH ×4 (08:56→20:47)
[2018-02-17] MEDS: MAGNESIUM OXIDE 400 MG TAB PO SCH ×3 (08:57→20:47)
[2018-02-17] MEDS: CALCIUM CARBONATE 1,250 MG/5 ML UDC PO SCH ×3 (08:57→20:54)
[2018-02-17] MEDS: POTASSIUM CHLORIDE PWD 20 MEQ PACK PO SCH ×4 (08:57→20:47)
[2018-02-17] MEDS: CHOLECALCIFEROL 1,000 UNITS TAB PO SCH (08:57)
[2018-02-17] MEDS: CHECK FENTANYL PATCH PLACEMENT SCH ×2 (08:58→17:12)
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
--- NOTE | 2018-02-17 09:51 | Progress Note ---
DATE: 02/17/2018 SUBJECTIVE: Overnight, she continues to make lots of urine. In fact, she made 3200 mL of urine yesterday with the Lasix, albumin drip, which she is still getting. She is very tearful and is complaining of abdominal discomfort and pain. She is not able to eat much. She still has lot of edema and some shortness of breath. PHYSICAL EXAMINATION: GENERAL: Middle-aged white female who is very tearful and is in some distress from abdominal pain. VITAL SIGNS: Temperature 36.9, pulse rate 92 per minute, respiratory rate 18 per minute, blood pressure 123/64, 97% on 2 liter oxygen. LABORATORY TESTS: From this morning was reviewed and shows hemoglobin of 9.2 which is stable from yesterday, WBC count of 17,000 which is slightly better than 2 days ago, platelet count 148. Sodium 134, potassium 3.1, creatinine 0.7, BUN 15, calcium ionized 1.10, magnesium 1.6. ASSESSMENT AND PLAN: A 57-year-old female with postoperative day #10 status post repair of perforated ulcer with severe fluid overload and electrolyte imbalance. RECOMMENDATIONS: 1. She is making adequate urine as she made 3200 mL of urine yesterday. I would continue with the current Lasix/albumin drip as is being done. 2. Continues to have electrolyte imbalance, which is not surprising given very poor oral intake and ongoing diuresis despite high dose oral potassium supplementation. Potassium did go down. She is having significant abdominal discomfort and I do not want to push too hard with the oral supplementation. Continue potassium chloride 20 mEq 4 times a day. On top of that, I would give 3 doses of IV potassium today. This will not be enough and will need more. 3. Magnesium is still slightly low as well as calcium. Would give 2 g of IV magnesium today and continue the oral magnesium supplementation. Continue daily labs including magnesium, ionized calcium and BMP as well as CBC. MTDD
[2018-02-17] MEDS: POTASSIUM CHLORIDE / WTR 10 MEQ/100 ML PLCT IV SCH ×3 (10:19→12:28)
[2018-02-17] MEDS: MAGNESIUM SULFATE / D5W 1 GM/100 ML BAG IV SCH ×2 (10:20→11:24)
--- NOTE | 2018-02-17 11:47 | Surgery Progress Note ---
Date of Service February 17, 2018 Assessment & Plan (1) Perforated peptic ulcer: Postoperative day #11 status post repair of perforated ulcer Hemodynamically stable Tolerating diet. No new recommendations. Pain etiology may be postoperative or related to her metastatic disease and ascites peritoneal infection related to asites, no evidence of leak from ulcer repair Has been afebrile Antibiotics per ID Activity as per orthopedics Subjective POD#11 perf DU repair Sleeping currently. No changes to overall history. Gets full quickly. Low appetite and low PO intake. SUSAN continues to drain ascites. Constitutional: as per Subjective / HPI Ear, Nose, Mouth, Throat: as per Subjective / HPI Respiratory: as per Subjective / HPI Cardiovascular: as per Subjective / HPI Genitourinary (Female): + as per Subjective / HPI Neurologic: as per Subjective / HPI Psychiatric: as per Subjective / HPI Endocrine: as per Subjective / HPI Hematologic / Lymphatic: as per Subjective / HPI Physical Exam 2 Vital Signs (Past 24 Hours): Last Vital Signs Temp 36.9 C 02/17/18 11:12 Pulse 94 H 02/17/18 11:12 Resp 19 02/17/18 11:12 BP 107/62 02/17/18 11:12 Pulse Ox 90 02/17/18 11:12 Constitutional: + ill appearing (wearing C - collar) Gastrointestinal (Abdomen): Inspection/Auscultation: + abdomen distended, normal bowel sounds and + abdominal surgical incision (clean and intact, no sign of infection) Percussion/Palpation: + abdomen tender (diffusely), + guarding (diffusely) and abdomen soft
[2018-02-17] MEDS: HEPARIN 100 UNIT/ML 5ML FLUSH FLUSH PRN (15:52)
[2018-02-17] MEDS: LORazepam 0.25 MG/0.5 ML VIAL IV PRN (20:51)
[2018-02-17] MEDS ORDERED: Nursing to Pharmacy Communication ONE (21:01)
[2018-02-17] MEDS ORDERED: ZOLPIDEM TARTRATE 5 MG TAB PO ONE (22:03)
[2018-02-18] MEDS: ALBUMIN 25% IV SCH ×2 (04:04→07:51)
[2018-02-18] MEDS: FUROSEMIDE IV SCH ×2 (04:04→07:51)
[2018-02-18 05:35] LABS: Hematocrit (blood only) 28.2 % (37-47); Hemoglobin 8.9 g/dL (12.0-16.0); Mean Corpuscular Hgb Conc 31.6 g/dL (32-36); Mean Platelet Volume 10.6 fL (7.4-10.4); Platelet Count 158 K/uL (130-400); RDW Coefficient of Variation 21.6 % (11.5-14.5); RDW Standard Deviation 72.4 fL (36.4-46.3); White Blood Count 17.77 K/uL (4.8-10.8)
[2018-02-18] MEDS: HEPARIN SOD 5,000 UNIT/0.5 ML VIAL SQ SCH ×3 (05:37→20:25)
[2018-02-18 05:45] LABS: INR 1.4 (0.9-1.1); Prothrombin Time 14.1 Seconds (9.0-12.0)
[2018-02-18 06:03] LABS: Albumin Level 3.5 gm/dl (3.4-5.0); BUN Creatinine Ratio 22.6 (10-20); Calcium 8.9 mg/dl (8.5-10.1); Creatinine Clr Calc Pharmacy 101.6 ml/min; Est GFR (African American) 115.2; Est GFR (Non-African American) 99.4; Magnesium 1.8 mg/dl (1.8-2.4); Potassium 3.3 mmol/L (3.5-5.1)
[2018-02-18 06:08] LABS: Bilirubin,Total 4.4 mg/dl (0.2-1); Globulin 3.5 gm/dl (2.5-4.0)
--- NOTE | 2018-02-18 08:34 | Nephrology Progress Note ---
Date of Service February 18, 2018 Assessment & Plan (1) Volume overload: she has this chronically, given dependence on paracenteses; now with worsened status in wake of perforated ulcer/peritonitis/ emergent surgery/ ongoing poor po intake/ metastatic colon CA. -CONT lasix 30 mg IV qid w/ albumin -cont to concentrate abtx and all IV meds -- pharmacy assistance appreciated -would hold off on TPN if possible b/c that will initially worsen her fluid status; however if imperative per other teams then start w/ that reservation -cont daily weights and work toward daily STANDING weight -low threshold for palliative care consult to discuss goals of care frankly w/ pt and family >> appreciate dietary input w/ focus on how to tempt her to eat and FEEDING her every meal w/ multiple small meals daily; getting prosource -CXR 02/13 w/ pulmonary edema - cont diuresis -do not remove knox while we are trying to diurese (2) Electrolyte abnormality: -daily bmp -cont curretn K suppl K 20 mEq powder qid -ALSO today gave 60 mEq K w/ riders -no IV mag indicated today -will lower po mag to bid - this will lessen GI upset -repeat bmp, mag ordered urgent for 1600 today as well as iCa since I d/c'd po calcium, D3 and cut back on mag Subjective c/o abd fullness limiting po intake, c/o R hip pain. poor po ongoing. had bm am. now with bleeding open sacral sore. plan is sit on side of bed today. edema markedly improved no sob. no palpitations; no knox/voiding c/o. no rash. + generalized and no focal weakness. + depression, anxiety. no f/c. Physical Exam 2 Vital Signs (Past 24 Hours): Last Vital Signs Temp 36.7 C 02/18/18 07:16 Pulse 96 H 02/18/18 07:16 Resp 18 02/18/18 07:16 BP 117/67 02/18/18 07:16 Pulse Ox 97 02/18/18 07:16 Constitutional: well developed, + cachectic, + frail appearing and cooperative on RA, interactive and oriented today Eyes: EOM intact bilaterally ENMT: Mouth: + dry oral mucous membranes Respiratory: able to speak in complete sentences Auscultation: lungs clear to auscultation bilaterally and + diminished lung sounds Cardiovascular: Rate/Rhythm: regular rhythm and + tachycardic (in 90s) Extremities: + edema (2+ dependent; peripheral edema nearly resolved) Gastrointestinal (Abdomen): Inspection/Auscultation: + abdomen distended and normal bowel sounds (some high pitched) binder off; SUSAN drain present; vertical midline incision CDI Musculoskeletal: Extremities: + limited ROM of extremities (large bandage R hip but improved in terms of edema) Skin: + pallor; no skin tightening Neurologic: awake; not confused Speech / Cognition: normal speech Psychiatric: Orientation: oriented to person, oriented to place and cooperative Apperance: appropriately groomed Eye Contact: + fair eye contact Affect: + flat affect Insight: + limited insight Judgement: + limited judgement Genitourinary: knox w/ ample urine Results & Data Laboratory Results Abnormal lab results 02/17/18 02/18/18 02/18/18 Range/Units 16:30 05:20 05:20 WBC 17.77 H (4.8-10.8) K/uL RBC 3.00 L (4.2-5.4) M/uL Hgb 8.9 L (12.0-16.0) g/dL Hct 28.2 L (37-47) % MCHC 31.6 L (32-36) g/dL RDW Std Deviation 72.4 H (36.4-46.3) fL RDW Coeff of Sonya 21.6 H (11.5-14.5) % MPV 10.6 H (7.4-10.4) fL PT 14.1 H (9.0-12.0) Seconds INR 1.4 H (0.9-1.1) Potassium (3.5-5.1) mmol/L Carbon Dioxide (21-32) mmol/L BUN/Creatinine Ratio (10-20) POC Glucose 122 H (70-99) Ionized Calcium (1.12-1.32) mmol/L Total Bilirubin (0.2-1) mg/dl ALT (12-78) U/L Alkaline Phosphatase (45-117) U/L 02/18/18 02/18/18 02/18/18 Range/Units 05:20 05:20 07:49 WBC (4.8-10.8) K/uL RBC (4.2-5.4) M/uL Hgb (12.0-16.0) g/dL Hct (37-47) % MCHC (32-36) g/dL RDW Std Deviation (36.4-46.3) fL RDW Coeff of Sonya (11.5-14.5) % MPV (7.4-10.4) fL PT (9.0-12.0) Seconds INR (0.9-1.1) Potassium 3.3 L (3.5-5.1) mmol/L Carbon Dioxide 33 H (21-32) mmol/L BUN/Creatinine Ratio 22.6 H (10-20) POC Glucose 125 H (70-99) Ionized Calcium 1.11 L (1.12-1.32) mmol/L Total Bilirubin 4.4 H (0.2-1) mg/dl ALT 10 L (12-78) U/L Alkaline Phosphatase 199 H (45-117) U/L _ (1) Volume overload Hypervolemia type: other Qualified Code(s): E87.79 - Other fluid overload
[2018-02-18] MEDS: MoRPHine SULFATE 2 MG/ML CARP IV PRN ×2 (08:35→15:43)
[2018-02-18] MEDS: CHECK FENTANYL PATCH PLACEMENT SCH ×3 (08:46→16:37)
[2018-02-18] MEDS: HEPARIN 100 UNIT/ML 5ML FLUSH FLUSH PRN (08:47)
[2018-02-18] MEDS: HYDROCODONE/ACETAMOPHEN 5/325MG TAB PO PRN (09:35)
[2018-02-18] MEDS: LORazepam 0.25 MG/0.5 ML VIAL IV PRN (09:36)
[2018-02-18] MEDS: NYSTATIN/TRIAMCIN OINT 15 GM TUBE EXT SCH ×2 (09:37→21:33)
[2018-02-18] MEDS: MAGNESIUM OXIDE 400 MG TAB PO SCH (09:40)
--- NOTE | 2018-02-18 09:42 | Orthopedic Progress Note ---
Date of Service February 18, 2018 Assessment & Plan (1) Status post incision and drainage: S/P I & D right hip wound, Wound irritated from continued drainage. Would recommend twice daily dressing changes and PRN to keep incision area dry as possible. Discussed and encouraged exercises that she could do in bed. Encouraged out of bed, sitting in chair or at bedside. Non weight bearing right lower extremity Continue Heparin for DVT prophylaxis. Discussed wound with Ludy Roger - wound care nurse, she will assess today and give her recommendations for incision area. Dr. Young present for visit today. Will cotinue to follow. Dr Young out the rest of week, Renetta and Dr Duckworth covering. Subjective Patient lying in bed, states that she's been out of bed sitting at bedside yesterday and day before. She has a lot of pain. Tolerating diet. Physical Exam 2 Vital Signs (Past 24 Hours): Last Vital Signs Temp 36.7 C 02/18/18 07:16 Pulse 96 H 02/18/18 07:16 Resp 18 02/18/18 07:16 BP 117/67 02/18/18 07:16 Pulse Ox 97 02/18/18 07:16 Physical Exam: serous drainage from wound, skin with erythema and maceration because of drainage. Sutures intact, edema in legs much improved. Tolerates gentle ROM right LE, able to independently SLR LLE. Results & Data Laboratory Results 02/18/18 02/18/18 02/18/18 Range/Units 07:49 05:20 05:20 WBC (4.8-10.8) K/uL RBC (4.2-5.4) M/uL Hgb (12.0-16.0) g/dL Hct (37-47) % MCV (80-100) fL MCH (25-34) pg MCHC (32-36) g/dL RDW Std Deviation (36.4-46.3) fL RDW Coeff of Sonya (11.5-14.5) % Plt Count (130-400) K/uL MPV (7.4-10.4) fL PT (9.0-12.0) Seconds INR (0.9-1.1) Sodium 138 (136-145) mmol/L Potassium 3.3 L (3.5-5.1) mmol/L Chloride 101 (98-107) mmol/L Carbon Dioxide 33 H (21-32) mmol/L Anion Gap 4.0 (3-11) BUN 14 (7-18) mg/dl Creatinine 0.62 (0.6-1.2) mg/dl Est Cr Clr Drug Dosing 101.6 ml/min Est GFR ( Amer) 115.2 Est GFR (Non-Af Amer) 99.4 BUN/Creatinine Ratio 22.6 H (10-20) Glucose 97 (70-99) mg/dl POC Glucose 125 H (70-99) Calcium 8.9 (8.5-10.1) mg/dl Ionized Calcium 1.11 L (1.12-1.32) mmol/L Magnesium 1.8 (1.8-2.4) mg/dl Total Bilirubin 4.4 H (0.2-1) mg/dl AST 31 (15-37) U/L ALT 10 L (12-78) U/L Alkaline Phosphatase 199 H (45-117) U/L Total Protein 7.0 (6.4-8.2) gm/dl Albumin 3.5 (3.4-5.0) gm/dl Globulin 3.5 (2.5-4.0) gm/dl Albumin/Globulin Ratio 1.0 (0.9-2) Vitamin B12 (211-911) pg/ml 02/18/18 02/18/18 02/17/18 Range/Units 05:20 05:20 16:30 WBC 17.77 H (4.8-10.8) K/uL RBC 3.00 L (4.2-5.4) M/uL Hgb 8.9 L (12.0-16.0) g/dL Hct 28.2 L (37-47) % MCV 94.0 (80-100) fL MCH 29.7 (25-34) pg MCHC 31.6 L (32-36) g/dL RDW Std Deviation 72.4 H (36.4-46.3) fL RDW Coeff of Sonya 21.6 H (11.5-14.5) % Plt Count 158 (130-400) K/uL MPV 10.6 H (7.4-10.4) fL PT 14.1 H (9.0-12.0) Seconds INR 1.4 H (0.9-1.1) Sodium (136-145) mmol/L Potassium (3.5-5.1) mmol/L Chloride (98-107) mmol/L Carbon Dioxide (21-32) mmol/L Anion Gap (3-11) BUN (7-18) mg/dl Creatinine (0.6-1.2) mg/dl Est Cr Clr Drug Dosing ml/min Est GFR ( Amer) Est GFR (Non-Af Amer) BUN/Creatinine Ratio (10-20) Glucose (70-99) mg/dl POC Glucose 122 H (70-99) Calcium (8.5-10.1) mg/dl Ionized Calcium (1.12-1.32) mmol/L Magnesium (1.8-2.4) mg/dl Total Bilirubin (0.2-1) mg/dl AST (15-37) U/L ALT (12-78) U/L Alkaline Phosphatase (45-117) U/L Total Protein (6.4-8.2) gm/dl Albumin (3.4-5.0) gm/dl Globulin (2.5-4.0) gm/dl Albumin/Globulin Ratio (0.9-2) Vitamin B12 (211-911) pg/ml 02/17/18 Range/Units 05:35 WBC (4.8-10.8) K/uL RBC (4.2-5.4) M/uL Hgb (12.0-16.0) g/dL Hct (37-47) % MCV (80-100) fL MCH (25-34) pg MCHC (32-36) g/dL RDW Std Deviation (36.4-46.3) fL RDW Coeff of Sonya (11.5-14.5) % Plt Count (130-400) K/uL MPV (7.4-10.4) fL PT (9.0-12.0) Seconds INR (0.9-1.1) Sodium (136-145) mmol/L Potassium (3.5-5.1) mmol/L Chloride (98-107) mmol/L Carbon Dioxide (21-32) mmol/L Anion Gap (3-11) BUN (7-18) mg/dl Creatinine (0.6-1.2) mg/dl Est Cr Clr Drug Dosing ml/min Est GFR ( Amer) Est GFR (Non-Af Amer) BUN/Creatinine Ratio (10-20) Glucose (70-99) mg/dl POC Glucose (70-99) Calcium (8.5-10.1) mg/dl Ionized Calcium (1.12-1.32) mmol/L Magnesium (1.8-2.4) mg/dl Total Bilirubin (0.2-1) mg/dl AST (15-37) U/L ALT (12-78) U/L Alkaline Phosphatase (45-117) U/L Total Protein (6.4-8.2) gm/dl Albumin (3.4-5.0) gm/dl Globulin (2.5-4.0) gm/dl Albumin/Globulin Ratio (0.9-2) Vitamin B12 825 (211-911) pg/ml
[2018-02-18] MEDS: POTASSIUM CHLORIDE PWD 20 MEQ PACK PO SCH ×4 (10:19→20:11)
[2018-02-18] MEDS: PANTOprazole 40 MG TAB PO SCH ×2 (10:19→20:24)
[2018-02-18] MEDS: PROSOURCE NO CARB 30 ML/PKT PO SCH ×3 (10:19→20:11)
[2018-02-18] MEDS: POTASSIUM CHLORIDE / WTR 10 MEQ/100 ML PLCT IV SCH ×6 (10:58→16:36)
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
--- NOTE | 2018-02-18 14:55 | Surgery Progress Note ---
Date of Service February 18, 2018 Assessment & Plan (1) Perforated peptic ulcer: Postoperative day #12 status post repair of perforated ulcer Hemodynamically stable Tolerating diet. However not eating much, severe protein calorie malnutrition. ascites output with FRANCE drain Pain etiology may be postoperative or related to her metastatic disease and ascites peritoneal infection related to ascites, no evidence of leak from ulcer repair Has been afebrile however leukocytosis persists. Slightly improved today at 17.7K Antibiotics per ID Activity as per orthopedics Recommend keeping france drain, will remove at surgical follow-up visit Recommend surgical anne-marie to remain for at least 6 weeks post op given severe malnutrition which will delay wound healing Recommend boost/ensure TID Patient will need 1 week follow-up in surgical office once discharged Dr. Desai has seen and examined patient, agrees with above Subjective patient sleeping on encounter, easily awakened Still having abdominal pain, when asked specifically she states general abdominal pain not just at incision site. States she is eating better but still not eating entire trays of food. Refused feeding tube. And does not like boost or ensure. no nausea or vomiting Physical Exam 2 Vital Signs (Past 24 Hours): Last Vital Signs Temp 36.9 C 02/18/18 12:04 Pulse 95 H 02/18/18 12:04 Resp 18 02/18/18 12:04 BP 100/63 02/18/18 12:04 Pulse Ox 97 02/18/18 12:04 Constitutional: + ill appearing, + lethargic, + malnourished and + edematous; no acute distress Neck: c-collar present Respiratory: normal respiratory effort; no respiratory distress Gastrointestinal (Abdomen): Inspection/Auscultation: + abdominal surgical drain present (clear ascitic fluid present, no pus); abdomen not distended Percussion/Palpation: + abdomen tender and abdomen soft; no guarding and abdomen not rigid Skin: no rashes, warm and dry + incision (clean/dry/intact, anne-marie intact ) Psychiatric: A+Ox3, euthymic affect Results & Data Laboratory Results 02/18/18 02/18/18 02/18/18 Range/Units 11:35 07:49 05:20 WBC (4.8-10.8) K/uL RBC (4.2-5.4) M/uL Hgb (12.0-16.0) g/dL Hct (37-47) % MCV (80-100) fL MCH (25-34) pg MCHC (32-36) g/dL RDW Std Deviation (36.4-46.3) fL RDW Coeff of Sonya (11.5-14.5) % Plt Count (130-400) K/uL MPV (7.4-10.4) fL PT (9.0-12.0) Seconds INR (0.9-1.1) Sodium (136-145) mmol/L Potassium (3.5-5.1) mmol/L Chloride (98-107) mmol/L Carbon Dioxide (21-32) mmol/L Anion Gap (3-11) BUN (7-18) mg/dl Creatinine (0.6-1.2) mg/dl Est Cr Clr Drug Dosing ml/min Est GFR ( Amer) Est GFR (Non-Af Amer) BUN/Creatinine Ratio (10-20) Glucose (70-99) mg/dl POC Glucose 116 H 125 H (70-99) Calcium (8.5-10.1) mg/dl Ionized Calcium 1.11 L (1.12-1.32) mmol/L Magnesium (1.8-2.4) mg/dl Total Bilirubin (0.2-1) mg/dl AST (15-37) U/L ALT (12-78) U/L Alkaline Phosphatase (45-117) U/L Total Protein (6.4-8.2) gm/dl Albumin (3.4-5.0) gm/dl Globulin (2.5-4.0) gm/dl Albumin/Globulin Ratio (0.9-2) 02/18/18 02/18/18 02/18/18 Range/Units 05:20 05:20 05:20 WBC 17.77 H (4.8-10.8) K/uL RBC 3.00 L (4.2-5.4) M/uL Hgb 8.9 L (12.0-16.0) g/dL Hct 28.2 L (37-47) % MCV 94.0 (80-100) fL MCH 29.7 (25-34) pg MCHC 31.6 L (32-36) g/dL RDW Std Deviation 72.4 H (36.4-46.3) fL RDW Coeff of Sonya 21.6 H (11.5-14.5) % Plt Count 158 (130-400) K/uL MPV 10.6 H (7.4-10.4) fL PT 14.1 H (9.0-12.0) Seconds INR 1.4 H (0.9-1.1) Sodium 138 (136-145) mmol/L Potassium 3.3 L (3.5-5.1) mmol/L Chloride 101 (98-107) mmol/L Carbon Dioxide 33 H (21-32) mmol/L Anion Gap 4.0 (3-11) BUN 14 (7-18) mg/dl Creatinine 0.62 (0.6-1.2) mg/dl Est Cr Clr Drug Dosing 101.6 ml/min Est GFR ( Amer) 115.2 Est GFR (Non-Af Amer) 99.4 BUN/Creatinine Ratio 22.6 H (10-20) Glucose 97 (70-99) mg/dl POC Glucose (70-99) Calcium 8.9 (8.5-10.1) mg/dl Ionized Calcium (1.12-1.32) mmol/L Magnesium 1.8 (1.8-2.4) mg/dl Total Bilirubin 4.4 H (0.2-1) mg/dl AST 31 (15-37) U/L ALT 10 L (12-78) U/L Alkaline Phosphatase 199 H (45-117) U/L Total Protein 7.0 (6.4-8.2) gm/dl Albumin 3.5 (3.4-5.0) gm/dl Globulin 3.5 (2.5-4.0) gm/dl Albumin/Globulin Ratio 1.0 (0.9-2) 02/17/18 Range/Units 16:30 WBC (4.8-10.8) K/uL RBC (4.2-5.4) M/uL Hgb (12.0-16.0) g/dL Hct (37-47) % MCV (80-100) fL MCH (25-34) pg MCHC (32-36) g/dL RDW Std Deviation (36.4-46.3) fL RDW Coeff of Sonya (11.5-14.5) % Plt Count (130-400) K/uL MPV (7.4-10.4) fL PT (9.0-12.0) Seconds INR (0.9-1.1) Sodium (136-145) mmol/L Potassium (3.5-5.1) mmol/L Chloride (98-107) mmol/L Carbon Dioxide (21-32) mmol/L Anion Gap (3-11) BUN (7-18) mg/dl Creatinine (0.6-1.2) mg/dl Est Cr Clr Drug Dosing ml/min Est GFR ( Amer) Est GFR (Non-Af Amer) BUN/Creatinine Ratio (10-20) Glucose (70-99) mg/dl POC Glucose 122 H (70-99) Calcium (8.5-10.1) mg/dl Ionized Calcium (1.12-1.32) mmol/L Magnesium (1.8-2.4) mg/dl Total Bilirubin (0.2-1) mg/dl AST (15-37) U/L ALT (12-78) U/L Alkaline Phosphatase (45-117) U/L Total Protein (6.4-8.2) gm/dl Albumin (3.4-5.0) gm/dl Globulin (2.5-4.0) gm/dl Albumin/Globulin Ratio (0.9-2) Diagnostic Findings Right Hip deep culture on 02/08/18 showing Layla FRANCE drain culture on 02/07/18 showing no growth Blood cultures 03/09 negative
[2018-02-18] MEDS: fentaNYL 25 MCG/HR TDSY TD SCH (16:31)
[2018-02-18] MEDS: CHOLECALCIFEROL 1,000 UNITS TAB PO SCH (16:42)
[2018-02-18] MEDS: CALCIUM CARBONATE 1,250 MG/5 ML UDC PO SCH (16:42)
[2018-02-18 17:01] LABS: BUN Creatinine Ratio 24.6 (10-20); Calcium 9.1 mg/dl (8.5-10.1); Creatinine Clr Calc Pharmacy 102.3 ml/min; Est GFR (African American) 115.8; Est GFR (Non-African American) 99.9; Magnesium 1.7 mg/dl (1.8-2.4); Potassium 4.4 mmol/L (3.5-5.1)
[2018-02-19] MEDS: HYDROCODONE/ACETAMOPHEN 5/325MG TAB PO PRN ×3 (00:42→21:38)
[2018-02-19] MEDS: MoRPHine SULFATE 2 MG/ML CARP IV PRN ×5 (00:42→15:47)
[2018-02-19] MEDS: LORazepam 0.25 MG/0.5 ML VIAL IV PRN (00:42)
[2018-02-19] MEDS: CHECK FENTANYL PATCH PLACEMENT SCH ×4 (01:34→17:18)
[2018-02-19] MEDS: HEPARIN 100 UNIT/ML 5ML FLUSH FLUSH PRN ×3 (06:04→08:25)
[2018-02-19 06:19] LABS: Hematocrit (blood only) 29.4 % (37-47); Mean Corpuscular Hgb Conc 30.6 g/dL (32-36); Mean Corpuscular Volume 93.6 fL (80-100); Mean Platelet Volume 10.4 fL (7.4-10.4); Platelet Count 174 K/uL (130-400); RDW Coefficient of Variation 22.3 % (11.5-14.5); RDW Standard Deviation 74.1 fL (36.4-46.3); Red Blood Count 3.14 M/uL (4.2-5.4); White Blood Count 15.58 K/uL (4.8-10.8)
[2018-02-19] MEDS: HEPARIN SOD 5,000 UNIT/0.5 ML VIAL SQ SCH ×3 (06:23→21:41)
[2018-02-19 06:25] LABS: INR 1.4 (0.9-1.1); Prothrombin Time 14.1 Seconds (9.0-12.0)
[2018-02-19 07:06] LABS: Albumin Globulin Ratio 0.9 (0.9-2); BUN Creatinine Ratio 26.2 (10-20); Bilirubin,Total 4.5 mg/dl (0.2-1); Calcium 8.5 mg/dl (8.5-10.1); Creatinine Clr Calc Pharmacy 100.2 ml/min; Est GFR (African American) 115.8; Est GFR (Non-African American) 99.9; Globulin 3.5 gm/dl (2.5-4.0); Total Protein 6.5 gm/dl (6.4-8.2)
[2018-02-19] MEDS: NYSTATIN/TRIAMCIN OINT 15 GM TUBE EXT SCH ×2 (08:29→21:38)
[2018-02-19] MEDS: ZINC OXIDE 16% 45 APPLN, HYDROCORTISONE 1% 45 APPLN, ALUMINUM/MAGNESIUM SUSP 15 ML, BAR... TOP PRN (08:29)
[2018-02-19] MEDS: MICONAZOLE NITRATE POWDER 43 GM EXT PRN (08:29)
[2018-02-19 08:39] LABS: Potassium 4.3 mmol/L (3.5-5.1)
[2018-02-19] MEDS ORDERED: CALCIUM GLUCONATE 10% 2,000 MG in SODIUM CHLORIDE 0.9% 50 ML IV STA (09:28)
--- NOTE | 2018-02-19 09:33 | Nephrology Progress Note ---
Date of Service February 19, 2018 Assessment & Plan (1) Volume overload: she has this chronically, given dependence on paracenteses; now with worsened status in wake of perforated ulcer/peritonitis/ emergent surgery/ ongoing poor po intake/ metastatic colon CA. -lowered lasix to 30 mg bid IV w/ albumin -cont to concentrate abtx and all IV meds -- pharmacy assistance appreciated -would hold off on TPN if possible b/c that will initially worsen her fluid status; however if imperative per other teams then start w/ that reservation -cont daily weights and work toward daily STANDING weight -low threshold for palliative care consult to discuss goals of care frankly w/ pt and family - f/u their recs >> appreciate dietary input w/ focus on how to tempt her to eat and FEEDING her every meal w/ multiple small meals daily; getting prosource -CXR 02/13 w/ pulmonary edema - will recheck cxr today -do not remove knox while we are trying to diurese (2) Electrolyte abnormality: -daily bmp -no IV mag indicated today >>>gave 2 gm iv calcium >> gave 40 mEq IV K -cont lower po mag daily to lessen GI upset -lowered po K to bid from qid Subjective wt from 75.6>72.3 on built in bedscale today; has not been able yet to sit on side of bed. hip pain moderately controlled; still minimal po. no sob. no palpitations. +bm but no n/v; no f; edema less no rash but sacral decub extensive/severe, no knox issues. no focal numbness + generalized weakness; + depression Physical Exam 2 Vital Signs (Past 24 Hours): Last Vital Signs Temp 36.8 C 02/19/18 07:33 Pulse 101 H 02/19/18 07:33 Resp 20 02/19/18 07:33 BP 111/69 02/19/18 07:33 Pulse Ox 94 02/19/18 07:33 Constitutional: well developed, + cachectic, + frail appearing and cooperative less tired today; on 02nc Eyes: EOM intact bilaterally ENMT: Mouth: + dry oral mucous membranes Respiratory: able to speak in complete sentences Auscultation: lungs clear to auscultation bilaterally and + diminished lung sounds Cardiovascular: Rate/Rhythm: regular rhythm and + tachycardic (in 90s again) Extremities: + edema (1+ dependent; peripheral edema resolved) Gastrointestinal (Abdomen): Inspection/Auscultation: + abdomen distended and normal bowel sounds (? if diminished) Percussion/Palpation: abdomen soft incision cdi Musculoskeletal: Extremities: + limited ROM of extremities (large bandage R hip but improved in terms of edema) Skin: + pallor; no skin tightening Neurologic: awake; not confused Speech / Cognition: normal speech Psychiatric: Orientation: oriented to person, oriented to place and cooperative Apperance: appropriately groomed Eye Contact: + fair eye contact Affect: + flat affect Insight: + limited insight Judgement: + limited judgement Genitourinary: knox w/ ample urine Results & Data Laboratory Results Abnormal lab results 02/18/18 02/18/18 02/18/18 Range/Units 11:35 16:12 16:12 WBC (4.8-10.8) K/uL RBC (4.2-5.4) M/uL Hgb (12.0-16.0) g/dL Hct (37-47) % MCHC (32-36) g/dL RDW Std Deviation (36.4-46.3) fL RDW Coeff of Sonya (11.5-14.5) % PT (9.0-12.0) Seconds INR (0.9-1.1) Sodium (136-145) mmol/L Carbon Dioxide 33 H (21-32) mmol/L BUN/Creatinine Ratio 24.6 H (10-20) POC Glucose 116 H (70-99) Ionized Calcium 1.05 L (1.12-1.32) mmol/L Magnesium 1.7 L (1.8-2.4) mg/dl Total Bilirubin (0.2-1) mg/dl AST (15-37) U/L ALT (12-78) U/L Alkaline Phosphatase (45-117) U/L Albumin (3.4-5.0) gm/dl 02/19/18 02/19/18 02/19/18 Range/Units 06:04 06:04 06:04 WBC 15.58 H (4.8-10.8) K/uL RBC 3.14 L (4.2-5.4) M/uL Hgb 9.0 L (12.0-16.0) g/dL Hct 29.4 L (37-47) % MCHC 30.6 L (32-36) g/dL RDW Std Deviation 74.1 H (36.4-46.3) fL RDW Coeff of Sonya 22.3 H (11.5-14.5) % PT 14.1 H (9.0-12.0) Seconds INR 1.4 H (0.9-1.1) Sodium 135 L (136-145) mmol/L Carbon Dioxide (21-32) mmol/L BUN/Creatinine Ratio 26.2 H (10-20) POC Glucose (70-99) Ionized Calcium (1.12-1.32) mmol/L Magnesium (1.8-2.4) mg/dl Total Bilirubin 4.5 H (0.2-1) mg/dl AST (15-37) U/L ALT 10 L (12-78) U/L Alkaline Phosphatase 220 H (45-117) U/L Albumin 3.0 L (3.4-5.0) gm/dl 02/19/18 Range/Units 08:00 WBC (4.8-10.8) K/uL RBC (4.2-5.4) M/uL Hgb (12.0-16.0) g/dL Hct (37-47) % MCHC (32-36) g/dL RDW Std Deviation (36.4-46.3) fL RDW Coeff of Sonya (11.5-14.5) % PT (9.0-12.0) Seconds INR (0.9-1.1) Sodium (136-145) mmol/L Carbon Dioxide (21-32) mmol/L BUN/Creatinine Ratio (10-20) POC Glucose (70-99) Ionized Calcium (1.12-1.32) mmol/L Magnesium (1.8-2.4) mg/dl Total Bilirubin (0.2-1) mg/dl AST 44 H (15-37) U/L ALT (12-78) U/L Alkaline Phosphatase (45-117) U/L Albumin (3.4-5.0) gm/dl _ (1) Volume overload Hypervolemia type: other Qualified Code(s): E87.79 - Other fluid overload
[2018-02-19] MEDS: MAGNESIUM OXIDE 400 MG TAB PO SCH (10:24)
[2018-02-19] MEDS: PANTOprazole 40 MG TAB PO SCH ×2 (10:24→21:39)
[2018-02-19] MEDS: PROSOURCE NO CARB 30 ML/PKT PO SCH ×3 (10:25→21:37)
[2018-02-19] MEDS: ALBUMIN 25% IV SCH ×2 (10:26→21:20)
[2018-02-19] MEDS: FUROSEMIDE IV SCH ×2 (10:26→21:20)
[2018-02-19] MEDS: POTASSIUM CHLORIDE PWD 20 MEQ PACK PO SCH ×3 (10:37→21:37)
[2018-02-19] MEDS: POTASSIUM CHLORIDE / WTR 10 MEQ/100 ML PLCT IV SCH ×4 (11:56→15:57)
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
[2018-02-19] MEDS ORDERED: fentaNYL 25 MCG/HR TDSY TD SCH (14:00)
--- NOTE | 2018-02-19 15:31 | Orthopedic Progress Note ---
Date of Service February 19, 2018 Assessment & Plan (1) Status post incision and drainage: S/P I & D right hip wound, 02/08/18 Wound irritated from continued drainage. Would recommend twice daily dressing changes and PRN to keep incision area dry as possible. Discussed and encouraged exercises that she could do in bed. Encouraged out of bed, sitting in chair or at bedside. Non weight bearing right lower extremity Continue Heparin for DVT prophylaxis. Discussed wound with Ludy Roger - wound care nurse, she will re assess today and discussion regarding the possibility of an incisional wound vac. After discussion, we thought of applying one tomorrow and changing on Sunday and possibly Sunday. Will continue to follow. Will discuss findings with Dr. Donita Young out the rest of week, Renetta and Dr Duckworth covering. Subjective Patient sitting in chair, right hip wound dress with continued drainage. States that she has a lot of pain. Dressing in place. Physical Exam 2 Vital Signs (Past 24 Hours): Last Vital Signs Temp 37.1 C 02/19/18 14:56 Pulse 110 H 02/19/18 14:56 Resp 20 02/19/18 14:56 BP 111/75 02/19/18 14:56 Pulse Ox 96 02/19/18 14:56 Physical Exam: Dressing in place right hip with recommend dressing from wound care nurse. Continue drainage from wound, surrounding erythema and rash/ irritation. No fracture blisters. Dressing reapplied.
--- NOTE | 2018-02-19 19:59 | XRay Report ---
XR chest 1V portable CLINICAL HISTORY: Shortness of breath. Volume overload. COMPARISON STUDY: 02/14/2018 FINDINGS: The cardiac and mediastinal contours remain stable. There is a right-sided A-Port catheter present. There is improving pulmonary vascular congestion. A small right pleural effusion is suspecte d. There is no lobar consolidation.[ IMPRESSION: Improving pulmonary vascular congestion. Suspected small right pleural effusion. Electronically signed by: Darwin Rivera M.D. 02/19/2018 7:57 PM
[2018-02-20] MEDS: CHECK FENTANYL PATCH PLACEMENT SCH ×8 (00:23→23:44)
[2018-02-20] MEDS: ZINC OXIDE 16% 45 APPLN, HYDROCORTISONE 1% 45 APPLN, ALUMINUM/MAGNESIUM SUSP 15 ML, BAR... TOP PRN (00:45)
[2018-02-20] MEDS: MoRPHine SULFATE 2 MG/ML CARP IV PRN ×2 (00:53→10:44)
[2018-02-20] MEDS: HEPARIN 100 UNIT/ML 5ML FLUSH FLUSH PRN ×4 (00:53→16:13)
[2018-02-20] MEDS: HEPARIN SOD 5,000 UNIT/0.5 ML VIAL SQ SCH ×3 (05:47→20:59)
[2018-02-20 06:43] LABS: Hematocrit (blood only) 28.8 % (37-47); Hemoglobin 8.9 g/dL (12.0-16.0); Mean Corpuscular Hgb Conc 30.9 g/dL (32-36); Mean Corpuscular Volume 93.2 fL (80-100); Mean Platelet Volume 10.6 fL (7.4-10.4); Platelet Count 193 K/uL (130-400); RDW Coefficient of Variation 22.4 % (11.5-14.5); RDW Standard Deviation 74.9 fL (36.4-46.3); Red Blood Count 3.09 M/uL (4.2-5.4); White Blood Count 15.29 K/uL (4.8-10.8)
[2018-02-20 07:28] LABS: INR 1.5 (0.9-1.1); Prothrombin Time 14.7 Seconds (9.0-12.0)
[2018-02-20] MEDS: POTASSIUM CHLORIDE PWD 20 MEQ PACK PO SCH ×2 (07:42→20:57)
[2018-02-20] MEDS: MAGNESIUM OXIDE 400 MG TAB PO SCH (07:43)
[2018-02-20] MEDS: NYSTATIN/TRIAMCIN OINT 15 GM TUBE EXT SCH ×2 (07:43→20:58)
[2018-02-20] MEDS: PANTOprazole 40 MG TAB PO SCH ×2 (07:44→20:57)
[2018-02-20] MEDS: PROSOURCE NO CARB 30 ML/PKT PO SCH ×3 (07:44→20:57)
[2018-02-20] MEDS: HYDROCODONE/ACETAMOPHEN 5/325MG TAB PO PRN (09:02)
--- NOTE | 2018-02-20 09:23 | Nephrology Progress Note ---
Date of Service February 20, 2018 Assessment & Plan (1) Volume overload: she has this chronically, given dependence on paracenteses; now with worsened status in wake of perforated ulcer/peritonitis/ emergent surgery/ ongoing poor po intake/ metastatic colon CA. -cont lowered lasix to 30 mg bid IV w/ albumin -cont to concentrate abtx and all IV meds -- pharmacy assistance appreciated -would hold off on TPN if possible b/c that will initially worsen her fluid status; however if imperative per other teams then start w/ that reservation -cont daily weights and work toward daily STANDING weight -- bedweights are trending down nicely -palliative care input appreciated >> appreciate dietary input w/ focus on how to tempt her to eat and FEEDING her every meal w/ multiple small meals daily; getting prosource -CXR 02/13 w/ pulmonary edema - 02/19 CXR w/ improvement in this and weaning 02 now -do not remove knox while we are trying to diurese (2) Electrolyte abnormality: -daily bmp >> ordered stat today and will f/u/ replete as needed >> no repletion needed today iv -cont lower po mag daily to lessen GI upset and recently lowered po K bid -goal is to replete IV as much as possible to lessen GI upset so she can focus on optimizing po intake clara protein Subjective seen on rounds this am; getting vac placed R hip. ongoing pain. states was in chair yesterday for a few hrs. states would like [employer] protein powder and looking to get family to bring in. ongoing hip pain. no sob. no palpitations/ chest pain. no focal numbness; + generalized weakness. ongoing minimal po and small amounts. no n/v; + bm; knox ok for now Physical Exam 2 Vital Signs (Past 24 Hours): Last Vital Signs Temp 37.0 C 02/20/18 07:50 Pulse 103 H 02/20/18 07:50 Resp 16 02/20/18 07:50 BP 98/62 L 02/20/18 07:50 Pulse Ox 93 02/20/18 07:50 Constitutional: well developed, + cachectic, + frail appearing and cooperative on02NC but nurse to try weaning, alert, interactive, in bed Eyes: EOM intact bilaterally ENMT: Mouth: + dry oral mucous membranes Respiratory: able to speak in complete sentences Auscultation: lungs clear to auscultation bilaterally and + diminished lung sounds Cardiovascular: Rate/Rhythm: regular rhythm and + tachycardic (in 90s again) Extremities: + edema (trace dependent; peripheral edema resolved) Gastrointestinal (Abdomen): Inspection/Auscultation: + abdomen distended and normal bowel sounds (? if diminished) Percussion/Palpation: abdomen soft Musculoskeletal: Extremities: + limited ROM of extremities (but improved in terms of edema) Skin: + pallor; no skin tightening Neurologic: awake; not confused Speech / Cognition: normal speech Psychiatric: Orientation: oriented to person, oriented to place and cooperative Apperance: appropriately groomed Eye Contact: + fair eye contact Affect: + flat affect Insight: + limited insight Judgement: + limited judgement Genitourinary: knox w/ ample urine Results & Data Laboratory Results Abnormal lab results 02/19/18 02/20/18 02/20/18 Range/Units 20:27 06:27 06:27 WBC 15.29 H (4.8-10.8) K/uL RBC 3.09 L (4.2-5.4) M/uL Hgb 8.9 L (12.0-16.0) g/dL Hct 28.8 L (37-47) % MCHC 30.9 L (32-36) g/dL RDW Std Deviation 74.9 H (36.4-46.3) fL RDW Coeff of Sonya 22.4 H (11.5-14.5) % MPV 10.6 H (7.4-10.4) fL PT 14.7 H (9.0-12.0) Seconds INR 1.5 H (0.9-1.1) Sodium (136-145) mmol/L BUN (7-18) mg/dl BUN/Creatinine Ratio (10-20) Glucose (70-99) mg/dl POC Glucose 109 H (70-99) Magnesium (1.8-2.4) mg/dl Ammonia (11-32) umol/L 02/20/18 02/20/18 02/20/18 Range/Units 10:32 11:01 16:33 WBC (4.8-10.8) K/uL RBC (4.2-5.4) M/uL Hgb (12.0-16.0) g/dL Hct (37-47) % MCHC (32-36) g/dL RDW Std Deviation (36.4-46.3) fL RDW Coeff of Sonya (11.5-14.5) % MPV (7.4-10.4) fL PT (9.0-12.0) Seconds INR (0.9-1.1) Sodium 133 L (136-145) mmol/L BUN 20 H (7-18) mg/dl BUN/Creatinine Ratio 27.0 H (10-20) Glucose 116 H (70-99) mg/dl POC Glucose 108 H (70-99) Magnesium 1.7 L (1.8-2.4) mg/dl Ammonia 10.0 L (11-32) umol/L _ (1) Volume overload Hypervolemia type: other Qualified Code(s): E87.79 - Other fluid overload
--- NOTE | 2018-02-20 09:26 | Orthopedic Progress Note ---
Date of Service February 20, 2018 Assessment & Plan (1) Status post incision and drainage: S/P I & D right hip wound, 02/08/18 Wound irritated from continued drainage. Would recommend twice daily dressing changes and PRN to keep incision area dry as possible. Discussed and encouraged exercises that she could do in bed. Encouraged out of bed, sitting in chair or at bedside. Non weight bearing right lower extremity Continue Heparin for DVT prophylaxis. Discussed wound with Ludy Roger - wound care nurse, possibly application of incisional wound vac today. Will continue to follow. Will discuss findings with Dr. Donita Young out the rest of week, Renetta and Dr Duckworth covering. I, Dr. Duckworth, saw and examined the patient and discussed the management with my PA. I reviewed my PAs note and agree with the documented findings and the plan of care I developed. Wound vac in place. Planned changes -- by wound care nurse. Subjective Patient lying in bed. No complaints. Physical Exam 2 Vital Signs (Past 24 Hours): Last Vital Signs Temp 37.0 C 02/20/18 07:50 Pulse 103 H 02/20/18 07:50 Resp 16 02/20/18 07:50 BP 98/62 L 02/20/18 07:50 Pulse Ox 93 02/20/18 07:50 Physical Exam: Right hip incision with retained intact sutures, mild surrounding edema of incision. Leg edema significantly improved, 1+ dorsalis pedis pulse. Incision still with serousanguinous drainage, no purulence, dressings recently changed, surrounding erythema, mildly improved. Wound Vac in place minimal drainage this evening.
[2018-02-20] MEDS: FUROSEMIDE IV SCH (09:29)
[2018-02-20] MEDS: ALBUMIN 25% IV SCH (09:29)
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
[2018-02-20 11:00] LABS: Calcium 8.6 mg/dl (8.5-10.1); Creatinine Clr Calc Pharmacy 83.6 ml/min; Est GFR (African American) 105.2; Est GFR (Non-African American) 90.8; Magnesium 1.7 mg/dl (1.8-2.4); Phosphorus 2.6 mg/dl (2.5-4.9); Potassium 4.8 mmol/L (3.5-5.1)
[2018-02-20] MEDS ORDERED: KETOROLAC 30 MG/ML VIAL IV STA (16:05)
[2018-02-20] MEDS ORDERED: ZOLPIDEM TARTRATE 5 MG TAB PO PRN (19:08)
[2018-02-21] MEDS: CHECK FENTANYL PATCH PLACEMENT SCH ×5 (00:14→16:51)
[2018-02-21 05:49] LABS: Basophils # (auto) 0.06 K/uL (0-0.2); Basophils % (auto) 0.4 %; Eosinophils # (auto) 0.25 K/uL (0-0.5); Eosinophils % (auto) 1.9 %; Hematocrit (blood only) 28.3 % (37-47); Hemoglobin 8.9 g/dL (12.0-16.0); Immature Granulocytes # (auto) 0.11 K/uL (0.00-0.02); Immature Granulocytes % (auto) 0.8 %; Lymphocytes # (auto) 1.13 K/uL (1.2-3.4); Lymphocytes % (auto) 8.4 %; Mean Corpuscular Hgb Conc 31.4 g/dL (32-36); Mean Corpuscular Volume 93.1 fL (80-100); Mean Platelet Volume 9.8 fL (7.4-10.4); Monocytes % (auto) 7.4 %; Neutrophils # (auto) 10.88 K/uL (1.4-6.5); Neutrophils % (auto) 81.1 %; Platelet Count 189 K/uL (130-400); RDW Coefficient of Variation 21.9 % (11.5-14.5); Red Blood Count 3.04 M/uL (4.2-5.4); White Blood Count 13.43 K/uL (4.8-10.8)
[2018-02-21] MEDS: HEPARIN SOD 5,000 UNIT/0.5 ML VIAL SQ SCH ×3 (05:51→22:10)
[2018-02-21] MEDS: HEPARIN 100 UNIT/ML 5ML FLUSH FLUSH PRN (06:02)
[2018-02-21] MEDS: MoRPHine SULFATE 2 MG/ML CARP IV PRN ×2 (06:03→20:15)
[2018-02-21 06:19] LABS: Anisocytosis Present; Target Cells 1+
[2018-02-21 06:27] LABS: BUN Creatinine Ratio 36.3 (10-20); Calcium 8.7 mg/dl (8.5-10.1); Creatinine Clr Calc Pharmacy 88.4 ml/min; Est GFR (African American) 111.2; Magnesium 1.8 mg/dl (1.8-2.4); Phosphorus 2.8 mg/dl (2.5-4.9); Potassium 4.6 mmol/L (3.5-5.1)
--- NOTE | 2018-02-21 07:08 | Nephrology Progress Note ---
Date of Service February 21, 2018 Assessment & Plan (1) Volume overload: she has this chronically, given prior to admission dependence on paracenteses; now with worsened status in wake of perforated ulcer/peritonitis/ emergent surgery/ ongoing poor po intake/ metastatic colon CA; however in past week she is much improved >><<trial underway of toradol/nsaids for pain control >> in this setting will lower diuretics - lowered lasix to 10 mg bid IV w/ albumin; last evening's dose held at my request -cont to concentrate abtx and all IV meds -- pharmacy assistance appreciated -cont daily weights and work toward daily STANDING weight -- bedweights are trending down nicely as of yesterday -palliative care input appreciated >> appreciate dietary input w/ focus on how to tempt her to eat and FEEDING her every meal w/ multiple small meals daily; getting prosource -CXR 02/13 w/ pulmonary edema - 02/19 CXR w/ improvement in this and weaning 02 now -do not remove knox while we are trying to diurese (2) Electrolyte abnormality: -daily bmp >> again today no repletion needed iv -cont lower po mag daily to lessen GI upset and recently lowered po K bid -goal is to replete IV as much as possible to lessen GI upset so she can focus on optimizing po intake clara protein Subjective seen on rounds 0750 this am; got protein powder and had some w/ dinner. pain RLQ abd moderately controlled. no sob. +BM; no palpitations. no f/c; edema improved, mood better. still not participating in PT Physical Exam 2 Vital Signs (Past 24 Hours): Last Vital Signs Temp 37.2 C 02/21/18 04:00 Pulse 104 H 02/21/18 04:00 Resp 18 02/21/18 04:00 BP 113/59 L 02/21/18 04:00 Pulse Ox 92 02/21/18 04:00 Constitutional: well developed, + cachectic, + frail appearing and cooperative on 2L 02NC in bed Eyes: EOM intact bilaterally ENMT: Mouth: + dry oral mucous membranes Respiratory: able to speak in complete sentences Auscultation: lungs clear to auscultation bilaterally and + diminished lung sounds Cardiovascular: Rate/Rhythm: regular rhythm and + tachycardic (in 90s again) Extremities: + edema (trace dependent; peripheral edema resolved) Gastrointestinal (Abdomen): Inspection/Auscultation: + abdomen distended and normal bowel sounds (? if diminished) Percussion/Palpation: abdomen soft Musculoskeletal: Extremities: + limited ROM of extremities (but improved in terms of edema) Skin: + pallor; no skin tightening Neurologic: awake; not confused Speech / Cognition: normal speech Psychiatric: Orientation: oriented to person, oriented to place and cooperative Apperance: appropriately groomed Eye Contact: + fair eye contact Affect: + flat affect Insight: + limited insight Judgement: + limited judgement Genitourinary: knox w/ ample urine Results & Data Laboratory Results Abnormal lab results 02/21/18 02/21/18 02/21/18 Range/Units 05:27 05:27 05:27 WBC 13.43 H (4.8-10.8) K/uL RBC 3.04 L (4.2-5.4) M/uL Hgb 8.9 L (12.0-16.0) g/dL Hct 28.3 L (37-47) % MCHC 31.4 L (32-36) g/dL RDW Std Deviation 73.0 H (36.4-46.3) fL RDW Coeff of Sonya 21.9 H (11.5-14.5) % Immature Gran # (Auto) 0.11 H (0.00-0.02) K/uL Neut # (Auto) 10.88 H (1.4-6.5) K/uL Lymph # (Auto) 1.13 L (1.2-3.4) K/uL Waldo # (Auto) 1.00 H (0.11-0.59) K/uL Sodium 133 L (136-145) mmol/L BUN 25 H (7-18) mg/dl BUN/Creatinine Ratio 36.3 H (10-20) POC Glucose (70-99) Ionized Calcium 1.11 L (1.12-1.32) mmol/L 02/21/18 Range/Units 16:27 WBC (4.8-10.8) K/uL RBC (4.2-5.4) M/uL Hgb (12.0-16.0) g/dL Hct (37-47) % MCHC (32-36) g/dL RDW Std Deviation (36.4-46.3) fL RDW Coeff of Sonya (11.5-14.5) % Immature Gran # (Auto) (0.00-0.02) K/uL Neut # (Auto) (1.4-6.5) K/uL Lymph # (Auto) (1.2-3.4) K/uL Waldo # (Auto) (0.11-0.59) K/uL Sodium (136-145) mmol/L BUN (7-18) mg/dl BUN/Creatinine Ratio (10-20) POC Glucose 101 H (70-99) Ionized Calcium (1.12-1.32) mmol/L _ (1) Volume overload Hypervolemia type: other Qualified Code(s): E87.79 - Other fluid overload
[2018-02-21] MEDS: KETOROLAC 30 MG/ML VIAL IV PRN (08:46)
[2018-02-21] MEDS: ALBUMIN 25% IV SCH ×2 (08:47→21:07)
[2018-02-21] MEDS: FUROSEMIDE IV SCH ×2 (08:47→21:07)
[2018-02-21] MEDS: MAGNESIUM OXIDE 400 MG TAB PO SCH (08:55)
[2018-02-21] MEDS: POTASSIUM CHLORIDE PWD 20 MEQ PACK PO SCH ×2 (08:55→20:55)
[2018-02-21] MEDS: NYSTATIN/TRIAMCIN OINT 15 GM TUBE EXT SCH ×2 (08:55→21:13)
[2018-02-21] MEDS: PANTOprazole 40 MG TAB PO SCH ×2 (08:55→20:58)
[2018-02-21] MEDS: DRONABINOL 2.5 MG CAP PO SCH ×3 (08:55→20:57)
[2018-02-21] MEDS: PROSOURCE NO CARB 30 ML/PKT PO SCH ×3 (08:55→20:54)
--- NOTE | 2018-02-21 09:51 | Orthopedic Progress Note ---
Date of Service February 21, 2018 Assessment & Plan (1) Status post incision and drainage: S/P I & D right hip wound, 02/08/18 Wound irritated from continued drainage. Would recommend twice daily dressing changes and PRN to keep incision area dry as possible. Discussed and encouraged exercises that she could do in bed. Encouraged out of bed, sitting in chair or at bedside. Non weight bearing right lower extremity Continue Heparin for DVT prophylaxis. Wound vac in place, functioning, minimal drainage in canister. Will continue to follow. Will discuss findings with Dr. Donita Young out the rest of week, Rent[place] and Dr Duckworth covering. Subjective Patient lying in bed. No complaints. Physical Exam 2 Vital Signs (Past 24 Hours): Last Vital Signs Temp 37.2 C 02/21/18 07:43 Pulse 101 H 02/21/18 07:43 Resp 20 02/21/18 07:43 BP 115/65 02/21/18 07:43 Pulse Ox 94 02/21/18 07:43 Physical Exam: Wound vac in place, functioning, skin healthy around vac dressing, distal pulse 1+
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
[2018-02-21] MEDS: fentaNYL 50 MCG/HR TDSY TD SCH (14:19)
[2018-02-22] MEDS: CHECK FENTANYL PATCH PLACEMENT SCH ×4 (00:18→23:03)
[2018-02-22] MEDS: MoRPHine SULFATE 2 MG/ML CARP IV PRN ×2 (04:26→15:23)
[2018-02-22] MEDS: HEPARIN 100 UNIT/ML 5ML FLUSH FLUSH PRN ×4 (04:28→23:01)
[2018-02-22] MEDS: HEPARIN SOD 5,000 UNIT/0.5 ML VIAL SQ SCH ×3 (05:56→22:03)
[2018-02-22 06:14] LABS: Hematocrit (blood only) 28.5 % (37-47); Hemoglobin 8.7 g/dL (12.0-16.0); Mean Corpuscular Hgb Conc 30.5 g/dL (32-36); Mean Corpuscular Volume 94.1 fL (80-100); Mean Platelet Volume 10.3 fL (7.4-10.4); Platelet Count 207 K/uL (130-400); RDW Coefficient of Variation 21.9 % (11.5-14.5); RDW Standard Deviation 74.6 fL (36.4-46.3); Red Blood Count 3.03 M/uL (4.2-5.4); White Blood Count 11.78 K/uL (4.8-10.8)
[2018-02-22 06:50] LABS: BUN Creatinine Ratio 33.4 (10-20); Calcium 8.5 mg/dl (8.5-10.1); Est GFR (African American) 91.4; Est GFR (Non-African American) 78.9; Potassium 4.5 mmol/L (3.5-5.1)
[2018-02-22 06:51] LABS: Phosphorus 3.3 mg/dl (2.5-4.9)
[2018-02-22] MEDS: KETOROLAC 30 MG/ML VIAL IV PRN ×2 (08:56→18:24)
[2018-02-22] MEDS: DRONABINOL 2.5 MG CAP PO SCH ×3 (08:57→22:09)
[2018-02-22] MEDS: POTASSIUM CHLORIDE PWD 20 MEQ PACK PO SCH ×2 (08:59→21:59)
[2018-02-22] MEDS: PROSOURCE NO CARB 30 ML/PKT PO SCH (09:00)
[2018-02-22] MEDS: PANTOprazole 40 MG TAB PO SCH ×2 (09:00→22:02)
[2018-02-22] MEDS: NYSTATIN/TRIAMCIN OINT 15 GM TUBE EXT SCH ×2 (09:00→22:11)
[2018-02-22] MEDS: MAGNESIUM OXIDE 400 MG TAB PO SCH (09:01)
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
[2018-02-22] MEDS: FUROSEMIDE IV SCH ×2 (10:39→21:46)
[2018-02-22] MEDS: ALBUMIN 25% IV SCH ×2 (10:39→21:46)
--- NOTE | 2018-02-22 11:06 | Orthopedic Progress Note ---
Date of Service February 22, 2018 Assessment & Plan (1) Status post incision and drainage: S/P I & D right hip wound, 02/08/18 Wound irritated from continued drainage. Keep incision area dry as possible. Discussed and encouraged exercises that she could do in bed. Encouraged out of bed, sitting in chair or at bedside. Non weight bearing right lower extremity Continue Heparin for DVT prophylaxis. Wound vac in place, functioning, minimal drainage in canister. Will continue to follow. Will discuss findings with Dr. Donita Young out the rest of week, Dr Duckworth covering. I, Dr. Duckworth, saw and examined and agree with the above findings and plan of care. Subjective Patient lying in bed. No complaints. States that she was able to get out of bed yesterday and move around the room and has been eating all meals since lunch yesterday. Pain is controlled with PO meds. Wound vac/dressing changed by wound care nurse this AM. Physical Exam 2 Vital Signs (Past 24 Hours): Last Vital Signs Temp 37.3 C 02/22/18 08:08 Pulse 98 H 02/22/18 08:08 Resp 20 02/22/18 08:08 BP 99/64 L 02/22/18 08:08 Pulse Ox 90 02/22/18 08:08 Physical Exam: Right thigh: dressing intact and draing into wound vac. Skin appears health. NV intact in Rt LE. Calf soft and supple. Able to Dorsi/ plantar flex actively. Periph pulses +1.
[2018-02-22] MEDS ORDERED: TRAZODONE HCL 50 MG TAB PO PRN (11:49)
--- NOTE | 2018-02-22 17:03 | Nephrology Progress Note ---
Date of Service February 22, 2018 Assessment & Plan (1) Volume overload: she has this chronically, given prior to admission dependence on paracenteses; now with worsened status in wake of perforated ulcer/peritonitis/ emergent surgery/ ongoing poor po intake/ metastatic colon CA; however in past week she is much improved >><<trial underway of toradol/nsaids for pain control >> in this setting will lower diuretics - lowered lasix to 10 mg bid IV w/ albumin; last dose weill be on 02/24; at that point or sooner would put on bid po lasix -cont to concentrate abtx and all IV meds -- pharmacy assistance appreciated -cont daily weights and work toward daily STANDING weight -- bedweights are trending down nicely as of yesterday -palliative care input appreciated >> appreciate dietary input w/ focus on how to tempt her to eat and FEEDING her every meal w/ multiple small meals daily; getting prosource -CXR 02/13 w/ pulmonary edema - 02/19 CXR w/ improvement in this and weaning 02 now -do not remove knox while we are trying to diurese (2) Electrolyte abnormality: -daily bmp >> again today no repletion needed iv -cont lower po mag daily to lessen GI upset and recently lowered po K bid -goal is to replete IV as much as possible to lessen GI upset so she can focus on optimizing po intake clara protein Renal will sign off; pls call if further issues arise. Subjective R abd pain 09/14. no sob. cont to improve in eating. wt plateau'd. no knox issues; no palpitations/edema better. ++generalized weakness. no rash. Physical Exam 2 Vital Signs (Past 24 Hours): Last Vital Signs Temp 36.5 C 02/22/18 15:08 Pulse 67 02/22/18 15:08 Resp 20 02/22/18 15:08 BP 160/90 H 02/22/18 15:08 Pulse Ox 99 02/22/18 15:08 Constitutional: well developed, + cachectic, + frail appearing and cooperative lying flat on RA in dark room Eyes: EOM intact bilaterally ENMT: Mouth: + dry oral mucous membranes Respiratory: Auscultation: lungs clear to auscultation bilaterally and + diminished lung sounds Cardiovascular: Rate/Rhythm: regular rate and regular rhythm Extremities: + edema (trace dependent) Gastrointestinal (Abdomen): Inspection/Auscultation: + abdomen distended and normal bowel sounds Percussion/Palpation: + abdomen tender and abdomen soft Musculoskeletal: Extremities: + limited ROM of extremities (but improved in terms of edema) Skin: + pallor; no skin tightening Neurologic: awake; not confused Speech / Cognition: normal speech Psychiatric: Orientation: oriented to person, oriented to place and cooperative Apperance: appropriately groomed Eye Contact: + fair eye contact Affect: + flat affect Insight: + limited insight Judgement: + limited judgement Results & Data Laboratory Results Abnormal lab results 02/21/18 02/22/18 02/22/18 Range/Units 20:05 05:27 05:27 WBC 11.78 H (4.8-10.8) K/uL RBC 3.03 L (4.2-5.4) M/uL Hgb 8.7 L (12.0-16.0) g/dL Hct 28.5 L (37-47) % MCHC 30.5 L (32-36) g/dL RDW Std Deviation 74.6 H (36.4-46.3) fL RDW Coeff of Sonya 21.9 H (11.5-14.5) % Sodium 135 L (136-145) mmol/L BUN 27 H (7-18) mg/dl BUN/Creatinine Ratio 33.4 H (10-20) POC Glucose 113 H (70-99) _ (1) Volume overload Hypervolemia type: other Qualified Code(s): E87.79 - Other fluid overload
[2018-02-23] MEDS: HEPARIN SOD 5,000 UNIT/0.5 ML VIAL SQ SCH (05:44)
[2018-02-23] MEDS: KETOROLAC 30 MG/ML VIAL IV PRN (05:48)
[2018-02-23] MEDS: HEPARIN 100 UNIT/ML 5ML FLUSH FLUSH PRN ×2 (05:49→09:56)
[2018-02-23 06:45] LABS: BUN Creatinine Ratio 35.5 (10-20); Calcium 8.6 mg/dl (8.5-10.1); Creatinine Clr Calc Pharmacy 76.3 ml/min; Est GFR (African American) 95.6; Est GFR (Non-African American) 82.5; Magnesium 2.2 mg/dl (1.8-2.4); Phosphorus 3.5 mg/dl (2.5-4.9); Potassium 4.6 mmol/L (3.5-5.1)
[2018-02-23] MEDS: PANTOprazole 40 MG TAB PO SCH ×2 (08:02→22:22)
[2018-02-23] MEDS: MAGNESIUM OXIDE 400 MG TAB PO SCH (08:03)
[2018-02-23] MEDS: POTASSIUM CHLORIDE PWD 20 MEQ PACK PO SCH ×2 (08:03→22:22)
[2018-02-23] MEDS: DRONABINOL 2.5 MG CAP PO SCH ×3 (08:07→22:21)
[2018-02-23] MEDS: CHECK FENTANYL PATCH PLACEMENT SCH ×2 (08:10→18:23)
[2018-02-23] MEDS ORDERED: OXYCODONE HCL IR 5 MG TAB (IMMEDIATE RELEASE) PO PRN (09:10)
[2018-02-23] MEDS: MoRPHine SULFATE 2 MG/ML CARP IV PRN ×2 (09:55→13:01)
[2018-02-23] MEDS: VENLAFAXINE HCL XR 75 MG CAPXR PO SCH (10:25)
[2018-02-23] MEDS: FUROSEMIDE IV SCH ×2 (10:26→21:49)
[2018-02-23] MEDS: ALBUMIN 25% IV SCH ×2 (10:26→21:49)
[2018-02-23] MEDS: NYSTATIN/TRIAMCIN OINT 15 GM TUBE EXT SCH ×2 (10:32→22:22)
[2018-02-23] MEDS ORDERED: MoRPHine SULFATE 4 MG/ML 1 ML CARP\\VIAL ONE (12:57)
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
[2018-02-23] MEDS ORDERED: ACETAMINOPHEN 325 MG TAB PO PRN (23:25)
[2018-02-23] MEDS ORDERED: ACETAMINOPHEN 65 ML IV PRN (23:30)
[2018-02-23] MEDS ORDERED: MoRPHine SULFATE 4 MG/ML 1 ML CARP\\VIAL IV STA (23:48)
[2018-02-24] MEDS: CHECK FENTANYL PATCH PLACEMENT SCH ×3 (00:20→16:49)
[2018-02-24] MEDS: HEPARIN 100 UNIT/ML 5ML FLUSH FLUSH PRN ×4 (00:24→06:09)
[2018-02-24] MEDS ORDERED: OPTIRAY 320 125ml IV PRN (00:59)
[2018-02-24] MEDS ORDERED: PIPERACILL/TAZOBAC CONSULT ACTIVE PRN (02:43)
--- NOTE | 2018-02-24 02:46 | Hospitalist Progress Note ---
Date of Service February 24, 2018 Subjective Made aware by RN of worsening abdominal pain, right hip/buttock pain. No fever, no chills CT abdomen pelvis initial read showed small seroma measuring 3.5 cm x 1.8 cm after in the subcutaneous tissues along the upper margin of the surgical site. Loculated right subdiaphragmatic collection with enhancing margins that extend to the right paracolic gutter suspicious for infectious/inflammatory process - collection isolated from the surgical drain. AP Worsening abdominal pain, right back/hip pain Abnormal intra-abdominal fluid collection suspicious for infectious/ inflammatory process on CT initial read hx peritonitis secondary to perforated duodenal ulcer status post surgery Patient not septic. IV Zosyn for now Follow official CT read. Will relay developments to AM provider to facilitate General Surgery follow-up evaluation. Physical Exam 2 Vital Signs (Past 24 Hours): Last Vital Signs Temp 36.8 C 02/24/18 00:00 Pulse 98 H 02/24/18 00:00 Resp 20 02/24/18 00:00 BP 103/64 02/24/18 00:00 Pulse Ox 90 02/24/18 00:00
[2018-02-24] MEDS ORDERED: PIPERACILLIN/TAZOBACTAM 4.5 GM in DEXTROSE 5% 100 ML IV ONE (03:00)
[2018-02-24] MEDS: ONDANSETRON INJ 2 MG/ML 2 ML VIAL IV PRN (05:53)
[2018-02-24] MEDS: ZINC OXIDE 16% 45 APPLN, HYDROCORTISONE 1% 45 APPLN, ALUMINUM/MAGNESIUM SUSP 15 ML, BAR... TOP PRN (06:10)
[2018-02-24 06:39] LABS: BUN Creatinine Ratio 27.7 (10-20); Calcium 8.6 mg/dl (8.5-10.1); Creatinine Clr Calc Pharmacy 77.3 ml/min; Est GFR (African American) 97.1; Est GFR (Non-African American) 83.8; Potassium 4.5 mmol/L (3.5-5.1)
--- NOTE | 2018-02-24 07:33 | CT Scan Report ---
ABDOMEN AND PELVIS CT WITH IV CONTRAST CT DOSE: 605.42 mGy.cm HISTORY: Worsening abdominal pain. TECHNIQUE: Multiaxial CT images of the abdomen and pelvis were performed following the use of intrave nous contrast. A dose lowering technique was utilized adhering to the principles of ALARA. COMPARISON STUDY: Abdomen and pelvis CT 02/05/2018. FINDINGS: Small to moderate right and a trace left pleural effusion. These have increased in size. Co nsolidation within the lungs posteriorly favors compressive atelectasis from the pleural effusions. P acemaker wires are noted. No pneumoperitoneum. No pneumatosis. Status post internal fixation of a rig ht acetabular fracture is again noted. There is a small right hip effusion, unchanged. Small amount o f fluid and gas within the soft tissues lateral to the right hip. The stent measures mild peripheral enhancement and is similar to the prior studies. This is likely related to the recent incision. A rec jolene tube is noted and in good position. A Kwan catheter seen within the bladder. This likely account s for the gas within the bladder. The uterus and adnexa are unremarkable. Rectal varicosities are not ed. There is a percutaneous drainage catheter seen within the lower pelvis. Loculated right subdiaphr agmatic fluid which surrounds the lateral aspect of the right hepatic lobe. This demonstrates periphe ral enhancement. However, there is no gas within this fluid collection. The peripheral enhancement ra ises the possibility of a developing abscess. Lobular appearance to the liver and spleen with scatter ed irregular hypodense areas persist. Cholecystectomy. The adrenal glands, pancreas, and kidneys are unremarkable. Stable 1 cm nodule/lymph node adjacent to the right adrenal gland. A few mildly enlarge d and partially calcified periaortic lymph nodes, unchanged. No evidence for bowel obstruction. Quest ion mild thickening within the colon which has improved. Therefore, this suggests a resolving colitis . Skin anne-marie within the midline with a small amount of subcutaneous fluid deep to the skin anne-marie. There is mild body wall edema. Right femoral head impaction injury remains unchanged. IMPRESSION: 1. Interval placement of a drainage catheter within the pelvis with significant decrease in the ascit es. There is only a small to moderate amount of ascites remaining within the upper abdomen. 2. The fluid/ascites within the right upper quadrant demonstrates peripheral enhancement/loculation a nd is located within the subdiaphragmatic/right perihepatic space. The peripheral enhancement raise t he possibility of an inflammatory or infectious process such as an abscess. However, there is no gas identified within this collection at this time. 3. [id number]-[id number] right pleural effusion has increased in size. Trace left pleural effusion persis ts. 4. Interval improvement in the colonic wall thickening consistent with a resolving colitis. 5. Satisfactory support line placement. 6. Postoperative changes within the right hip are again noted as described above. 7. No change in appearance of the liver and spleen. Electronically signed by: Yosef Mooney M.D. 02/24/2018 7:31 AM
[2018-02-24] MEDS: PIPERACILLIN/TAZOBACTAM 3.375 GM in DEXTROSE 5% 100 ML IV SCH ×2 (08:41→16:49)
[2018-02-24] MEDS: PANTOprazole 40 MG TAB PO SCH ×2 (08:42→20:08)
[2018-02-24] MEDS: VENLAFAXINE HCL XR 75 MG CAPXR PO SCH (08:42)
[2018-02-24] MEDS: MAGNESIUM OXIDE 400 MG TAB PO SCH (08:43)
[2018-02-24] MEDS: POTASSIUM CHLORIDE PWD 20 MEQ PACK PO SCH (08:43)
[2018-02-24] MEDS: DRONABINOL 2.5 MG CAP PO SCH ×3 (08:46→20:08)
[2018-02-24] MEDS: NYSTATIN/TRIAMCIN OINT 15 GM TUBE EXT SCH ×2 (08:47→20:08)
[2018-02-24] MEDS ORDERED: ENOXAPARIN INJ 40 MG/0.4 ML SYR SQ SCH (09:00)
[2018-02-24] MEDS ORDERED: MoRPHine SULFATE 4 MG/ML 1 ML CARP\\VIAL ONE (10:33)
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
[2018-02-24] MEDS ORDERED: VANCOMYCIN CONSULT ACTIVE PRN (10:37)
[2018-02-24] MEDS ORDERED: SODIUM CHLORIDE 0.9% 1000ML 500 ML IV ONE (10:40)
[2018-02-24 11:10] LABS: Hematocrit (blood only) 30.4 % (37-47); Hemoglobin 9.1 g/dL (12.0-16.0); Mean Corpuscular Hgb Conc 29.9 g/dL (32-36); Mean Corpuscular Volume 95.9 fL (80-100); Mean Platelet Volume 10.3 fL (7.4-10.4); Platelet Count 225 K/uL (130-400); RDW Coefficient of Variation 21.8 % (11.5-14.5); RDW Standard Deviation 75.7 fL (36.4-46.3); Red Blood Count 3.17 M/uL (4.2-5.4); White Blood Count 20.01 K/uL (4.8-10.8)
[2018-02-24 11:23] LABS: BUN Creatinine Ratio 21.7 (10-20); Calcium 8.5 mg/dl (8.5-10.1); Creatinine Clr Calc Pharmacy 62.2 ml/min; Est GFR (African American) 74.6; Est GFR (Non-African American) 64.4; Potassium 4.4 mmol/L (3.5-5.1)
[2018-02-24] MEDS: MoRPHine SULFATE 4 MG/ML 1 ML CARP\\VIAL IV PRN (11:25)
[2018-02-24] MEDS: SODIUM CHLORIDE 0.9% 1000ML 1,000 ML IV SCH ×2 (11:25→16:49)
[2018-02-24] MEDS ORDERED: DEXTROSE 5% IV SCH (11:30)
[2018-02-24] MEDS ORDERED: VANCOMYCIN HCL IV SCH (11:30)
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
--- NOTE | 2018-02-24 12:18 | Pharmacy Report ---
Pharmacy Abx Initial Consult - Date of Service February 24, 2018 - Pharmacy Dosing Scope Date of Consult: 02/24/18 Consultation requested by: Dr. Purvis Pharmacy is consulted to initiate Vancomycin IV dosing therapy, order appropriate labs and adjust drug dose/frequency. - Subjective The patient is a 57 year old F admitted on 02/06/18 03:20. - Objective Height: 5 ft 5 in Weight: 70.3 kg Vital Signs (Past 12hrs): Vital Signs Temp Pulse Resp BP Pulse Ox 02/24/18 07:53 36.9 C 115 H 20 119/73 90 Lab Results (24hrs): Laboratory Tests (24 Hours) 02/24/18 02/24/18 02/24/18 10:50 10:50 05:36 WBC 20.01 H Creatinine 0.97 0.78 Est Cr Clr Drug Dosing 62.2 77.3 Micro Results: 02/24/18 10:52 Blood Culture - Pending Blood 02/24/18 10:50 Blood Culture - Pending Blood 02/23/18 14:36 WBC Smear - Final Stool 02/08/18 Unknown Gram Stain - Final Hip,Right Aerobic and Anaerobic Culture - Final Layla albicans 02/08/18 Unknown Gram Stain - Final Hip,Right Aerobic and Anaerobic Culture - Final No growth 02/07/18 10:19 Gram Stain - Final Fluid,Undescribed Aerobic and Anaerobic Culture - Final No growth 02/06/18 21:48 Blood Culture - Final Blood No growth 02/06/18 21:39 Blood Culture - Final Blood No growth - Assessment & Plan Assessment 57 year old F with possible perforated duodenal ulcer for which she is on Zosyn and now suspecting Sepsis. Per nephrology notes, patient is fluid restricted and pharmacy is requested to put IV meds in Dextrose rather than saline if possible. Plan Vancomycin for treatment of Sepsis. Vancomycin IV * Estimated PK Parameters: Vd 0.7 L/kg, Kamran 0.065 hr-1, t1/2 10.6 hr * Loading dose: 1750 mg (25 mg/kg) x 1 dose started at 11:30 today. * Maintenance dose: 1000 mg IV (15 mg/kg) every 12 hours ordered to start tonight. * Goal trough level for Sepsis: 15 to 20 mcg/mL * Trough Vanco level ordered for 02/26 before dose at 1200. * Vancomycin bag volume has been concentrated to limit fluid in this patient. Current Vanco concentration = 5 mg/ml which is the recommended max without risking infusion related reaction. Pharmacy will continue to follow and will adjust dose/frequency as necessary. Thank you.
[2018-02-24 13:18] LABS: Basophils # (auto) 0.02 K/uL (0-0.2); Basophils % (auto) 0.1 %; Eosinophils # (auto) 0.29 K/uL (0-0.5); Eosinophils % (auto) 1.4 %; Immature Granulocytes % (auto) 0.5 %; Lymphocytes # (auto) 0.44 K/uL (1.2-3.4); Lymphocytes % (auto) 2.2 %; Monocytes # (auto) 0.49 K/uL (0.11-0.59); Monocytes % (auto) 2.4 %; Neutrophils # (auto) 18.67 K/uL (1.4-6.5); Neutrophils % (auto) 93.4 %
[2018-02-24] MEDS: fentaNYL 50 MCG/HR TDSY TD SCH (13:55)
[2018-02-24 18:13] LABS: Mononuclear WBC Peritoneal 75.8 %; Polynuclear WBC Peritoneal 24.2 %; RBC Peritoneal Fluid (A) < 3000 /uL; WBC Peritoneal Fluid (A) 100 /ul (0-300)
[2018-02-24] MEDS: HEPARIN SOD 5,000 UNIT/0.5 ML VIAL SQ SCH (18:33)
[2018-02-25] MEDS: PIPERACILLIN/TAZOBACTAM 3.375 GM in DEXTROSE 5% 100 ML IV SCH ×2 (00:11→09:10)
[2018-02-25] MEDS: VANCOMYCIN HCL IV SCH ×2 (00:11→13:12)
[2018-02-25] MEDS: CHECK FENTANYL PATCH PLACEMENT SCH ×3 (00:11→16:38)
[2018-02-25] MEDS: DEXTROSE 5% IV SCH ×2 (00:11→13:12)
[2018-02-25] MEDS: SODIUM CHLORIDE 0.9% 1000ML 1,000 ML IV SCH ×2 (01:40→09:11)
[2018-02-25] MEDS: MICONAZOLE NITRATE POWDER 43 GM EXT PRN (05:48)
[2018-02-25] MEDS: MoRPHine SULFATE 4 MG/ML 1 ML CARP\\VIAL IV PRN ×2 (05:57→09:00)
[2018-02-25 06:02] LABS: Mean Corpuscular Hgb Conc 30.4 g/dL (32-36); Mean Platelet Volume 9.5 fL (7.4-10.4); Platelet Count 202 K/uL (130-400)
[2018-02-25 06:37] LABS: Hematocrit (blood only) 25.7 % (37-47); Hemoglobin 7.8 g/dL (12.0-16.0); Mean Corpuscular Volume 95.2 fL (80-100); RDW Coefficient of Variation 21.8 % (11.5-14.5); RDW Standard Deviation 74.8 fL (36.4-46.3)
[2018-02-25 06:39] LABS: ALC (manual) 0.31 K/uL (1.2-3.4); Anisocytosis Present; Eosinophils # (manual) 0.47 K/uL (0-0.5); Hypochromasia Present; Lymphocytes # (manual) 0.31 K/uL (1.2-3.4); Lymphocytes % (manual) 1.7 %; Monocytes # (manual) 0.31 K/uL (0.11-0.59); Monocytes % (manual) 1.7 %; Toxic Granulation 2+; Toxic Vacuolation 1+
[2018-02-25 06:42] LABS: Albumin Level 2.7 gm/dl (3.4-5.0); BUN Creatinine Ratio 23.4 (10-20); Calcium 8.1 mg/dl (8.5-10.1); Creatinine Clr Calc Pharmacy 67.8 ml/min; Est GFR (African American) 82.8; Est GFR (Non-African American) 71.4
[2018-02-25 06:46] LABS: Albumin Globulin Ratio 0.6 (0.9-2); Bilirubin,Total 5.3 mg/dl (0.2-1); Globulin 4.3 gm/dl (2.5-4.0)
[2018-02-25] MEDS: PANTOprazole 40 MG TAB PO SCH (08:56)
[2018-02-25] MEDS: NYSTATIN/TRIAMCIN OINT 15 GM TUBE EXT SCH (09:01)
[2018-02-25] MEDS: VENLAFAXINE HCL XR 75 MG CAPXR PO SCH (09:02)
[2018-02-25] MEDS: DRONABINOL 2.5 MG CAP PO SCH (09:10)
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
--- NOTE | 2018-02-25 10:55 | Progress Note ---
DATE: 02/25/2018 SUBJECTIVE: Oswaldo is seen in followup status post I and D of her right hip wound. It has been a little over 2 weeks since she has had surgery. She has been transferred back to the PCU because of intraabdominal problems. I met with the wound care nurse and we changed the dressing together. High wound VAC drainages have been reported. A trace amount of purulence is expressed from one of the drain holes. The thigh is swollen and mildly red. There is an area between the stitches distally about 1-2 cm in size where there is incomplete wound healing and active copious drainage. This is a seropurulent fluid. The sutures are removed and the wound essentially in its entirety has spontaneously dehisced from a full thickness skin and subcutaneous tissues. The area was then cleansed with dry sponges and a wound VAC is applied. IMPRESSION: Right hip wound dehiscence and probable deep infection, status post incision, irrigation and debridement of a prior right hip surgery, ORIF acetabular fracture. PLAN: I was able to speak with the patient's daughters today. Orthopedically speaking, this would require further surgery. There is likely a deep infection going on based upon the failure of the wound to heal and the length of time since the surgery. A Girdlestone procedure and removal of the plate and screws as well as fracture fragments would be performed. She would have minimal ambulatory capabilities after this, but should be comfortable for bed to chair transfer. I think there could be significant issues with wound healing after that surgery. The other option is not to have surgery and to try to treat this with comfort measures and a wound VAC. I spoke to the daughters at length regarding the orthopedic options. They are in need of further information to make decisions regarding their mother's health care. I have suggested to the palliative care nurse as well as her pillowcase folder that a team meeting be arranged for all those involved to discuss what is going on and what the options implications are for their mom's care including palliative/hospice type management. If hospice care then please continue wound vac MTDD
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
[2018-02-25] MEDS ORDERED: MoRPHine SULF/NSS 250 MG/250 ML BTL IV SCH (13:45)
[2018-02-25] MEDS: ZINC OXIDE 16% 45 APPLN, HYDROCORTISONE 1% 45 APPLN, ALUMINUM/MAGNESIUM SUSP 15 ML, BAR... TOP PRN (21:58)
[2018-02-26] MEDS: CHECK FENTANYL PATCH PLACEMENT SCH ×3 (00:20→15:45)
[2018-02-26] MEDS: ZINC OXIDE 16% 45 APPLN, HYDROCORTISONE 1% 45 APPLN, ALUMINUM/MAGNESIUM SUSP 15 ML, BAR... TOP PRN (05:36)
[2018-02-26] MEDS: VENLAFAXINE HCL XR 75 MG CAPXR PO SCH (08:56)
[2018-02-26] MEDS ORDERED: MoRPHine SULFATE 2 MG/ML CARP IV PRN (09:15)
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
[2018-02-26] MEDS ORDERED: VANCOMYCIN TROUGH ONE (11:30)
[2018-02-26] MEDS ORDERED: MoRPHine SULFATE 4 MG/ML 1 ML CARP\\VIAL ONE (12:03)
--- NOTE | 2018-02-26 12:59 | Hospitalist Progress Note ---
Date of Service February 26, 2018 Assessment & Plan (1) Post-operative state: (2) Sepsis: (3) Physical deconditioning: (4) Chronic pain: (5) Depression: (6) Peritonitis: (7) Malignant neoplasm metastatic to colon: (8) C7 cervical fracture: (9) Status post hip surgery: (10) Severe protein-calorie malnutrition: (11) Comfort measures only status: Patient remains on comfort care measures. She is doing well on a morphine drip approximately 3 mg an hour. Respiratory rate per hour is about 10 breaths. Will decrease morphine to 2 mg an hour. Continue as needed morphine pushes during times of turning as patient cries out in pain per nursing staff. She otherwise appears extremely comfortable and family is happy with her status. They are at bedside. Discussed the fact that her abdomen is more distended today and the infection may be evolving. Per nursing staff some bright red blood was seen in rectal tube last night along with some clots. This is resolved this morning. Rectal tube, SUSAN drain, wound VAC, Kwan all remain in place for the patient's comfort at this time. Continue fentanyl patch and morphine drip, titrated to comfort. Discussed with palliative getting inpatient hospice involved. This is still pending. America Purvis DO [facility] Hospitalist Subjective 57-year-old female status post multiple surgeries and metastatic colon cancer to liver now on comfort care measures. She appears comfortable and family is happy with current status. Plan was discussed for today with family and all questions were answered. Discussed the case with the nurse regarding titration of morphine drip. Physical Exam 2 Vital Signs (Past 24 Hours): Last Vital Signs Temp 36.9 C 02/25/18 11:31 Pulse 101 H 02/25/18 11:31 Resp 18 02/25/18 11:31 BP 101/56 L 02/25/18 11:31 Pulse Ox 93 02/25/18 11:31 GEN: comfortable, breathing comfortably around 10 breaths/min, somnolent, not responding to verbal stimuli HEENT: MMM ABD: SUSAN drain in place, soft, nondistended, gauze covering abdominal incision. Kwan and rectal tube in place. Abdomen is more distended today. Skin: L hip surgical wound covered with wound vac still in place. NEURO: somnolent. Results & Data Medications Administered Current Inpatient Medications Acetaminophen (Tylenol) 650 mg PO Q6H PRN PRN Reason: Fever Stop: 03/25/18 23:24 Petrolatum 45 appln/Hydrocortisone 45 appln/ Al Hydrox/Mg Hydrox/Simethicone 15 ml/ BARCODE IDENTIFIER 1 ea 0 appln TOP PRN PRN PRN Reason: Diaper Rash Stop: 03/14/18 17:24 Last Admin: 02/26/18 05:36 Dose: 1 appln Fentanyl (Duragesic) 50 mcg TD Q3D KISHOR Stop: 03/07/18 13:59 Last Admin: 02/24/18 13:55 Dose: 50 mcg Morphine Sulfate (Morphine Sulf/Nss) 250 mg in 250 mls @ 1 mls/hr IV .Q24H KISHOR ; Protocol Stop: 03/11/18 13:44 Last Titration: 02/26/18 05:36 Dose: 3 mg/hr, 3 mls/hr Miscellaneous (Fentanyl Patch Remove & Waste) 1 ea N/A Q72H KISHOR Stop: 03/26/18 13:59 Last Admin: 02/24/18 13:56 Dose: 1 ea Miscellaneous (Fentanyl Patch Check Placement) 1 ea N/A QS KISHOR Stop: 03/23/18 00:00 Last Admin: 02/26/18 08:55 Dose: 1 ea Morphine Sulfate (Morphine Sulfate) 1 mg IV Q2H PRN PRN Reason: Pain or SOB Stop: 03/12/18 12:06 Ondansetron HCl (Zofran) 4 mg IV Q6H PRN PRN Reason: Nausea Stop: 03/08/18 02:32 Last Admin: 02/24/18 05:53 Dose: 4 mg _ (1) C7 cervical fracture Encounter type: sequela Fracture type: closed Fracture morphology: unspecified fracture morphology Fracture alignment: nondisplaced Fracture healing: Qualified Code(s): S12.601S - Unspecified nondisplaced fracture of seventh cervical vertebra, sequela
[2018-02-26] MEDS: MoRPHine SULFATE 4 MG/ML 1 ML CARP\\VIAL IV PRN (13:27)
[2018-02-27] MEDS: CHECK FENTANYL PATCH PLACEMENT SCH ×4 (00:10→23:58)
--- NOTE | 2018-02-27 08:21 | Hospitalist Progress Note ---
Date of Service February 27, 2018 Assessment & Plan (1) Sepsis: Presented with sepsis secondary to perforated duodenal ulcer. Exploratory laparotomy performed and IV antibiotics administered. Follow-up CT of abdomen and pelvis on 02/23/18 demonstrated persistent fluid collection in right upper quadrant consistent with intra-abdominal abscess. Underlying metastatic colon cancer. Treatment plan transitioned to comfort measures only per discussion with family. No further antibiotics or surgical intervention. (2) Cancer associated pain: Pain well controlled on fentanyl patch and IV morphine infusion. (3) Comfort measures only status: Metastatic colon cancer with recent events as noted. Terminally ill. Palliative Care team consulted. Continue palliative measures. (4) DVT prophylaxis: Not indicated at this time due to terminal illness and comfort measures only. (5) Colon cancer: Colon cancer with metastases to liver. (6) Discharge planning issues: Terminally ill and actively dying. Unable to be discharged to home due to current care needs. Anticipated the patient will during this hospital stay. Subjective Recheck for multiple problems. Patient was seen in her room around 0800. Now receiving comfort measures only. Receiving IV morphine infusion for management of pain. She opened her eyes, but was confused. Denied chest pain, cough, shortness of breath, nausea, vomiting. Physical Exam 2 Vital Signs (Past 24 Hours): Last Vital Signs Temp 36.9 C 02/25/18 11:31 Pulse 101 H 02/25/18 11:31 Resp 18 02/25/18 11:31 BP 101/56 L 02/25/18 11:31 Pulse Ox 93 02/25/18 11:31 Constitutional: + ill appearing; no acute distress Eyes: + scleral abnormality (icteric) Respiratory: no respiratory distress Auscultation: + rhonchi (few) Cardiovascular: Rate/Rhythm: regular rate and + tachycardic Extremities: + edema (1+ pretibial) Gastrointestinal (Abdomen): Inspection/Auscultation: + abdomen distended Percussion/Palpation: abdomen soft Musculoskeletal: Extremities: no cyanosis Neurologic: + confused myoclonic jerking Genitourinary: + abnormal external appearance (Kwan cath) _ (1) Colon cancer Colon location: unspecified part of colon Qualified Code(s): C18.9 - Malignant neoplasm of colon, unspecified
[2018-02-27] MEDS ORDERED: LORazepam 0.5 MG/1 ML VIAL IV PRN (09:35)
--- NOTE | 2018-02-27 10:04 | Progress Note ---
DATE: 02/27/2018 The patient is currently on hospice care. We met and spoke with her daughter just. I recommend we continue the wound VAC for skin and hygiene purposes. This can be changed through Ludy Caceres, the wound nurse. We will continue to monitor.
[2018-02-27] MEDS: MoRPHine SULFATE 4 MG/ML 1 ML CARP\\VIAL IV PRN ×2 (11:43→18:17)
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
[2018-02-27] MEDS ORDERED: ATROPINE SULFATE 1% OP SOLN 2 ML BTL ONE (12:52)
[2018-02-27] MEDS ORDERED: SCOPOLAMINE 1.5 MG TDSY TD SCH (13:00)
[2018-02-27] MEDS: ATROPINE SULFATE 1% OP SOLN 5 ML BTL OP PRN ×3 (14:20→18:18)
[2018-02-27] MEDS: fentaNYL 50 MCG/HR TDSY TD SCH (15:18)
[2018-02-27] MEDS: CHECK SCOPOLAMINE PATCH PLACEMENT SCH ×2 (17:18→23:58)
[2018-02-27] MEDS: GLYCOPYRROLATE 0.2 MG/ML VIAL IV PRN ×2 (18:54→23:04)
[2018-02-28] MEDS: ATROPINE SULFATE 1% OP SOLN 5 ML BTL OP PRN (03:33)
[2018-02-28] MEDS: MoRPHine SULFATE 4 MG/ML 1 ML CARP\\VIAL IV PRN (03:41)
[2018-02-28] MEDS: GLYCOPYRROLATE 0.2 MG/ML VIAL IV PRN (03:53)
--- NOTE | 2018-02-28 05:39 | Death Summary ---
Date of Service February 28, 2018 I was called that patient at 4:48am today Feb. Exam: Ge unresponsive Eyes: Pupils fixed, dilated and non reactive to light Neck No carotid pulse on palpation Rs: no spontaneous breathing seen, No breath sounds on ascultation CVS No heart sounds heard on ascultation. Patient today Feb 28 2018 at 4:48. Friend who is the primary contact on the chart was called and notified. She said she will call the daughter. Pronouncement Note Contributing Factors (1) Sepsis: (2) Cancer associated pain: (3) Comfort measures only status: (4) DVT prophylaxis: (5) Colon cancer: (6) Discharge planning issues: Additional Data Attending physician: Froy Barney MD
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
== END 2018-02-28 07:32 | disposition expired | DRG 326 ==
LOC: ED 21:00 → 1E 02-06 00:32 → SUATTDRO 02-06 03:20 → 1E 02-06 03:20 → 2E 02-09 12:50 → 4E 02-17 12:28 → 2E 02-17 12:33 → 4E 02-17 13:35 → 2S 02-24 12:01 → 4E 02-25 14:39
DX: Z79.891 Long term (current) use of opiate analgesic; Y83.1 Surgical operation with implant of artificial internal device as the cause of abnormal reaction of the patient, or of later complication, without mention of misadventure at the time of the procedure; G89.3 Neoplasm related pain (acute) (chronic); E87.6 Hypokalemia; K26.5 Chronic or unspecified duodenal ulcer with perforation; Z87.891 Personal history of nicotine dependence; G47.00 Insomnia, unspecified; V89.2XXA Person injured in unspecified motor-vehicle accident, traffic, initial encounter; Z98.890 Other specified postprocedural states; C78.6 Secondary malignant neoplasm of retroperitoneum and peritoneum; J95.821 Acute postprocedural respiratory failure; Z79.899 Other long term (current) drug therapy; E43 Unspecified severe protein-calorie malnutrition; Z51.5 Encounter for palliative care; K75.0 Abscess of liver; C18.9 Malignant neoplasm of colon, unspecified; C78.7 Secondary malignant neoplasm of liver and intrahepatic bile duct; S32.401A Unspecified fracture of right acetabulum, initial encounter for closed fracture; F32.9 Major depressive disorder, single episode, unspecified; K91.82 Postprocedural hepatic failure; T81.31XA Disruption of external operation (surgical) wound, not elsewhere classified, initial encounter; T81.41XA Infection following a procedure, superficial incisional surgical site, initial encounter; R18.0 Malignant ascites; E87.79 Other fluid overload; Z88.5 Allergy status to narcotic agent; S12.600A Unspecified displaced fracture of seventh cervical vertebra, initial encounter for closed fracture; A41.9 Sepsis, unspecified organism; G93.41 Metabolic encephalopathy; L76.34 Postprocedural seroma of skin and subcutaneous tissue following other procedure; K65.0 Generalized (acute) peritonitis; E83.42 Hypomagnesemia; Z66 Do not resuscitate; L89.152 Pressure ulcer of sacral region, stage 2